=== PATIENT | male | born 1950 | race Caucasian/White ===

== ENCOUNTER 2017-10-24 12:02 | Emergency (ER) | payer MEDICARE ==
--- OUTSIDE RECORDS SUMMARY | 2017-10-24 13:10 | XMS REPORT ---
:1950 External Reference #:[id number] Author Organization [employer] Address [address] [address] Phone [phone] Care Team Providers Name Role Phone Layne Guadarrama MD Primary Care Physician Unavailable Payers Type Date Identification Numbers Payment Provider Subscriber Medicare Primary Policy Number: [id number] Medicare Colton Almazan [employer]co PayID: [id number] [address] [place] [address] [facility] Part B Policy Number: [id number] [facility] Colton Almazan Fco PayID: [id number] [address] [place] [address] Problems Date Description Provider Status Onset: 08/20/2012 Gout Brandin Boggs M.D. 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 Active & Unspec Onset: 02/04/2013 Blood chemistry abnormal Brandin Boggs M.D. Active Onset: 04/28/2013 Disorder of muscle Brandin Boggs M.D. Active Onset: 07/21/2013 Bursitis Brandin Boggs M.D. Active Onset: 11/10/2013 Spinal stenosis of lumbar region Brandin Boggs M.D. Active Onset: 04/27/2014 Idiopathic peripheral neuropathy Brandin Boggs M.D. Active Onset: 05/27/2014 Diabetic polyneuropathy Brandin Boggs M.D. Active Onset: 05/12/2017 Localized, primary osteoarthritis Hanna Wolfe M.D. 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 No Do you have problems with snoring, Day time fatigue? Uses Bi-PAP Allergies, Adverse Reactions, Alerts Date Description Reaction Status Severity Comments 03/05/2011 NKDA active Medications Medication Date Status Form Strength Qnty SIG Indications Ordering Provider Toprol XL 06/30 Active Tablets 25mg 90tab 1 by mouth I49.3 ER 24HR s every day Toma Gonzalez M.D. Bipap 06/22 Active Device use at at bedtime Vitamin B 100 06/20 Active Tablets 1 by mouth every day Toma Gonzalez M.D. Neurontin 05/27 Active Capsules 100mg 360ca 2 po hs prn ps pain, pt is Endo, taking M.D. daily Allopurinol 03/05 Active Tablets 300mg 30tab 1 po qd s Aaron Boggs Asa Active 325mg 30uni 1 po qd ts Pravastatin Sodium Active Tablets 40mg 30tab 1 tablet by / s mouth once daily at bedtime Losartan Potassium Active Tablets 100mg 1 by mouth every day Melatonin Active Capsules 3mg 1 tab by Unknown /0000 mouth every night at bedtime Hydrochlorothiazid Active Tablets 25mg 1 by mouth Unknown e every day Glucosamine Active Capsules 1500mg 1 by mouth Unknown Chondroitin 500 /0000 once a day Complex Vitamin B-12 Active Tablets 1000mcg 1 by mouth Unknown every day Metformin HCL ER Active Tablets 750mg 1 by mouth ER 24HR every day Vitamin D Active Chewtabs 2000Unit 2 by mouth Unknown every day Coenzyme Q-10 Active Capsules 100mg 1 by mouth Unknown every day Flector Active Patches 1.3% apply as needed for pain Xanax Active Tablets 1mg take 1/2-1 pills hs prn Ritalin Active 10 mg - 1 tab up to tid on empty stomach prn Viagra Active Tablets 100mg by mouth 0.5 or 1 tab up to every day as directed, no more than three days per week Diclofenac Sodium Active Tablets 75mg take 1 DR tablet twice a day with food as needed Amlodipine Active 5mg qd Unknown Coumadin 06/27 Hx Tablets 2mg 90tab take 1-3 s tabs by Aiden, - mouth at 5 M.D. 07/14 at night directed(pt has not started) Oxycodone-Acetamin 06/27 Hx Tablets 5-325mg 90tab 1-2 tabs by Hanna arenas s mouth every Aiden, - 4-6 hours M.D. 09/28 as needed for pain Stool Softener 06/27 Hx Capsules 100mg 90cap 1 by mouth s 2-3 times Aiden, - daily while M.D. 09/28 on narcotic /2017 pain medication Crestor 02/04 Hx Tablets 5mg 90tab 1 po qd s Ordering - Provider 07/21 Diclofenac Sodium 04/08 Hx Tablets 75mg 60tab 1 tab by Brandin COTTO /2011 s mouth twice Endo, - a day M.D. 05/11 Flector 09/03 Hx Patches 1.3% 60uni topical ts twice a day Endo, - M.D. 05/11 Pennsaid 07/02 Hx Solution 1.5% 150ml apply 40 bot drops to Endo, - painful M.D. 05/11 joints to qid Lidoderm 06/06 Hx Patches 5% 30uni one patch ts daily on Endo, - for 12 h M.D. 07/21 Diclofenac Sodium 03/05 Hx Tablets 75mg 90tab [address] cesar Boggs, - M.D. 09/03 Allopurinol 03/05 Hx Tablets 100mg 180ta Take one bs Tablets By Endo, - Mouth Every M.D. 06/29 Day addition to the 300 mg tab(Pt no longer taking) Viagra Hx Tablets 100mg 6tabs po 0.5 or 1 Unknown / tab 1h - before 05/11 Lisinopril Hx Tablets 40mg 30tab 1 po qd / s - 05/11 Neurontin Hx Capsules 100mg 360ca 3 qid ryan Boggs, - M.D. 05/27 Hydrochlorothiazid Hx Tablets 25mg 90tab 1 po qd Unknown e /0000 s - 04/28 Lipitor Hx Tablets 40mg 30tab 1 po qhs Unknown /0000 s - 08/20 Felodipine ER 00 Hx Tablets 5mg 90tab 1 po qd Unknown /0000 ER 24HR s - 06/10 Metformin HCL Hx Tablets 500mg 60tab 1 po qd Unknown /0000 s - 05/11 Vitamin B 00/00 Hx Unknown /0000 - 06/10 Hydrochlorothiazid 00 Hx Tablets 12.5mg 1 by mouth Unknown e / every day - 06/10 Vitamin D / Hx Capsules 4000mg Unknown /0000 - 06/10 Diclofenac Sodium Hx Solution 1.5% apply pea Unknown /0000 sized - amount to 07/14 area, 4 times a day as needed Fish Oil Hx Capsules 1000mg 1 by mouth Unknown /0000 every day - (pt no 06/29 taking) Felodipine ER 00/00 Hx Tablets 10mg 1 by mouth Unknown /0000 ER 24HR every day - 09/11 Glucophage 00/00 Hx Tablets 750mg 1 by mouth Unknown /0000 daily with - meal 06/18 Pennsaid 00 Hx Solution 2% apply 40 Unknown /0000 drops - daily to 06/18 low back prn pain Cialis Hx Tablets 10mg every day Unknown /0000 as needed - 06/29 Oxycodone-Acetamin Hx Tablets 2.5-325mg take 1 - 2 Unknown ophen /0000 tabs by - mouth every 09/28 4 - 6 hours /2017 Medications Administered in Office Medication Date Status Form Strength Qnty SIG Indications Ordering Provider Depomedrol Administered Injection Hanna 40MG 018 Aaron Wolfe Depomedrol Administered Injection Hanna 40MG 018 Aaron Wolfe Inj, Administered Injection Mejia Chua Regadenoson, 017 Aaron Gonzalez 0.1 MG Technetium TC Administered Injection Mejia Chua 99M 017 Aaron Gonzalez Tetrofosmin, Per Unit Dose Up To 40 Millicuries Celestone 3 mg Administered Injection Dorene and 3mg 013 Nicanor monk M.D. Depomedrol Administered Injection Hobler, 40MG 010 Jenae Basilio Vital Signs Date Vital Result Comment 10/17/2017 Height 73 inches 6'1" Weight 342.00 lb No shoes Heart Rate 74 /min BP Systolic Sitting 136 mmHg Lue lrg cuff BP Diastolic Sitting 66 mmHg Lue lrg cuff BP Systolic Standing 142 mmHg Lue lrg cuff BP Diastolic Standing 68 mmHg Lue lrg cuff Respiratory Rate 15 /min BMI (Body Mass Index) 45.1 kg/m2 Ejection Fraction 40-45% 06/25/2017-echo 09/29/2017 Height 73 inches 6'1" Weight 330.00 lb Heart Rate 46 /min BP Systolic Sitting 128 mmHg BP Diastolic Sitting 58 mmHg Respiratory Rate 14 /min O2 % BldC Oximetry 97 % BMI (Body Mass Index) 43.5 kg/m2 Neck Circumference in inches 19 09/12/2017 Height 73 inches 6'1" Weight 335.00 lb Heart Rate 60 /min BP Systolic 134 mmHg BP Diastolic 64 mmHg BMI (Body Mass Index) 44.2 kg/m2 07/15/2017 Height 71.25 inches 5'11.25" Weight 342.00 lb w/shoes Heart Rate 68 /min BP Systolic Sitting 112 mmHg LA lg cuff BP Diastolic Sitting 68 mmHg LA lg cuff BP Systolic Standing 116 mmHg LA lg cuff BP Diastolic Standing 70 mmHg LA lg cuff BMI (Body Mass Index) 47.4 kg/m2 Ejection Fraction 40-45% Echo 06/25/17 07/01/2017 Height 71.25 inches 5'11.25" Weight 343.00 lb w/ shoes Heart Rate 70 /min BP Systolic Sitting 138 mmHg lue large cuff BP Diastolic Sitting 58 mmHg lue large cuff Respiratory Rate 18 /min BMI (Body Mass Index) 47.5 kg/m2 Ejection Fraction 40-45% echo 06/25/17 06/30/2017 Height 71.25 inches 5'11.25" Weight 345.25 lb with shoes Heart Rate 64 /min BP Systolic Sitting 140 mmHg LA lrg cuff BP Diastolic Sitting 68 mmHg LA lrg cuff BMI (Body Mass Index) 47.8 kg/m2 Ejection Fraction 40%-45% echo 06/25/17 06/20/2017 Height 71.25 inches 5'11.25" Weight 339.00 lb no shoes Heart Rate 70 /min BP Systolic 130 mmHg Rue lrg cuff BP Diastolic 62 mmHg Rue lrg cuff BP Systolic Sitting 128 mmHg Lue lrg cuff BP Diastolic Sitting 60 mmHg Lue lrg cuff BP Systolic Standing 120 mmHg Lue lrg cuff BP Diastolic Standing 58 mmHg Lue lrg cuff Respiratory Rate 15 /min BMI (Body Mass Index) 46.9 kg/m2 Ejection Fraction 65% 04/22/2006-echo 06/18/2017 Height 73 inches 6'1" Weight 339.00 lb Heart Rate 52 /min BP Systolic 129 mmHg BP Diastolic 68 mmHg Body Temperature 96.7 F Pain Level 0 BMI (Body Mass Index) 44.7 kg/m2 05/12/2017 Height 73 inches 6'1" Weight 330.00 lb Heart Rate 63 /min BP Systolic 158 mmHg BP Diastolic 71 mmHg BMI (Body Mass Index) 43.5 kg/m2 05/27/2014 Height 73 inches 6'1" Weight 348.25 lb Heart Rate 66 /min BP Systolic Sitting 130 mmHg BP Diastolic Sitting 62 mmHg Pain Level 1 BMI (Body Mass Index) 45.9 kg/m2 04/27/2014 Height 73 inches 6'1" Weight 343.00 lb Heart Rate 64 /min irreg BP Systolic Sitting 132 mmHg BP Diastolic Sitting 60 mmHg Pain Level 3 BMI (Body Mass Index) 45.2 kg/m2 02/02/2014 Height 73 inches 6'1" Weight 347.00 lb Heart Rate 68 /min BP Systolic Sitting 134 mmHg BP Diastolic Sitting 54 mmHg Pain Level 0 BMI (Body Mass Index) 45.8 kg/m2 11/10/2013 Height 73 inches 6'1" Weight 345.00 lb Heart Rate 54 /min irregular BP Systolic Sitting 130 mmHg BP Diastolic Sitting 86 mmHg BMI (Body Mass Index) 45.5 kg/m2 07/21/2013 Height 73 inches 6'1" Weight 346.00 lb Heart Rate 68 /min BP Systolic Sitting 144 mmHg BP Diastolic Sitting 70 mmHg BMI (Body Mass Index) 45.6 kg/m2 04/28/2013 Height 73 inches 6'1" Weight 335.00 lb Heart Rate 68 /min skipped beat [id number] BP Systolic 128 mmHg BP Diastolic 78 mmHg BMI (Body Mass Index) 44.2 kg/m2 03/19/2013 Height 73 inches 6'1" Weight 335.00 lb Heart Rate 73 /min BP Systolic 121 mmHg BP Diastolic 61 mmHg BMI (Body Mass Index) 44.2 kg/m2 02/04/2013 Height 70 inches 5'10" Weight 337.00 lb Heart Rate 81 /min BP Systolic Sitting 140 mmHg BP Diastolic Sitting 68 mmHg BMI (Body Mass Index) 48.3 kg/m2 08/20/2012 Height 70 inches 5'10" Weight 340.00 lb Heart Rate 82 /min BP Systolic Sitting 128 mmHg BP Diastolic Sitting 68 mmHg BMI (Body Mass Index) 48.8 kg/m2 09/03/2011 Weight 345.00 lb Heart Rate 76 /min BP Systolic 134 mmHg BP Diastolic 64 mmHg 03/05/2011 Heart Rate 80 /min BP Systolic 130 mmHg BP Diastolic 72 mmHg Results Test Date Test Result H/L Range Note Basic Metabolic Panel 07/09/2017 Sodium 138 mmol/L 133-145 Potassium 3.9 mmol/L 3.5-5.0 Chloride 105 mmol/L 101-111 Co2 Carbon Dioxide 24 mmol/L 22-32 Anion Gap 9 mmol/L 2-11 Glucose 110 mg/dL High 70-100 Blood Urea Nitrogen 25 mg/dL High 6-24 Creatinine 1.29 mg/dL High 0.67-1.17 BUN/Creatinine Ratio 19.4 8-20 Calcium 9.1 mg/dL 8.6-10.3 Egfr Non- 55.2 >60 Egfr 71.0 >60 1 Pre Cath Panel 07/03/2017 Partial Thrombo Time PTT 31.8 seconds 26.0- 36.3 CBC Auto Diff 07/03/2017 White Blood Count 9.7 10^3/uL 3.5-10.8 Red Blood Count 4.61 10^6/uL 4.0-5.4 Hemoglobin 13.6 g/dL Low 14.0-18.0 Hematocrit 40 % Low 42-52 Mean Corpuscular Volume 87 fL 80-94 Mean Corpuscular Hemoglobin 30 pg 27-31 Mean Corpuscular HGB Conc 34 g/dL 31-36 Red Cell Distribution Width 16 % High 10.5-15 Platelet Count 170 10^3/uL 150-450 Mean Platelet Volume 8 um3 7.4-10.4 Abs Neutrophils 6.4 10^3/uL 1.5-7.7 Abs Lymphocytes 2.5 10^3/uL 1.0-4.8 Abs Monocytes 0.5 10^3/uL 0-0.8 Abs Eosinophils 0.2 10^3/uL 0-0.6 Abs Basophils 0.1 10^3/uL 0-0.2 Abs Nucleated RBC 0.01 10^3/uL Granulocyte % 66.3 % 38-83 Lymphocyte % 25.6 % 25-47 Monocyte % 5.6 % 1-9 Eosinophil % 1.9 % 0-6 Basophil % 0.6 % 0-2 Nucleated Red Blood Cells % 0.1 Inr/Protime 07/03/2017 Inr 0.97 0.89-1.11 Basic Metabolic Panel 07/03/2017 Sodium 139 mmol/L 133-145 Potassium 4.1 mmol/L 3.5-5.0 Chloride 104 mmol/L 101-111 Co2 Carbon Dioxide 26 mmol/L 22-32 Anion Gap 9 mmol/L 2-11 Glucose 101 mg/dL High 70-100 Blood Urea Nitrogen 24 mg/dL 6-24 Creatinine 1.07 mg/dL 0.67-1.17 BUN/Creatinine Ratio 22.4 High 8-20 Calcium 9.8 mg/dL 8.6-10.3 Egfr Non- 68.7 >60 Egfr 88.4 >60 2 Inr/Protime 06/18/2017 Inr 0.96 0.89-1.11 3 Laboratory test finding 06/18/2017 Partial Thrombo Time 32.3 seconds 26.0 -36.3 3, 4 PTT Type & Screen 06/18/2017 Patient Blood Type A Positive 3 Antibody Screen NEGATIVE 3 CBC No Diff 05/05/2014 White Blood Count 7.5 10^3/uL 4.8-10.8 5 Red Blood Count 4.52 10^6/uL 4.0-5.4 5 Hemoglobin 13.3 g/dL Low 14.0-18.0 5 Hematocrit 39 % Low 42-52 5 Mean Corpuscular Volume 87 fL 80-94 5 Mean Corpuscular Hemoglobin 29 pg 27-31 5 Mean Corpuscular HGB Conc 34 g/dL 31-36 5 Red Cell Distribution Width 15 % 10.5-15 5 Platelet Count 166 10^3/uL 150-450 5 Mean Platelet Volume 8 um3 7.4-10.4 5 Comp Metabolic Panel 05/05/2014 Sodium 140 mmol/L 133-145 5 Potassium 4.3 mmol/L 3.7-5.6 5 Chloride 109 mmol/L 101-111 5 Co2 Carbon Dioxide 23 mmol/L 22-32 5 Anion Gap 8 mmol/L 2-11 5 Glucose 113 mg/dL High 70-100 5 Blood Urea Nitrogen 20 mg/dL 6-24 5 Creatinine 0.99 mg/dL 0.67-1.17 5 BUN/Creatinine Ratio 20.2 High 8-20 5 Calcium 9.2 mg/dL 8.6-10.3 5 Total Protein 6.8 g/dL 6.4-8.9 5 Albumin 4.0 g/dL 3.2-5.2 5 Globulin 2.8 g/dL 2-4 5 Albumin/Globulin Ratio 1.4 1-3 5 Total Bilirubin 0.60 mg/dL 0.2-1.0 5 Alkaline Phosphatase 55 U/L 34-104 5 Alt 27 U/L 7-52 5 Ast 42 U/L High 13-39 5 Egfr Non- 75.9 >60 5 Egfr 97.6 >60 5, 6 Lipid Profile (Trig/Chol/HDL) 05/05/2014 Triglycerides 117 mg/dL 5, 7 Cholesterol 171 mg/dL 5, 8 HDL Cholesterol 38.5 mg/dL 5, 9 LDL Cholesterol 109 mg/dL 5, 10 Laboratory test finding 05/05/2014 Creatine Kinase 155 U/L 10-223 5, 11 Hemoglobin A1c 6.1 % High Less than 6.0 5, 12 Vitamin D, 25 Hydroxy 05/05/2014 25-Hydroxy Vitamin D2 <4.0 ng/mL 5 25-Hydroxy Vitamin D3 35 ng/mL 5 25-Hydroxy Vitamin D Total 35 ng/mL 5, 13 CBC Auto Diff 04/25/2014 White Blood Count 8.5 10^3/uL 4.8-10.8 Red Blood Count 4.60 10^6/uL 4.0-5.4 Hemoglobin 13.6 g/dL Low 14.0-18.0 Hematocrit 40 % Low 42-52 Mean Corpuscular Volume 87 fL 80-94 Mean Corpuscular Hemoglobin 30 pg 27-31 Mean Corpuscular HGB Conc 34 g/dL 31-36 Red Cell Distribution Width 15 % 10.5-15 Platelet Count 169 10^3/uL 150-450 Mean Platelet Volume 8 um3 7.4-10.4 Abs Neutrophils 5.8 10^3/uL 1.5-7.7 Abs Lymphocytes 2.1 10^3/uL 1.0-4.8 Abs Monocytes 0.4 10^3/uL 0-0.8 Abs Eosinophils 0.2 10^3/uL 0-0.6 Abs Basophils 0.1 10^3/uL 0-0.2 Abs Nucleated RBC 0.01 10^3/uL Granulocyte % 67.3 % 38-83 Lymphocyte % 25.0 % 25-47 Monocyte % 4.9 % 1-9 Eosinophil % 1.9 % 0-6 Basophil % 0.9 % 0-2 Nucleated Red Blood Cells % 0.1 Comp Metabolic Panel 04/25/2014 Sodium 136 mmol/L 133-145 Potassium 4.3 mmol/L 3.7-5.6 Chloride 105 mmol/L 101-111 Co2 Carbon Dioxide 24 mmol/L 22-32 Anion Gap 7 mmol/L 2-11 Glucose 124 mg/dL High 70-100 Blood Urea Nitrogen 19 mg/dL 6-24 Creatinine 1.04 mg/dL 0.67-1.17 BUN/Creatinine Ratio 18.3 8-20 Calcium 9.2 mg/dL 8.6-10.3 Total Protein 7.0 g/dL 6.4-8.9 Albumin 4.0 g/dL 3.2-5.2 Globulin 3.0 g/dL 2-4 Albumin/Globulin Ratio 1.3 1-3 Total Bilirubin 0.60 mg/dL 0.2-1.0 Alkaline Phosphatase 54 U/L 34-104 Alt 26 U/L 7-52 Ast 39 U/L 13-39 Egfr Non- 71.7 >60 Egfr 92.2 >60 14 Laboratory test finding 04/25/2014 C Reactive Protein 9.65 mg/L High < 5.00 15 Creatine Kinase 134 U/L 10-223 Erythrocyte Sed Rate 38 mm/Hr 0-40 Myositis AB Panel 04/25/2014 Mi-[address] Antibody Negative Negative [address]-12 Antibody Negative Negative Ej Antibody Negative Negative Oj Antibody Negative Negative Ku Antibody Weak Positive Negative SRP Antibody Negative Negative U2-nRNP Antibody Negative Negative 16 CBC Auto Diff 12/21/2013 White Blood Count 8.3 10^3/uL 4.8-10.8 Red Blood Count 4.46 10^6/uL 4.0-5.4 Hemoglobin 13.1 g/dL Low 14.0-18.0 Hematocrit 39 % Low 42-52 Mean Corpuscular Volume 86 fL 80-94 Mean Corpuscular Hemoglobin 29 pg 27-31 Mean Corpuscular HGB Conc 34 g/dL 31-36 Red Cell Distribution Width 16 % High 10.5-15 Platelet Count 152 10^3/uL 150-450 Mean Platelet Volume 9 um3 7.4-10.4 Abs Neutrophils 5.2 10^3/uL 1.5-7.7 Abs Lymphocytes 2.4 10^3/uL 1.0-4.8 Abs Monocytes 0.5 10^3/uL 0-0.8 Abs Eosinophils 0.2 10^3/uL 0-0.6 Abs Basophils 0 10^3/uL 0-0.2 Abs Nucleated RBC 0 10^3/uL Granulocyte % 62.5 % 38-83 Lymphocyte % 29.1 % 25-47 Monocyte % 5.9 % 1-9 Eosinophil % 2.1 % 0-6 Basophil % 0.4 % 0-2 Nucleated Red Blood Cells % 0 Laboratory test finding 12/21/2013 C Reactive Protein 10.54 mg/L High &lt ; 5.00 17 Erythrocyte Sed Rate 43 mm/Hr High 0-40 Uric Acid 5.5 mg/dL 4.4-7.6 Comp Metabolic Panel 12/21/2013 Sodium 138 mmol/L 133-145 Potassium 4.2 mmol/L 3.7-5.6 Chloride 107 mmol/L 101-111 Co2 Carbon Dioxide 25 mmol/L 22-32 Anion Gap 6 mmol/L 2-11 Glucose 103 mg/dL High 70-100 Blood Urea Nitrogen 23 mg/dL 6-24 Creatinine 1.09 mg/dL 0.67-1.17 BUN/Creatinine Ratio 21.1 High 8-20 Calcium 9.2 mg/dL 8.6-10.3 Total Protein 6.9 g/dL 6.4-8.9 Albumin 4.1 g/dL 3.2-5.2 Globulin 2.8 g/dL 2-4 Albumin/Globulin Ratio 1.5 1-3 Total Bilirubin 0.50 mg/dL 0.2-1.0 Alkaline Phosphatase 54 U/L 34-104 Alt 22 U/L 7-52 Ast 41 U/L High 13-39 Egfr Non- 67.9 >60 Egfr 87.3 >60 18 Lipid Profile (Trig/Chol/HDL) 12/21/2013 Triglycerides 147 mg/dL 19 Cholesterol 185 mg/dL 20 HDL Cholesterol 40.0 mg/dL 21 LDL Cholesterol 116 mg/dL 22 Laboratory test 12/21/2013 Creatine Kinase 233 U/L High 10-223 finding Laboratory test 12/21/2013 Hemoglobin A1c 5.8 % Less than 6.0 23 finding CBC Auto Diff 10/29/2013 White Blood Count 8.4 10^3/uL 4.8-10.8 Red Blood Count 4.57 10^6/uL 4.0-5.4 Hemoglobin 13.5 g/dL Low 14.0-18.0 Hematocrit 39 % Low 42-52 Mean Corpuscular Volume 85 fL 80-94 Mean Corpuscular Hemoglobin 30 pg 27-31 Mean Corpuscular HGB Conc 35 g/dL 31-36 Red Cell Distribution Width 15 % 10.5-15 Platelet Count 174 10^3/uL 150-450 Mean Platelet Volume 9 um3 7.4-10.4 Abs Neutrophils 5.1 10^3/uL 1.5-7.7 Abs Lymphocytes 2.5 10^3/uL 1.0-4.8 Abs Monocytes 0.4 10^3/uL 0-0.8 Abs Eosinophils 0.2 10^3/uL 0-0.6 Abs Basophils 0.1 10^3/uL 0-0.2 Abs Nucleated RBC 0.01 10^3/uL Granulocyte % 61.1 % 38-83 Lymphocyte % 30.2 % 25-47 Monocyte % 5.2 % 1-9 Eosinophil % 2.8 % 0-6 Basophil % 0.7 % 0-2 Nucleated Red Blood Cells % 0.1 Comp Metabolic Panel 10/29/2013 Sodium 139 mmol/L 133-145 Potassium 4.1 mmol/L 3.7-5.6 Chloride 106 mmol/L 101-111 Co2 Carbon Dioxide 25 mmol/L 22-32 Anion Gap 8 mmol/L 2-11 Glucose 103 mg/dL High 70-100 Blood Urea Nitrogen 19 mg/dL 6-24 Creatinine 1.05 mg/dL 0.67-1.17 BUN/Creatinine Ratio 18.1 8-20 Calcium 9.1 mg/dL 8.6-10.3 Total Protein 6.9 g/dL 6.4-8.9 Albumin 4.0 g/dL 3.2-5.2 Globulin 2.9 g/dL 2-4 Albumin/Globulin Ratio 1.4 1-3 Total Bilirubin 0.50 mg/dL 0.2-1.0 Alkaline Phosphatase 51 U/L 34-104 Alt 32 U/L 7-52 Ast 46 U/L High 13-39 Egfr Non- 70.9 >60 Egfr 91.2 >60 24 Laboratory test finding 10/29/2013 C Reactive Protein 5.56 mg/L 25 Erythrocyte Sed Rate 41 mm/Hr High 0-40 Laboratory test finding 10/29/2013 Uric Acid 5.2 mg/dL 4.4-7.6 Lipid Profile (Trig/Chol/HDL) 10/29/2013 Triglycerides 147 mg/dL 26 Cholesterol 188 mg/dL 27 HDL Cholesterol 40.2 mg/dL 28 LDL Cholesterol 118 mg/dL 29 Laboratory test finding 10/29/2013 Alt 32 U/L 7-52 Ast 45 U/L High 13-39 Creatine Kinase 114 U/L 10-223 Vitamin B12 417 pg/mL 180-914 30 Lipid Profile (Trig/Chol/HDL) 08/20/2013 Triglycerides 144 mg/dL 40-200 Cholesterol 213 mg/dL High Less than 200 HDL Cholesterol 44 mg/dL 40-60 31 Cholesterol/HDL Ratio 4.8 Average High 1-4.44 LDL Cholesterol 140.2 High Less Than 100 32 Laboratory test finding 08/20/2013 Alt 33 U/L 14-54 Ast 50 U/L High 12-42 Creatine Kinase 158 U/L 0-200 Vitamin B12 274 pg/mL 180-914 Laboratory test finding 06/22/2013 Creatine Kinase 164 U/L 0-200 Laboratory test finding 06/22/2013 C Reactive Protein 1.0 mg/dL High Less than 0.5 Uric Acid 5.4 mg/dL 2.6-7.2 Erythrocyte Sed Rate 56 mm/Hr High 0-20 CBC No Diff 06/22/2013 White Blood Count 8.1 10^3/uL 4.8-10.8 Red Blood Count 4.53 10^6/uL 4.0-5.4 Hemoglobin 13.0 g/dL Low 14.0-18.0 Hematocrit 40 % Low 42-52 Mean Corpuscular Volume 88 fL 80-94 Mean Corpuscular Hemoglobin 29 pg 27-31 Mean Corpuscular HGB Conc 32 g/dL 31-36 Red Cell Distribution Width 15 % 10.5-15 Platelet Count 177 10^3/uL 150-450 Mean Platelet Volume 8 um3 7.4-10.4 Comp Metabolic Panel 06/22/2013 Sodium 139 mmol/L 133-145 Potassium 4.3 mmol/L 3.5-5.0 Chloride 106 mmol/L 101-111 Co2 Carbon Dioxide 26.0 mmol/L 22-32 Anion Gap 7.0 mmol/L 2-11 Glucose 104 mg/dL High 70-100 Blood Urea Nitrogen 16 mg/dL 6-24 Creatinine 1.00 mg/dL 0.50-1.40 BUN/Creatinine Ratio 16.0 8-20 Calcium 9.3 mg/dL 8.1-9.9 Total Protein 6.6 g/dL 6.2-8.1 Albumin 3.9 g/dL 3.2-5.2 Globulin 2.7 g/dL 2-4 Albumin/Globulin Ratio 1.4 1-3 Total Bilirubin 0.8 mg/dL 0.4-1.5 Alkaline Phosphatase 56 U/L 30-110 Alt 32 U/L 14-54 Ast 48 U/L High 12-42 Egfr Non- 75.2 >60 Egfr 96.7 >60 33 Lipid Profile (Trig/Chol/HDL) 06/22/2013 Triglycerides 151 mg/dL 40-200 Cholesterol 252 mg/dL High Less than 200 HDL Cholesterol 42 mg/dL 40-60 34 Cholesterol/HDL Ratio 6.0 Average High 1-4.44 LDL Cholesterol 179.8 High Less Than 100 35 Laboratory test finding 06/22/2013 Hemoglobin A1c 6.1 % High Less than 6.0 36 Vitamin B12 322 pg/mL 180-914 Free T4 0.90 ng/mL 0.61-1.24 TSH (Thyroid Stimulating Horm) 1.04 miu/mL 0.34-5.60 Laboratory test finding 02/04/2013 PSA Diagnostic 2.65 ng/mL 0-4.0 37 Immunofixation (Electro) Serum 02/04/2013 Albumin (Pep) 3.43 g/dL 3.0- 4.35 Alpha 1 Globulins 0.21 g/dL 0.09-0.33 Alpha 2 Globulin 0.86 g/dL 0.59-1.18 Beta Globulin 0.83 g/dL 0.68-1.02 Gamma Globulin 1.37 g/dL 0.76-1.60 Albumin % (Pep) 51.2 % 46-63 Alpha 1 Globulins % 3.1 % 1.2-5.3 Alpha 2 Globulin % 12.8 % 9-17 Beta Globulin % 12.4 % 10-16 Gamma Globulin % 20.4 % 12-22 Albumin/Globulin Ratio 1.0 0.9-2.0 Total Protein (Pep) 6.7 g/dL 6.2-8.1 Spep Comments (SEE NOTE) 38 Serum Immunofixation (SEE NOTE) 39 Laboratory test finding 02/04/2013 Creatine Kinase 304 U/L High 0-200 Laboratory test finding 02/04/2013 Uric Acid 4.5 mg/dL 2.6-7.2 TSH (Thyroid Stimulating Horm) 0.93 miu/mL 0.34-5.60 Free T4 0.75 ng/mL 0.61-1.24 Comp Metabolic Panel 02/04/2013 Sodium 138 mmol/L 133-145 Potassium 4.2 mmol/L 3.5-5.0 Chloride 108 mmol/L 101-111 Co2 Carbon Dioxide 26.0 mmol/L 22-32 Anion Gap 4.0 mmol/L 2-11 Glucose 106 mg/dL High 70-100 Blood Urea Nitrogen 20 mg/dL 6-24 Creatinine 0.90 mg/dL 0.50-1.40 BUN/Creatinine Ratio 22.2 High 8-20 Calcium 9.4 mg/dL 8.1-9.9 Total Protein 6.4 g/dL 6.2-8.1 Albumin 3.7 g/dL 3.2-5.2 Globulin 2.7 g/dL 2-4 Albumin/Globulin Ratio 1.4 1-3 Total Bilirubin 0.6 mg/dL 0.4-1.5 Alkaline Phosphatase 58 U/L 30-110 Alt 38 U/L 14-54 Ast 56 U/L High 12-42 Egfr Non- 85.0 >60 Egfr 109.3 >60 40 Laboratory test finding 02/04/2013 Erythrocyte Sed Rate 42 mm/Hr High 0- 20 C Reactive Protein 0.7 mg/dL High Less than 0.5 CK Isoenzymes 02/04/2013 Creatine Kinase 329 U/L 52 - 336 CK Isoenzymes See Comment 41 Creatine Kinase mm 100% Creatine Kinase MB 0% Creatine Kinase BB 0% 42 Laboratory test finding 08/27/2012 Creatine Kinase 304 U/L High 0-200 43 Laboratory test finding 08/27/2012 C Reactive Protein 1.3 mg/dL High Less than 0.5 Uric Acid 4.7 mg/dL 2.6-7.2 Erythrocyte Sed Rate 57 mm/Hr High 0-20 Laboratory test finding 02/12/2010 Erythrocyte Sed Rate 62 MM/HR High 0- 20 Cyclic Citrullinated Pep Igg <15.6 U () 44 CBC With Electronic Diff 02/12/2010 White Blood Count 8.7 CUMM 4.8-10.8 Red Cell Count 4.24 CUMM Low 4.6-6.2 Hemoglobin 12.5 g/dL Low 14.0-18.0 Hematocrit 37 % Low 42-52 Mean Corpuscular Volume 87 um3 80-94 Mean Corpuscular Hemoglob 29 pg 27-31 Mean Corpuscular HGB Cone 34 g/dL 32-36 Redcell Distribution WDTH 15 % 10.5-15 Platelet Count 204 CUMM 150-450 Mean Platelet Volume 8.0 um3 7.4-10.4 Gran % 66.6 % 38-83 Lymph % 25.9 % 25-47 Mononuclear % 4.8 % 1-9 Eosinophil % 2.3 % 0-6 Basophil % 0.4 % 0-2 Abs Lymphs 2.2 1.0-4.8 Abs Mononuclear 0.4 0-0.8 Absolute Neutrophil Count 5.8 1.5-7.7 Abs Eosinophils 0.2 0-0.6 Abs Basophils 0 0-0.2 Laboratory test finding 02/12/2010 Rheumatoid Factor < 20.0 IU/mL Less Than 20 1 Because ethnic data is not always readily available, this report includes an eGFR for both -Americans and non- Americans. The National Kidney Disease Education Program (NKDEP) does not endorse the use of the MDRD equation for patients that are not between the ages of 18 and 70, are , have extremes of body size, muscle mass, or nutritional status, or are non- or non-. According to the National Kidney Foundation, irrespective of diagnosis, the stage of the disease is based on the level of kidney function: Stage Description GFR(mL/min/1.73 m(2)) 1 Kidney damage with normal or decreased GFR 90 2 Kidney damage with mild decrease in GFR 60-89 3 Moderate decrease in GFR 30-59 4 Severe decrease in GFR 15-29 5 Kidney failure <15 (or dialysis) 2 Because ethnic data is not always readily available, this report includes an eGFR for both -Americans and non- Americans. The National Kidney Disease Education Program (NKDEP) does not endorse the use of the MDRD equation for patients that are not between the ages of 18 and 70, are , have extremes of body size, muscle mass, or nutritional status, or are non- or non-. According to the National Kidney Foundation, irrespective of diagnosis, the stage of the disease is based on the level of kidney function: Stage Description GFR(mL/min/1.73 m(2)) 1 Kidney damage with normal or decreased GFR 90 2 Kidney damage with mild decrease in GFR 60-89 3 Moderate decrease in GFR 30-59 4 Severe decrease in GFR 15-29 5 Kidney failure <15 (or dialysis) 3 AA 07/01 4 AA 07/01 5 FASTING 6 Because ethnic data is not always readily available, this report includes an eGFR for both -Americans and non- Americans. The National Kidney Disease Education Program (NKDEP) does not endorse the use of the MDRD equation for patients that are not between the ages of 18 and 70, are , have extremes of body size, muscle mass, or nutritional status, or are non- or non-. According to the National Kidney Foundation, irrespective of diagnosis, the stage of the disease is based on the level of kidney function: Stage Description GFR(mL/min/1.73 m(2)) 1 Kidney damage with normal or decreased GFR 90 2 Kidney damage with mild decrease in GFR 60-89 3 Moderate decrease in GFR 30-59 4 Severe decrease in GFR 15-29 5 Kidney failure <15 (or dialysis) 7 Desirable <150 Borderline high 150-199 High 200-499 Very High >500 8 Desirable <200 Borderline high 200-239 High >239 9 Low <40 Desirable: 40-60 High: >60 10 Desirable <100 Near Optimal 100-129 Borderline high 130-159 High 160-189 Very High >189 11 FASTING 12 Therapeutic target for the treatment of diabetes Mellitus patients is <7% HBA1C, and in selective patients <6.0%.Please refer to [place] [employer] Diabetic care guidelines for further information. 13 -- REFERENCE VALUE -- 25-HYDROXY D TOTAL (D2+D3) Optimum levels in the healthy population are 20-50, patients with bone disease may benefit from higher levels within this range. Test Performed by: [facility] [address] [address] Brick Paver: Benny Dodge III, M.D. 14 Because ethnic data is not always readily available, this report includes an eGFR for both -Americans and non- Americans. The National Kidney Disease Education Program (NKDEP) does not endorse the use of the MDRD equation for patients that are not between the ages of 18 and 70, are , have extremes of body size, muscle mass, or nutritional status, or are non- or non-. According to the National Kidney Foundation, irrespective of diagnosis, the stage of the disease is based on the level of kidney function: Stage Description GFR(mL/min/1.73 m(2)) 1 Kidney damage with normal or decreased GFR 90 2 Kidney damage with mild decrease in GFR 60-89 3 Moderate decrease in GFR 30-59 4 Severe decrease in GFR 15-29 5 Kidney failure <15 (or dialysis) 15 Acute inflammation: >10.00 16 EIA Interpretation: Negative <20 Units Weak Positive 20-39 Units Moderate Positive 40-80 Units Strong Positive >80 Units The immunoprecipitation (IPP) tests were developed and their performance characteristics validated by [facility]. The FDA has determined that approval for these tests is not necessary. These are analyte specific reagent (ASR) tests. Test Performed by: [facility] [id number] [facility] [place] [address] 17 Acute inflammation: >10.00 18 Because ethnic data is not always readily available, this report includes an eGFR for both -Americans and non- Americans. The National Kidney Disease Education Program (NKDEP) does not endorse the use of the MDRD equation for patients that are not between the ages of 18 and 70, are , have extremes of body size, muscle mass, or nutritional status, or are non- or non-. According to the National Kidney Foundation, irrespective of diagnosis, the stage of the disease is based on the level of kidney function: Stage Description GFR(mL/min/1.73 m(2)) 1 Kidney damage with normal or decreased GFR 90 2 Kidney damage with mild decrease in GFR 60-89 3 Moderate decrease in GFR 30-59 4 Severe decrease in GFR 15-29 5 Kidney failure <15 (or dialysis) 19 Desirable <150 Borderline high 150-199 High 200-499 Very High >500 20 Desirable <200 Borderline high 200-239 High >239 21 Low <40 Desirable: 40-60 High: >60 22 Desirable <100 Near Optimal 100-129 Borderline high 130-159 High 160-189 Very High >189 23 Therapeutic target for the treatment of diabetes Mellitus patients is <7% HBA1C, and in selective patients <6.0%.Please refer to [place] [employer] Diabetic care guidelines for further information. 24 Because ethnic data is not always readily available, this report includes an eGFR for both -Americans and non- Americans. The National Kidney Disease Education Program (NKDEP) does not endorse the use of the MDRD equation for patients that are not between the ages of 18 and 70, are , have extremes of body size, muscle mass, or nutritional status, or are non- or non-. According to the National Kidney Foundation, irrespective of diagnosis, the stage of the disease is based on the level of kidney function: Stage Description GFR(mL/min/1.73 m(2)) 1 Kidney damage with normal or decreased GFR 90 2 Kidney damage with mild decrease in GFR 60-89 3 Moderate decrease in GFR 30-59 4 Severe decrease in GFR 15-29 5 Kidney failure <15 (or dialysis) 25 Low risk: <1.0 mg/L Average risk: 1.0-3.0 mg/L High risk: >3.0 mg/L Acute inflammation: >10.0 mg/L 26 Desirable <150 Borderline high 150-199 High 200-499 Very High >500 27 Desirable <200 Borderline high 200-239 High >239 28 Low <40 Desirable: 40-60 High: >60 29 Desirable <100 Near Optimal 100-129 Borderline high 130-159 High 160-189 Very High >189 30 Normal Range 180 to 914 Indeterminate Range 145 to 180 Deficient Range <145 31 HDL Interpretation: Undesirable: High Risk: Less than 40 mg/dL Desirable: Low Risk: Greater than 60 mg/dL 32 LDL Interpretation: Low Risk Optimal Level: LDL Less than 100 mg/dL Near or Above Optimal: LDL 100-129 mg/dL Borderline High Risk: LDL 130-159 mg/dL High Risk: LDL 160-189 mg/dL Very High Risk: LDL Greater than 189 mg/dL 33 Because ethnic data is not always readily available, this report includes an eGFR for both -Americans and non- Americans. The National Kidney Disease Education Program (NKDEP) does not endorse the use of the MDRD equation for patients that are not between the ages of 18 and 70, are , have extremes of body size, muscle mass, or nutritional status, or are non- or non-. According to the National Kidney Foundation, irrespective of diagnosis, the stage of the disease is based on the level of kidney function: Stage Description GFR(mL/min/1.73 m(2)) 1 Kidney damage with normal or decreased GFR 90 2 Kidney damage with mild decrease in GFR 60-89 3 Moderate decrease in GFR 30-59 4 Severe decrease in GFR 15-29 5 Kidney failure <15 (or dialysis) 34 HDL Interpretation: Undesirable: High Risk: Less than 40 mg/dL Desirable: Low Risk: Greater than 60 mg/dL 35 LDL Interpretation: Low Risk Optimal Level: LDL Less than 100 mg/dL Near or Above Optimal: LDL 100-129 mg/dL Borderline High Risk: LDL 130-159 mg/dL High Risk: LDL 160-189 mg/dL Very High Risk: LDL Greater than 189 mg/dL 36 Therapeutic target for the treatment of diabetes Mellitus patients is <7% HBA1C, and in selective patients <6.0%.Please refer to [place] [employer] Diabetic care guidelines for further information. 37 Serum levels of PSA measured using the [employer] DXI Hybritech immunoassay should not be interpreted as absolute evidence of the presence or absence of disease. The PSA value should be used in conjunction with other pertinent clinical diagnostic procedures. The values obtained with different assay methods or kits cannot be used interchangeably. 38 Normal serum electrophoretic pattern. 39 Normal serum immunofixation electrophoretic pattern. No monoclonal protein detected. 40 Because ethnic data is not always readily available, this report includes an eGFR for both -Americans and non- Americans. The National Kidney Disease Education Program (NKDEP) does not endorse the use of the MDRD equation for patients that are not between the ages of 18 and 70, are , have extremes of body size, muscle mass, or nutritional status, or are non- or non-. According to the National Kidney Foundation, irrespective of diagnosis, the stage of the disease is based on the level of kidney function: Stage Description GFR(mL/min/1.73 m(2)) 1 Kidney damage with normal or decreased GFR 90 2 Kidney damage with mild decrease in GFR 60-89 3 Moderate decrease in GFR 30-59 4 Severe decrease in GFR 15-29 5 Kidney failure <15 (or dialysis) 41 RESULT: If CK result is <100, isoenzyme will not be performed. Test Performed by: [place] [address] Brick Paver: Benny Dodge III, M.D. 42 Test Performed by: [place] [address] Brick Paver: Benny Dodge III, M.D. 43 @ Ordering doctor for CK edited from [id number] to [id number] @ by [email or web address] at 08/27/12 1705 @ Submitting doctor edited from [id number] to [id number] @ by [email or web address] at 08/27/12 1705 44 -- REFERENCE VALUE -- <20.0 (Negative) 20.0-39.9 (Weak Positive) 40.0-59.9 (Positive) >=60.0 (Strong Positive) Test Performed by: [facility] [address] [place] [address] Brick Paver: Benny Dodge III, M.D. Procedures Date CPT Code Description Status 10/17/2017 64339 EKG Tracing & Interpretation Completed 09/12/2017 63113 Inject/Drain Joint/Bursa Major Completed 07/07/2017 89440 Left Heart Cath. Incl S/I Coronaries, Angio S/I V Gram Completed If Done 06/27/2017 77235 Stress Test Completed 06/27/2017 34498 Myocardial Perfusion Imaging Tomographic (Spect) Completed Multiple Studies 06/25/2017 22885 ECHO Transthorasic Realtime 2D W Doppler & Color Completed Flow Hosp 06/23/2017 94406 Holter Monitor Review (24 hr)dr lay & dory Completed only 06/20/2017 56918 EKG Tracing & Interpretation Completed 06/20/2017 37217 ECG Monitor/Recording W/Visual Superimposition Scanning Completed 06/20/2017 00015 ECG Monitor/Recording W/Visual Superimposition Scanning Completed 04/01/2014 91642 Nerve Conduction 03-04 Studies Completed 04/01/2014 91474 Needle Electromyography Each Extremity W/Related Completed Paraspinal Areas 03/19/2013 68531 Inject Tendon Sheath Or Ligament Aponeurosis Eg Plantar Completed Fascia 03/02/201052402 Inject/Drain Joint/Bursa Major Completed 02/16/2010 76646 Rad Exam; Hip Unilat Completed 02/16/2010 75545 Rad Exam; Pelvis Completed 09/10/2007 78015 Endoscopy Wrist Surg W/Release Of Transverse Carpal Completed Ligament Encounters Type Date Location Provider CPT E/M Dx Office Visit 10/17[facility]2017 [facility] [address] I49.3 9:00a [facility] Aaron I42.9 Office Visit 09/29/2017 8:30a [facility] [address] G47.33 Services Of [facility] E66.09 Z68.41 Office Visit 07/15/2017 1:30p [facility] [address] [facility]3 [facility] 07/01/2017 2:30p [facility] [address] I49.3 [facility] I47.2 Office Visit 06/30/2017 1:30p [facility] EDDA Ritter 04592 I49.3 I10 I42.9 R94.31 Office Visit 06/20/2017 1:00p [facility] Of [facility] Mejia Gonzalez, 025[address] I10 M.DHali R94.31 I49.3 Z01.810 M17.0 Office Visit 05/12/2017 2:30p Orth[facility] Of Hanna Wolfe M.D. 06231 M25.562 C.M.A. M25.561 M25.462 M25.461 M17.0 Office Visit 05/27/2014 2:00p Rheumatology Services Brandin Boggs, 52332 724.02 Of [facility] Aaron 274.9 357.2 359.9 Office Visit 04/27/2014 10:20a Rheumatology Services Brandin Boggs, 76466 724.02 Of [facility] Aaron 274.9 359.9 356.8 Office Visit 02/02/2014 1:20p Rheumatology Services Brandin oBggs, 74136 724.02 Of [facility] Aaron 274.9 790.6 359.9 Office Visit 11/10/2013 10:40a Rheumatology Services Brandin Boggs, 48266 724.02 Of Social Work Coordinator M.D. 274.9 790.6 Office Visit 07/21/2013 10:20a Rheumatology Services Brandin Boggs M.D. 44398 721.3 Of Social Work Coordinator 274.9 359.9 795.79 727.3 Office Visit 04/28/2013 10:00a Rheumatology Services Brandin Boggs M.D. 17229 721.3 Of Social Work Coordinator 274.9 795.79 359.9 Office Visit 03/19/2013 8:15a Orthopedic Services Dorene 64264 727.03 Of Dean Waggoner M.D. Office Visit 02/04/2013 1:40p Rheumatology Brandin Boggs M.D. 78609 721.3 Services Of Social Work Coordinator 274.9 795.79 790.6 Office Visit 08/20/2012 8:20a Rheumatology Services Brandni Boggs M.D. 86079 274.9 Of [facility] 715.16 Office Visit 02/24/2012 8:20a Rheumatology Services Brandin Boggs M.D. 21247 274.9 Of [facility] 726.5 Office Visit 09/03/2011 8:20a Rheumatology Services Brandin Boggs 02968 715.16 Of [facility] M.DHali 721.3 274.9 Office Visit 07/02/2011 9:40a Neurosurgery Services Tyler Villasenor 53876 721.3 Of [facility] M.DHali 719.45 Office Visit 03/05/2011 11:00a Rheumatology Services Brandin Boggs M.D. 83751 721.3 Of [facility] 719.45 Office Visit 04/02/2010 9:45a Orthopedic Services Of Nikunj Proctor M.D. 26896 716.96 C.M.A. Office Visit 03/19/2010 3:45p [facility] Services Of Nikunj Proctor M.D. 31414 836.0 C.M.A. Office Visit 03/02/2010 3:30p Orthopedic Services Of Verito 15573 716.96 C.M.AJenae Shoemaker 726.5 721.3 Office Visit 02/16/2010 11:00a Orthopedic Services Praful Sellers, 48096 719.45 Of Neyda.Uri Emanuel 719.65 Office Visit 02/13/2010 3:00p [place] [address] 716.96 C.M.A. Office Visit 08/10/2007 4:00p Neurosurgery Services Of Tyler Villasenor, 70071 354.0 [facility] M.Toma Office Visit 07/13/2007 1:30p Neurosurgery Services Of Tyler Villasenor, 82274 354.0 [facility] M.DHali Plan of Care Future Appointment(s):12/03/2017 8:15 am - Mejia Gonzalez M.D. at [facility]11/20/2017 7:00 am - Ica Nuclear Schedule at [facility]11/18/2017 9:15 am - Nurse Visit IC at [facility]11/17/2017 9:00 am - Nurse Visit IC at [facility]10/17/2017 - Mejia Gonzalez M.D.I49.3 Ventricular premature [id number] Cardiomyopathy, unspecifiedNew Orders:EchocardiogramHolter MonitorFollow up:1 month
--- OUTSIDE RECORDS SUMMARY | 2017-10-24 13:11 | XMS REPORT ---
:1950 External Reference #:[id number] Author Organization [facility] Address [address] [address] Phone [phone] Care Team Providers Name Role Phone Layne Guadarrama MD Primary Care Physician Unavailable Payers Type Date Identification Numbers Payment Provider Subscriber Medicare Primary Policy Number: [id number] Medicare Colton Almazan Fco PayID: [id number] [address] [place] [address] [facility] Part B Policy Number: [id number] [facility] Colton Almazan Fco PayID: [id number] [address] [place] [address] Problems Date Description Provider Status Onset: 08/20/2012 [...] Date Description Comments Lives With Spouse 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 taking 50mg Bipap 06/22 Active Device use at at bedtime Vitamin B 100 06/20 Active Tablets 1 by mouth every day Toma Gonzalez M.D. Neurontin 05/27 Active Capsules 100mg 360ca 2 po hs prn ps pain, pt is Endo, taking M.D. daily Allopurinol 03/05 Active Tablets 300mg 30tab 1 po qd s Debbie BoggsDHali Asa Active 325mg 30uni 1 po qd ts Pravastatin Sodium Active Tablets 40mg 30tab 1 tablet by / s mouth once daily at bedtime Losartan Potassium Active Tablets 100mg 1 by mouth Unknown every day Melatonin Active Capsules 3mg 1 tab by Unknown /0000 mouth every night at bedtime Hydrochlorothiazid Active Tablets 25mg 1 by mouth Unknown e / every day Glucosamine Active Capsules 1500mg 1 [...] 75mg 60tab 1 tab by Brandin COTTO s mouth twice Endo, - a day M.D. 05/11 Flector 09/03 Hx Patches 1.3% 60uni topical Brandin ts twice a day Endo, - M.D. 05/11 Pennsaid 07/02 Hx Solution 1.5% 150ml apply 40 bot drops to Endo, - painful M.D. 05/11 joints up to qid Lidoderm 06/06 Hx Patches 5% [...] Unknown /0000 s - 08/20 Felodipine ER / Hx Tablets 5mg 90tab 1 po qd Unknown /0000 ER 24HR s - 06/10 Metformin HCL Hx Tablets 500mg 60tab 1 po qd Unknown /0000 s - 05/11 Vitamin B 00/00 Hx Unknown /0000 - 06/10 Hydrochlorothiazid 00 Hx Tablets 12.5mg 1 by mouth Unknown e / every day - 06/10 Vitamin D / Hx Capsules 4000mg Unknown /0000 - 06/10 Diclofenac Sodium 00 Hx Solution 1.5% apply pea /0000 sized - amount to 07/14 area, [...] M.D. Depomedrol Administered Injection Hobler, 40MG 010 Fabiola BasilioSHaliA.-O Vital Signs Date Vital Result Comment 09/29/2017 Height 73 inches 6'1" Weight 330.00 [...] lb Heart Rate 68 /min skipped beat [id number] BP Systolic 128 mmHg BP Diastolic 78 [...] Non- 55.2 >60 Egfr 71.0 >60 1 Basic Metabolic Panel 07/03/2017 Sodium 139 mmol/L 133-145 Potassium 4.1 mmol/L 3.5-5.0 Chloride 104 mmol/L 101-111 Co2 Carbon Dioxide 26 mmol/L 22-32 Anion Gap 9 mmol/L 2-11 Glucose 101 mg/dL High 70-100 Blood Urea Nitrogen 24 mg/dL 6-24 Creatinine 1.07 mg/dL 0.67-1.17 BUN/Creatinine Ratio 22.4 High 8-20 Calcium 9.8 mg/dL 8.6-10.3 Egfr Non- 68.7 >60 Egfr 88.4 >60 2 Pre Cath Panel 07/03/2017 Partial Thrombo Time [...] % 0.1 Inr/Protime 07/03/2017 Inr 0.97 0.89-1.11 Inr/Protime 06/18/2017 Inr 0.96 0.89-1.11 3 Laboratory [...] Non- 75.2 >60 Egfr 96.7 >60 33 Laboratory test finding 06/22/2013 Hemoglobin A1c 6.1 % High Less than 6.0 34 Vitamin B12 322 pg/mL 180-914 Free T4 0.90 ng/mL 0.61-1.24 TSH (Thyroid Stimulating Horm) 1.04 miu/mL 0.34-5.60 Lipid Profile (Trig/Chol/HDL) 06/22/2013 Triglycerides 151 mg/dL 40-200 Cholesterol 252 mg/dL High Less than 200 HDL Cholesterol 42 mg/dL 40-60 35 Cholesterol/HDL Ratio 6.0 Average High 1-4.44 LDL Cholesterol 179.8 High Less Than 100 36 Laboratory test finding 02/04/2013 Uric Acid 4.5 [...] Egfr Non- 85.0 >60 Egfr 109.3 >60 37 Laboratory test finding 02/04/2013 Erythrocyte Sed Rate 42 mm/Hr High 0- 20 C Reactive Protein 0.7 mg/dL High Less than 0.5 CK Isoenzymes 02/04/2013 Creatine Kinase 329 U/L 52 - 336 CK Isoenzymes See Comment 38 Creatine Kinase mm 100% Creatine Kinase MB 0% Creatine Kinase BB 0% 39 Laboratory test finding 02/04/2013 Creatine Kinase 304 U/L High 0-200 Immunofixation (Electro) Serum 02/04/2013 Albumin (Pep) 3.43 [...] 6.7 g/dL 6.2-8.1 Spep Comments (SEE NOTE) 40 Serum Immunofixation (SEE NOTE) 41 Laboratory test 02/04/2013 PSA Diagnostic 2.65 ng/mL 0-4.0 42 finding Laboratory test 08/27/2012 C Reactive Protein 1.3 mg/dL High Less than 0.5 finding Uric Acid 4.7 mg/dL 2.6-7.2 Erythrocyte Sed Rate 57 mm/Hr High 0-20 Laboratory test 08/27/2012 Creatine Kinase 304 U/L High 0-200 43 finding Laboratory test 02/12/2010 Rheumatoid Factor < 20.0 Less Than 20 finding IU/mL CBC With Electronic 02/12/2010 White Blood Count 8.7 CUMM 4.8-10.8 Diff Red Cell Count 4.24 CUMM Low 4.6-6.2 [...] Basophils 0 0-0.2 Laboratory test finding 02/12/2010 Erythrocyte Sed Rate 62 MM/HR High 0- 20 Cyclic Citrullinated Pep Igg <15.6 U () 44 1 Because ethnic data is not always [...] and in selective patients <6.0%.Please refer to [place] [employer] Diabetic care guidelines for further information. 13 -- REFERENCE VALUE -- 25-HYDROXY D TOTAL (D2+D3) Optimum levels in the healthy population are 20-50, patients with bone disease may benefit from higher levels within this range. Test Performed by: [place] [address] Assembly Machine Tender: Benny Dodge III, M.D. 14 Because ethnic [...] Test Performed by: [facility] [address] [facility] [place] [address] 17 Acute inflammation: >10.00 18 Because ethnic [...] and in selective patients <6.0%.Please refer to [place] [employer] Diabetic care guidelines for further [...] 5 Kidney failure <15 (or dialysis) 34 Therapeutic target for the treatment of diabetes Mellitus patients is <7% HBA1C, and in selective patients <6.0%.Please refer to [place] [employer] Diabetic care guidelines for further information. 35 HDL Interpretation: Undesirable: High Risk: Less than 40 mg/dL Desirable: Low Risk: Greater than 60 mg/dL 36 LDL Interpretation: Low Risk Optimal Level: LDL Less than 100 mg/dL Near or Above Optimal: LDL 100-129 mg/dL Borderline High Risk: LDL 130-159 mg/dL High Risk: LDL 160-189 mg/dL Very High Risk: LDL Greater than 189 mg/dL 37 Because ethnic data is not always readily [...] 15-29 5 Kidney failure <15 (or dialysis) 38 RESULT: If CK result is <100, isoenzyme will not be performed. Test Performed by: [place] [address] Assembly Machine Tender: Benny Dodge III, M.D. 39 Test Performed by: [place] [address] Assembly Machine Tender: Benny Dodge III, M.D. 40 Normal serum electrophoretic pattern. 41 Normal serum immunofixation electrophoretic pattern. No monoclonal protein detected. 42 Serum levels of PSA measured using the [employer] Talkito DXI Hybritech immunoassay should not be interpreted as absolute evidence of the presence or absence of disease. The PSA value should be used in conjunction with other pertinent clinical diagnostic procedures. The values obtained with different assay methods or kits cannot be used interchangeably. 43 @ Ordering doctor for CK edited from [id number] to [id number] @ by [id number] at 08/27/12 1705 @ Submitting doctor edited from [id number] to [id number] @ by [id number] at 08/27/12 1705 44 -- REFERENCE VALUE -- <20.0 (Negative) 20.0-39.9 (Weak Positive) 40.0-59.9 (Positive) >=60.0 (Strong Positive) Test Performed by: [facility] D[facility] of Lab Med and Pathology [address] [place], [place] [id number] Assembly Machine Tender: Benny Dodge III, M.D. Procedures Date CPT Code Description Status 09/12/201708432 Inject/Drain Joint/Bursa Major Completed 07/07/2017 54313 Left Heart Cath. Incl S/I Coronaries, Angio S/I V Gram Completed If Done 06/27/2017 14129 Stress Test Completed 06/27/2017 13338 Myocardial Perfusion Imaging Tomographic (Spect) Completed Multiple Studies 06/25/2017 34917 ECHO Transthorasic Realtime 2D W Doppler & Color Completed Flow Hosp 06/23/2017 36897 Holter Monitor Review (24 hr)dr lay & dory Completed only 06/20/2017 82912 ECG Monitor/Recording W/Visual Superimposition Scanning Completed 06/20/2017 80243 ECG Monitor/Recording W/Visual Superimposition Scanning Completed 06/20/2017 09686 EKG Tracing & Interpretation Completed 04/01/2014 24577 Nerve Conduction 03-04 Studies Completed 04/01/2014 82437 Needle Electromyography Each Extremity W/Related Completed Paraspinal Areas 03/19/2013 28998 Inject Tendon Sheath Or Ligament Aponeurosis Eg Plantar Completed Fascia 03/02/2010 35306 Inject/Drain Joint/Bursa Major Completed 02/16/2010 89197 Rad Exam; Hip Unilat Completed 02/16/2010 68623 Rad Exam; Pelvis Completed 09/10/2007 38342 Endoscopy Wrist Surg W/Release Of Transverse Carpal Completed Ligament Encounters Type Date Location Provider CPT E/M Dx Office Visit 09/29/2017 [place] [address] G47.33 8:30a Services [facility] E66.09 Office Visit 07/15/2017 1:30p [facility] Mejiakulwant Gonzalez, [address]19 I49.3 [facility] At [facility].D I42.9 I47.2 Office Visit 07/01/2017 2:30p [facility] Mejia Gonzalez, 10919 I49.3 [facility] At [facility].D I42.9 I47.2 Office Visit 06/30/2017 1:30p [facility] EDDA Ritter [address]344 I49.3 I10 I42.9 R94.31 Office Visit 06/20/2017 1:00p [facility] Mejiakulwant Gonzalez, 02908 I10 M.D R94.31 I49.3 Z01.810 M17.0 Office Visit 05/12/2017 2:30p [facility] Of Hanna Wolfe M.D. 73914 M25.562 Dean M25.561 M25.462 M25.461 M17.0 Office Visit 05/27/2014 2:00p Rheumatology Services Brandin Boggs, 69960 724.02 Of [facility] M.D. 274.9 357.2 359.9 Office Visit 04/27/2014 10:20a Rheumatology Services Brandin Boggs, 53133 724.02 Of [facility] M.D. 274.9 359.9 356.8 Office Visit 02/02/2014 1:20p Rheumatology Services Brandin Boggs, 33884 724.02 Of [facility] M.D. 274.9 790.6 359.9 Office Visit 11/10/2013 10:40a Rheumatology Services Brandin Boggs, 84818 724.02 Of [employer] M.D. 274.9 790.6 Office Visit 07/21/2013 10:20a Rheumatology Services Brandin Boggs M.D. 18028 721.3 Of [facility] 274.9 359.9 795.79 727.3 Office Visit 04/28/2013 10:00a Rheumatology Services Brandin Boggs M.D. 92794 721.3 Of [facility] 274.9 795.79 359.9 Office Visit 03/19/2013 8:15a Orthopedic Services Dorene 72323 727.03 Of Debbie SaundersD. Office Visit 02/04/2013 1:40p Rheumatology Brandin Boggs M.D. 85042 721.3 Services [facility] [employer] 274.9 795.79 790.6 Office Visit 08/20/2012 8:20a Rheumatology Services Brandin Boggs M.D. 85545 274.9 Of [employer] 715.16 Office Visit 02/24/2012 8:20a Rheumatology Services Brandin Boggs M.D. 27142 274.9 Of [employer] 726.5 Office Visit 09/03/2011 8:20a Rheumatology Services Brandin Boggs 83035 715.16 Of Zoey Walker 721.3 274.9 Office Visit 07/02/2011 9:40a Neurosurgery Services Tyler Villasenor 40390 721.3 Of Zoey Walker 719.45 Office Visit 03/05/2011 11:00a Rheumatology Services Brandin Boggs M.D. 24117 721.3 Of [employer] 719.45 Office Visit 04/02/2010 9:45a Orthopedic Services Of Nikunj Proctor M.D. 83735 716.96 C.M.A. Office Visit 03/19/2010 3:45p [facility] Of Nikunj Proctor M.D. 76951 836.0 C.M.A. Office Visit 03/02/2010 3:30p Orthopedic Services Of Verito 17923 716.96 C.MWhitney Calderon.S.A.-O 726.5 721.3 Office Visit 02/16/2010 11:00a Orthopedic Services Praful Sellers 09480 719.45 Of C.MArabella Olson.S.A.-O 719.65 Office Visit 02/13/2010 3:00p [place] [address] 716.96 C.M.A. Office Visit 08/10/2007 4:00p Neurosurgery Services Of Tyler Villasenor 03673 354.0 Zoey Walker Office Visit 07/13/2007 1:30p Neurosurgery Services Of Tyler Villasenor, 80340 354.0 Zoey Walker Plan of Care Future Appointment(s):10/17/2017 9:00 am - Mejia Gonzalez M.D. at [facility]09/29/2017 - Carole Akhtar MDG47.33 Obstructive sleep apnea ( adult) (pediatric)Follow up:1 yearE66.09 Other obesity due to excess calories
[2017-10-24 13:14] VITALS: BP 152/58
--- NOTE | 2017-10-24 13:23 | UC ---
Respiratory Complaint HPI - HPI Summary HPI Summary: Pt presents with productive cough for 1 week. He tells me that his cough started as dry, but soon became productive with yellow phlegm and small streaks of blood in his sputum intermittently. Denies fever, chills, sinus symptoms, sore throat, SOB, chest pain, abdominal pain, n/v/d/c. - History of Current Complaint Chief Complaint: UCRespiratory Stated Complaint: COUGH Time Seen by Provider: 10/24/17 13:22 Hx Obtained From: Patient Onset/Duration: Gradual Onset Severity Initially: Mild Severity Currently: Mild Pain Intensity: 2 Character: Cough: Productive - Allergies/Home Medications Allergies/Adverse Reactions: Allergies Allergy/AdvReac Type Severity Reaction Status Date / Time No Known Allergies Allergy Verified 10/24/17 13:09 Home Medications: Home Medications Aspirin TAB* [Aspirin 325 MG TAB*] 325 mg PO BEDTIME 10/24/17 [History Confirmed 10/24/17] Gabapentin CAP(*) [Neurontin 100 mg CAP(*)] 200 mg PO BEDTIME 10/24/17 [History Confirmed 10/24/17] Melatonin/Pyridoxine HCl (B6) [Melatonin 3 mg Tablet] 3 mg PO BEDTIME 10/24/17 [ History Confirmed 10/24/17] Tadalafil [Cialis] 1 tab PO DAILY 10/24/17 [History Confirmed 10/24/17] Vitamin B Complex TAB* [Complex B-100*] 1 tab PO BEDTIME 10/24/17 [History Confirmed 10/24/17] amLODIPine TAB* [Norvasc 5 mg TAB*] 5 mg PO DAILY 10/24/17 [History Confirmed ] PMH/Surg Hx/FS Hx/Imm Hx Endocrine History: Dyslipidemia Cardiovascular History: Hypertension Psychological History: Anxiety, Depression - Surgical History Surgical History: Yes Surgery Procedure, Year, and Place: kidney stones - lithotripsy. kidney stone procedure . ankle fracture repair. Cardiac ablasion 09/2017 - Family History Known Family History: Positive: Hypertension Negative: Cardiac Disease, Diabetes - Social History Occupation: Employed Full-time Lives: With Family Alcohol Use: Weekly Alcohol Amount: 4x's per week Substance Use Type: None Smoking Status (MU): Former Smoker Type: Cigarettes Length of Time of Smoking/Using Tobacco: 3 yrs When Did the Patient Quit Smoking/Using Tobacco: 1970 - Immunization History Most Recent Influenza Vaccination: utd Review of Systems Constitutional: Negative Skin: Negative Eyes: Negative ENT: Negative Respiratory: Cough Cardiovascular: Negative Gastrointestinal: Negative Musculoskeletal: Negative Neurological: Negative Psychological: Negative All Other Systems Reviewed And Are Negative: Yes Physical Exam Triage Information Reviewed: Yes Appearance: Well-Appearing, No Pain Distress, Obese Vital Signs: Initial Vital Signs Temp 98.4 F 10/24/17 13:05 Pulse 43 10/24/17 13:05 Resp 18 10/24/17 13:05 BP 152/58 10/24/17 13:05 Pulse Ox 99 10/24/17 13:05 Eyes: Positive: Conjunctiva Clear. Negative: Conjunctiva Inflamed, Discharge ENT: Positive: Hearing grossly normal, Pharynx normal, TMs normal, Uvula midline. Negative: Pharyngeal erythema, Nasal congestion, Nasal drainage, TM bulging, TM dull, TM red, Tonsillar swelling, Tonsillar exudate, Hoarse voice, Sinus tenderness Neck: Positive: Supple, Nontender, No Lymphadenopathy Respiratory: Positive: No respiratory distress, No accessory muscle use, Crackles - RUL, Wheezing - Moderate throughout Cardiovascular: Positive: RRR, No Murmur, Pulses Normal Neurological: Positive: Alert Psychological: Positive: Age Appropriate Behavior Skin: Negative: rashes UC Diagnostic Evaluation - Laboratory O2 Sat by Pulse Oximetry: 99 Re-Evaluation - Re-Evaluation First Eval Re-Evaluation Time: 14:17 Change: Improved Comment: Duoneb - pt reports significant improvement and less "congestion". Lungs sounds improved Respiratory Course/Dx - Course Course Of Treatment: CXR: IMPRESSION: No active cardiopulmonary disease is noted. Subjective improvement with duoneb. Lung sounds improved with only mild wheezing s/p duoneb. Given his co-morbidities will tx with antibiotic. - Differential Dx/Diagnosis Provider Diagnoses: Bronchitis Discharge - Discharge Plan Condition: Stable Disposition: HOME Prescriptions: Albuterol HFA INHALER* [Ventolin HFA Inhaler*] 1 - 2 puff INH Q6H PRN #1 mdi PRN Reason: Cough Azithromycin TAB* [Zithromax TAB (Z-RICHA) 250 mg #6 tabs] 2 tab PO .TODAY, THEN 1 DAILY #1 richa Patient Education Materials: Acute Bronchitis (ED) Referrals: Layne Guadarrama MD [Primary Care Provider] - Additional Instructions: If you develop a fever, shortness of breath, chest pain, new or worsening symptoms - please call your PCP or go to the ED. Your blood pressure was high at todays visit. Please see your primary provider within 4 weeks for recheck and re-evaluation.
[2017-10-24] MEDS ORDERED: Albuterol/Ipratropium NEB.SOL* Albuterol 2.5 MG/Ipratropium 0.5 MG 3 ML INH ONE (13:37)
--- NOTE | 2017-10-24 14:09 | RAD ---
Indication: Cough. 2 views of the chest demonstrate no mediastinal shift. Heart is mildly enlarged. Lung membreno demonstrate no pleural fluid, pneumonia or pneumothorax. IMPRESSION: No active cardiopulmonary disease is noted.
== END 2017-10-24 14:22 | disposition home or self-care (01) ==
LOC: UCEAST 12:02
DX: J40 Bronchitis, not specified as acute or chronic (principal); E78.5 Hyperlipidemia, unspecified; I10 Essential (primary) hypertension; F41.9 Anxiety disorder, unspecified; F32.9 Major depressive disorder, single episode, unspecified; Z87.891 Personal history of nicotine dependence
CPT/HCPCS: 71046; 99212; A9270-GY; G0463

== ENCOUNTER 2017-12-09 08:50 | Inpatient (IN) | payer MEDICARE ==
--- NOTE | 2017-11-26 16:07 | HP ---
HISTORY AND PHYSICAL: DATE OF ADMISSION/SURGERY: 12/09/17 SURGEON: Hanna Wolfe MD * (DICTATED BY EDDA TAFOYA) PROCEDURE: Right total knee arthroplasty. CHIEF COMPLAINT: Right knee pain. HISTORY OF PRESENT ILLNESS: Mr. Eagle is a 67-year-old gentleman who complains of right knee pain secondary to end-stage osteoarthritis. He has failed conservative management and elected to proceed with a right total knee arthroplasty, which is scheduled for 12/09/[address] Wolfe. PAST MEDICAL HISTORY: Hypertension, diabetes, obesity, high cholesterol, anxiety, childhood seizure disorder, sleep apnea, idiopathic VT/PVC. PAST SURGICAL HISTORY: Cardiac cath, radiofrequency ablation, lithotripsy, and left ankle surgery. CURRENT MEDICATIONS: 1. Toprol 25 mg daily. 2. Vitamin B. 3. Neurontin 100 mg 2 tabs daily as needed. 4. Allopurinol 300 mg daily. 5. Aspirin 325 daily. 6. Pravastatin sodium 40 mg q.h.s. 7. Losartan potassium 100 mg daily. 8. Melatonin 3 mg q.h.s. 9. Hydrochlorothiazide 25 mg daily. 10. Glucosamine/chondroitin. 11. Vitamin B12. 12. Metformin 750 mg twice a day. 13. Vitamin D. 14. CoQ10. 15. Flector patch. 16. Xanax. 17. Ritalin. 18. Viagra. 19. Diclofenac sodium 75 mg twice a day as needed. 20. Amlodipine 5 mg daily. ALLERGIES: None. FAMILY HISTORY: Diabetes, hypertension, cancer, and COPD. SOCIAL HISTORY: He is a 67-year-old gentleman, lives with his spouse. He does not smoke or use drugs. Uses occasional alcohol. REVIEW OF SYSTEMS: A complete 14-point review of systems was reviewed with the patient. Positive for childhood seizure disorder. His last seizure was when he was 8. He has diabetes and sleep apnea. He denies history of DVT, PE, hepatitis C, HIV, or anesthesia problems. PHYSICAL EXAMINATION GENERAL: He is well developed, well nourished, in no acute distress. VITAL SIGNS: He stands 6 feet 1 inch tall, weighs 335 pounds. His blood pressure is 142/70, his heart rate is 50. HEENT: Normocephalic, atraumatic. NECK: Supple. No palpable lymph nodes. PULMONARY: The lungs are clear to auscultation bilaterally. CARDIO: Regular rate and rhythm. Strong S1, S2. ABDOMEN: Soft, nontender, nondistended. NEUROLOGICAL: He is alert and oriented x3. Cranial nerves II through XII are intact. MUSCULOSKELETAL: Right lower extremity, the skin is intact. There are no open wounds or abrasions. There is a moderate joint effusion. He has some tenderness over the medial and lateral joint line, 10 to 120 degrees of flexion. There is a varus deformity of the knee. He has 2+ dorsalis pedis pulses, intact sensation, and his lower extremity muscle group strengths are intact at 5/5. ASSESSMENT AND PLAN: Mr. Eagle is a 67-year-old gentleman with end-stage osteoarthritis of his right knee. He has failed conservative management and elected to proceed with a right total knee arthroplasty, which is scheduled for 12/09/[address] Wolef discussed the risks and benefits of the surgery at today's visit and all of his questions were answered. He will follow up with Dr. Wolfe 2 weeks after the surgery. EDDA TAFOYA [id number]/[facility] #: [id number] JOSIE
[~2017-12-09 08:50] MED LIST: Buffered Lidocaine 0.9% SYRIN* 5 ML/SYR SYRINGE INTRADERM ONE; DiMENhydriNATE IV* 50 MG/ML VIAL IV PUSH PRN; Famotidine IV* 10 MG/ML 2 ML (20 mg) IV ONE; Gabapentin CAP(*) 300 MG PO ONE; Morphine INJ* 2 MG/ML 1 ML CARPUJECT IV PRN; Naloxone* 0.4 MG/ML 1 ML VIAL IV PRN; PROCHLORPERAZINE INJ 5 MG/ML 2 ML VIAL IV PRN; Scopolamine 1.5 mg* PATCH TRANSDERM PRN; fentaNYL* 50 MCG/ML 2 ML VIAL (100 MCG VIAL) IV PRN; oxyCODONE/Acetamin 5/325 MG* TAB PO PRN
[2017-12-09] MEDS ORDERED: Gabapentin CAP(*) 300 MG ONE (08:56)
[2017-12-09] MEDS ORDERED: Buffered Lidocaine 0.9% SYRIN* 5 ML/SYR SYRINGE ONE (08:56)
[2017-12-09] MEDS ORDERED: ceFAZolin 2 GM PREMIX (*) 2 GM/50 ML BAG IVPB ONE (08:56)
--- OUTSIDE RECORDS SUMMARY | 2017-12-09 08:58 | XMS REPORT ---
:1950 External Reference #:[id number] Author Organization [facility] Address [address] [address] Phone [phone] Care Team Providers Name Role Phone Layne Guadarrama MD Primary Care Physician Unavailable Payers Type Date Identification Numbers Payment Provider Subscriber Medicare Primary Policy Number: [id number] Medicare Colton Almazan Fco PayID: [id number] [address] [place] [address] [facility] Part [facility] Policy Number: [id number] [facility] Colton Almazan Fco PayID: [id number] [address] [place] [address] Problems Date Description Provider Status Onset: 08/20/2012 [...] Date Description Comments Lives 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 Cigarette Use Former Cigarette Smoker Smoked 1 [...] ER Active Tablets 750mg 1 by mouth Unknown Twice A Day /0000 ER 24HR bid Vitamin D Active Chewtabs 2000Unit 2 by mouth every day Coenzyme Q-10 Active Capsules 100mg 1 by mouth every day Flector Active Patches 1.3% apply [...] Unknown /0000 s - 08/20 Felodipine ER Hx Tablets 5mg 90tab 1 po qd [...] Basilio Vital Signs Date Vital Result Comment 12/03/2017 Height 73 inches 6'1" Weight 338.00 lb Heart Rate 62 /min BP Systolic Sitting 135 mmHg BP Diastolic Sitting 62 mmHg Respiratory Rate 17 /min BMI (Body Mass Index) 44.6 kg/m2 11/26/2017 Height 73 inches 6'1" Weight 335.00 lb Heart Rate 50 /min BP Systolic 142 mmHg BP Diastolic 70 mmHg Respiratory Rate 18 /min Body Temperature 96.7 F Pain Level 0 BMI (Body Mass Index) 44.2 kg/m2 11/12/2017 Height 73 inches 6'1" Weight 335.00 lb BP Systolic 124 mmHg BP Diastolic 69 mmHg Respiratory Rate 15 /min Pain Level 3 BMI (Body Mass Index) 44.2 kg/m2 10/17/2017 Height 73 inches 6'1" Weight 342.00 [...] lb Heart Rate 68 /min skipped beat [id number] BP Systolic 128 mmHg BP Diastolic 78 [...] Test Date Test Result H/L Range Note Inr/Protime 11/26/2017 Inr 1.01 0.77-1.02 Laboratory test finding 11/26/2017 Partial Thrombo 32.2 seconds 26.0- 36.3 Time PTT Type & Screen 11/26/2017 Patient Blood Type A Positive Antibody Screen NEGATIVE Basic Metabolic Panel 07/09/2017 Sodium 138 mmol/L [...] 02/04/2013 Creatine Kinase 304 U/L High 0-200 CK Isoenzymes 02/04/2013 Creatine Kinase 329 U/L 52 - 336 CK Isoenzymes See Comment 40 Creatine Kinase mm 100% Creatine Kinase MB 0% Creatine Kinase BB 0% 41 Laboratory test finding 02/04/2013 Erythrocyte Sed Rate 42 mm/Hr High 0- 20 C Reactive Protein 0.7 mg/dL High Less than 0.5 Comp Metabolic Panel 02/04/2013 Sodium 138 mmol/L [...] Egfr Non- 85.0 >60 Egfr 109.3 >60 42 Laboratory test finding 02/04/2013 Uric Acid 4.5 mg/dL 2.6-7.2 TSH (Thyroid Stimulating Horm) 0.93 miu/mL 0.34-5.60 Free T4 0.75 ng/mL 0.61-1.24 Laboratory test finding 08/27/2012 C Reactive Protein [...] and in selective patients <6.0%.Please refer to [place] [employer] Diabetic care guidelines for further information. 13 -- REFERENCE VALUE -- 25-HYDROXY D TOTAL (D2+D3) Optimum levels in the healthy population are 20-50, patients with bone disease may benefit from higher levels within this range. Test Performed by: [address] [address] Nuclear Weapons Mechanical Specialist: Benny Dodge III, M.D. 14 Because ethnic [...] specific reagent (ASR) tests. Test Performed by: [facility] [address] [place] [address] 17 Acute inflammation: >10.00 18 Because ethnic [...] and in selective patients <6.0%.Please refer to [place] [employer] Diabetic care guidelines for further [...] and in selective patients <6.0%.Please refer to [place] [employer] Diabetic care guidelines for further information. 37 Serum levels of PSA measured using the Eayun DXI Hybritech immunoassay should not be interpreted as absolute evidence of the presence or absence of disease. The PSA value should be used in conjunction with other pertinent clinical diagnostic procedures. The values obtained with different assay methods or kits cannot be used interchangeably. 38 Normal serum electrophoretic pattern. 39 Normal serum immunofixation electrophoretic pattern. No monoclonal protein detected. 40 RESULT: If CK result is <100, isoenzyme will not be performed. Test Performed by: [place] [address] Nuclear Weapons Mechanical Specialist: Benny Dodge III, M.D. 41 Test Performed by: [place] [address] Nuclear Weapons Mechanical Specialist: Benny Dodge III, M.D. 42 Because ethnic data is not always readily [...] 15-29 5 Kidney failure <15 (or dialysis) 43 @ Ordering doctor for CK edited from [id number] to [id number] @ by [id number] at 08/27/12 1705 @ Submitting doctor edited from [id number] to [id number] @ by [email or web address] at 08/27/12 1705 44 -- REFERENCE VALUE -- <20.0 (Negative) 20.0-39.9 (Weak Positive) 40.0-59.9 (Positive) >=60.0 (Strong Positive) Test Performed by: [facility] Dpt of Lab Med and Pathology [address] [place] [address] Nuclear Weapons Mechanical Specialist: Benny Dodge III, M.D. Procedures Date CPT Code Description Status 12/03/2017 04000 EKG Tracing & Interpretation Completed 11/20/2017 44088 ECHO Transthoracic, Real-Time 2D With Doppler And Color Completed Flow 11/20/2017 95695 ECHO Transthoracic, Real-Time 2D With Doppler And Color Completed Flow 11/20/2017 63144 Holter Monitor Review (24 hr)dr lay & dory Completed only 11/20/2017 42008 Holter Monitor Review (24 hr)dr lay & dory Completed only 11/17/2017 56525 ECG Monitor/Recording W/Visual Superimposition Scanning Completed 11/12/2017 09464 Inject/Drain Joint/Bursa Major Completed 10/17/2017 25841 EKG Tracing & Interpretation Completed 09/12/2017 51034 Inject/Drain Joint/Bursa Major Completed 07/07/2017 13156 Left Heart Cath. Incl S/I Coronaries, Angio S/I V Gram Completed If Done 06/27/2017 34982 Stress Test Completed 06/27/2017 52163 Myocardial Perfusion Imaging Tomographic (Spect) Completed Multiple Studies 06/25/2017 55689 ECHO Transthorasic Realtime 2D W Doppler & Color Completed Flow [facility] 06/23/2017 99653 Holter Monitor Review (24 hr)dr lay & dory Completed only 06/20/2017 93614 ECG Monitor/Recording W/Visual Superimposition Scanning Completed 06/20/2017 96218 ECG Monitor/Recording W/Visual Superimposition Scanning Completed 06/20/2017 62440 EKG Tracing & Interpretation Completed 04/01/2014 37953 Nerve Conduction 03-04 Studies Completed 04/01/2014 78334 Needle Electromyography Each Extremity W/Related Completed Paraspinal Areas 03/19/2013 60884 Inject Tendon Sheath Or Ligament Aponeurosis Eg Plantar Completed Fascia 03/02/2010 51565 Inject/Drain Joint/Bursa Major Completed 02/16/2010 93755 Rad Exam; Hip Unilat Completed 02/16/2010 24377 Rad Exam; Pelvis Completed 09/10/2007 44482 Endoscopy Wrist Surg W/Release Of Transverse Carpal Completed Ligament Encounters Type Date Location Provider CPT E/M Dx Office Visit 12/03/2017 [facility] Mejia Gonzalez, 18871 I42.9 8:15a Zoey Walker I49.3 Z01.810 Office Visit 10/17/2017 9:00a [facility] [place] Toma Gonzalez, [address] [facility] M.D. I42.9 Office Visit 09/29/2017 8:30a Pul[place] [address] [address] [facility] E66.09 Z68.41 Office Visit 07/15/2017 1:30p [facility] SriramHali Carlos, [address] [facility] At [facility].D I42.9 I47.2 Office Visit 07/01/2017 2:30p [facility] SriramHali Carlos, [address] [facility] I42.9 I47.2 Office Visit 06/30/2017 1:30p [facility] EDDA Ritter 35447 I49.3 I10 I42.9 R94.31 Office Visit 06/20/2017 1:00p [facility] Of [facility] Mejia SriramHali Gonzalez, 40458 I10 M.D. R94.31 I49.3 Z01.810 M17.0 Office Visit 05/12/2017 2:30p [facility] Of Hanna Wolfe M.D. 68451 M25.562 C.M.A. M25.561 M25.462 M25.461 M17.0 Office Visit 05/27/2014 2:00p Rheumatology Services Brandin Boggs, [address] [facility] M.D. 274.9 357.2 359.9 Office Visit 04/27/2014 10:20a Rhe[facility]ology Services Brandin Boggs, [address] [facility] M.D. 274.9 359.9 356.8 Office Visit 02/02/2014 1:20p Rhe[facility]ology Services Brandin Boggs [address] [facility] M.D. 274.9 790.6 359.9 Office Visit 11/10/2013 10:40a Rheumatology Services Brandin Boggs, [address] [facility] M.D. 274.9 790.6 Office Visit 07/21/2013 10:20a Rheumatology Services Brandin Boggs M.D. [address] [facility] 274.9 359.9 795.79 727.3 Office Visit 04/28/2013 10:00a Rheumatology Services Brandin Boggs M.D. [address] [facility] 274.9 795.79 359.9 Office Visit 03/19/2013 8:15a Orthopedic Services Dorene 72070 727.03 Of Dean Waggoner M.D. Office Visit 02/04/2013 1:40p Rheumatology Brandin Boggs M.D. 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 92269 274.9 Of [employer] 715.16 Office Visit 02/24/2012 8:20a Rheumatology Services Brandin Boggs M.D. [address] [facility] 726.5 Office Visit 09/03/2011 8:20a Rheumatology Services Brandin Boggs 65261 715.16 Of Zoey Walker 721.3 274.9 Office Visit 07/02/2011 9:40a Neurosurgery Services Tyler Villasenor 68436 721.3 Of Zoey Walker 719.45 Office Visit 03/05/2011 11:00a Rheumatology Services Brandin Boggs M.D. [address] [facility] 719.45 Office Visit 04/02/2010 9:45a [facility] Of Nikunj Proctor M.D. 53455 716.96 C.M.A. Office Visit 03/19/2010 3:45p [facility] Of Nikunj Proctor M.D. 98390 836.0 C.M.A. Office Visit 03/02/2010 3:30p [facility] Of [place] 54823 716.96 CFabiola FraserSMarenO 726.5 721.3 Office Visit 02/16/2010 11:00a Orthopedic Services Praful Sellers 99524 719.45 Of Dean HicksSHaliAHali-O 719.65 Office Visit 02/13/2010 3:00p [facility] [address] 716.96 C.M.A. Office Visit 08/10/2007 4:00p Neurosurgery Services Of Tyler Mojicaabhijeet, 98363 354.0 Zoey Walker Office Visit 07/13/2007 1:30p [facility]surgery Services Of Tyler SuárezHali Yuniorabhijeet, 65167 354.0 Zoey Walker Plan of Care Future Appointment(s):12/22/2017 1:15 pm - Hanna Wolfe M.D. at [facility] .M.A.12/09/2017 11:30 am - Kevin Burger PA-C at [facility] .[facility].A.12/09/2017 11:30 am - EDDA Garcia at [facility] C.M.A.12/09/2017 11:30 am - Hanna Wolfe M.D. at [facility] C.M.A.12/03/2017 - Mejia Gonzalez M.D.I42.9 Cardiomyopathy, drfjsdkxfjcX22.3 Ventricular premature hrncgqiyovdqvcP14.810 Encounter for preprocedural cardiovascular examinationNew Orders:EchocardiogramFollow up: April 2018
--- OUTSIDE RECORDS SUMMARY | 2017-12-09 08:59 | XMS REPORT ---
:1950 External Reference #:[id number] Author Organization [facility] Address [address] [address] Phone [phone] Care Team Providers Name Role Phone Layne Guadarrama MD Primary Care Physician Unavailable Payers Type Date Identification Numbers Payment Provider Subscriber Medicare Primary Policy Number: [id number] Medicare Colton Almazan Fco PayID: [id number] [address] [place] [address] [facility] Part B Policy Number: [id number] [facility] Colton Almazan Fco PayID: [id number] [address] [place] [address] Problems Date Description Provider Status Onset: 08/20/2012 [...] Date Description Comments 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 Cigarette Use Former Cigarette Smoker Smoked 1 [...] 1 by mouth Unknown Twice A Day / ER 24HR every day Vitamin D Active [...] Hx Tablets 5mg 90tab 1 po qd /2012 s Ordering - Provider 07/21 Diclofenac Sodium [...] Tablets 500mg 60tab 1 po qd Unknown / s - 05/11 Vitamin B 00/00 Hx Unknown /0000 - 06/10 Hydrochlorothiazid 00 Hx Tablets 12.5mg 1 by mouth Unknown e every day - 06/10 Vitamin D / Hx Capsules 4000mg Unknown /0000 - 06/10 Diclofenac Sodium Hx Solution 1.5% apply pea /0000 sized - amount to 07/14 area, 4 times a day as needed Fish Oil Hx Capsules 1000mg 1 by mouth Unknown /0000 every day - (pt no 06/29 taking) Felodipine ER 00/00 Hx Tablets 10mg 1 by mouth Unknown /0000 ER 24HR every day - 09/11 Glucophage /00 Hx Tablets 750mg 1 by mouth Unknown / daily with - meal 06/18 Pennsaid 00 [...] M.D. Depomedrol Administered Injection Hobler, 40MG 010 Reed Basilio-Brigida Vital Signs Date Vital Result Comment 11/26/2017 Height 73 inches 6'1" Weight 335.00 [...] lb Heart Rate 68 /min skipped beat [id number] BP Systolic 128 mmHg BP Diastolic 78 [...] 1.04 miu/mL 0.34-5.60 Laboratory test finding 02/04/2013 Uric Acid 4.5 [...] ng/mL 0-4.0 42 finding Laboratory test 08/27/2012 Creatine Kinase 304 U/L High 0-200 43 finding Laboratory test 08/27/2012 C Reactive Protein [...] and in selective patients <6.0%.Please refer to [place] [employer] Diabetic care guidelines for further information. 13 -- REFERENCE VALUE -- 25-HYDROXY D TOTAL (D2+D3) Optimum levels in the healthy population are 20-50, patients with bone disease may benefit from higher levels within this range. Test Performed by: [address] [place] [address] Compressed Yeast Supervisor: Benny Dodge III, M.D. 14 Because ethnic [...] Test Performed by: [facility] [address] [place] [address] 17 Acute inflammation: >10.00 18 Because ethnic [...] and in selective patients <6.0%.Please refer to [place] [employer] Diabetic care guidelines for further [...] and in selective patients <6.0%.Please refer to [place] [employer] Diabetic care guidelines for further information. 37 Because ethnic data is not always [...] will not be performed. Test Performed by: [place] [address] Compressed Yeast Supervisor: Benny Dodge III, M.D. 39 Test Performed by: [address] [address] Compressed Yeast Supervisor: Benny Dodge III, M.D. 40 Normal serum electrophoretic pattern. 41 Normal serum immunofixation electrophoretic pattern. No monoclonal protein detected. 42 Serum levels of PSA measured using the [employer] DXI Hybritech immunoassay should not be interpreted as absolute evidence of the presence or absence of disease. The PSA value should be used in conjunction with other pertinent clinical diagnostic procedures. The values obtained with different assay methods or kits cannot be used interchangeably. 43 @ Ordering doctor for CK edited from [id number] to [id number] @ by [id number] at 08/27/12 1705 @ Submitting doctor edited from [id number] to [id number] @ by [id number] at 08/27/12 1705 44 -- REFERENCE VALUE -- <20.0 (Negative) 20.0-39.9 (Weak Positive) 40.0-59.9 (Positive) >=60.0 (Strong Positive) Test Performed by: [facility] Dpt of Lab Med and Pathology [address] [place] [address] Compressed Yeast Supervisor: Benny Dodge III, M.D. Procedures Date CPT Code Description Status 11/20/2017 76818 ECHO Transthoracic, Real-Time 2D With Doppler And Color Completed Flow 11/20/2017 10981 ECHO Transthoracic, Real-Time 2D With Doppler And Color Completed Flow 11/20/2017 26563 Holter Monitor Review (24 hr)dr lay & dory Completed only 11/20/2017 36719 Holter Monitor Review (24 hr)dr lay & dory Completed only 11/17/2017 94046 ECG Monitor/Recording W/Visual Superimposition Scanning Completed 11/12/201709579 Inject/Drain Joint/Bursa Major Completed 10/17/2017 15029 EKG Tracing & Interpretation Completed 09/12/2017 00743 Inject/Drain Joint/Bursa Major Completed 07/07/2017 30601 Left Heart Cath. Incl S/I Coronaries, Angio S/I V Gram Completed If Done 06/27/2017 66045 Stress Test Completed 06/27/2017 61930 Myocardial Perfusion Imaging Tomographic (Spect) Completed Multiple Studies 06/25/2017 87012 ECHO Transthorasic Realtime 2D W Doppler & Color Completed [facility] 06/23/2017 34230 Holter Monitor Review (24 hr)dr lay & dory Completed only 06/20/2017 71076 ECG Monitor/Recording W/Visual Superimposition Scanning Completed 06/20/2017 03656 ECG Monitor/Recording W/Visual Superimposition Scanning Completed 06/20/2017 59081 EKG Tracing & Interpretation Completed 04/01/2014 29968 Nerve Conduction 03-04 Studies Completed 04/01/2014 52496 Needle Electromyography Each Extremity W/Related Completed Paraspinal Areas 03/19/2013 42379 Inject Tendon Sheath Or Ligament Aponeurosis Eg Plantar Completed Fascia 03/02/201077027 Inject/Drain Joint/Bursa Major Completed 02/16/2010 93685 Rad Exam; Hip Unilat Completed 02/16/2010 03655 Rad Exam; Pelvis Completed 09/10/2007 22955 Endoscopy Wrist Surg W/Release Of Transverse Carpal Completed Ligament Encounters Type Date Location Provider CPT E/M Dx Office Visit 10/17/2017 [facility] Gabino Gonzalez [address] I49.3 9:00a Zoey Walker I42.9 Office Visit 09/29/2017 8:30a Pul[place]ology [place] [address] G47.33 Services Of [facility] E66.09 Z68.41 Office Visit 07/15/2017 1:30p [facility] Gabino Gonzalez [address] I49.3 Zoey Padilla [facility] Aaron I42.9 I47.2 Office Visit 07/01/2017 2:30p [facility] Gabino Gonzalez [address] I49.3 Zoey At [facility] Aaron I42.9 I47.2 Office Visit 06/30/2017 1:30p [facility] EDDA Ritter [address]259 I49.3 I10 I42.9 R94.31 Office Visit 06/20/2017 1:00p [facility] Of [facility] Mejiagil Gonzalez, [address] I10 M.DHali R94.31 I49.3 Z01.810 M17.0 Office Visit 05/12/2017 2:30p [facility] Of Hanna Wolfe M.D. 66588 M25.562 Dean M25.561 M25.462 M25.461 M17.0 Office Visit 05/27/2014 2:00p Rheumatology Services Brandin Boggs 11808 724.02 Of Independent Beauty Consultant M.D. 274.9 357.2 359.9 Office Visit 04/27/2014 10:20a Rheumatology Services Brandin Boggs 58587 724.02 Of Independent Beauty Consultant M.D. 274.9 359.9 356.8 Office Visit 02/02/2014 1:20p Rheumatology Services Brandin Boggs 61374 724.02 Of Independent Beauty Consultant M.D. 274.9 790.6 359.9 Office Visit 11/10/2013 10:40a Rheumatology Services Brandin Boggs 22169 724.02 Of Independent Beauty Consultant M.D. 274.9 790.6 Office Visit 07/21/2013 10:20a Rheumatology Services Brandin Boggs M.D. 02669 721.3 Of Independent Beauty Consultant 274.9 359.9 795.79 727.3 Office Visit 04/28/2013 10:00a Rheumatology Services Brandin Boggs M.D. 37482 721.3 Of Independent Beauty Consultant 274.9 795.79 359.9 Office Visit 03/19/2013 8:15a Orthopedic Services Dorene 81977 727.03 Of Dean Waggoner M.D. Office Visit 02/04/2013 1:40p Rheumatology Brnadin Boggs M.D. 64714 721.3 Services Of Zoey 274.9 795.79 790.6 Office Visit 08/20/2012 8:20a Rheumatology Services Brandin Boggs M.D. 19851 274.9 Of [facility] 715.16 Office Visit 02/24/2012 8:20a Rheumatology Services Brandin Boggs M.D. 10990 274.9 Of Independent Beauty Consultant 726.5 Office Visit 09/03/2011 8:20a Rheumatology Services Brandin Boggs 52035 715.16 Of Zoey Walker 721.3 274.9 Office Visit 07/02/2011 9:40a Neurosurgery Services Tyler Villasenor 07248 721.3 Of Zoey Walker 719.45 Office Visit 03/05/2011 11:00a Rheumatology Services Brandin Boggs M.D. 39050 721.3 Of [employer] Beauty Consultant 719.45 Office Visit 04/02/2010 9:45a [facility] Of Nikunj Proctor M.D. 21305 716.96 C.M.A. Office Visit 03/19/2010 3:45p [facility] Of Nikunj Proctor M.D. 71298 836.0 C.M.A. Office Visit 03/02/2010 3:30p [facility] Of [place] 64822 716.96 C.M.Whitney Alas.S.A.-O 726.5 721.3 Office Visit 02/16/2010 11:00a Orthopedic Services Praful Sellers 55441 719.45 Of C.MHaliAHali R.S.A.-O 719.65 Office Visit 02/13/2010 3:00p [facility] [address] 716.96 C.M.A. Office Visit 08/10/2007 4:00p [facility]surgery Services Of Tyler Villasenor, 89809 354.0 Zoey M.Toma Office Visit 07/13/2007 1:30p [facility]surgery Services Of Tyler Villasenor, 56182 354.0 Zoey Walker Plan of Care Future Appointment(s):12/22/2017 1:15 pm - Hanna Wolfe M.D. at [facility] Of C.[facility].12/09/2017 11:30 am - Kevin Burger PA-C at [facility] C.[facility].12/09/2017 11:30 am - EDDA Garcia at [facility] C.[facility].A.12/09/2017 11:30 am - Hanna Wolfe M.D. at [facility] Of C.M.A.12/03/2017 8:15 am - Mejia Gonzalez M.D. at [facility]11/26/2017 - Hanna Wolfe M.D.M25.561 Pain in right kneeFollow up:Follow up: 2 weeks after vxybveoJ25.11 Unilateral primary osteoarthritis, right kneeM25.461 Effusion, right knee
--- OUTSIDE RECORDS SUMMARY | 2017-12-09 09:04 | XMS REPORT ---
:1950 External Reference #:[id number] Author Organization In[facility] Address [address] [address] Phone [phone] Care Team Providers Name Role Phone Layne Guadarrama MD Primary Care Physician Unavailable Payers Type Date Identification Numbers Payment Provider Subscriber Medicare Primary Policy Number: [id number] Medicare Colton Almazan Fco PayID: [id number] [address] [place] [address] [facility] Policy Number: [id number] [facility] Colton Almazan Fco PayID: [id number] [address] [place] [address] Problems Date Description Provider Status Onset: 08/20/2012 [...] Date Description Comments Lives With Spouse 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 13 -- REFERENCE VALUE -- 25-HYDROXY D TOTAL (D2+D3) Optimum levels in the healthy population are 20-50, patients with bone disease may benefit from higher levels within this range. Test Performed by: [facility] - [address] [address] Pulmonary Function Technician: Benny Dodge III, M.D. 14 Because ethnic [...] Test Performed by: [facility] [address] [place] [address] 17 Acute inflammation: >10.00 18 Because ethnic [...] and in selective patients <6.0%.Please refer to [place] [employer] Diabetic care guidelines for further [...] and in selective patients <6.0%.Please refer to [place] [employer] Diabetic care guidelines for further [...] will not be performed. Test Performed by: [address] [address] Pulmonary Function Technician: Benny Dodge III, M.D. 39 Test Performed by: [address] [address] Pulmonary Function Technician: Benny Dodge III, M.D. 40 Normal serum electrophoretic pattern. 41 Normal serum immunofixation electrophoretic pattern. No monoclonal protein detected. 42 Serum levels of PSA measured using the [employer] DXI Hybritech immunoassay should not be interpreted as absolute evidence of the presence or absence of disease. The PSA value should be used in conjunction with other pertinent clinical diagnostic procedures. The values obtained with different assay methods or kits cannot be used interchangeably. 43 @ Ordering doctor for CK edited from [id number] to [id number] @ by [id number] at 08/27/12 1705 @ Submitting doctor edited from [id number] to [id number] @ by [email or web address] at 08/27/12 1705 44 -- REFERENCE VALUE -- <20.0 (Negative) 20.0-39.9 (Weak Positive) 40.0-59.9 (Positive) >=60.0 (Strong Positive) Test Performed by: [facility] [address] [place] [address] Pulmonary Function Technician: Benny Dodge III, M.D. Procedures Date CPT Code Description Status 11/12/2017 02693 Inject/Drain Joint/Bursa Major Completed 10/17/2017 54185 EKG Tracing & Interpretation Completed 09/12/2017 67019 Inject/Drain Joint/Bursa Major Completed 07/07/2017 59697 Left Heart Cath. Incl S/I Coronaries, Angio S/I V Gram Completed If Done 06/27/2017 43155 Stress Test Completed 06/27/2017 82357 Myocardial Perfusion Imaging Tomographic (Spect) Completed Multiple Studies 06/25/2017 45329 ECHO Transthorasic Realtime 2D W Doppler & Color Completed Flow Hosp 06/23/2017 22754 Holter Monitor Review (24 hr)dr lay & dory Completed only 06/20/2017 19493 EKG Tracing & Interpretation Completed 06/20/2017 18411 ECG Monitor/Recording W/Visual Superimposition Scanning Completed 06/20/2017 74908 ECG Monitor/Recording W/Visual Superimposition Scanning Completed 04/01/2014 10994 Nerve Conduction 03-04 Studies Completed 04/01/2014 52667 Needle Electromyography Each Extremity W/Related Completed Paraspinal Areas 03/19/2013 19359 Inject Tendon Sheath Or Ligament Aponeurosis Eg Plantar Completed Fascia 03/02/2010 05074 Inject/Drain Joint/Bursa Major Completed 02/16/2010 77131 Rad Exam; Hip Unilat Completed 02/16/2010 77868 Rad Exam; Pelvis Completed 09/10/2007 23711 Endoscopy Wrist Surg W/Release Of Transverse Carpal Completed Ligament Encounters Type Date Location Provider CPT E/M Dx Office Visit 10/17/2017 [facility] Mejia Gonzalez [address] I49.3 9:00a [facility] Aaron I42.9 Office Visit 09/29/2017 8:30a [facility] [place] [address] G47.33 Services Of [facility] E66.09 Z68.41 Office Visit 07/15/2017 1:30p [facility] [address] [facility]3 [facility] Visit 07/01/2017 2:30p [facility] Mejia Gonzalez 27721 I49.3 [facility]47[facility]2 Office Visit 06/30/2017 1:30p [facility] EDDA Ritter 80931 I49.3 I10 I42.9 R94.31 Office Visit 06/20/2017 1:00p [facility] Mejia Gonzalez 48225 I10 M.DHali R94.31 I49.3 Z01.810 M17.0 Office Visit 05/12/2017 2:30p [facility] Of Hanna Wolfe M.D. 70687 M25.562 [facility] M25.561 M25.462 M25.461 M17.0 Office Visit 05/27/2014 2:00p Rheumatology Services Brandin Boggs, 94141 724.02 Of [facility] Aaron 274.9 357.2 359.9 Office Visit 04/27/2014 10:20a [facility]ology Services Brandin Boggs, 24616 724.02 Of Program Dir M.D. 274.9 359.9 356.8 Office Visit 02/02/2014 1:20p Rhe[facility]ology Services Brandin Boggs 76114 724.02 Of Program Dir M.D. 274.9 790.6 359.9 Office Visit 11/10/2013 10:40a Rheumatology Services Brandin Boggs 93266 724.02 Of Program Dir M.D. 274.9 790.6 Office Visit 07/21/2013 10:20a Rheumatology Services Brandin Boggs M.D. 73583 721.3 Of Program Dir 274.9 359.9 795.79 727.3 Office Visit 04/28/2013 10:00a Rheumatology Services Brandin Boggs M.D. 90264 721.3 Of Program Dir 274.9 795.79 359.9 Office Visit 03/19/2013 8:15a Orthopedic Services Dorene 08871 727.03 Of CHaliMArabella Waggoner M.D. Office Visit 02/04/2013 1:40p Rheumatology Brandin Boggs M.D. 70918 721.3 Services Of Program Dir 274.9 795.79 790.6 Office Visit 08/20/2012 8:20a Rheumatology Services Brandin Boggs M.D. 60694 274.9 Of Program Dir 715.16 Office Visit 02/24/2012 8:20a Rheumatology Services Brandin Boggs M.D. 63809 274.9 Of Program Dir 726.5 Office Visit 09/03/2011 8:20a Rheumatology Services Brandin Boggs 99846 715.16 Of Program Dir M.D. 721.3 274.9 Office Visit 07/02/2011 9:40a Neurosurgery Services Tyler Villasenor 78177 721.3 Of Program Dir M.D. 719.45 Office Visit 03/05/2011 11:00a Rheumatology Services Brnadin Boggs M.D. 73436 721.3 Of Program Dir 719.45 Office Visit 04/02/2010 9:45a Orthopedic Services Of Nikunj Proctor M.D. 86176 716.96 C.M.A. Office Visit 03/19/2010 3:45p [facility] Of Nikunj Proctor M.D. 68639 836.0 C.[facility]A. Office Visit 03/02/2010 3:30p Orthopedic Services Of Verito, 14507 716.96 Neyda.MReed Calderon-O 726.5 721.3 Office Visit 02/16/2010 11:00a Orthopedic Services Praful Sellers, 93017 719.45 Of Dean Mcbride-O 719.65 Office Visit 02/13/2010 3:00p [place] [address] 716.96 C.M.A. Office Visit 08/10/2007 4:00p Neurosurgery Services Of Tyler Villasenor, 40324 354.0 Program Dir M.Toma Office Visit 07/13/2007 1:30p Neurosurgery Services Of Tyler Villasenor, 83718 354.0 [facility] Aaron Plan of Care Future Appointment(s):12/24/2017 10:00 am - Hanna Wolfe M.D. at [facility]11/26/2017 11:30 am - Hanna Wolfe M.D. at [facility]12/09/2017 9:30 am - Hanna Wolfe M.D. at [facility]12/03/2017 8:15 am - Mejia Gonzalez M.D. at [facility]11/20/2017 7:00 am - Ica Nuclear Schedule at [facility]11/18/2017 9:15 am - Nurse Visit IC at [facility]11/17/2017 9:00 am - Nurse Visit IC at [facility]11/12/2017 - Hanna Wolfe M.D.M25.561 Pain in right kneeNew Xrays:Knee 3 Views BilateralFollow up:Follow up: 10-14 days before surgery for H&PM25.461 Effusion, right kneeM17.0 Bilateral primary osteoarthritis of knee
[2017-12-09] MEDS ORDERED: Famotidine TAB* 20 MG ONE (09:08)
[2017-12-09] MEDS ORDERED: fentaNYL* 50 MCG/ML 2 ML VIAL (100 MCG VIAL) ONE (09:10)
[2017-12-09] MEDS ORDERED: Midazolam* 1 MG/ML 10 ML VIAL (10 MG) ONE (09:10)
[2017-12-09] MEDS ORDERED: ceFAZolin 1 GM in Dextrose (*) 1 GM/50 ML BAG IVPB ONE (09:36)
[2017-12-09] MEDS ORDERED: Bupivacaine 0.5% SDV PF* 10-30ML VIAL ONE (09:54)
[2017-12-09] MEDS ORDERED: Bupivacaine 0.5%* 50 ML VIAL ONE (10:59)
[2017-12-09] MEDS ORDERED: Ondansetron INJ* 2 MG/ML VIAL IV PRN (11:51)
[2017-12-09] MEDS ORDERED: Magnesium Hydroxide LIQ* 30 ML UDC PO PRN (11:51)
[2017-12-09] MEDS ORDERED: Morphine INJ* 2 MG/ML 1 ML CARPUJECT IV PRN (11:51)
[2017-12-09] MEDS ORDERED: diPHENhydraMINE IV* 50 MG/ML 1 ml VIAL (BENADRYL) IV PRN (11:51)
[2017-12-09] MEDS ORDERED: Bisacodyl SUPP* 10 MG SUPP PR PRN (11:51)
[2017-12-09] MEDS ORDERED: oxyCODONE TAB* 5 MG TAB PO PRN (11:51)
[2017-12-09] MEDS ORDERED: Cyclobenzaprine TAB* 10 MG PO PRN (11:51)
[2017-12-09] MEDS ORDERED: Ondansetron TAB* 4 MG PO PRN (11:51)
[2017-12-09] MEDS ORDERED: Polyethylene Glycol 3350* 17 GM PACKET PO PRN (11:51)
[2017-12-09] MEDS ORDERED: Methylphenidate TAB* 10 MG PO PRN (11:58)
[2017-12-09] MEDS ORDERED: Phenylephrine INJ* 10 MG/ML 1 ML VIAL (10 MG) ONE (12:48)
[2017-12-09] MEDS ORDERED: Propofol* 500 MG/50 ML BTL ONE (12:48)
[2017-12-09] MEDS ORDERED: Lidocaine 2% PF * 5 ML VIAL ONE (12:48)
[2017-12-09] MEDS ORDERED: Ondansetron INJ* 2 MG/ML VIAL ONE (12:48)
[2017-12-09] MEDS ORDERED: Propofol* 10 MG/ML 20 ML BTL IV PUSH ONE (12:48)
[2017-12-09] MEDS ORDERED: Bupivacaine 0.25% SDV* 30 ML ONE (12:48)
[2017-12-09] MEDS ORDERED: Dextrose 50% Syringe 50 ML* 25 GM/50 ML SYRINGE IV PUSH PRN (14:11)
[2017-12-09] MEDS ORDERED: oxyCODONE/Acetamin 5/325 MG* TAB ONE (14:13)
--- NOTE | 2017-12-09 15:56 | RAD ---
HISTORY: Status post right knee arthroplasty COMPARISONS: November 12, 2017 VIEWS: 2, Frontal and lateral views of the right knee FINDINGS: BONE DENSITY: Normal. BONES: The patient is status post right knee arthroplasty. There is no hardware failure or osteolysis. JOINTS: The patient is status post right knee arthroplasty ALIGNMENT: There is no dislocation. SOFT TISSUES: There is post surgical change to the soft tissues OTHER FINDINGS: None. IMPRESSION: STATUS POST RIGHT KNEE ARTHROPLASTY
[2017-12-09] MEDS ORDERED: Warfarin TAB(*) 6 MG PO ONE (17:00)
[2017-12-09 17:11] LABS: Urine Appearance Cloudy; Urine Blood 3+ (Negative); Urine Color Yellow; Urine Ketones Negative (Negative); Urine Protein Negative (Negative); Urine Specific Gravity 1.017 (1.010-1.030); Urine Urobilinogen Negative (Negative)
[2017-12-09] MEDS: Insulin LISPRO* 1 UNITS UNIT SUBCUT SCH (17:15)
[2017-12-09] MEDS: Atorvastatin* 10 MG TAB PO SCH (17:16)
[2017-12-09] MEDS: oxyCODONE/Acetamin 5/325 MG* TAB PO PRN ×2 (17:21→21:34)
[2017-12-09] MEDS ORDERED: NON FORMULARY MED* (Losartan Potassium [Losartan Potassium] 100 MG) PO SCH (18:00)
[2017-12-09] MEDS: ceFAZolin 1 GM in Dextrose (*) 1 GM/50 ML BAG IVPB SCH (18:15)
[2017-12-09] MEDS ORDERED: Metformin ER (NF) 750 MG TAB.ER PO SCH (21:00)
[2017-12-09] MEDS: ALPRAZolam TAB* 0.25 MG PO PRN (21:35)
[2017-12-09] MEDS: Gabapentin CAP(*) 100 MG PO SCH (21:36)
[2017-12-09] MEDS: Magnesium Hydroxide LIQ* 30 ML UDC PO SCH (21:37)
[2017-12-09] MEDS: Docusate CAP* 100 MG PO SCH (21:38)
--- NOTE | 2017-12-09 21:42 | CONS ---
CC: Dr. Hanna Wolfe * CONSULTATION REPORT: DATE OF CONSULT: 12/09/17 REQUESTING PHYSICIAN: Dr. Hanna Wolfe. MY ATTENDING WHILE IN THE HOSPITAL: Dr. José Manuel Meneses. REASON FOR CONSULT: Comanagement of comorbid medical conditions. HISTORY OF PRESENT ILLNESS: Mr. Eagle is a 67-year-old male with a past medical history significant for idiopathic PVCs, heart failure with decreased ejection fraction, hypertension, diabetes mellitus type 2, sleep apnea, and end- stage osteoarthritis of the right knee, who presents after a failed conservative management for his right knee osteoarthritis, status post right hip total hip arthroplasty. The patient had no complications during the surgery and estimated blood loss was less than 100. The patient had a spinal anesthesia and a nerve block. The patient has no hypotension, chest pain, shortness of breath, dizziness or palpitations in the post-acute care unit. The patient had severe bronchitis one month ago, but has no other recent illness or sick contacts. The patient complains of headaches of 4/10 pain, which he has had for three days, reproducible with palpation over his right eye , responsive to Tylenol. The patient has no other symptoms. No fevers, chills , nausea or vomiting. The patient has no issues with urinary retention, incomplete emptying or hesitancy. Recently, the patient has an elevated PSA. The patient has had no cloudiness in his urine outpatient but has cloudiness in the urine in his Samson catheter at this time. The patient has hemoglobin A1c of 6.5 as of 11/18/17. The patient checks his blood sugars frequently and they have never been above 180. The patient is obese and weight is stable. The patient never had a CHF exacerbation. The patient has swelling in his legs , which is unstable for several years. The patient has no other complaints. PAST MEDICAL HISTORY: Hypertension, heart failure with reduced ejection fraction, type 2 diabetes mellitus, obesity, high cholesterol, anxiety. Sleep apnea, on BiPAP. Idiopathic PVCs up to 26,000 a day, status post ablation. Chronic normocytic anemia, stable. Kidney stones, erectile dysfunction, gout, elevated PSA without prostate enlargement. PAST SURGICAL HISTORY: Cardiac catheterization, radiofrequency ablation, lithotripsy, left ankle surgery, carpal tunnel release. MEDICATIONS: 1. Zyloprim 300 mg p.o. q.p.m. 2. Pravastatin 40 mg p.o. q.p.m. 3. Viagra 100 mg p.o. as needed. 4. Diclofenac 75 mg p.o. as needed. 5. Glucosamine chondroitin one tab p.o. q.p.m. 6. Xanax 0.5 mg p.o. at bedtime as needed. 7. Hydrochlorothiazide 25 mg p.o. q.a.m. 8. Co-Q10 of 100 mg p.o. q.p.m. 9. Losartan 100 mg p.o. q.p.m. 11. Vitamin B12 1000 mcg p.o. q.a.m. 12. Vitamin D 4000 units p.o. q.p.m. 13. Diclofenac one patch transdermal daily as needed. 14. Diclofenac patch one application topical as needed. 15. Metoprolol succinate 25 mg p.o. q.a.m. 16. Ritalin one tab p.o. t.i.d. as needed. 17. Amlodipine 5 mg p.o. q.a.m. 18. Cialis one tab p.o. daily as needed. 19. Aspirin 325 mg p.o. at bedtime. 20. Gabapentin 200 mg p.o. at bedtime. 21. Vitamin B one tab p.o. at bedtime. 22. Metformin 750 mg p.o. b.i.d. 23. Melatonin 3 mg p.o. at bedtime. 24. Tylenol Extra Strength 1000 mg p.o. b.i.d. ALLERGIES: None. FAMILY HISTORY: The patient has a family history for diabetes, hypertension, colon cancer, and COPD. SOCIAL HISTORY: The patient lives with his spouse, Rosaura Eagle, who is his surrogate decision maker. The patient has never smoked or used illicit drugs. The patient drinks alcohol rarely. 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 The patient has been exercising five times a week. REVIEW OF SYSTEMS: A 14-point review of systems was reviewed and is negative except as above. PHYSICAL EXAM: General: The patient is a 67-year-old male, who appears older than stated age and is sitting comfortably in the bed, in no acute distress. Vital Signs: At the time of evaluation, temperature 98.1, pulse rate 57, respiratory rate 16, oxygen saturation 99% on 3 L, blood pressure 123/66. HEENT : Head normocephalic, atraumatic. Sclerae anicteric. No conjunctival injection. Nasal mucosa moist. Oral mucosa moist. No pharyngeal erythema, discharge or exudate. There is tenderness to palpation over the right maxillary sinus. Neck: Supple, nontender, no lymphadenopathy. No carotid bruits auscultated. Cardiac: Regular rate and rhythm. No clicks, murmurs, gallops or rubs. Pulses 2+ in bilateral dorsalis pedis, posterior tibialis and radial areas. 1+ pitting edema in bilateral lower extremities and symmetric. No calf tenderness. Respiratory: Clear to auscultation bilaterally. No wheezes, rales or rhonchi. Good air exchange bilaterally. Abdomen: Soft, nontender, nondistended. Bowel sounds present and normoactive in all 4 quadrants. No hepatosplenomegaly. No abdominal bruits auscultated. Genitourinary: No suprapubic or CVA tenderness. The patient has a Samson catheter inserted, which is draining cloudy yellow urine. Skin: Clean, dry, and intact. No rash except for surgical incision on the right knee, covered by a bulky dressing. Neuro: Cranial nerves II through XII intact. No focal deficits. Reflexes are 1 + in bilateral biceps and Achilles areas. Alert and oriented x3. Psychiatric: Pleasant and cooperative. DIAGNOSTIC STUDIES/LAB DATA: From 11/18/17, white blood cell count 11.5, hemoglobin 13.6, platelet count 178. INR 1.01, PTT 32.2. Sodium 140, potassium 4.2, chloride 106, carbon dioxide 26, BUN 32, creatinine 1.04, glucose 114, hemoglobin A1c of 6.5, calcium 9.7, AST 45, ALT 38, and bilirubin 0.6. ASSESSMENT AND PLAN: Mr. Eagle is a 67-year-old man with past medical history significant for heart failure with preserved ejection fraction, idiopathic premature ventricular contractions, hypertension, diabetes, high cholesterol, who is status post right total knee arthroplasty and is recovering well. 1. Status post right total knee arthroplasty. The patient is recovering well. The patient has no pain due to his spinal nerve block. The patient is not hypotensive. We will follow hemoglobin and hematocrit as the patient has chronic normocytic anemia, bowel regimen, and pain control per primary team. 2. Hypertension. We will continue the patient's metoprolol for suppression of premature ventricular contractions and to avoid rebound hypertension as well as with a possible mortality benefit associated with continuing metoprolol postoperatively, we will hold losartan and hydrochlorothiazide and reinstitute as tolerated. Continue amlodipine and metoprolol with hold parameters. The patient is currently normotensive. 3. Premature ventricular contractions are probably causing heart failure with preserved ejection fraction. The patient does not appeared to be in recurrent exacerbation. The patient has frequent premature ventricular contractions on telemetry monitoring. This will be continued due to stress on the patient's heart possibly exacerbating premature ventricular contractions. The patient has previously had an ablation, which did not decrease the frequency of his premature ventricular contractions. The patient had a cardiac catheterization, which showed no significant coronary artery disease. 4. Obstructive sleep apnea. The patient will be continued on BiPAP while in the hospital. 5. Diabetes. The patient's metformin will be held due to borderline kidney function, anemia, and postoperative state. The patient will be transitioned to fingersticks a.c. and h.s. We will resume metformin at discharge. 6. High cholesterol. Continue pravastatin. 7. Seizure disorder. The patient has seizures since he was 9 but this was due to head trauma. We will avoid medications that lower the seizure threshold. 8. Neuropathy. Continue the patient's gabapentin. 9. Elevated PSA and possible benign prostatic hypertrophy. This could predispose patient to urinary tract infection, patient had a negative urinalysis and culture on 11/18/17. The patient has a cloudy urine. The patient has no other urinary symptoms. We will repeat his urinalysis at this time. 10. FEN. The patient will have fluids running at 125 mL an hour. At this time , patient will cut this off at 2 liters due to reduced ejection fraction. 11. Code status. The patient would like to be a full code. The patient's surrogate decision maker will be his , Rosaura Eagle. 12. DVT prophylaxis per primary team. Lovenox to warfarin. 13. Disposition: The patient will be admitted to inpatient, disposition per primary team. TIME SPENT: Approximately 60 minutes were spent on this consultation, 30 of which were spent [id number] with the patient obtaining history and physical and discussing treatment plan. Thank you very much for this consultation. EDDA MOYA [id number]/[facility] #: [id number] JOSIE
[2017-12-09] MEDS: CMCS Melatonin (NF) 3 MG TAB PO SCH (21:45)
[2017-12-09 23:23] LABS: EGFR Non-African American 62.4 (>60)
[2017-12-09] MEDS ORDERED: Magnesium Sulfate IV* 3 GM in NS 0.9% 100 ML* 100 ML IVPB ONE (23:47)
[2017-12-10] MEDS ORDERED: Magnesium Sulfate 2 GM IV IVPB ONE
[2017-12-10] MEDS ORDERED: Magnesium Sulfate 1 GM IV* 1 GM/100 ML BAG IV ONE (01:00)
[2017-12-10] MEDS: Acetaminophen TAB* 325 MG PO PRN ×2 (02:24→20:13)
[2017-12-10] MEDS: ceFAZolin 1 GM in Dextrose (*) 1 GM/50 ML BAG IVPB SCH ×2 (03:05→09:37)
--- NOTE | 2017-12-10 03:55 | OP ---
DATE OF OPERATION: 12/09/17 - ROOM #443 DATE OF : 46 SURGEON: Hanna Wolfe MD DIRECTOR OF ENTERPRISE ARCHITECTURE: EDDA Chin. Mr. Burger did help throughout the procedure with preparation of the leg, wound retraction, manipulation of the knee and wound closure. ANESTHESIOLOGIST: Dr. Hill. ANESTHESIA: Spinal. PRE-OP DIAGNOSIS: Severe end-stage degenerative osteoarthritis of the right knee joint. POST-OP DIAGNOSIS: Severe end-stage degenerative osteoarthritis of the right knee joint. OPERATIVE PROCEDURE: Right total knee arthroplasty. TOURNIQUET TIME: 52 minutes. COMPLICATIONS: None. SPECIMENS: Bone and cartilage from the right knee joint sent to Pathology. ESTIMATED BLOOD LOSS: 300 cc. HARDWARE USED: This is cemented [employer] total knee arthroplasty hardware. Two packages of Simplex bone cement were used. For the femur, a right size 7 Oxinium posterior stabilized Legion femoral component. For the tibia, a size 7 right tibial base plate Tiana II. For the insert, an 11-mm posterior stabilized articular insert, size 7/8. For the patella, 38 mm 3 peg all poly patella. BRIEF HISTORY/INDICATIONS: Mr. Eagle is a 67-year-old gentleman with years of increasingly severe right knee pain. Radiographs showed [id number] arthritis. He failed conservative treatment with anti-inflammatories, pain medications, intraarticular injections and physical therapy. Due to continued pain and decreased quality of life, he elected to undergo right total knee arthroplasty. Informed consent was obtained from the patient. He understood the risks of surgery included, but were not limited to bleeding infection, damage to nearby structures, continued pain, need for further surgery, intraoperative fracture, nerve palsy, hardware failure or loosening, knee stiffness, loss of motion, stroke, heart attack, blood clot and . He wished to proceed. INTRAOPERATIVE FINDINGS: Intraoperatively, the patient was noted to have severe end-stage arthritis with tricompartmental loss of cartilage. DESCRIPTION OF PROCEDURE: Mr. Eagle was identified in the preanesthesia unit. His right lower extremity was marked as the correct operative side. Informed consent was signed and placed in the chart. The patient was taken to the operating room and placed under spinal anesthesia without difficulty. A Samson catheter was placed. Tourniquet was placed on the right thigh. The right lower extremity was prepped and draped in the usual sterile fashion. Preop time -out was made to correctly identify the patient, side and site. Appropriate perioperative antibiotics were given within 1 hour of incision. Tourniquet was inflated and total tourniquet time for this procedure was 52 minutes. A midline incision was made with a 10 blade and carried down to the extensor mechanism. A new 10 blade was used to make a standard medial parapatellar arthrotomy. The patella was subluxed laterally. Electrocautery was used to subperiosteally elevate soft tissue off the superomedial tibia to the mid sagittal plane. Any osteophytes were carefully removed from the medial tibial plateau using a rongeur. The knee was flexed up. The anterior horn of the lateral meniscus and ACL were sharply released. A drill was used to enter the distal femur. Intramedullary distal femoral cutting guide was pinned down the distal femur. Oscillating saw was used to make the distal femoral cut. Next , the external rotation guide was pinned on the distal femur and the femur was sized to a size 7. Size 7 multi-cutting jig was pinned on the distal femur. Oscillating saw was used to make the appropriate 4 chamfer cuts. The PCL was completely released at this point. The tibia was subluxed anteriorly. Extramedullary tibial cutting guide was pinned on the proximal tibia. The oscillating saw was used to make proximal tibial cut perpendicular to the mechanical axis of the tibia. The bone was carefully removed. The knee was brought out into full extension. A spacer block had good fit with the knee in full extension. Medial and lateral ligaments were well balanced. Flexion and extension gaps were well balanced. The knee was flexed up. The lamina special forces warrant officer was placed both medially and laterally. Any remaining meniscus was removed using electrocautery. Curved osteotome was used to remove any posterior osteophytes. Tibial tray and drop rods were placed and once again confirmed the satisfactory tibial cut. A right size 7 femoral trial was impacted onto the distal femur and had good fit. The box for the posterior stabilized implant was prepared using a reamer and box cut osteotome. Size 7 tibial tray trial and an 11-mm insert trial was placed and the knee was taken through a range of motion. The knee had full extension to 130 degrees of flexion with satisfactory patellofemoral tracking. The patella was everted. 9 mm of patellar bone and cartilage were carefully removed using an oscillating saw. The patella was sized to a size 38. Three peg holes were drilled through the size 38 guide. A 38 trial patella was placed and the knee was taken through range of motion. There was satisfactory patellofemoral tracking. All trials were carefully removed. Tibia was subluxed anteriorly and sized to a size 7. Proximal tibia was prepared using a size 7 keel punch. All bony cut surfaces were carefully irrigated with sterile saline and dried. Final implants were cemented in to place starting with tibia followed by the femur and last the patella. An 11-mm insert trial was placed while the knee was brought out to full extension. The cement was allowed to fully cure. The tourniquet was turned down to 52 minutes. Electrocautery was used to obtain meticulous hemostasis. The knee was copiously irrigated with sterile saline. Once the cement had fully cured, the insert trial was removed. Any excess cement was removed from around the hardware and capsule. Final insert chosen was 11-mm posterior stabilized articular insert size 7/8. This was locked into position on the tibial tray. Stability of the insert was checked and rechecked and noted to be stable. Extensor mechanism was closed using interrupted #1 Vicryls over a medium Hemovac drain. The rest of the incision was closed in a layered fashion using 0 and 2-0 Vicryls. Skin was closed using running 3-0 nylon suture. Sterile Xeroform, 4x4s, and Webril were used to cover the incision. Pop wrap and cold pack were placed over this. The patient's anesthesia was reversed without difficulty. He was taken to the PACU in stable condition. Intended weightbearing will be weightbearing as tolerated. Intended DVT prophylaxis will be Coumadin with a Lovenox bridge. [id number]/[facility] #: [id number] JOSIE
[2017-12-10 06:52] LABS: ABS Basophils 0.1 10^3/ul (0-0.2); ABS Eosinophils 0.3 10^3/ul (0-0.6); ABS Lymphocytes 1.9 10^3/ul (1.0-4.8); ABS Monocytes 0.7 10^3/ul (0-0.8); ABS Neutrophils 8.5 10^3/ul (1.5-7.7); ABS Nucleated RBC 0 10^3/ul; Eosinophil % 2.7 % (0-6); Hematocrit 33 % (42-52); Mean Corpuscular HGB Conc 33 g/dl (31-36); Mean Corpuscular Hemoglobin 29 pg (27-31); Mean Corpuscular Volume 86 fL (80-94); Mean Platelet Volume 8.1 um3 (7.4-10.4); Nucleated Red Blood Cells % 0.1; Platelet Count 142 10^3/ul (150-450); Red Blood Count 3.83 10^6/ul (4.0-5.4); Red Cell Distribution Width 17 % (10.5-15); White Blood Count 11.4 10^3/ul (3.5-10.8)
[2017-12-10 06:55] LABS: INR 1.21 (0.77-1.02)
[2017-12-10 07:11] LABS: EGFR Non-African American 47.5 (>60)
[2017-12-10] MEDS: Insulin LISPRO* 1 UNITS UNIT SUBCUT SCH ×3 (08:41→17:34)
[2017-12-10] MEDS: Metoprolol Succinate XL TAB* 25 MG PO SCH (08:41)
[2017-12-10] MEDS: Magnesium Hydroxide LIQ* 30 ML UDC PO SCH ×2 (08:41→20:13)
[2017-12-10] MEDS: amLODIPine TAB* 5 MG PO SCH (08:42)
[2017-12-10] MEDS: Docusate CAP* 100 MG PO SCH ×2 (08:42→20:13)
[2017-12-10] MEDS ORDERED: Hydrochlorothiazide TAB* 25 MG PO SCH (09:00)
[2017-12-10] MEDS ORDERED: Metoprolol Succinate XL TAB* 25 MG PO SCH (09:00)
[2017-12-10] MEDS ORDERED: amLODIPine TAB* 5 MG PO SCH (09:00)
[2017-12-10] MEDS: oxyCODONE/Acetamin 5/325 MG* TAB PO PRN ×4 (09:43→23:48)
--- NOTE | 2017-12-10 10:46 | PN ---
Progress Note - Progress Note Date of Service: 12/10/17 SOAP: Subjective: []Patient is POD 1 s/p right total knee arthroplasty. Right knee pain is tolerable at rest but becomes quite severe with ambulation. Denies RLE numbness. He was transferred to [address] [place] [address] due to runs of PVCs. 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 Preop cardiac clearance was provided by Dr Gonzalez. Patient is not bothered by PVC's- he denies chest pain, shortness of breath, dizziness or nausea. Objective: [] Vital Signs Temp 100.7 F 12/10/17 07:33 Pulse 58 12/10/17 07:33 Resp 16 12/10/17 09:43 BP 123/42 12/10/17 07:33 Pulse Ox 95 12/10/17 08:00 Intake & Output 12/09/17 12/10/17 12/10/17 18:59 06:59 18:59 Intake Total 3100 1923 Output Total 950 800 Balance 2150 1123 Weight 341 lb 6.4 oz Intake: IV Fluids 2300 1155 LR 2300 1155 IVPB 148 LR 148 Oral 800 620 Output: Samson 950 800 Other: # Bowel Movements 0 # Voids 0 Laboratory Last Values WBC 11.4 10^3/ul (3.5-10.8) H 12/10/17 06:32 RBC 3.83 10^6/ul (4.0-5.4) L 12/10/17 06:32 Hgb 11.0 g/dl (14.0-18.0) L 12/10/17 06:32 Hct 33 % (42-52) L 12/10/17 06:32 MCV 86 fL (80-94) 12/10/17 06:32 MCH 29 pg (27-31) 12/10/17 06:32 MCHC 33 g/dl (31-36) 12/10/17 06:32 RDW 17 % (10.5-15) H 12/10/17 06:32 Plt Count 142 10^3/ul (150-450) L 12/10/17 06:32 MPV 8.1 um3 (7.4-10.4) 12/10/17 06:32 Neut % (Auto) 73.9 % (38-83) 12/10/17 06:32 Lymph % (Auto) 17.0 % (25-47) L 12/10/17 06:32 [place] % (Auto) 5.9 % (0-7) 12/10/17 06:32 Eos % (Auto) 2.7 % (0-6) 12/10/17 06:32 Baso % (Auto) 0.5 % (0-2) 12/10/17 06:32 Absolute Neuts (auto) 8.5 10^3/ul (1.5-7.7) H 12/10/17 06:32 Absolute Lymphs (auto) 1.9 10^3/ul (1.0-4.8) 12/10/17 06:32 Absolute Monos (auto) 0.7 10^3/ul (0-0.8) 12/10/17 06:32 Absolute Eos (auto) 0.3 10^3/ul (0-0.6) 12/10/17 06:32 Absolute Basos (auto) 0.1 10^3/ul (0-0.2) 12/10/17 06:32 Absolute Nucleated RBC 0 10^3/ul 12/10/17 06:32 Nucleated RBC % 0.1 12/10/17 06:32 INR (Anticoag Therapy) 1.21 (0.77-1.02) H 12/10/17 06:32 Sodium 137 mmol/L (139-145) L 12/10/17 06:32 Potassium 4.4 mmol/L (3.5-5.0) 12/10/17 06:32 Chloride 104 mmol/L (101-111) 12/10/17 06:32 Carbon Dioxide 27 mmol/L (22-32) 12/10/17 06:32 Anion Gap 6 mmol/L (2-11) 12/10/17 06:32 BUN 27 mg/dL (6-24) H 12/10/17 06:32 Creatinine 1.47 mg/dL (0.67-1.17) H 12/10/17 06:32 Est GFR ( Amer) 61.1 (>60) 12/10/17 06:32 Est GFR (Non-Af Amer) 47.5 (>60) 12/10/17 06:32 BUN/Creatinine Ratio 18.4 (8-20) 12/10/17 06:32 Glucose 125 mg/dL (70-100) H 12/10/17 06:32 POC Glucose (mg/dL) 142 mg/dL (70-100) H 12/10/17 07:52 Calcium 8.5 mg/dL (8.6-10.3) L 12/10/17 06:32 Magnesium 1.6 mg/dL (1.9-2.7) L 12/09/17 22:17 B-Natriuretic Peptide 418 pg/mL (-100) H 12/09/17 22:17 Urine Color Yellow 12/09/17 16:40 Urine Appearance Cloudy 12/09/17 16:40 Urine pH 5.0 (5-9) 12/09/17 16:40 Ur Specific [place] 1.017 (1.010-1.030) 12/09/17 16:40 Urine Protein Negative (Negative) 12/09/17 16:40 Urine Ketones Negative (Negative) 12/09/17 16:40 Urine Blood 3+ (Negative) A 12/09/17 16:40 Urine Nitrate Negative (Negative) 12/09/17 16:40 Urine Bilirubin Negative (Negative) 12/09/17 16:40 Urine Urobilinogen Negative (Negative) 12/09/17 16:40 Ur Leukocyte Esterase Negative (Negative) 12/09/17 16:40 Urine WBC (Auto) Absent (Absent) 12/09/17 16:40 Urine RBC (Auto) 3+(>10/hpf) (Absent) A 12/09/17 16:40 Urine Bacteria Absent (Absent) 12/09/17 16:40 Urine Glucose Negative (Negative) 12/09/17 16:40 General: Sitting comfortably in chair. Well appearing, NAD RLE: Knee dressing CDI with cryo unit in use. DF/PF intact. Thigh soft and nontender. Drain pulled this morning by Dr Wolfe without complication. BL LE: Calves supple and nontender without erythema, edema or palpable cords. Assessment: []POD 1 sp right total knee arthroplasty Plan: []WBAT PT/OT Lovenox, coumadin 4 mg Discussed with nursing to allow patient percocet 1-2 tabs every 4-6 hours PRN as he has only received one tab this morning. May also utilize cyclobenzaprine, oxycodone, morphine as ordered PRN with watch for sedation. To call if difficulty controlling pain. Ensure pain meds given before PT.
[2017-12-10] MEDS: Enoxaparin(*) 40 MG/0.4 ML SYR SUBCUT SCH (12:26)
[2017-12-10] MEDS ORDERED: Warfarin TAB(*) 4 MG PO ONE (17:00)
[2017-12-10] MEDS: Atorvastatin* 10 MG TAB PO SCH (17:34)
[2017-12-10] MEDS ORDERED: Losartan TAB* 25 MG PO SCH (19:49)
[2017-12-10] MEDS: CMCS Melatonin (NF) 3 MG TAB PO SCH (20:14)
[2017-12-10] MEDS: Gabapentin CAP(*) 100 MG PO SCH (20:28)
--- NOTE | 2017-12-10 21:43 | PN ---
Subjective Date of Service: 12/10/17 Interval History: Seen and examined this afternoon with his at the bedside. He complains of knee pain being poorly controlled, but otherwise feels well. No chest pain, palpitations, shortness of breath, lightheadedness. Objective Active Medications: Acetaminophen (Tylenol Tab*) 650 mg PO Q4H PRN PRN Reason: PAIN OR TEMPERATURE Last Admin: 12/10/17 20:13 Dose: 650 mg Alprazolam (Xanax Tab*) 0.5 mg PO BEDTIME PRN PRN Reason: SLEEP Last Admin: 12/09/17 21:35 Dose: 0.5 mg Amlodipine Besylate (Norvasc Tab*) 5 mg PO QAM COCO Last Admin: 12/10/17 08:42 Dose: 5 mg Atorvastatin Calcium (Lipitor*) 10 mg PO QPM COCO PRN Reason: Protocol Last Admin: 12/10/17 17:34 Dose: 10 mg Bisacodyl (Dulcolax Supp*) 10 mg OH DAILY PRN PRN Reason: constipation Cyclobenzaprine HCl (Flexeril Tab*) 10 mg PO TID PRN PRN Reason: SPASMS Dextrose (D50w Syringe 50 Ml*) 12.5 gm IV PUSH .FOR FS < 60 - SS PRN PRN Reason: FS < 60 Diphenhydramine HCl (Benadryl Iv*) 12.5 mg IV Q6H PRN PRN Reason: PRURITIS Docusate Sodium (Colace Cap*) 100 mg PO BID [facility] Last Admin: 12/10/17 20:13 Dose: 100 mg Enoxaparin Sodium (Lovenox(*)) 40 mg SUBCUT Q24H [facility] Last Admin: 12/10/17 12:26 Dose: 40 mg Gabapentin (Neurontin Cap(*)) 200 mg PO BEDTIME [facility] Last Admin: 12/10/17 20:28 Dose: 200 mg Lactated Ringer's (Lactated Ringers 1000 Ml Bag*) 1,000 mls @ 100 mls/hr IV PER RATE [facility] Last Admin: 12/10/17 15:24 Dose: 100 mls/hr Insulin Human Lispro (Humalog*) 0 units SUBCUT AC COCO PRN Reason: Protocol Last Admin: 12/10/17 17:34 Dose: 2 unit Lactulose (Lactulose*) 30 ml PO Q6H PRN PRN Reason: constipation Magnesium Hydroxide (Milk Of Magnesia Liq*) 30 ml PO BID [facility] Last Admin: 12/10/17 20:13 Dose: 30 ml Magnesium Hydroxide (Milk Of Magnesia Liq*) 30 ml PO Q6H PRN PRN Reason: constipation Melatonin (Melatonin (Nf)) 3 mg PO BEDTIME [facility] Last Admin: 12/10/17 20:14 Dose: 3 mg Methylphenidate HCl (Ritalin Tab*) 10 mg PO TID PRN PRN Reason: focus Metoprolol Succinate (Toprol Xl Tab*) 25 mg PO QAM [facility] Last Admin: 12/10/17 08:41 Dose: 25 mg Morphine Sulfate (Morphine Inj (Syringe)*) 2 mg IV Q2H PRN PRN Reason: PAIN Ondansetron HCl (Zofran Inj*) 4 mg IV Q6H PRN PRN Reason: nausea Ondansetron HCl (Zofran Tab*) 4 mg PO Q6H PRN PRN Reason: NAUSEA Oxycodone HCl (Roxycodone Tab*) 10 mg PO Q4H PRN PRN Reason: SEVERE PAIN Last Admin: 12/10/17 11:26 Dose: 10 mg Oxycodone/Acetaminophen (Percocet 5/325 Tab*) 2 tab PO Q4H PRN PRN Reason: PAIN Last Admin: 12/10/17 15:23 Dose: 2 tab Oxycodone/Acetaminophen (Percocet 5/325 Tab*) 1 tab PO Q4H PRN PRN Reason: PAIN Last Admin: 12/10/17 20:13 Dose: 1 tab Pharmacy Profile Note (Scopolamine Patch Remove*) 1 note PATCH OFF Q72H ONE Stop: 12/12/17 05:47 Polyethylene Glycol/Electrolytes (Miralax*) 17 gm PO DAILY PRN PRN Reason: Constipation Scopolamine (Transderm-Scop 1.5 Mg Patch*) 1 patch TRANSDERM Q72H PRN PRN Reason: Nausea/Vomiting Vital Signs - 8 hr 12/10/17 12/10/17 12/10/17 15:23 15:28 16:00 Temperature 97.9 F Pulse Rate 31 Respiratory 16 24 Rate Blood Pressure 148/34 (mmHg) O2 Sat by Pulse 91 91 Oximetry 12/10/17 12/10/17 12/10/17 17:38 19:31 20:13 Temperature 100.2 F Pulse Rate 59 Respiratory 16 16 18 Rate Blood Pressure 159/41 (mmHg) O2 Sat by Pulse 84 Oximetry 12/10/17 20:28 Temperature Pulse Rate Respiratory 17 Rate Blood Pressure (mmHg) O2 Sat by Pulse Oximetry Oxygen Devices in Use Now: None Appearance: alert, uncomfortable, no distress Eyes: No Scleral Icterus Ears/Nose/Mouth/Throat: NL Teeth, Lips, Gums Neck: NL Appearance and Movements; NL JVP Respiratory: Symmetrical Chest Expansion and Respiratory Effort Cardiovascular: - - irregular rhythm Abdominal: NL Sounds; No Tenderness; No Distention, No Hepatosplenomegaly Lymphatic: No Cervical Adenopathy Extremities: - - right knee in brace Skin: No Rash or Ulcers Neurological: Alert and Oriented x 3 Result Diagrams: 12/10/17 06:32 12/10/17 06:32 Assess/Plan/Problems-Billing Assessment: - Patient Problems (1) PVCs (premature ventricular contractions) Current Visit: Yes Status: Acute Code(s): I49.3 - VENTRICULAR PREMATURE DEPOLARIZATION SNOMED Code(s): 39818889 Comment: I have reviewed the notes from Dr. Gonzalez's office and pre-op evaluation and Holter monitor. Mr. Eagle was noted to have 16,000 PVCs in 14 hours on a recent monitor. His findings on telemetry seem to be consistent with this, though I cannot quantify them. He also had several short runs of NSVT, which were also reported on his holter monitor last month. His electrolytes are normal. He had an ablation at an outside hospital, but the focus of the pvcs was unable to be ablated. He has been continued on metoprolol. He is asymptomatic. (2) Diabetes mellitus Current Visit: Yes Status: Acute Code(s): E11.9 - TYPE 2 DIABETES MELLITUS WITHOUT COMPLICATIONS SNOMED Code(s): 52498758 Comment: continue metformin and insulin sliding scale his blood sugars are acceptable (3) HTN (hypertension) Current Visit: Yes Status: Acute Code(s): I10 - ESSENTIAL (PRIMARY) HYPERTENSION SNOMED Code(s): 02291778 Comment: holding losartan in setting of claudia; normotensive (4) CLAUDIA (acute kidney injury) Current Visit: Yes Status: Acute Code(s): N17.9 - ACUTE KIDNEY FAILURE, UNSPECIFIED SNOMED Code(s): 87886741 Comment: perioperatively concerning for ATN; will review anesthesia report for any periods of hypotension monitor urine output check fena
[2017-12-11 05:28] LABS: Hematocrit 31 % (42-52); Hemoglobin 10.3 g/dl (14.0-18.0); Mean Platelet Volume 8.3 um3 (7.4-10.4); Platelet Count 109 10^3/ul (150-450)
[2017-12-11 05:37] LABS: INR 1.33 (0.77-1.02)
[2017-12-11] MEDS: Insulin LISPRO* 1 UNITS UNIT SUBCUT SCH ×3 (07:51→18:02)
[2017-12-11 08:01] LABS: EGFR Non-African American 40.7 (>60)
[2017-12-11] MEDS: amLODIPine TAB* 5 MG PO SCH (08:13)
[2017-12-11] MEDS: oxyCODONE/Acetamin 5/325 MG* TAB PO PRN (08:13)
[2017-12-11] MEDS: Morphine TAB Extended Release (*) 30 MG TAB.ER PO SCH ×2 (08:15→20:44)
[2017-12-11] MEDS: Docusate CAP* 100 MG PO SCH ×2 (08:15→20:29)
[2017-12-11] MEDS: Metoprolol Succinate XL TAB* 25 MG PO SCH (08:15)
[2017-12-11] MEDS: Magnesium Hydroxide LIQ* 30 ML UDC PO SCH ×2 (09:59→22:03)
[2017-12-11] MEDS ORDERED: Magnesium Sulfate 2 GM IV* 2 GM/50 ML BAG IVPB ONE (11:50)
[2017-12-11] MEDS: NS 0.9% 1000 ML* 1,000 ML IV SCH ×2 (12:03→20:26)
[2017-12-11] MEDS: Enoxaparin(*) 40 MG/0.4 ML SYR SUBCUT SCH (12:15)
--- NOTE | 2017-12-11 12:47 | PN ---
Progress Note - Progress Note Date of Service: 12/11/17 SOAP: Subjective: []Patient seen at bedside. He is well appearing, NAD. States that he is in no pain when at rest, but knee pain is severe with movement which is preventing him from moving the knee. Physical therapy saw him this morning, had much difficulty transferring him to the chair. Physical therapy will see him again this afternoon. Denies chest pain, shortness of breath, dizziness, nausea, vomiting, right leg numbness. Objective: [] Vital Signs Temp 99.8 F 12/11/17 07:45 Pulse 56 12/11/17 07:45 Resp 14 12/11/17 10:01 BP 180/49 12/11/17 07:45 Pulse Ox 96 12/11/17 08:20 Intake & Output 12/10/17 12/11/17 12/11/17 18:59 06:59 18:59 Intake Total 1911 1837 544 Output Total 650 Balance 1911 1187 544 Intake: IV Fluids 861 1467 ABX - CEFAZOLIN 861 LR 1467 IVPB 60 544 ABX - CEFAZOLIN 60 LR 544 Oral 990 370 Output: Straight Cath 650 Laboratory Last Values WBC 11.4 10^3/ul (3.5-10.8) H 12/10/17 06:32 RBC 3.83 10^6/ul (4.0-5.4) L 12/10/17 06:32 Hgb 10.3 g/dl (14.0-18.0) L 12/11/17 05:07 Hct 31 % (42-52) L 12/11/17 05:07 MCV 86 fL (80-94) 12/10/17 06:32 MCH 29 pg (27-31) 12/10/17 06:32 MCHC 33 g/dl (31-36) 12/10/17 06:32 RDW 17 % (10.5-15) H 12/10/17 06:32 Plt Count 109 10^3/ul (150-450) L 12/11/17 05:07 MPV 8.3 um3 (7.4-10.4) 12/11/17 05:07 Neut % (Auto) 73.9 % (38-83) 12/10/17 06:32 Lymph % (Auto) 17.0 % (25-47) L 12/10/17 06:32 [place] % (Auto) 5.9 % (0-7) 12/10/17 06:32 Eos % (Auto) 2.7 % (0-6) 12/10/17 06:32 Baso % (Auto) 0.5 % (0-2) 12/10/17 06:32 Absolute Neuts (auto) 8.5 10^3/ul (1.5-7.7) H 12/10/17 06:32 Absolute Lymphs (auto) 1.9 10^3/ul (1.0-4.8) 12/10/17 06:32 Absolute Monos (auto) 0.7 10^3/ul (0-0.8) 12/10/17 06:32 Absolute Eos (auto) 0.3 10^3/ul (0-0.6) 12/10/17 06:32 Absolute Basos (auto) 0.1 10^3/ul (0-0.2) 12/10/17 06:32 Absolute Nucleated RBC 0 10^3/ul 12/10/17 06:32 Nucleated RBC % 0.1 12/10/17 06:32 INR (Anticoag Therapy) 1.33 (0.77-1.02) H 12/11/17 05:07 Sodium 135 mmol/L (139-145) L 12/11/17 05:07 Potassium 4.5 mmol/L (3.5-5.0) 12/11/17 05:07 Chloride 102 mmol/L (101-111) 12/11/17 05:07 Carbon Dioxide 27 mmol/L (22-32) 12/11/17 05:07 Anion Gap 6 mmol/L (2-11) 12/11/17 05:07 BUN 37 mg/dL (6-24) H 12/11/17 05:07 Creatinine 1.68 mg/dL (0.67-1.17) H 12/11/17 05:07 Est GFR ( Amer) 52.4 (>60) 12/11/17 05:07 Est GFR (Non-Af Amer) 40.7 (>60) 12/11/17 05:07 BUN/Creatinine Ratio 22.0 (8-20) H 12/11/17 05:07 Glucose 109 mg/dL (70-100) H 12/11/17 05:07 POC Glucose (mg/dL) 127 mg/dL (70-100) H 12/11/17 11:54 Calcium 8.1 mg/dL (8.6-10.3) L 12/11/17 05:07 Magnesium 2.4 mg/dL (1.9-2.7) 12/10/17 06:32 B-Natriuretic Peptide 418 pg/mL (-100) H 12/09/17 22:17 Urine Color Yellow 12/09/17 16:40 Urine Appearance Cloudy 12/09/17 16:40 Urine pH 5.0 (5-9) 12/09/17 16:40 Ur Specific [place] 1.017 (1.010-1.030) 12/09/17 16:40 Urine Protein Negative (Negative) 12/09/17 16:40 Urine Ketones Negative (Negative) 12/09/17 16:40 Urine Blood 3+ (Negative) A 12/09/17 16:40 Urine Nitrate Negative (Negative) 12/09/17 16:40 Urine Bilirubin Negative (Negative) 12/09/17 16:40 Urine Urobilinogen Negative (Negative) 12/09/17 16:40 Ur Leukocyte Esterase Negative (Negative) 12/09/17 16:40 Urine WBC (Auto) Absent (Absent) 12/09/17 16:40 Urine RBC (Auto) 3+(>10/hpf) (Absent) A 12/09/17 16:40 Urine Bacteria Absent (Absent) 12/09/17 16:40 Ur Random Creatinine 288.47 mg/dL 12/11/17 04:30 Ur Random Sodium 26 mmol/L 12/11/17 04:30 Urine Glucose Negative (Negative) 12/09/17 16:40 General: Sitting comfortably in chair. Well appearing, NAD RLE: Knee dressing changed. Incision CDI without surrounding erythema and without discharge. Cryo unit in use. DF/PF intact. Thigh soft and nontender. Capillary refill less than two seconds distally. Sensation intact distally. BL LE: Calves supple and nontender without erythema palpable cords. RLE 2+ pitting edema, LLE 1+ pitting edema. Assessment: []POD 2 s/p right total knee arthroplasty Plan: []WBAT PT/OT. Discussed importance of participating with PT with patient, discussed need to see BID with PT. Lovenox, coumadin 4 mg Morphine ER 30 mg BID added this morning by Dr Wolfe for improved pain control.
[2017-12-11] MEDS ORDERED: Warfarin TAB(*) 4 MG PO ONE (17:00)
--- NOTE | 2017-12-11 17:26 | RAD ---
Indication: Acute renal failure status post RIGHT knee replacement. Comparison: April 02, 2007 CT. Technique: Renal ultrasound. Report: Acoustic window limited due to body habitus and poor tolerance for positioning for ultrasound assessment of the kidneys. 13.1 x 6.2 x 5.4 cm RIGHT kidney demonstrates normal cortical echogenicity and absence of conspicuous stones, hydronephrosis, or focal lesions. 13.1 x 5.6 x 5.8 cm LEFT kidney with normal cortical echogenicity is remarkable for a 2.6 cm exophytic simple cyst at the upper pole and 4.3 cm maximum dimension simple cyst at the parapelvic region of the midpole. No conspicuous stones or hydronephrosis. IMPRESSION: 1. Negative for obstructive uropathy. 2. Normal bilateral renal cortical echogenicity.
--- NOTE | 2017-12-11 17:39 | PN ---
Subjective Date of Service: 12/11/17 Interval History: No overnight events, feels better today. He does not remember seeing me yesterday. His pain is controlled. Objective Active Medications: Acetaminophen (Tylenol Tab*) 650 mg PO Q4H PRN PRN Reason: PAIN OR TEMPERATURE Last Admin: 12/10/17 20:13 Dose: 650 mg Alprazolam (Xanax Tab*) 0.5 mg PO BEDTIME PRN PRN Reason: SLEEP Last Admin: 12/09/17 21:35 Dose: 0.5 mg Amlodipine Besylate (Norvasc Tab*) 5 mg PO QAM [facility] Last Admin: 12/11/17 08:13 Dose: 5 mg Atorvastatin Calcium (Lipitor*) 10 mg PO QPM [facility] PRN Reason: Protocol Last Admin: 12/10/17 17:34 Dose: 10 mg Bisacodyl (Dulcolax Supp*) 10 mg [place] DAILY PRN PRN Reason: constipation Cyclobenzaprine HCl (Flexeril Tab*) 10 mg PO TID PRN PRN Reason: SPASMS Dextrose (D50w Syringe 50 Ml*) 12.5 gm IV PUSH .FOR FS < 60 - SS PRN PRN Reason: FS < 60 Diphenhydramine HCl (Benadryl Iv*) 12.5 mg IV Q6H PRN PRN Reason: PRURITIS Docusate Sodium (Colace Cap*) 100 mg PO BID [facility] Last Admin: 12/11/17 08:15 Dose: 100 mg Enoxaparin Sodium (Lovenox(*)) 40 mg SUBCUT Q24H [facility] Last Admin: 12/11/17 12:15 Dose: 40 mg Gabapentin (Neurontin Cap(*)) 200 mg PO BEDTIME [facility] Last Admin: 12/10/17 20:28 Dose: 200 mg Lactated Ringer's (Lactated Ringers 1000 Ml Bag*) 1,000 mls @ 100 mls/hr IV PER RATE [facility] Last Admin: 12/11/17 02:19 Dose: 100 mls/hr Sodium Chloride (Ns 0.9% 1000 Ml*) 1,000 mls @ 150 mls/hr IV PER RATE [facility] Last Admin: 12/11/17 12:03 Dose: 150 mls/hr Insulin Human Lispro (Humalog*) 0 units SUBCUT AC [facility] PRN Reason: Protocol Last Admin: 12/11/17 11:58 Dose: Not Given Lactulose (Lactulose*) 30 ml PO Q6H PRN PRN Reason: constipation Magnesium Hydroxide (Milk Of Magnesia Liq*) 30 ml PO BID [facility] Last Admin: 12/11/17 09:59 Dose: 30 ml Magnesium Hydroxide (Milk Of Magnesia Liq*) 30 ml PO Q6H PRN PRN Reason: constipation Melatonin (Melatonin (Nf)) 3 mg PO BEDTIME [facility] Last Admin: 12/10/17 20:14 Dose: 3 mg Methylphenidate HCl (Ritalin Tab*) 10 mg PO TID PRN PRN Reason: focus Metoprolol Succinate (Toprol Xl Tab*) 25 mg PO QAM [facility] Last Admin: 12/11/17 08:15 Dose: 25 mg Morphine Sulfate (Morphine Inj (Syringe)*) 2 mg IV Q2H PRN PRN Reason: PAIN Morphine Sulfate (Ms Contin(*)) 30 mg PO Q12H [facility] Last Admin: 12/11/17 08:15 Dose: 30 mg Ondansetron HCl (Zofran Inj*) 4 mg IV Q6H PRN PRN Reason: nausea Ondansetron HCl (Zofran Tab*) 4 mg PO Q6H PRN PRN Reason: NAUSEA Oxycodone HCl (Roxycodone Tab*) 10 mg PO Q4H PRN PRN Reason: SEVERE PAIN Last Admin: 12/10/17 11:26 Dose: 10 mg Oxycodone/Acetaminophen (Percocet 5/325 Tab*) 2 tab PO Q4H PRN PRN Reason: PAIN Last Admin: 12/11/17 08:13 Dose: 2 tab Oxycodone/Acetaminophen (Percocet 5/325 Tab*) 1 tab PO Q4H PRN PRN Reason: PAIN Last Admin: 12/10/17 20:13 Dose: 1 tab Pharmacy Profile Note (Scopolamine Patch Remove*) 1 note PATCH OFF Q72H ONE Stop: 12/12/17 05:47 Pharmacy Profile Note (Coumadin Daily Reminder*) 1 note FOLLOW UP 1700 [facility] Polyethylene Glycol/Electrolytes (Miralax*) 17 gm PO DAILY PRN PRN Reason: Constipation Scopolamine (Transderm-Scop 1.5 Mg Patch*) 1 patch TRANSDERM Q72H PRN PRN Reason: Nausea/Vomiting Vital Signs - 8 hr 12/11/17 12/11/17 12/11/17 10:00 10:01 10:57 Temperature 98.2 F Pulse Rate 42 Respiratory 14 14 16 Rate Blood Pressure 117/55 (mmHg) O2 Sat by Pulse 97 Oximetry 12/11/17 13:51 Temperature 98.7 F Pulse Rate 44 Respiratory 16 Rate Blood Pressure 176/47 (mmHg) O2 Sat by Pulse 99 Oximetry Oxygen Devices in Use Now: Nasal Cannula Appearance: alert, sitting up in the chair, no distress Eyes: No Scleral Icterus Neck: NL Appearance and Movements; NL JVP Respiratory: Symmetrical Chest Expansion and Respiratory Effort, Clear to Auscultation Cardiovascular: NL Sounds; No Murmurs; No JVD, RRR Abdominal: NL Sounds; No Tenderness; No Distention Lymphatic: No Cervical Adenopathy Extremities: - - 2+ edema b/l Skin: No Rash or Ulcers Neurological: Alert and Oriented x 3 Result Diagrams: 12/11/17 05:07 12/11/17 05:07 Assess/Plan/Problems-Billing Assessment: - Patient Problems (1) CLAUDIA (acute kidney injury) Current Visit: Yes Status: Acute Code(s): N17.9 - ACUTE KIDNEY FAILURE, UNSPECIFIED SNOMED Code(s): 87008287 Comment: fena = 0.1% suggesting prerenal etiology increase IVF today renal ultrasound shows normal echogeneity and no hydronephrosis bladder scan today showed <250 cc (2) PVCs (premature ventricular contractions) Current Visit: Yes Status: Acute Code(s): I49.3 - VENTRICULAR PREMATURE DEPOLARIZATION SNOMED Code(s): 85922996 Comment: I have reviewed the notes from Dr. Gonzalez's office and pre-op evaluation and Holter monitor. Mr. Eagle was noted to have 16,000 PVCs in 14 hours on a recent monitor. His findings on telemetry seem to be consistent with this, though I cannot quantify them. He also had several short runs of NSVT, which were also reported on his holter monitor last month. His electrolytes are normal. He had an ablation at an outside hospital, but the focus of the pvcs was unable to be ablated. He has been continued on metoprolol. He is asymptomatic. I consulted with Dr. Roman today and appreciate his recommendations. (3) Diabetes mellitus Current Visit: Yes Status: Acute Code(s): E11.9 - TYPE 2 DIABETES MELLITUS WITHOUT COMPLICATIONS SNOMED Code(s): 77589800 Comment: continue metformin and insulin sliding scale his blood sugars are acceptable (4) HTN (hypertension) Current Visit: Yes Status: Acute Code(s): I10 - ESSENTIAL (PRIMARY) HYPERTENSION SNOMED Code(s): 65181615 Comment: holding losartan in setting of claudia
[2017-12-11] MEDS: Atorvastatin* 10 MG TAB PO SCH (18:16)
--- NOTE | 2017-12-11 18:43 | CONS ---
CC: Dr. Gonzalez; Dr. Shah; Dr. Layne Guadarrama; Hospitalist Service * CARDIOLOGY CONSULT: DATE OF CONSULT: 12/11/17. HISTORY OF PRESENT ILLNESS: I was asked by Dr. Moses from the hospitalist service to see this 67-year-old male patient who was hospitalized and underwent total right knee replacement on 12/09/17. I was asked to see him because of frequent PVCs by his conveyor monitor. In reviewing the cardiology notes, he followed up with Dr. Gonzalez, the patient does have known history of high burden PVCs. His 24-hour Holter monitoring in the past showed 26,000 PVCs. He was evaluated by Dr. Lira at the [facility] with unsuccessful ablation. One of the sites of the PVC was ablated, the other one was on the papillary muscle of the mitral valve and could not be ablated. He is on low dose beta-ramón treatment. I asked the patient specifically, he said higher dose on doubling the beta-ramón did not make him feel well, his heart rate was down in the 30s. He had a cardiac catheterization that showed mild nonobstructive disease. 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 His EF was 40% to 45% and speaking to the patient, he is asymptomatic. He does not feel them actually. He gives no symptoms of chest pain. No nausea, no vomiting, no hematochezia. He is in a lot of pain after his right knee replacement. He gives no palpitations, no syncope, no swelling in the lower extremities, no orthopnea, no PND is appreciated. His review of all other systems essentially is negative. PAST MEDICAL HISTORY: Includes history of high burden PVCs, mild coronary artery disease, cardiomyopathy probably related to his PVCs, EF 40% to 45%, systemic atrial hypertension, morbid obesity, osteoarthritis, hyperlipidemia on medical treatment, gout disease, seizure disorder, anemia, vitamin D deficiency , trivial aortic stenosis, diabetic retinopathy, neuropathy, spinal stenosis appreciated. PAST SURGICAL HISTORY: Includes ankle surgery, kidney stones, carpal tunnel release, wisdom teeth removal and ablation for his PVCs. His cardiac cath was in July 2017 showed moderate coronary artery disease to the proximal LAD calcified 35% to 40% obstruction. The radiofrequency ablation 09/25/17 at [facility] for idiopathic PVCs. MEDICATIONS: As an outpatient include: 1. Toprol-XL 25 mg daily. 2. BiPAP for sleep apnea. 3. Vitamin D 100 mg by mouth daily. 4. Neurontin 100 mg 2 p.r.n. for pain. 5. Allopurinol 300 mg daily. 6. Aspirin 325 mg daily. 7. Pravachol 40 mg once daily. 8. Losartan 100 mg daily. 9. Melatonin 3 mg at night. 10. Hydrochlorothiazide 25 mg daily. 11. Glucosamine daily. 12. Vitamin B12 100 mcg daily. 13. Metformin 750 mg twice a day. 14. Vitamin D 2000 units 2 by mouth every day. 15. Xanax 1 mg. 16. Amlodipine 5 mg daily. 17. CoQ10 100 mg daily. His medications as an inpatient are the same outpatient medications actually with the addition of the magnesium 2 mg was given IV today and also pain medication in the form of oxycodone, Percocet. ALLERGIES: No known drug allergies. FAMILY HISTORY: No family history of premature coronary artery disease. His echo, the last one was in 11/20/17, unable to evaluate the overall LV function but appears to be mildly reduced. EF 40% to 45%, frequent PVCs, moderate TR, moderate pulmonary hypertension. Ascending aorta 3.5 cm. SOCIAL HISTORY: No history of smoking. He drinks alcohol mildly. No history of illicit drug use. REVIEW OF SYSTEMS: Review of all other systems essentially is unremarkable. PHYSICAL EXAM: He is awake, alert, and oriented. He is not in acute distress. Vitals: Blood pressure is 130/80. He is in sinus rhythm with the frequent PVCs by his Holter. He is afebrile. Head Exam: Normocephalic, atraumatic head. Ear, Nose, and Throat: Essentially benign. Neck: Supple. JVP is not elevated. No carotid bruits. No masses in the neck is appreciated. Chest: Clear to auscultation. No rales, no wheeze. No added sounds appreciated. Heart: Normal S1, S2. No added sounds, no gallops, no rubs is appreciated. Abdomen: Obese, soft. Positive bowel sounds. Extremities: No edema, no cyanosis, no clubbing. Skin Exam: Normal. Psych: Normal affect and mood. [employer] : No focal deficits appreciated. LABORATORY DATA/DIAGNOSTIC STUDIES: Labs showed the following: White blood cell 11.4, hemoglobin 11, hematocrit 33, and platelets 142. Sodium 135, potassium 4.4, chloride 102, total CO2 27, BUN 37, and creatinine 1.68, and calcium 8.1. His EKG showed the patient to be in normal sinus rhythm that was done on , frequent bigeminal PVCs, borderline left axis. Borderline left atrial enlargement. Diffuse ST-T changes. IMPRESSION: The patient is a 63-year-old male patient with: 1. 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 2. Status post ablation to one site of the premature ventricular contractions radiofrequency. The other site was not amenable for ablation at the [facility]. 3. Cardiomyopathy, probably secondary to high burden premature ventricular contractions with the EF 40% to 45%. 4. Morbid obesity. 5. Sleep apnea, on BiPAP. 6. Systemic arterial hypertension. 7. Diabetes mellitus with neuropathy, nephropathy. 8. Chronic renal insufficiency. 9. Osteoarthritis. 10. Systemic arterial hypertension, on medical treatment. 11. Hyperlipidemia. 12. Abnormal EKG as described. PLAN: The patient is currently asymptomatic from his PVCs. He never had any significant symptoms. I believe the stress of his right knee replacement surgery and the pain he is in not helping and making his PVCs are more prominent in a frequency, although he does not feel them. I was hoping to increase his beta- ramón treatment, but in speaking to the patient further that was tried actually in the past and did not work for him for significant fatigability and his heart rate dropped in the lower 30s. At the present time, pain control medication is important. Hydration is important. Keeping potassium more than 4 is important. Adding magnesium which I discussed with Dr. Moses from the hospitalist service, hopefully can be helpful. I do not think any further intervention or cardiac testing or any other medications at the present time are needed. Continue observing him closely. I understand he has a near future followup at the [facility] and discussed further alternatives for his medical treatment. TIME SPENT: More than half of at least 60 to 65 plus minutes was [id number] in education and counseling mode, discussing this with the patient as well as Dr. Moses and making further recommendations accordingly. [id number]/[facility] #: [id number] [facility]
[2017-12-11] MEDS ORDERED: Senna TAB PO PRN (20:09)
[2017-12-11] MEDS: Gabapentin CAP(*) 100 MG PO SCH (20:28)
[2017-12-11] MEDS: CMCS Melatonin (NF) 3 MG TAB PO SCH (22:03)
[2017-12-12] MEDS: NS 0.9% 1000 ML* 1,000 ML IV SCH (03:34)
[2017-12-12] MEDS ORDERED: hydrALAZINE IV* 20 MG/ML VIAL IV PRN (04:17)
[2017-12-12] MEDS ORDERED: Scopolamine PATCH Remove* 1 NOTE MISC PATCH OFF ONE (05:46)
[2017-12-12] MEDS: HYDROmorphone INJ* 2 MG/ML CARPUJECT SYRINGE IV SLOW PU PRN ×2 (06:00→13:16)
[2017-12-12] MEDS: Acetaminophen TAB* 325 MG PO PRN ×2 (06:18→09:36)
[2017-12-12 06:51] LABS: Hematocrit 32 % (42-52); Hemoglobin 10.6 g/dl (14.0-18.0); Mean Platelet Volume 8.4 um3 (7.4-10.4); Platelet Count 118 10^3/ul (150-450)
[2017-12-12 06:58] LABS: INR 1.65 (0.77-1.02)
[2017-12-12 07:06] LABS: EGFR Non-African American 54.3 (>60)
[2017-12-12] MEDS: Insulin LISPRO* 1 UNITS UNIT SUBCUT SCH ×3 (08:19→17:42)
[2017-12-12] MEDS: Morphine TAB Extended Release (*) 30 MG TAB.ER PO SCH (08:19)
--- NOTE | 2017-12-12 08:23 | PN ---
Progress Note - Progress Note Date of Service: 12/12/17 SOAP: Subjective: 67 y/o male s/p R TKA POD #[address] Wolfe. VSS, afebrile overnight. Continued with intermittent tachy. Patient confused, discussing pain medication. no pain at rest, increased with movement. Objective: General- Well appearing, NAD, AO Sitting upright in chair, MSK- RLE- DF/PF = b/l, PT 2+, negative homans sign, siltlt, dressing changed, incision c/d/i, minimal erythema around incision, no drainage, moderate edema. Vital Signs Temp 100.2 F 12/12/17 04:11 Pulse 55 12/12/17 04:11 Resp 16 12/12/17 04:11 BP 198/47 12/12/17 04:11 Pulse Ox 90 12/12/17 04:11 Intake & Output 12/11/17 12/12/17 12/12/17 18:59 06:59 18:59 Intake Total 784 3116 Output Total 30 600 0 Balance 754 2516 0 Intake: IV Fluids 2481 NS (0.9%) 2481 IVPB 544 55 LR 544 NS (0.9%) 55 Oral 240 580 Output: Urine 30 600 0 Other: Date of Last Bowel 12/12/17 Movement # Bowel Movements 2 1 Estimated Stool Amount Medium Small # Voids 0 0 Assessment: Stable 67 y/o male s/p R TKA POD #[address] Wolfe Plan: - DVT prophylaxis- INR 1.65, lovenox, coumadin - Continue PT/ OT - POssible PMRU Friday - Follow up with Dr. Wolfe within 10-14 days post-op - H&H STable - post-op IV ABX - Completed - Pain control- patient confused about pain medications, reports pain only with activities. pain medication changed to dilaudid due to renal function - PVC's- appear stable, consult by cardiology--> long standing issue, continuing to monitor. - CLAUDIA- Improving. fluids held, continue to monitor. - MS- improving, however patient still confused. Acetaminophen (Tylenol Tab*) 650 mg PO Q4H PRN PRN Reason: PAIN OR TEMPERATURE Last Admin: 12/12/17 06:18 Dose: 650 mg Alprazolam (Xanax Tab*) 0.5 mg PO BEDTIME PRN PRN Reason: SLEEP Last Admin: 12/09/17 21:35 Dose: 0.5 mg Amlodipine Besylate (Norvasc Tab*) 5 mg PO QAM [facility] Last Admin: 12/11/17 08:13 Dose: 5 mg Atorvastatin Calcium (Lipitor*) 10 mg PO QPM [facility] PRN Reason: Protocol Last Admin: 12/11/17 18:16 Dose: 10 mg Bisacodyl (Dulcolax Supp*) 10 mg [place] DAILY PRN PRN Reason: constipation Cyclobenzaprine HCl (Flexeril Tab*) 10 mg PO TID PRN PRN Reason: SPASMS Dextrose (D50w Syringe 50 Ml*) 12.5 gm IV PUSH .FOR FS < 60 - SS PRN PRN Reason: FS < 60 Diphenhydramine HCl (Benadryl Iv*) 12.5 mg IV Q6H PRN PRN Reason: PRURITIS Docusate Sodium (Colace Cap*) 100 mg PO BID [facility] Last Admin: 12/11/17 20:29 Dose: 100 mg Enoxaparin Sodium (Lovenox(*)) 40 mg SUBCUT Q24H [facility] Last Admin: 12/11/17 12:15 Dose: 40 mg Gabapentin (Neurontin Cap(*)) 200 mg PO BEDTIME [facility] Last Admin: 12/11/17 20:28 Dose: 200 mg Hydralazine HCl (Apresoline Iv*) 10 mg IV Q4H PRN PRN Reason: Systolic >170 Last Admin: 12/12/17 04:40 Dose: 10 mg Hydromorphone HCl (Dilaudid Inj*) 0.5 mg IV SLOW PU Q2H PRN PRN Reason: PAIN Sodium Chloride (Ns 0.9% 1000 Ml*) 1,000 mls @ 150 mls/hr IV PER RATE [facility] Last Admin: 12/12/17 03:34 Dose: 150 mls/hr Insulin Human Lispro (Humalog*) 0 units SUBCUT AC [facility] PRN Reason: Protocol Last Admin: 12/12/17 08:19 Dose: Not Given Lactulose (Lactulose*) 30 ml PO Q6H PRN PRN Reason: constipation Magnesium Hydroxide (Milk Of Magnesia Liq*) 30 ml PO BID [facility] Last Admin: 12/11/17 22:03 Dose: 30 ml Magnesium Hydroxide (Milk Of Magnesia Liq*) 30 ml PO Q6H PRN PRN Reason: constipation Melatonin (Melatonin (Nf)) 3 mg PO BEDTIME [facility] Last Admin: 12/11/17 22:03 Dose: 3 mg Methylphenidate HCl (Ritalin Tab*) 10 mg PO TID PRN PRN Reason: focus Metoprolol Succinate (Toprol Xl Tab*) 25 mg PO QAM [facility] Last Admin: 12/11/17 08:15 Dose: 25 mg Ondansetron HCl (Zofran Inj*) 4 mg IV Q6H PRN PRN Reason: nausea Ondansetron HCl (Zofran Tab*) 4 mg PO Q6H PRN PRN Reason: NAUSEA Oxycodone HCl (Roxycodone Tab*) 10 mg PO Q4H PRN PRN Reason: SEVERE PAIN Last Admin: 12/10/17 11:26 Dose: 10 mg Oxycodone/Acetaminophen (Percocet 5/325 Tab*) 2 tab PO Q4H PRN PRN Reason: PAIN Last Admin: 12/11/17 08:13 Dose: 2 tab Oxycodone/Acetaminophen (Percocet 5/325 Tab*) 1 tab PO Q4H PRN PRN Reason: PAIN Last Admin: 12/10/17 20:13 Dose: 1 tab Pharmacy Profile Note (Coumadin Daily Reminder*) 1 note FOLLOW UP 1700 [facility] Last Admin: 12/11/17 18:16 Dose: 1 note Polyethylene Glycol/Electrolytes (Miralax*) 17 gm PO DAILY PRN PRN Reason: Constipation Last Admin: 12/11/17 20:28 Dose: 17 gm Scopolamine (Transderm-Scop 1.5 Mg Patch*) 1 patch TRANSDERM Q72H PRN PRN Reason: Nausea/Vomiting Senna (Senokot Tab*) 1 tab PO DAILY PRN PRN Reason: CONSTIPATION Last Admin: 12/11/17 22:06 Dose: 1 tab Warfarin Sodium (Coumadin Tab(*)) 4 mg PO ONCE@1700 ONE PRN Reason: Protocol Stop: 12/12/17 17:01
[2017-12-12] MEDS ORDERED: HYDROmorphone TAB* 2 MG PO PRN (08:26)
[2017-12-12] MEDS: Magnesium Hydroxide LIQ* 30 ML UDC PO SCH ×2 (09:31→21:40)
[2017-12-12] MEDS: Docusate CAP* 100 MG PO SCH ×2 (09:31→21:38)
[2017-12-12] MEDS: HYDROmorphone TAB* 2 MG PO PRN (09:34)
[2017-12-12] MEDS: Metoprolol Succinate XL TAB* 25 MG PO SCH (09:35)
[2017-12-12] MEDS: amLODIPine TAB* 5 MG PO SCH (09:35)
[2017-12-12] MEDS: Enoxaparin(*) 40 MG/0.4 ML SYR SUBCUT SCH (12:07)
--- NOTE | 2017-12-12 12:16 | RAD ---
HISTORY: Hypoxia COMPARISONS: October 24, 2017 VIEWS: 1: frontal portable view of the chest at 10:40 AM FINDINGS: LINES AND TUBES: None. CARDIOMEDIASTINAL SILHOUETTE: The cardiomediastinal silhouette is normal for portable technique. PLEURA: The costophrenic angles are sharp. No pleural abnormalities are noted. LUNG PARENCHYMA: The lung volumes are low. The lungs are clear accounting for the phase of respiration. ABDOMEN: The upper abdomen is clear. There is no subphrenic gas. BONES AND SOFT TISSUES: No bone or soft tissue abnormalities are noted. IMPRESSION: NO ACTIVE CARDIOPULMONARY DISEASE.
[2017-12-12] MEDS ORDERED: Warfarin TAB(*) 4 MG PO ONE (17:00)
[2017-12-12] MEDS: Atorvastatin* 10 MG TAB PO SCH (17:41)
[2017-12-12] MEDS ORDERED: NS 0.9% 500 ML* 500 ML IV ONE (17:50)
--- NOTE | 2017-12-12 17:58 | PN ---
Subjective Date of Service: 12/12/17 Interval History: Confused overnight. This morning he has no complaints. Says his pain is controlled with the po dilaudid. Worked with PT today and was able to stand by himself. Objective Active Medications: Acetaminophen (Tylenol Tab*) 650 mg PO Q4H PRN PRN Reason: PAIN OR TEMPERATURE Last Admin: 12/12/17 09:36 Dose: 650 mg Alprazolam (Xanax Tab*) 0.5 mg PO BEDTIME PRN PRN Reason: SLEEP Last Admin: 12/09/17 21:35 Dose: 0.5 mg Amlodipine Besylate (Norvasc Tab*) 5 mg PO QAM [facility] Last Admin: 12/12/17 09:35 Dose: 5 mg Atorvastatin Calcium (Lipitor*) 10 mg PO QPM [facility] PRN Reason: Protocol Last Admin: 12/12/17 17:41 Dose: 10 mg Bisacodyl (Dulcolax Supp*) 10 mg [place] DAILY PRN PRN Reason: constipation Cyclobenzaprine HCl (Flexeril Tab*) 10 mg PO TID PRN PRN Reason: SPASMS Dextrose (D50w Syringe 50 Ml*) 12.5 gm IV PUSH .FOR FS < 60 - SS PRN PRN Reason: FS < 60 Diphenhydramine HCl (Benadryl Iv*) 12.5 mg IV Q6H PRN PRN Reason: PRURITIS Docusate Sodium (Colace Cap*) 100 mg PO BID [facility] Last Admin: 12/12/17 09:31 Dose: Not Given Enoxaparin Sodium (Lovenox(*)) 40 mg SUBCUT Q24H [facility] Last Admin: 12/12/17 12:07 Dose: 40 mg Gabapentin (Neurontin Cap(*)) 200 mg PO BEDTIME [facility] Last Admin: 12/11/17 20:28 Dose: 200 mg Hydralazine HCl (Apresoline Iv*) 10 mg IV Q4H PRN PRN Reason: Systolic >170 Last Admin: 12/12/17 04:40 Dose: 10 mg Hydromorphone HCl (Dilaudid Inj*) 0.5 mg IV SLOW PU Q2H PRN PRN Reason: PAIN Last Admin: 12/12/17 13:16 Dose: 0.5 mg Hydromorphone HCl (Dilaudid Tab*) 4 mg PO Q6H PRN PRN Reason: PAIN - SEVERE Hydromorphone HCl (Dilaudid Tab*) 2 mg PO Q4H PRN PRN Reason: PAIN - MODERATE Last Admin: 12/12/17 09:34 Dose: 2 mg Sodium Chloride (Ns 0.9% 500 Ml*) 500 mls @ 0 mls/hr IV ONCE ONE PRN Reason: Wide Open Stop: 12/12/17 17:51 Sodium Chloride (Ns 0.9% 500 Ml*) 500 mls @ 125 mls/hr IV PER RATE [facility] Insulin Human Lispro (Humalog*) 0 units SUBCUT [facility] PRN Reason: Protocol Last Admin: 12/12/17 17:42 Dose: Not Given Lactulose (Lactulose*) 30 ml PO Q6H PRN PRN Reason: constipation Magnesium Hydroxide (Milk Of Magnesia Liq*) 30 ml PO BID [facility] Last Admin: 12/12/17 09:31 Dose: Not Given Magnesium Hydroxide (Milk Of Magnesia Liq*) 30 ml PO Q6H PRN PRN Reason: constipation Melatonin (Melatonin (Nf)) 3 mg PO BEDTIME [facility] Last Admin: 12/11/17 22:03 Dose: 3 mg Methylphenidate HCl (Ritalin Tab*) 10 mg PO TID PRN PRN Reason: focus Metoprolol Succinate (Toprol Xl Tab*) 25 mg PO QAM [facility] Last Admin: 12/12/17 09:35 Dose: 25 mg Ondansetron HCl (Zofran Inj*) 4 mg IV Q6H PRN PRN Reason: nausea Ondansetron HCl (Zofran Tab*) 4 mg PO Q6H PRN PRN Reason: NAUSEA Pharmacy Profile Note (Coumadin Daily Reminder*) 1 note FOLLOW UP 1700 [facility] Last Admin: 12/12/17 17:42 Dose: 1 note Polyethylene Glycol/Electrolytes (Miralax*) 17 gm PO DAILY PRN PRN Reason: Constipation Last Admin: 12/11/17 20:28 Dose: 17 gm Scopolamine (Transderm-Scop 1.5 Mg Patch*) 1 patch TRANSDERM Q72H PRN PRN Reason: Nausea/Vomiting Senna (Senokot Tab*) 1 tab PO DAILY PRN PRN Reason: CONSTIPATION Last Admin: 12/11/17 22:06 Dose: 1 tab Vital Signs - 8 hr 12/12/17 12/12/17 12/12/17 11:37 12:11 13:16 Temperature 98.8 F Pulse Rate 118 Respiratory 20 18 18 Rate Blood Pressure 125/42 (mmHg) O2 Sat by Pulse 97 Oximetry 12/12/17 12/12/17 12/12/17 14:24 15:34 15:53 Temperature 98.9 F Pulse Rate Respiratory 18 18 Rate Blood Pressure 151/42 (mmHg) O2 Sat by Pulse 98 98 Oximetry Oxygen Devices in Use Now: Nasal Cannula Appearance: alert, oriented with occasional forgetfulness, well appearing Eyes: No Scleral Icterus Ears/Nose/Mouth/Throat: NL Teeth, Lips, Gums Neck: NL Appearance and Movements; NL JVP Respiratory: Symmetrical Chest Expansion and Respiratory Effort, Clear to Auscultation Cardiovascular: NL Sounds; No Murmurs; No JVD, - - irregular rhythm Abdominal: NL Sounds; No Tenderness; No Distention Lymphatic: No Cervical Adenopathy Extremities: - - 2+ edema b/l, cryotherapy unit on r knee Skin: No Rash or Ulcers Neurological: Alert and Oriented x 3 Result Diagrams: 12/12/17 06:29 12/12/17 06:29 Assess/Plan/Problems-Billing Assessment: - Patient Problems (1) CLAUDIA (acute kidney injury) Current Visit: Yes Status: Acute Code(s): N17.9 - ACUTE KIDNEY FAILURE, UNSPECIFIED SNOMED Code(s): 56329202 Comment: improving today after IVF yesterday fena = 0.1% suggested prerenal etiology renal ultrasound shows normal echogeneity and no hydronephrosis continue to encourage po fluids and gentle IVF (2) Delirium Current Visit: Yes Status: Acute Code(s): R41.0 - DISORIENTATION, UNSPECIFIED SNOMED Code(s): 6385282 Comment: likely multifactorial postoperatively, and also related to morphine in setting of CLAUDIA I switched the morphine to dilaudid this morning, which has seemed ot help (3) PVCs (premature ventricular contractions) Current Visit: Yes Status: Acute Code(s): I49.3 - VENTRICULAR PREMATURE DEPOLARIZATION SNOMED Code(s): 31878123 Comment: heavy burden chronically; may be slightly exacebated by stress of surgery and post-op pain, no antiarrhythmics recommended by cardiology (4) Diabetes mellitus Current Visit: Yes Status: Acute Code(s): E11.9 - TYPE 2 DIABETES MELLITUS WITHOUT COMPLICATIONS SNOMED Code(s): 13808720 Comment: continue metformin and insulin sliding scale his blood sugars are acceptable (5) HTN (hypertension) Current Visit: Yes Status: Acute Code(s): I10 - ESSENTIAL (PRIMARY) HYPERTENSION SNOMED Code(s): 30868606 Comment: holding losartan in setting of claudia and bp is still on the low side, suggesting continued need for ivf repletion
[2017-12-12] MEDS ORDERED: NS 0.9% 500 ML* 500 ML IV SCH (18:00)
[2017-12-12] MEDS: CMCS Melatonin (NF) 3 MG TAB PO SCH (21:38)
[2017-12-12] MEDS: Gabapentin CAP(*) 100 MG PO SCH (21:38)
[2017-12-12] MEDS: ALPRAZolam TAB* 0.25 MG PO PRN (21:46)
[2017-12-13] MEDS ORDERED: LORazepam TAB(*) 0.5 MG PO ONE ×2 (02:17→18:23)
[2017-12-13 06:04] LABS: ABS Basophils 0 10^3/ul (0-0.2); ABS Eosinophils 0.3 10^3/ul (0-0.6); ABS Lymphocytes 1.2 10^3/ul (1.0-4.8); ABS Monocytes 0.6 10^3/ul (0-0.8); ABS Neutrophils 6.8 10^3/ul (1.5-7.7); ABS Nucleated RBC 0 10^3/ul; Eosinophil % 3.2 % (0-6); Hematocrit 29 % (42-52); Hemoglobin 9.9 g/dl (14.0-18.0); Lymphocyte % 12.9 % (25-47); Mean Corpuscular HGB Conc 34 g/dl (31-36); Mean Corpuscular Hemoglobin 29 pg (27-31); Mean Corpuscular Volume 86 fL (80-94); Mean Platelet Volume 8.2 um3 (7.4-10.4); Nucleated Red Blood Cells % 0; Platelet Count 122 10^3/ul (150-450); Red Blood Count 3.38 10^6/ul (4.0-5.4); Red Cell Distribution Width 17 % (10.5-15); White Blood Count 8.9 10^3/ul (3.5-10.8)
[2017-12-13 06:18] LABS: INR 2.4 (0.77-1.02)
[2017-12-13 06:34] LABS: EGFR Non-African American 71.6 (>60)
[2017-12-13] MEDS: Magnesium Hydroxide LIQ* 30 ML UDC PO SCH ×2 (07:21→20:05)
[2017-12-13] MEDS: Docusate CAP* 100 MG PO SCH ×2 (07:21→20:03)
[2017-12-13] MEDS: Insulin LISPRO* 1 UNITS UNIT SUBCUT SCH ×3 (07:55→17:16)
[2017-12-13] MEDS: amLODIPine TAB* 5 MG PO SCH (08:15)
[2017-12-13] MEDS: HYDROmorphone TAB* 4 MG PO PRN ×2 (08:15→15:00)
[2017-12-13] MEDS: Metoprolol Succinate XL TAB* 25 MG PO SCH (08:15)
--- NOTE | 2017-12-13 09:42 | PN ---
Progress Note - Progress Note Date of Service: 12/13/17 SOAP: Subjective: Pt. is alert, pain is moderate, better control today. Objective: RLE - inc c/d/i. distally nvi. Vital Signs: Temp Pulse Resp BP Pulse Ox 98.9 F 75 20 183/41 94 12/13/17 07:53 12/13/17 07:53 12/13/17 08:15 12/13/17 07:53 12/13/17 07:53 Laboratory Results - last 24 hr 12/12/17 12/12/17 12/12/17 12:09 16:51 21:56 WBC RBC Hgb Hct MCV MCH MCHC RDW Plt Count MPV Neut % (Auto) Lymph % (Auto) Smith % (Auto) Eos % (Auto) Baso % (Auto) Absolute Neuts (auto) Absolute Lymphs (auto) Absolute Monos (auto) Absolute Eos (auto) Absolute Basos (auto) Absolute Nucleated RBC Nucleated RBC % INR (Anticoag Therapy) Sodium Potassium Chloride Carbon Dioxide Anion Gap BUN Creatinine Est GFR ( Amer) Est GFR (Non-Af Amer) BUN/Creatinine Ratio Glucose POC Glucose (mg/dL) 139 H 133 H 131 H Calcium Phosphorus Magnesium 12/13/17 12/13/17 12/13/17 05:49 05:49 05:49 WBC 8.9 RBC 3.38 L Hgb 9.9 L Hct 29 L MCV 86 MCH 29 MCHC 34 RDW 17 H Plt Count 122 L MPV 8.2 Neut % (Auto) 76.3 Lymph % (Auto) 12.9 L Smith % (Auto) 7.2 H Eos % (Auto) 3.2 Baso % (Auto) 0.4 Absolute Neuts (auto) 6.8 Absolute Lymphs (auto) 1.2 Absolute Monos (auto) 0.6 Absolute Eos (auto) 0.3 Absolute Basos (auto) 0 Absolute Nucleated RBC 0 Nucleated RBC % 0 INR (Anticoag Therapy) 2.40 H Sodium 136 L Potassium 3.9 Chloride 104 Carbon Dioxide 23 Anion Gap 9 BUN 30 H Creatinine 1.03 Est GFR ( Amer) 92.1 Est GFR (Non-Af Amer) 71.6 BUN/Creatinine Ratio 29.1 H Glucose 114 H POC Glucose (mg/dL) Calcium 8.2 L Phosphorus 2.4 L Magnesium 2.3 12/13/17 07:40 WBC RBC Hgb Hct MCV MCH MCHC RDW Plt Count MPV Neut % (Auto) Lymph % (Auto) Smith % (Auto) Eos % (Auto) Baso % (Auto) Absolute Neuts (auto) Absolute Lymphs (auto) Absolute Monos (auto) Absolute Eos (auto) Absolute Basos (auto) Absolute Nucleated RBC Nucleated RBC % INR (Anticoag Therapy) Sodium Potassium Chloride Carbon Dioxide Anion Gap BUN Creatinine Est GFR ( Amer) Est GFR (Non-Af Amer) BUN/Creatinine Ratio Glucose POC Glucose (mg/dL) 123 H Calcium Phosphorus Magnesium Assessment: 67 yo M pod 4 s/p RTKA Plan: wbat rle pt/ot prn analgesia d/c lovenox, hold coumadin tonight anticipate PMRU tx tomorrow 12/14
[2017-12-13] MEDS: HYDROmorphone TAB* 2 MG PO PRN (11:12)
[2017-12-13] MEDS: Prochlorperazine TAB* 5 MG PO PRN (14:59)
--- NOTE | 2017-12-13 15:11 | PN ---
Subjective Date of Service: 12/13/17 Interval History: Feeling better today. Worked with PT, pain was controlled. Only complaint right now is hiccups Objective Active Medications: Acetaminophen (Tylenol Tab*) 650 mg PO Q4H PRN PRN Reason: PAIN OR TEMPERATURE Last Admin: 12/12/17 09:36 Dose: 650 mg Alprazolam (Xanax Tab*) 0.5 mg PO BEDTIME PRN PRN Reason: SLEEP Last Admin: 12/12/17 21:46 Dose: 0.5 mg Amlodipine Besylate (Norvasc Tab*) 5 mg PO QAM [facility] Last Admin: 12/13/17 08:15 Dose: 5 mg Atorvastatin Calcium (Lipitor*) 10 mg PO QPM [facility] PRN Reason: Protocol Last Admin: 12/12/17 17:41 Dose: 10 mg Bisacodyl (Dulcolax Supp*) 10 mg [place] DAILY PRN PRN Reason: constipation Cyclobenzaprine HCl (Flexeril Tab*) 10 mg PO TID PRN PRN Reason: SPASMS Dextrose (D50w Syringe 50 Ml*) 12.5 gm IV PUSH .FOR FS < 60 - SS PRN PRN Reason: FS < 60 Diphenhydramine HCl (Benadryl Iv*) 12.5 mg IV Q6H PRN PRN Reason: PRURITIS Docusate Sodium (Colace Cap*) 100 mg PO BID [facility] Last Admin: 12/13/17 07:21 Dose: Not Given Gabapentin (Neurontin Cap(*)) 200 mg PO BEDTIME [facility] Last Admin: 12/12/17 21:38 Dose: 200 mg Hydralazine HCl (Apresoline Iv*) 10 mg IV Q4H PRN PRN Reason: Systolic >170 Last Admin: 12/12/17 04:40 Dose: 10 mg Hydromorphone HCl (Dilaudid Inj*) 0.5 mg IV SLOW PU Q2H PRN PRN Reason: PAIN Last Admin: 12/12/17 13:16 Dose: 0.5 mg Hydromorphone HCl (Dilaudid Tab*) 4 mg PO Q6H PRN PRN Reason: PAIN - SEVERE Last Admin: 12/13/17 15:00 Dose: 4 mg Hydromorphone HCl (Dilaudid Tab*) 2 mg PO Q4H PRN PRN Reason: PAIN - MODERATE Last Admin: 12/13/17 11:12 Dose: 2 mg Insulin Human Lispro (Humalog*) 0 units SUBCUT [facility] PRN Reason: Protocol Last Admin: 12/13/17 12:41 Dose: 3 unit Lactulose (Lactulose*) 30 ml PO Q6H PRN PRN Reason: constipation Magnesium Hydroxide (Milk Of Magnesia Liq*) 30 ml PO BID [facility] Last Admin: 12/13/17 07:21 Dose: Not Given Magnesium Hydroxide (Milk Of Magnesia Liq*) 30 ml PO Q6H PRN PRN Reason: constipation Melatonin (Melatonin (Nf)) 3 mg PO BEDTIME [facility] Last Admin: 12/12/17 21:38 Dose: 3 mg Methylphenidate HCl (Ritalin Tab*) 10 mg PO TID PRN PRN Reason: focus Metoprolol Succinate (Toprol Xl Tab*) 25 mg PO QAM [facility] Last Admin: 12/13/17 08:15 Dose: 25 mg Ondansetron HCl (Zofran Inj*) 4 mg IV Q6H PRN PRN Reason: nausea Pharmacy Profile Note (Coumadin Daily Reminder*) 1 note FOLLOW UP 1700 [facility] Last Admin: 12/13/17 15:00 Dose: 1 note Polyethylene Glycol/Electrolytes (Miralax*) 17 gm PO DAILY PRN PRN Reason: Constipation Last Admin: 12/11/17 20:28 Dose: 17 gm Prochlorperazine (Compazine Tab*) 5 mg PO Q6H PRN PRN Reason: HICCUPS Last Admin: 12/13/17 14:59 Dose: 5 mg Scopolamine (Transderm-Scop 1.5 Mg Patch*) 1 patch TRANSDERM Q72H PRN PRN Reason: Nausea/Vomiting Senna (Senokot Tab*) 1 tab PO DAILY PRN PRN Reason: CONSTIPATION Last Admin: 12/11/17 22:06 Dose: 1 tab Vital Signs - 8 hr 12/13/17 12/13/17 12/13/17 07:40 07:53 08:15 Temperature 98.9 F Pulse Rate 75 Respiratory 17 20 20 Rate Blood Pressure 183/41 (mmHg) O2 Sat by Pulse 94 94 Oximetry 12/13/17 12/13/17 12/13/17 09:40 11:12 11:53 Temperature 99.3 F Pulse Rate 44 Respiratory 18 16 Rate Blood Pressure 148/39 151/59 (mmHg) O2 Sat by Pulse 93 Oximetry 12/13/17 12/13/17 13:46 15:00 Temperature Pulse Rate Respiratory 18 18 Rate Blood Pressure (mmHg) O2 Sat by Pulse Oximetry Oxygen Devices in Use Now: None Appearance: alert, obese, sitting up in chair Eyes: No Scleral Icterus Ears/Nose/Mouth/Throat: NL Teeth, Lips, Gums Neck: NL Appearance and Movements; NL JVP Respiratory: Symmetrical Chest Expansion and Respiratory Effort, Clear to Auscultation Cardiovascular: NL Sounds; No Murmurs; No JVD, RRR Abdominal: NL Sounds; No Tenderness; No Distention Lymphatic: No Cervical Adenopathy Extremities: - - 1+ LE edema b/l Skin: No Rash or Ulcers Neurological: Alert and Oriented x 3 Result Diagrams: 12/13/17 05:49 12/13/17 05:49 Assess/Plan/Problems-Billing Assessment: - Patient Problems (1) CLAUDIA (acute kidney injury) Current Visit: Yes Status: Acute Code(s): N17.9 - ACUTE KIDNEY FAILURE, UNSPECIFIED SNOMED Code(s): 20281132 Comment: resolved. was likely prerenal as evidenced by fena and improvement with ivf no more ivf needed (2) Delirium Current Visit: Yes Status: Acute Code(s): R41.0 - DISORIENTATION, UNSPECIFIED SNOMED Code(s): 5136690 Comment: improved after switching morphine to dilaudid (3) PVCs (premature ventricular contractions) Current Visit: Yes Status: Acute Code(s): I49.3 - VENTRICULAR PREMATURE DEPOLARIZATION SNOMED Code(s): 48116231 Comment: heavy burden chronically; may be slightly exacebated by stress of surgery and post-op pain, no antiarrhythmics recommended by cardiology dc tele today (4) Diabetes mellitus Current Visit: Yes Status: Acute Code(s): E11.9 - TYPE 2 DIABETES MELLITUS WITHOUT COMPLICATIONS SNOMED Code(s): 35934994 Comment: continue metformin and insulin sliding scale his blood sugars are acceptable (5) HTN (hypertension) Current Visit: Yes Status: Acute Code(s): I10 - ESSENTIAL (PRIMARY) HYPERTENSION SNOMED Code(s): 32721532 Comment: holding losartan in setting of claudia bp rising; can resume for tomorrow Status and Disposition: stable for PMRU tomorrow from a medical perspective
[2017-12-13] MEDS: Atorvastatin* 10 MG TAB PO SCH (17:36)
[2017-12-13] MEDS: Gabapentin CAP(*) 100 MG PO SCH (20:03)
[2017-12-13] MEDS: CMCS Melatonin (NF) 3 MG TAB PO SCH (20:03)
[2017-12-13] MEDS: ALPRAZolam TAB* 0.25 MG PO PRN (23:49)
[2017-12-14] MEDS: Prochlorperazine TAB* 5 MG PO PRN (03:04)
[2017-12-14 06:41] LABS: Hematocrit 28 % (42-52); Hemoglobin 9.2 g/dl (14.0-18.0); Mean Platelet Volume 8.2 um3 (7.4-10.4); Platelet Count 137 10^3/ul (150-450)
[2017-12-14 06:50] LABS: INR 2.54 (0.77-1.02)
[2017-12-14 07:57] VITALS: BP 153/46
[2017-12-14] MEDS: Insulin LISPRO* 1 UNITS UNIT SUBCUT SCH ×2 (08:14→12:08)
--- NOTE | 2017-12-14 08:15 | PN ---
Subjective Date of Service: 12/14/17 Interval History: No overnight events. Feels good today. Pain is controlled on dilaudid. No nausea, vomiting, constipation. No BM today, but had one yesterday. Worked with PT and felt good. Objective Active Medications: Acetaminophen (Tylenol Tab*) 650 mg PO Q4H PRN PRN Reason: PAIN OR TEMPERATURE Last Admin: 12/12/17 09:36 Dose: 650 mg Alprazolam (Xanax Tab*) 0.5 mg PO BEDTIME PRN PRN Reason: SLEEP Last Admin: 12/13/17 23:49 Dose: 0.5 mg Amlodipine Besylate (Norvasc Tab*) 5 mg PO QAM [facility] Last Admin: 12/13/17 08:15 Dose: 5 mg Atorvastatin Calcium (Lipitor*) 10 mg PO QPM [facility] PRN Reason: Protocol Last Admin: 12/13/17 17:36 Dose: 10 mg Bisacodyl (Dulcolax Supp*) 10 mg [place] DAILY PRN PRN Reason: constipation Cyclobenzaprine HCl (Flexeril Tab*) 10 mg PO TID PRN PRN Reason: SPASMS Dextrose (D50w Syringe 50 Ml*) 12.5 gm IV PUSH .FOR FS < 60 - SS PRN PRN Reason: FS < 60 Diphenhydramine HCl (Benadryl Iv*) 12.5 mg IV Q6H PRN PRN Reason: PRURITIS Docusate Sodium (Colace Cap*) 100 mg PO BID [facility] Last Admin: 12/13/17 20:03 Dose: Not Given Gabapentin (Neurontin Cap(*)) 200 mg PO BEDTIME [facility] Last Admin: 12/13/17 20:03 Dose: 200 mg Hydralazine HCl (Apresoline Iv*) 10 mg IV Q4H PRN PRN Reason: Systolic >170 Last Admin: 12/12/17 04:40 Dose: 10 mg Hydromorphone HCl (Dilaudid Inj*) 0.5 mg IV SLOW PU Q2H PRN PRN Reason: PAIN Last Admin: 12/12/17 13:16 Dose: 0.5 mg Hydromorphone HCl (Dilaudid Tab*) 4 mg PO Q6H PRN PRN Reason: PAIN - SEVERE Last Admin: 12/13/17 15:00 Dose: 4 mg Hydromorphone HCl (Dilaudid Tab*) 2 mg PO Q4H PRN PRN Reason: PAIN - MODERATE Last Admin: 12/13/17 11:12 Dose: 2 mg Insulin Human Lispro (Humalog*) 0 units SUBCUT [facility] PRN Reason: Protocol Last Admin: 12/13/17 17:16 Dose: Not Given Lactulose (Lactulose*) 30 ml PO Q6H PRN PRN Reason: constipation Losartan Potassium (Cozaar Tab*) 100 mg PO DAILY [facility] Magnesium Hydroxide (Milk Of Magnesia Liq*) 30 ml PO BID [facility] Last Admin: 12/13/17 20:05 Dose: Not Given Magnesium Hydroxide (Milk Of Magnesia Liq*) 30 ml PO Q6H PRN PRN Reason: constipation Melatonin (Melatonin (Nf)) 3 mg PO BEDTIME [facility] Last Admin: 12/13/17 20:03 Dose: 3 mg Methylphenidate HCl (Ritalin Tab*) 10 mg PO TID PRN PRN Reason: focus Metoprolol Succinate (Toprol Xl Tab*) 25 mg PO QAM [facility] Last Admin: 12/13/17 08:15 Dose: 25 mg Ondansetron HCl (Zofran Inj*) 4 mg IV Q6H PRN PRN Reason: nausea Pharmacy Profile Note (Coumadin Daily Reminder*) 1 note FOLLOW UP 1700 [facility] Last Admin: 12/13/17 15:00 Dose: 1 note Polyethylene Glycol/Electrolytes (Miralax*) 17 gm PO DAILY PRN PRN Reason: Constipation Last Admin: 12/11/17 20:28 Dose: 17 gm Prochlorperazine (Compazine Tab*) 5 mg PO Q6H PRN PRN Reason: HICCUPS Last Admin: 12/14/17 03:04 Dose: 5 mg Scopolamine (Transderm-Scop 1.5 Mg Patch*) 1 patch TRANSDERM Q72H PRN PRN Reason: Nausea/Vomiting Senna (Senokot Tab*) 1 tab PO DAILY PRN PRN Reason: CONSTIPATION Last Admin: 12/11/17 22:06 Dose: 1 tab Vital Signs - 8 hr 12/14/17 12/14/17 12/14/17 00:43 01:38 04:12 Temperature 98.4 F Pulse Rate Respiratory 17 20 Rate Blood Pressure (mmHg) O2 Sat by Pulse 93 97 Oximetry 12/14/17 12/14/17 12/14/17 04:34 07:43 07:48 Temperature 98.2 F Pulse Rate 70 Respiratory 20 Rate Blood Pressure 142/58 153/46 (mmHg) O2 Sat by Pulse 94 96 Oximetry Oxygen Devices in Use Now: None Appearance: alert, no distress, resting in bed Eyes: No Scleral Icterus Ears/Nose/Mouth/Throat: NL Teeth, Lips, Gums Neck: NL Appearance and Movements; NL JVP, - - no JVP Respiratory: Symmetrical Chest Expansion and Respiratory Effort, Clear to Auscultation Cardiovascular: - - irregular rhythm, no murmurs Abdominal: NL Sounds; No Tenderness; No Distention Lymphatic: No Cervical Adenopathy Extremities: - - 2+ edema LLE, 3+ RLE. R knee stapled, minimal surrounding erythema at incision, no drainage Neurological: Alert and Oriented x 3 Result Diagrams: 12/14/17 06:00 12/13/17 05:49 Assess/Plan/Problems-Billing Assessment: - Patient Problems (1) CLAUDIA (acute kidney injury) Current Visit: Yes Status: Acute Code(s): N17.9 - ACUTE KIDNEY FAILURE, UNSPECIFIED SNOMED Code(s): 20898937 Comment: resolved. was likely prerenal as evidenced by fena and improvement with ivf no more ivf needed (2) Delirium Current Visit: Yes Status: Acute Code(s): R41.0 - DISORIENTATION, UNSPECIFIED SNOMED Code(s): 4075475 Comment: improved after switching morphine to dilaudid I will defer further pain management at discharge to ortho (3) PVCs (premature ventricular contractions) Current Visit: Yes Status: Acute Code(s): I49.3 - VENTRICULAR PREMATURE DEPOLARIZATION SNOMED Code(s): 41873389 Comment: heavy burden chronically; may be slightly exacebated by stress of surgery and post-op pain, no antiarrhythmics recommended by cardiology continue metoprolol (4) Diabetes mellitus Current Visit: Yes Status: Acute Code(s): E11.9 - TYPE 2 DIABETES MELLITUS WITHOUT COMPLICATIONS SNOMED Code(s): 11938887 Comment: continue metformin and insulin sliding scale his blood sugars are acceptable at discharge, continue only metformin (5) HTN (hypertension) Current Visit: Yes Status: Acute Code(s): I10 - ESSENTIAL (PRIMARY) HYPERTENSION SNOMED Code(s): 11022693 Comment: continue losartan and amlodipine Status and Disposition: stable for discharge to [facility] today from a medical perspective.
[2017-12-14] MEDS ORDERED: Losartan TAB* 25 MG PO SCH (09:00)
[2017-12-14] MEDS: Metoprolol Succinate XL TAB* 25 MG PO SCH (09:32)
[2017-12-14] MEDS: Magnesium Hydroxide LIQ* 30 ML UDC PO SCH (09:32)
[2017-12-14] MEDS: HYDROmorphone TAB* 2 MG PO PRN (09:33)
[2017-12-14] MEDS: amLODIPine TAB* 5 MG PO SCH (09:33)
[2017-12-14] MEDS: Docusate CAP* 100 MG PO SCH (09:33)
--- NOTE | 2017-12-14 11:26 | PN ---
Progress Note - Progress Note Date of Service: 12/14/17 SOAP: Subjective: [Pt doing well. No apin at rest. Increase pain with movement. Denies CP, SOB , dizziness.] Objective: [A and O x 3, NAD. Seated in chair. Dressing slipping down patient's leg so was changed. Incision benign. Distal gross motor and NV function intact. Vital Signs: Temp Pulse Resp BP Pulse Ox 98.2 F 70 15 153/46 96 12/14/17 07:48 12/14/17 07:48 12/14/17 09:33 12/14/17 07:48 12/14/17 07:48 Laboratory Results - last 24 hr 12/13/17 12/13/17 12/14/17 11:40 17:01 06:00 Hgb 9.2 L Hct 28 L Plt Count 137 L MPV 8.2 INR (Anticoag Therapy) POC Glucose (mg/dL) 153 H 128 H 12/14/17 12/14/17 06:00 07:49 Hgb Hct Plt Count MPV INR (Anticoag Therapy) 2.54 H POC Glucose (mg/dL) 125 H ] Assessment: [s/p R TKA POD#5] Plan: [PT/OT Percocet for pain Coumadin - hold today - recheck INR tomorrow Colace for constipation May shower D/C to PMRU today F/U with Dr. Wolfe 2 weeks postop for suture removal ]
[2017-12-14] MEDS: HYDROmorphone TAB* 4 MG PO PRN (12:32)
--- NOTE | 2017-12-16 00:51 | DS ---
DISCHARGE SUMMARY: DATE OF ADMISSION: 12/09/17 DATE OF DISCHARGE: 12/14/17. PROVIDER: Hanna Wolfe MD.* (DICTATED BY EDDA ARTEAGA) ADMITTING PHYSICIAN: Dr. Wolfe. ADMITTING DIAGNOSES: 1. Right knee osteoarthritis. 2. Hypertension. 3. Diabetes. 4. Obesity. 5. High cholesterol. 6. Sleep apnea 7. Idiopathic ventricular tachycardia/premature ventricular contraction. 8. Chronic renal failure. DISCHARGE DIAGNOSES: 1. Status post right total knee arthroplasty. 2. Hypertension 3. Diabetes. 4. Obesity. 5. High cholesterol. 6. Sleep apnea 7. Idiopathic ventricular tachycardia/premature ventricular contractions. 8. Chronic renal failure. PROCEDURE: Right total knee arthroplasty. BRIEF HISTORY: Mr. Eagle is a 67-year-old male with severe degenerative osteoarthritis of his right knee. He failed conservative treatment measures and elected to undergo right total knee arthroplasty on 12/09/[address] Wolfe. HOSPITAL COURSE: Ms. Eagle was admitted to [facility] on 12/09/17. He underwent an uncomplicated right total knee arthroplasty. Postoperatively , he recovered initially on short stay surgical unit. His Samson was removed and he was able to urinate on his own. Overnight, he was transferred to telemetry because of an irregular heart rhythm. Also his BNP was elevated and creatinine was worsening. Medicine was following. Dr. Shah from Cardiology was consulted on postoperative day #2. The patient had a renal ultrasound on 12/11/17 which was negative and both his BNP and creatinine improved overtime. Dr. Shah felt that his PVCs were typical of his usual condition and recommended keeping his potassium above 4 and add magnesium if needed. Patient was also having severe pain with movement and ultimately was prescribed Dilaudid for pain management. The patient was able to advance to his diabetic diet without significant difficulty. His vital signs and labs remained stable and he eventually was able to bear weight as tolerated on the right lower extremity. He was able to ambulate with his rolling walker with contact guard assist of two people using a rolling walker. On postoperative day #3, his O2 sat dropped to 87% and blood pressure was elevated on that day at 198/47. Chest x-ray was negative. He was placed on oxygen temporarily but then was able to subsequently wean off. His DVT prophylaxis was bridged with Lovenox and Coumadin until he reached therapeutic INR range. By postop day #5, he was orthopedically and medically stable to be discharged to [facility]. PHYSICAL EXAMINATION: General: On examination, the patient is noted to be calm and cooperative in no acute distress. He is alert and oriented x3. Vital signs: Temperature 99.6 degrees Fahrenheit, respiratory rate 20, pulse rate 72, blood pressure 156/55. Examination of the right lower extremity demonstrates a dressing overlying the right knee which is clean, dry and intact. Calf is soft and compressible and nontender. Neurovascular function is intact. LABORATORY DATA: On day of discharge, hemoglobin 9.2, hematocrit 28, INR 2.54. Radiographs: Postoperative radiographs of the right knee demonstrate a right total knee arthroplasty with satisfactory prosthesis placement and no acute bony abnormalities. DISCHARGE MEDICATIONS: 1. Colace 100 mg b.i.d. 2. Coumadin dosage as directed. 3. Losartan 100 mg daily. 4. Lipitor 10 mg daily. 5. Pravastatin 40 mg daily. 6. Melatonin 3 mg daily. 7. Milk of magnesia as needed. 8. Neurontin mg daily. 9. Norvasc 5 mg daily. 10. Toprol XL 25 mg daily. 11. Compazine 5 mg q.4 to 6 hours p.r.n. hiccups. 12. Dilaudid 2 to 4 mg q.4 hours p.r.n. pain. 13. Dulcolax suppository 10 mg daily p.r.n. 14. MiraLax 17 g daily p.r.n. 15. Ritalin 10 mg t.i.d. p.r.n. lack of attention. 16. Senna two tablets daily p.r.n. constipation. 17. Tylenol 650 mg q.4 hours p.r.n. pain or fever. 18. Xanax 0.5 mg q.h.s. p.r.n. insomnia. 19. Metformin 700 mg daily. CONDITION ON DISCHARGE: Stable. DISCHARGE INSTRUCTIONS: Mr. Eagle is a 67-year-old male postoperative day #5, status post right total knee arthroplasty. He is orthopedically and medically stable to be discharged to [facility]. He has stable vital signs and labs. Coumadin will be held on Friday and dosage adjusted pending INR draw. He will remain weightbearing as tolerated on the right lower extremity and have physical therapy through [facility]. Dilaudid will be used for pain control, Colace for constipation and Coumadin for DVT prophylaxis. He will follow up with Dr. Wolfe in approximately two weeks postop for incision check and suture removal. He was warned to be observant for fever, chills, incision pain, redness or drainage, chest pain or shortness of breath. EDDA ARTEAGA [id number]/[facility] #: [id number] MTDD
== END 2017-12-14 13:13 | DRG 470 ==
LOC: AA 08:50 → SSU 16:12 → MEDTELE 12-10 02:14
PROVIDERS: ADMIT Orthopaedic Surgery Adult Reconstructive Orthopaedic Surgery; ATTEND Internal Medicine
PROC: 0SRC069 Replacement of Right Knee Joint with Oxidized Zirconium on Polyethylene Synthetic Substitute, Cemented, Open Approach (ICD-10-PCS; principal; 2017-12-09 11:00)
DX: M17.11 Unilateral primary osteoarthritis, right knee (principal); Z68.42 Body mass index [BMI] 45.0-49.9, adult; I47.2 Ventricular tachycardia; N17.9 Acute kidney failure, unspecified; I42.9 Cardiomyopathy, unspecified; I13.0 Hypertensive heart and chronic kidney disease with heart failure and stage 1 through stage 4 chronic kidney disease, or unspecified chronic kidney disease; I25.10 Atherosclerotic heart disease of native coronary artery without angina pectoris; I50.9 Heart failure, unspecified; E11.22 Type 2 diabetes mellitus with diabetic chronic kidney disease; N18.9 Chronic kidney disease, unspecified; E66.01 Morbid (severe) obesity due to excess calories; E78.00 Pure hypercholesterolemia, unspecified; G47.33 Obstructive sleep apnea (adult) (pediatric); I49.3 Ventricular premature depolarization; R41.0 Disorientation, unspecified; F41.9 Anxiety disorder, unspecified; M10.9 Gout, unspecified; E11.319 Type 2 diabetes mellitus with unspecified diabetic retinopathy without macular edema; E11.40 Type 2 diabetes mellitus with diabetic neuropathy, unspecified; M48.00 Spinal stenosis, site unspecified; N52.9 Male erectile dysfunction, unspecified; D64.9 Anemia, unspecified; M25.761 Osteophyte, right knee; Z79.84 Long term (current) use of oral hypoglycemic drugs; Z79.82 Long term (current) use of aspirin; Z79.899 Other long term (current) drug therapy; Z83.3 Family history of diabetes mellitus; Z82.49 Family history of ischemic heart disease and other diseases of the circulatory system; Z80.9 Family history of malignant neoplasm, unspecified; Z82.5 Family history of asthma and other chronic lower respiratory diseases
CPT/HCPCS: 36415; 71045; 76775; 80048; 80076; 81003; 81015; 82140; 82570; 83605; 83735; 83880; 84100; 84300; 85014; 85018; 85025; 85049; 85610; 93005; 94760; A9270-GY; C1776; G8978-GP-CK; G8978-GP-CL; G8978-GP-CM; G8979-GP-CI; G8987-GO-CK; G8988-GO-CI; G8989-GO-CI; J0360; J0690; J1170; J1650; J2250; J2405; J2704; J3010; J3475

== ENCOUNTER 2017-12-14 10:44 | Inpatient (IN) | payer MEDICARE ==
[2017-12-14] MEDS ORDERED: Acetaminophen TAB* 325 MG PO PRN (11:09)
[2017-12-14] MEDS ORDERED: Bisacodyl SUPP* 10 MG SUPP PR PRN (11:16)
[2017-12-14] MEDS ORDERED: Al Hydrox/Mg Hydrox/Simet LIQ* 30 ML UDC PO PRN (11:16)
[2017-12-14] MEDS ORDERED: Senna TAB PO PRN (11:16)
[2017-12-14] MEDS ORDERED: Prochlorperazine TAB* 5 MG PO PRN (11:28)
[2017-12-14] MEDS ORDERED: Polyethylene Glycol 3350* 17 GM PACKET PO PRN (11:30)
[2017-12-14] MEDS ORDERED: Methylphenidate TAB* 5 MG PO PRN (11:31)
--- NOTE | 2017-12-14 14:49 | HP ---
CC: Dr. Gonzalez; Dr. Wolfe; Dr. Guadarrama * REHABILITATION ADMISSION NOTE: DATE OF ADMISSION: 12/14/17 REASON FOR ADMISSION: Status post right total knee replacement, complicated by poorly controlled pain, acute on chronic renal failure and exacerbation of idiopathic ventricular tachycardia/premature ventricular contractions. CAR PINCHER: Dr. Gonzalez. ORTHOPEDIC SURGEON: Dr. Wolfe. PRIMARY CARE PROVIDER: Dr. Guadarrama. HISTORY OF PRESENT ILLNESS: This is a 67-year-old man who, on 12/09/17, was admitted for elective right total knee replacement secondary to osteoarthritis by Dr. Wolfe. Postoperatively, he was put on weightbearing as tolerated precautions to the right lower extremity and started on Lovenox with transitioning to Coumadin for DVT prophylaxis. Overnight, he was transferred to the telemetry because of irregular heart rhythm. It was noted he was having very frequent premature ventricular contractions. He has a history of this which was best controlled using Toprol 25 mg q. day and he did not tolerate higher doses in the past. His BNP was noted to be elevated at 418 and his creatinine was also worsening. Losartan, metformin, and hydrochlorothiazide were held. His creatinine on 12/11/17 got as high as 1.68. It was felt that this was a prerenal condition and he was given IV fluids with improvement of his creatinine. Dr. Shah consulted from Cardiology on 12/11/17 and felt that his PVCs were typical of his usual condition and recommended keeping his potassium above 4 and add a magnesium if needed. Because of acute on chronic renal failure, he had a renal ultrasound on 12/11/17, which was negative. He was having severe pain with any movement and was started on MS Contin 30 mg q.12 hours on 12/11/17. Unfortunately, this made him confused and constipated and that had to be discontinued. Ultimately, what has proven to be best tolerated by him is Dilaudid 2 to 4 mg q.4 hours p.r.n. and he has realized that his pain was worse initially when he started to move, but then better as he stands up and moves more. His INR is currently 2.54. Coumadin was held last night as it appeared it was on the rise. His hemoglobin and hematocrit have remained stable and today, hemoglobin is 9.2 and hematocrit 28. Prior to admission, he was independent with all mobility and ADLs and not using any assistive devices. With physical therapy yesterday, he required a minimum amount of assistance for transferring and ambulated with contact guard assist of 2 people, 4 feet using a rolling walker. He currently has a trapeze on the bed in the room. With occupational therapy, he has required maximal assistance x2 for toileting and a maximal assistance x2 for lower body dressing. Also, of note, when he was off his BiPAP, his oxygen saturation dropped to 87% on . His blood pressure was also elevated that day to 198/47. Chest x-ray was negative. He received 1 dose of IV hydralazine and was placed on oxygen temporarily, but has since weaned off. PAST MEDICAL HISTORY: 1. Osteoarthritis of the right knee, status post right total knee replacement. See history of present illness. 2. Hypertension. 3. Type 2 diabetes mellitus. 4. Obesity. 5. Hyperlipidemia. 6. Anxiety. 7. History of seizure disorder as a child. 8. Sleep apnea, using BiPAP at night. 9. Idiopathic ventricular tachycardia and premature ventricular contractions, status post unsuccessful ablation of focus 10. Status post cardiac catheterization showing moderate coronary artery disease. 11. Status post lithotripsy for nephrolithiasis. 12. History of left ankle surgery. 13. Status post carpal tunnel release. 14. History of congestive heart failure with ejection fraction 40% to 45%. 15. Chronic anemia. 16. Erectile dysfunction. 17. History of gout with hyperuricemia, normally on allopurinol. 18. Elevated PSA without diagnosis of benign prostatic hypertrophy. 19. Spinal stenosis. 20. Chronic renal insufficiency. MEDICATIONS: 1. Colace 100 mg b.i.d. 2. Coumadin to be restarted today 2 mg q.p.m. 3. Losartan 100 mg q. day. 4. Lipitor 10 mg q.p.m., which is a substitute for his home medication of Pravastatin 5. Pravastatin 40 mg q.p.m.(on hold with Liptor substituted) 6. Melatonin 3 mg q.h.s. 7. Milk of magnesia p.r.n. 8. Neurontin 200 mg q.h.s. 9. Norvasc 5 mg q.a.m. 10. Toprol-XL 25 mg q.a.m. 11. Compazine 5 mg q.6 hours p.r.n. hiccups which are new since the surgery. 12. Dilaudid 2 to 4 mg q.4 hours p.r.n. pain. 13. Dulcolax suppository 10 mg q. day. p.r.n. 14. MiraLAX 17 g p.o. q. day p.r.n. 15. Ritalin 10 mg p.o. t.i.d. p.r.n. lack of attention. 16. Senna 2 tablets q. day p.r.n. constipation. 17. Tylenol 650 mg q.4 hours p.r.n. pain or fever. 18. Xanax 0.5 mg q.h.s. p.r.n. insomnia. 19. Metformin 750 mg q.a.m. to restart tomorrow (normal home dose is 750 mg b.i.d.). ALLERGIES: No known drug allergies. FAMILY HISTORY: Significant for diabetes mellitus, hypertension, colon cancer, and COPD. SOCIAL HISTORY: He lives with his . His is the surrogate decision maker if he cannot make decisions for himself. Her name is Rosaura Eagle. He does not smoke. Occasionally, he drinks alcohol. 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 His home is 1 level. He tends to use the front entrance of his home, which has 1 step at a time between ramped landings for a total of 3 steps. There is no rail, but he only has to do one step at a time before he has a landing. REVIEW OF SYSTEMS: See history of present illness and past medical history. He has had hiccups since the surgery, which have been treated with Compazine. That medication helps temporarily. He also thinks his Xanax at bedtime helps some as well. He has been having bowel movements daily and voiding regularly. He is not eating quite as much as he used to at home. PHYSICAL EXAMINATION GENERAL: Well-developed, well-nourished, overweight. Mental status, anxious. Alert and appropriate. VITAL SIGNS: Temperature of 98.2, heart rate 70, respirations 20, oxygen saturation 96% on room air, blood pressure 153/46. HEENT: Normocephalic, atraumatic. Oropharynx is clear. Moist mucous membranes. LUNGS: Clear to auscultation bilaterally. HEART: Regular rate and rhythm. ABDOMEN: Active bowel sounds, soft, nontender, nondistended. EXTREMITIES: No clubbing or cyanosis. He has bilateral lower extremity edema. No clubbing or cyanosis. He has 2+ pedal pulses. MUSCULOSKELETAL: He has functional range of motion of all of his major joints. NEUROLOGIC: 5/5 bilateral upper and lower extremities with pain-limited testing of the right knee flexion/extension. Sensation is intact in all 4 extremities. SKIN: The visualized portion of the superior part of his incision with sutures is clean, dry, and intact. LABORATORY DATA: Today, INR 2.54. Fingersticks have ranged between 123 and 153 in the last 24 hours. Hemoglobin 9.2, hematocrit 28, platelets 137. IMPRESSION: A 67-year-old man status post right total knee replacement secondary to osteoarthritis with postoperative course complicated by poor pain control, acute on chronic renal failure, increased premature ventricular contractions, hypoxia, and delirium. He will be admitted to [facility], so he can return to living independently with his . PLAN: 1. Status post right total knee replacement. He will follow up with Dr. Wolfe. For now, she is doing dressing changes. Continue with weightbearing as tolerated to the right lower extremity. He will use the Cryo Cuff as needed when he is not in therapy. Continue with Dilaudid for pain control. 2. DVT prophylaxis. Coumadin will be restarted tonight at 2 mg q.p.m. INR every Friday, Friday, Friday. 3. History of acute on chronic renal failure. He is encouraged to drink oral fluids. His hydrochlorothiazide is still on hold. Follow up with labs. 4. History of idiopathic PVCs and ventricular tachycardia. Follow labs to make sure his potassium is in appropriate range. Continue with metoprolol. 5. Hypertension. Continue with Toprol, amlodipine, and losartan. Hydrochlorothiazide is still on hold. 6. Diabetes mellitus, type 2. Check fingersticks q.a.c. and q.h.s. without coverage and restart metformin 750 mg q. day starting tomorrow. His home dosing is 750 mg b.i.d. Once again, monitor his renal function. 7. Sleep apnea. Continue BiPAP at night. 8. Hiccups. Continue Compazine as needed. 9. Impaired mobility. He will be seen by Physical Therapy for bed mobility, transfer, gait, and stair training using a rolling walker. 10. Impaired self-care. He will be seen by Occupational Therapy for ADL and IADL training and equipment evaluation. 11. Advance directives. His , Rosaura Eagle, is the surrogate decision maker if he cannot make decisions for himself. He is a full code. 12. Estimated length of stay is 7 to 10 days. [id number]/[facility] #: [id number] [facility] CENTERSriram
[2017-12-14] MEDS: Atorvastatin* 10 MG TAB PO SCH (17:14)
[2017-12-14] MEDS: Warfarin TAB(*) 2 MG PO SCH (17:14)
[2017-12-14] MEDS: Docusate CAP* 100 MG PO SCH ×2 (19:34→21:33)
[2017-12-14] MEDS: ALPRAZolam TAB* 0.5 MG PO PRN (20:49)
[2017-12-14] MEDS: Melatonin (NF) 3 MG TAB PO SCH (20:49)
[2017-12-14] MEDS: Gabapentin CAP(*) 100 MG PO SCH (20:50)
[2017-12-15 06:33] LABS: Hematocrit 28 % (42-52); Hemoglobin 9.5 g/dl (14.0-18.0); Mean Corpuscular HGB Conc 34 g/dl (31-36); Mean Corpuscular Hemoglobin 29 pg (27-31); Mean Corpuscular Volume 86 fL (80-94); Mean Platelet Volume 8.1 um3 (7.4-10.4); Platelet Count 164 10^3/ul (150-450); Red Blood Count 3.27 10^6/ul (4.0-5.4); Red Cell Distribution Width 17 % (10.5-15); White Blood Count 7.4 10^3/ul (3.5-10.8)
[2017-12-15 06:38] LABS: ABS Basophils 0.1 10^3/ul (0-0.2); ABS Eosinophils 0.2 10^3/ul (0-0.6); ABS Lymphocytes 1.3 10^3/ul (1.0-4.8); ABS Monocytes 0.5 10^3/ul (0-0.8); ABS Neutrophils 5.4 10^3/ul (1.5-7.7); ABS Nucleated RBC 0 10^3/ul; Lymphocyte % 17.5 % (25-47); Nucleated Red Blood Cells % 0
[2017-12-15 06:42] LABS: INR 2.33 (0.77-1.02)
[2017-12-15 06:50] LABS: EGFR Non-African American 71.6 (>60)
[2017-12-15] MEDS: metFORMIN* 500 MG TAB PO SCH (08:24)
[2017-12-15] MEDS: amLODIPine TAB* 5 MG PO SCH (08:24)
[2017-12-15] MEDS: Losartan TAB* 25 MG PO SCH (08:25)
[2017-12-15] MEDS: Docusate CAP* 100 MG PO SCH ×2 (08:25→21:09)
[2017-12-15] MEDS: Metoprolol Succinate XL TAB* 25 MG PO SCH (08:25)
[2017-12-15] MEDS: HYDROmorphone TAB* 4 MG PO PRN ×2 (08:26→13:05)
--- NOTE | 2017-12-15 17:08 | PN ---
Progress Note Date of Service: 12/15/17 Note: MARYSE JAMES was visited. Therapy notes read and reviewed. He notes he had difficulty with figuring out how to urinate in the urinal. INR ok Current Medications: Active Medications Generic Name Dose Route Start Last Admin Trade Name Freq PRN Reason Stop Dose Admin Acetaminophen 650 mg 12/14/17 11:09 12/15/17 04:52 Tylenol Tab* PO 650 mg Q4H PRN Administration FEVER > 101 or mild pain Al Hydrox/Mg Hydrox/Simethicone 30 ml 12/14/17 11:16 Maalox Plus* PO Q6H PRN INDIGESTION Alprazolam 0.5 mg 12/14/17 11:31 12/14/17 20:49 Xanax Tab* PO 0.5 mg BEDTIME PRN Administration insomnia Amlodipine Besylate 5 mg 12/15/17 09:00 12/15/17 08:24 Norvasc Tab* PO 5 mg DAILY COCO Administration Atorvastatin Calcium 10 mg 12/14/17 17:00 12/14/17 17:14 Lipitor* PO 10 mg 1700 COCO Administration Bisacodyl 10 mg 12/14/17 11:16 Dulcolax Supp* UT DAILY PRN CONSTIPATION Docusate Sodium 100 mg 12/14/17 21:00 12/15/17 08:25 Colace Cap* PO 100 mg BID COCO Administration Gabapentin 200 mg 12/14/17 21:00 12/14/17 20:50 Neurontin Cap(*) PO 200 mg BEDTIME COCO Administration Hydromorphone HCl 2 mg 12/14/17 11:29 Dilaudid Tab* PO Q4H PRN PAIN Hydromorphone HCl 4 mg 12/14/17 11:29 12/15/17 13:05 Dilaudid Tab* PO 4 mg Q4H PRN Administration SEVERE PAIN Losartan Potassium 100 mg 12/15/17 09:00 12/15/17 08:25 Cozaar Tab* PO 100 mg DAILY COCO Administration Magnesium Hydroxide 30 ml 12/14/17 11:16 Milk Of Magnesia Liq* PO Q6H PRN CONSTIPATION Melatonin 3 mg 12/14/17 21:00 12/14/17 20:49 Melatonin (Nf) PO 3 mg BEDTIME COCO Administration Metformin HCl 750 mg 12/15/17 08:30 12/15/17 08:24 Glucophage* PO 750 mg DAILY WITH MEAL COCO Administration Methylphenidate HCl 10 mg 12/14/17 11:31 Ritalin Tab* PO TID PRN lack of attention Metoprolol Succinate 25 mg 12/15/17 09:00 12/15/17 08:25 Toprol Xl Tab* PO 25 mg DAILY COCO Administration Polyethylene Glycol/Electrolytes 17 gm 12/14/17 11:30 Miralax* PO DAILY PRN CONSTIPATION Prochlorperazine 5 mg 12/14/17 11:28 Compazine Tab* PO Q6H PRN HICCUPS Senna 2 tab 12/14/17 11:16 Senokot Tab* PO BEDTIME PRN CONSTIPATION Warfarin Sodium 2 mg 12/14/17 17:00 12/14/17 17:14 Coumadin Tab(*) PO 2 mg DAILY@1700 COCO Administration Protocol Vital Signs: Vital Signs Temp Pulse Resp BP Pulse Ox 99.1 F 61 18 142/36 93 12/15/17 16:02 12/15/17 16:02 12/15/17 16:02 12/15/17 16:02 12/15/17 16:02 Lab Results: Laboratory Results - last 24 hr 12/14/17 12/14/17 12/15/17 16:47 20:49 06:06 WBC 7.4 RBC 3.27 L Hgb 9.5 L Hct 28 L MCV 86 MCH 29 MCHC 34 RDW 17 H Plt Count 164 MPV 8.1 Neut % (Auto) 71.9 Lymph % (Auto) 17.5 L Glades % (Auto) 6.9 Eos % (Auto) 3.0 Baso % (Auto) 0.7 Absolute Neuts (auto) 5.4 Absolute Lymphs (auto) 1.3 Absolute Monos (auto) 0.5 Absolute Eos (auto) 0.2 Absolute Basos (auto) 0.1 Absolute Nucleated RBC 0 Nucleated RBC % 0 INR (Anticoag Therapy) Sodium Potassium Chloride Carbon Dioxide Anion Gap BUN Creatinine Est GFR ( Amer) Est GFR (Non-Af Amer) BUN/Creatinine Ratio Glucose POC Glucose (mg/dL) 162 H 112 H Calcium Total Bilirubin AST ALT Alkaline Phosphatase Total Protein Albumin Globulin Albumin/Globulin Ratio 12/15/17 12/15/17 12/15/17 06:06 06:06 08:03 WBC RBC Hgb Hct MCV MCH MCHC RDW Plt Count MPV Neut % (Auto) Lymph % (Auto) Glades % (Auto) Eos % (Auto) Baso % (Auto) Absolute Neuts (auto) Absolute Lymphs (auto) Absolute Monos (auto) Absolute Eos (auto) Absolute Basos (auto) Absolute Nucleated RBC Nucleated RBC % INR (Anticoag Therapy) 2.33 H Sodium 137 L Potassium 3.6 Chloride 105 Carbon Dioxide 22 Anion Gap 10 BUN 26 H Creatinine 1.03 Est GFR ( Amer) 92.1 Est GFR (Non-Af Amer) 71.6 BUN/Creatinine Ratio 25.2 H Glucose 118 H POC Glucose (mg/dL) 109 H Calcium 8.3 L Total Bilirubin 1.10 H AST 105 H ALT 73 H Alkaline Phosphatase 55 Total Protein 5.9 L Albumin 2.8 L Globulin 3.1 Albumin/Globulin Ratio 0.9 L 12/15/17 11:31 WBC RBC Hgb Hct MCV MCH MCHC RDW Plt Count MPV Neut % (Auto) Lymph % (Auto) Glades % (Auto) Eos % (Auto) Baso % (Auto) Absolute Neuts (auto) Absolute Lymphs (auto) Absolute Monos (auto) Absolute Eos (auto) Absolute Basos (auto) Absolute Nucleated RBC Nucleated RBC % INR (Anticoag Therapy) Sodium Potassium Chloride Carbon Dioxide Anion Gap BUN Creatinine Est GFR ( Amer) Est GFR (Non-Af Amer) BUN/Creatinine Ratio Glucose POC Glucose (mg/dL) 140 H Calcium Total Bilirubin AST ALT Alkaline Phosphatase Total Protein Albumin Globulin Albumin/Globulin Ratio Exam: LUNGS: Clear HEART: reg rhythm, occ extra beats ABDOMEN: Soft EXTREMITIES: 1 + edema Assessment/Plan: 1. Left TKA: PT/OT 2. Diabetes: Finger sticks AC and HS. SSI. Metformin 3. CKD: Monitor renal function 4. CHF: Losartan/Toprol 5. Hiccups: d/c compazine. Try Thorazine 6. HTN; May restart HCTZ 12/15/17 17:15
[2017-12-15] MEDS: Warfarin TAB(*) 2 MG PO SCH (17:16)
[2017-12-15] MEDS: Atorvastatin* 10 MG TAB PO SCH (17:16)
[2017-12-15] MEDS: HYDROmorphone TAB* 2 MG PO PRN ×2 (17:16→21:09)
[2017-12-15] MEDS: Gabapentin CAP(*) 100 MG PO SCH (21:09)
[2017-12-15] MEDS: Melatonin (NF) 3 MG TAB PO SCH (21:09)
[2017-12-15] MEDS: ALPRAZolam TAB* 0.5 MG PO PRN (23:54)
[2017-12-16] MEDS: HYDROmorphone TAB* 2 MG PO PRN ×4 (05:33→20:53)
[2017-12-16] MEDS: metFORMIN* 500 MG TAB PO SCH (08:23)
[2017-12-16] MEDS: amLODIPine TAB* 5 MG PO SCH (08:24)
[2017-12-16] MEDS: Metoprolol Succinate XL TAB* 25 MG PO SCH (08:25)
[2017-12-16] MEDS: Docusate CAP* 100 MG PO SCH ×2 (08:25→20:53)
[2017-12-16] MEDS: Losartan TAB* 25 MG PO SCH (08:25)
[2017-12-16] MEDS: Magnesium Hydroxide LIQ* 30 ML UDC PO PRN (11:13)
--- NOTE | 2017-12-16 12:39 | PMRUTEAM ---
PMRU: Team Meeting Current Status: Nursing: Current Status Skin Deviations [Right Knee] Incision Skin Deviation Description [ SHIRLENE and cryounit in place Right Knee] Physical Therapy: Current Status Bed Mobility Assistance Contact Guard Assist,Min Assist Transfer Moblility Assistance Supervision Transfer/Bed Mobility Rolling Walker Recommended Devices Transfer Mobility Comment Pt. is able to perform a SPT using a 2 w/w S x 1. Sit to stand improving. Ambulation Assistance Supervision Ambulation Assistive Devices Rolling Walker Number of Feet Patient 150' Ambulated Ambulation Comment Pt. presents an improved modified reciprocal type gait pattern. Stairs Assistance Supervision Stairs Recommended Devices Two Rails Number of Stairs 5 Occupational Therapy: Current Status Upper Body Dressing Supervision Lower Body Dressing Max Asst,2 Person Assist Bathing Mod Assist,2 Person Assist Toileting Mod Assist Toilet Transfer Min Assist,2 Person Assist Eating Independent Rec Therapy: Current Status Summary of Assessment and RT assessment complete and pt. is aware of Clinical Impression services. Pt. presented as dysphoric with a flat affect during conversation but expressed interest in activities. Provided pt. a list of activity options as he requested. Treatment Goals Pt. will engage in leisure activities while on the unit. Treatment Plan Provide RT services and encourage involvement. Social Work: Current Status Discharge Plan return home with home care svs and family support Potential for Family Training pt's is involved and supportive Anticipated Discharge Home Destination Discharge With VNS and family support Nutrition: Current Status Monitoring full nutrition assessment planned 12/18 per Nutrition protocol. Initial goals as outlined below. Goals: Physical Therapy: Initial Goals Bed Mobility Assistance Independent Transfer Mobility Assistance Independent Transfer/Bed Mobility Rolling Walker Recommended Devices Ambulation Independent Ambulation Recommended Devices Rolling Walker Ambulation Distance 150 Stairs Assistance Independent Number of Stairs 3 using 2 w/w. Home Exercise Program Independent Assistance Physical Therapy: Updated Goals Bed Mobility Assistance Independent Transfer Mobility Assistance Independent Transfer/Bed Mobility Rolling Walker Recommended Devices Ambulation Assistance Independent Ambulation Assistive Devices Rolling Walker Ambulation Distance (ft) 150' Stairs Assistance Independent Number of Stairs 3 using a 2 w/w. Occupational Therapy: Initial Goals Goals to be Completed in (Days 7-10 ) Upper Body Bathing Routine Independent Lower Body Bathing Routine Modified Independent with Upper Body Dressing Routine Independent Lower Body Dressing Routine Modified Independent with Toilet Hygeine and Clothing Modified Independent with Management Routine Toilet Transfer Routine Modified Independent with Step-In Shower Transfer Modified Independent with Routine Functional Transfers for ADL Modified Independent with Grooming Routine Independent Feeding Routine Independent Nutrition: Goals Intervention Goals 1. adequate po intake to support post-op healing and maintenance of lean body mass without add'l wt gain 2. maintain glycemic control within inpatient parameters; no s/sx hypo- or hyprglycemia 3. maintain bowel regularity w/o constipation or diarrhea Social Work: Goals Discharge Plan return home with home care svs and family support Potential for Family Training pt's is involved and supportive Anticipated Discharge Home Destination Discharge With VNS and family support Care Plan: Care Plan ADL's - Improve/Maintain Start: 12/15/17 15:54 Freq: DAILY@1200 Status: Active Target: Protocol: Activity Type Activity Date Activity User E-Sign Co-Sign Detail Recorded Client Recorded Date Recorded By Document 12/15/17 15:54 [id number] [email or web address] 12/15/17 15:55 [id number] 12/15/17 15:54 PMRU Outcome: ADL's/ADL Transfers Orders/Interventions Occupational Therapy Evaluation & Treatment Communication Tool in Patient Room Device Yes Address Deficits Secondary To: Right TKA Patient to receive OT 5x/wk for 60-120 Therex min/day Self Care Management Group Therapy UE/LE ADL's with Assist Yes: [facility] ADL Transfers with Assist Yes: [place] Toileting: Transfers,Clothing Management Yes: [place] ,Hygeine w/Assist Light Kitchen/Laundry w/Assist No Progression Toward Outcome/Goals Progressing Outcome/Goals Met Pt participated well in OT evaluation, assistance with transfers varies depending on surface during evaluation, increased difficulty with LE dressing and ADLs in standing. Pt will benefit from continued skilled OT intervention to maximize independence and safety. Cardiovascular- Improve/Maintain Start: 12/14/17 18:01 Freq: DAILY@1200 Status: Active Target: Protocol: Activity Type Activity Date Activity User E-Sign Co-Sign Detail Recorded Client Recorded Date Recorded By Document 12/16/17 00:31 [id number] [email or web address] 12/16/17 00:32 [id number] 12/16/17 00:31 PMRU Outcome: Cardiovascular Vital Signs q Shift for 48hrs Then BID Yes Daily Weight Ordered No Current Cardiovascular Outcome/Goal Maintain/ Achieve Baseline HR, BP , Perfusion Maintain/ Achieve Hemodynamic Stability Free of Abnormal Cardiac Symptoms Progression Toward Outcome/Goal Progressing Coping/Psych-Improve/Maintain Start: 12/14/17 18:01 Freq: DAILY@1200 Status: Active Target: Protocol: Activity Type Activity Date Activity User E-Sign Co-Sign Detail Recorded Client Recorded Date Recorded By Document 12/16/17 00:31 [id number] [email or web address] 12/16/17 00:32 [id number] 12/16/17 00:31 PMRU Outcome: Coping/Psychosocial Coping Outcome/Goals Verbalization of Acceptance of Rehab Admit Willingness to Participate in Treatment Plan and Basic Needs Utilization of Available Support Systems Psychosocial Outcome/Goals Maintain/ Improve Emotional Health Demonstrates Knowledge of Healthy Coping Mechanisms Available Cooperate/ Participate in Plan Progression Toward Outcome/Goals - Progressing Coping DVT Prophylaxis- Improve/Maintain Start: 12/14/17 18:01 Freq: DAILY@1200 Status: Active Target: Protocol: Activity Type Activity Date Activity User E-Sign Co-Sign Detail Recorded Client Recorded Date Recorded By Document 12/16/17 00:31 [id number] [email or web address] 12/16/17 00:32 [id number] 12/16/17 00:31 PMRU Outcome: DVT Prophylaxis Outcome/Goals Remains Free of DVT Progression Toward Outcome/Goals Progressing Discharge Planning - Improve/Maintain Start: 12/14/17 18:01 Freq: DAILY@1200 Status: Active Target: Protocol: Activity Type Activity Date Activity User E-Sign Co-Sign Detail Recorded Client Recorded Date Recorded By Document 12/14/17 22:30 [id number] [email or web address] 12/14/17 22:31 [id number] 12/14/17 22:30 PMRU Outcome: Discharge Planning Update Patient Family No Outcome/Goals Demonstrates Understanding of Discharge Plan Education-Improve/Maintain Start: 12/14/17 18:01 Freq: DAILY@1200 Status: Active Target: Protocol: Activity Type Activity Date Activity User E-Sign Co-Sign Detail Recorded Client Recorded Date Recorded By Document 12/16/17 00:31 [id number] [email or web address] 12/16/17 00:32 [id number] 12/16/17 00:31 PMRU Outcome: Education Outcome/Goals Encourage Questions Progression Toward Outcome/Goals Progressing Metabolic Status- Improve/Maintain Start: 12/14/17 18:01 Freq: DAILY@1200 Status: Active Target: Protocol: Activity Type Activity Date Activity User E-Sign Co-Sign Detail Recorded Client Recorded Date Recorded By Document 12/16/17 00:31 [id number] [email or web address] 12/16/17 00:32 [id number] 12/16/17 00:31 PMRU Outcome: Metabolic Status Have Fingersticks Been Ordered Yes Fingerstick Order Frequency AC & HS Outcome/Goals Maintain/ Improve Metabolic Status Demonstrate Knowledge of Prevention/ Treatment of Metabolic Imbalances Progression Toward Outcome/Goals Progressing Mobility- Improve/Maintain Start: 12/14/17 18:01 Freq: DAILY@1200 Status: Active Target: Protocol: Activity Type Activity Date Activity User E-Sign Co-Sign Detail Recorded Client Recorded Date Recorded By Document 12/16/17 12:12 [id number] [email or web address] 12/16/17 12:12 [id number] 12/16/17 12:12 PMRU Outcome: Mobility Progression Toward Outcome/Goals Progressing Pain/Comfort- Improve/Maintain Start: 12/14/17 18:01 Freq: DAILY@1200 Status: Active Target: Protocol: Activity Type Activity Date Activity User E-Sign Co-Sign Detail Recorded Client Recorded Date Recorded By Document 12/16/17 00:31 [id number] [email or web address] 12/16/17 00:32 [id number] 12/16/17 00:31 PMRU Outcome: Pain/Comfort Outcome/Goals Demonstrates Knowledge and Use of Available Comfort Measures Achieves Acceptable Comfort/Pain Level as Determined by Patient/Condit Maintain Comfort Level Allowing Patient to Fully Participate in Rehab Progression Toward Outcome/Goals Progressing Safety- Improve/Maintain Start: 12/14/17 18:01 Freq: DAILY@1200 Status: Active Target: Protocol: Activity Type Activity Date Activity User E-Sign Co-Sign Detail Recorded Client Recorded Date Recorded By Document 12/16/17 00:31 [id number] [email or web address] 12/16/17 00:32 [id number] 12/16/17 00:31 PMRU Outcome: Safety Outcome/Goals Remain Free of Injury or Harm Cooperates with Safety Measures for Least Restrictive Environment Prevent Falls/ Injury Progression Toward Outcome/Goals Progressing Outcome/Goals Met Comment PA in place Skin- Improve/Maintain Start: 12/14/17 18:01 Freq: DAILY@1200 Status: Active Target: Protocol: Activity Type Activity Date Activity User E-Sign Co-Sign Detail Recorded Client Recorded Date Recorded By Document 12/16/17 00:31 [id number] [email or web address] 12/16/17 00:32 [id number] 12/16/17 00:31 PMRU Outcome: Skin Skin Risk Level Medium Skin Orders Dressing Change Outcome/Goals Maintain/ Improve Skin Intergrity Surgical Incisions Healing Medicine Note: Length of Stay: 7 days Anticipated Discharge Destination: Home Tentative Discharge Date: 12/23/17 Discharged to: Home
[2017-12-16] MEDS: Atorvastatin* 10 MG TAB PO SCH (16:48)
[2017-12-16] MEDS: Warfarin TAB(*) 2 MG PO SCH (16:48)
[2017-12-16] MEDS: chlorproMAZINE TAB* 25 MG PO PRN (16:50)
--- NOTE | 2017-12-16 17:01 | PN ---
Progress Note Date of Service: 12/16/17 Note: MARYSE JAMES was visited. Therapy notes read and reviewed. He was discussed in interdisciplinary team rounds. He is making gains but doing better Current Medications: Active Medications Generic Name Dose Route Start Last Admin Trade Name Freq PRN Reason Stop Dose Admin Acetaminophen 650 mg 12/14/17 11:09 12/15/17 04:52 Tylenol Tab* PO 650 mg Q4H PRN Administration FEVER > 101 or mild pain Al Hydrox/Mg Hydrox/Simethicone 30 ml 12/14/17 11:16 Maalox Plus* PO Q6H PRN INDIGESTION Alprazolam 0.5 mg 12/14/17 11:31 12/15/17 23:54 Xanax Tab* PO 0.5 mg BEDTIME PRN Administration insomnia Amlodipine Besylate 5 mg 12/15/17 09:00 12/16/17 08:24 Norvasc Tab* PO 5 mg DAILY COCO Administration Atorvastatin Calcium 10 mg 12/14/17 17:00 12/16/17 16:48 Lipitor* PO 10 mg 1700 COCO Administration Bisacodyl 10 mg 12/14/17 11:16 Dulcolax Supp* [place] DAILY PRN CONSTIPATION Chlorpromazine HCl 25 mg 12/15/17 17:16 12/16/17 16:50 Thorazine Tab* PO 25 mg Q8H PRN Administration HICCUPS Docusate Sodium 100 mg 12/14/17 21:00 12/16/17 08:25 Colace Cap* PO 100 mg BID COCO Administration Gabapentin 200 mg 12/14/17 21:00 12/15/17 21:09 Neurontin Cap(*) PO 200 mg BEDTIME COCO Administration Hydromorphone HCl 2 mg 12/14/17 11:29 12/16/17 16:48 Dilaudid Tab* PO 2 mg Q4H PRN Administration PAIN Hydromorphone HCl 4 mg 12/14/17 11:29 12/15/17 13:05 Dilaudid Tab* PO 4 mg Q4H PRN Administration SEVERE PAIN Losartan Potassium 100 mg 12/15/17 09:00 12/16/17 08:25 Cozaar Tab* PO 100 mg DAILY COCO Administration Magnesium Hydroxide 30 ml 12/14/17 11:16 12/16/17 11:13 Milk Of Magnesia Liq* PO 30 ml Q6H PRN Administration CONSTIPATION Melatonin 3 mg 12/14/17 21:00 12/15/17 21:09 Melatonin (Nf) PO 3 mg BEDTIME COCO Administration Metformin HCl 750 mg 12/15/17 08:30 12/16/17 08:23 Glucophage* PO 750 mg DAILY WITH MEAL COCO Administration Methylphenidate HCl 10 mg 12/14/17 11:31 Ritalin Tab* PO TID PRN lack of attention Metoprolol Succinate 25 mg 12/15/17 09:00 12/16/17 08:25 Toprol Xl Tab* PO 25 mg DAILY COCO Administration Polyethylene Glycol/Electrolytes 17 gm 12/14/17 11:30 Miralax* PO DAILY PRN CONSTIPATION Senna 2 tab 12/14/17 11:16 Senokot Tab* PO BEDTIME PRN CONSTIPATION Warfarin Sodium 2 mg 12/14/17 17:00 12/16/17 16:48 Coumadin Tab(*) PO 2 mg DAILY@1700 COCO Administration Protocol Vital Signs: Vital Signs Temp Pulse Resp BP Pulse Ox 98.1 F 50 16 153/45 96 12/16/17 15:37 12/16/17 15:37 12/16/17 16:50 12/16/17 15:37 12/16/17 15:37 Lab Results: Laboratory Results - last 24 hr 12/15/17 12/15/17 17:04 21:01 POC Glucose (mg/dL) 122 H 150 H Exam: LUNGS: Clear HEART: reg rhythm, occ extra beats ABDOMEN: Soft EXTREMITIES: 1 + edema. Right knee wound looks clean Assessment/Plan: 1. Right TKA: PT/OT 2. Diabetes: Finger sticks AC and HS. Metformin 3. CKD: Monitor renal function 4. CHF: Losartan/Toprol 5. Hiccups: d/c compazine. Try Thorazine 6. HTN; May restart HCTZ 7. DVT prophylaxis: Coumadin 8. Analgesia: Dilaudid 12/16/17 17:02 12/16/17 17:02
[2017-12-16] MEDS: Melatonin (NF) 3 MG TAB PO SCH (20:53)
[2017-12-16] MEDS: Gabapentin CAP(*) 100 MG PO SCH (20:54)
[2017-12-17] MEDS: HYDROmorphone TAB* 2 MG PO PRN ×2 (01:52→12:39)
[2017-12-17] MEDS: ALPRAZolam TAB* 0.5 MG PO PRN (01:52)
[2017-12-17] MEDS: chlorproMAZINE TAB* 25 MG PO PRN (01:53)
[2017-12-17 06:13] LABS: INR 2.26 (0.77-1.02)
[2017-12-17] MEDS: metFORMIN* 500 MG TAB PO SCH (08:39)
[2017-12-17] MEDS: Docusate CAP* 100 MG PO SCH ×2 (08:40→21:08)
[2017-12-17] MEDS: amLODIPine TAB* 5 MG PO SCH (08:40)
[2017-12-17] MEDS: Metoprolol Succinate XL TAB* 25 MG PO SCH (08:42)
[2017-12-17] MEDS: Losartan TAB* 25 MG PO SCH (08:42)
[2017-12-17] MEDS: HYDROmorphone TAB* 4 MG PO PRN (08:42)
[2017-12-17] MEDS ORDERED: Hydrochlorothiazide TAB* 25 MG PO ONE (10:38)
[2017-12-17] MEDS: Warfarin TAB(*) 2 MG PO SCH (16:12)
[2017-12-17] MEDS: Atorvastatin* 10 MG TAB PO SCH (16:12)
[2017-12-17] MEDS: Magnesium Hydroxide LIQ* 30 ML UDC PO PRN (16:13)
[2017-12-17] MEDS ORDERED: HYDROcodone/ACETAMIN 5-325 MG* 1 TAB PO PRN (20:37)
[2017-12-17] MEDS: Gabapentin CAP(*) 100 MG PO SCH (21:08)
--- NOTE | 2017-12-17 21:11 | PN ---
Progress Note Date of Service: 12/17/17 Note: MARYSE JAMES was visited. Therapy notes read and reviewed. He had difficulties with falling asleep after taking his pain pills. This is probably a combination of the pain medicines and the Thorazine. He has swelling in his right leg and we have re-started his HCTZ. Current Medications: Active Medications Generic Name Dose Route Start Last Admin Trade Name Freq PRN Reason Stop Dose Admin Acetaminophen 650 mg 12/14/17 11:09 12/15/17 04:52 Tylenol Tab* PO 650 mg Q4H PRN Administration FEVER > 101 or mild pain Hydrocodone Bitart/Acetaminophen 2 tab 12/17/17 20:38 [place] 5-325 Tab* PO Q4H PRN PAIN - SEVERE Hydrocodone Bitart/Acetaminophen 1 tab 12/17/17 20:39 [place] 5-325 Tab* PO Q4H PRN PAIN - MODERATE TO SEVERE Al Hydrox/Mg Hydrox/Simethicone 30 ml 12/14/17 11:16 Maalox Plus* PO Q6H PRN INDIGESTION Alprazolam 0.5 mg 12/14/17 11:31 12/17/17 01:52 Xanax Tab* PO 0.5 mg BEDTIME PRN Administration insomnia Amlodipine Besylate 5 mg 12/15/17 09:00 12/17/17 08:40 Norvasc Tab* PO 5 mg DAILY COCO Administration Atorvastatin Calcium 10 mg 12/14/17 17:00 12/17/17 16:12 Lipitor* PO 10 mg 1700 COCO Administration Bisacodyl 10 mg 12/14/17 11:16 Dulcolax Supp* [place] DAILY PRN CONSTIPATION Chlorpromazine HCl 25 mg 12/15/17 17:16 12/17/17 01:53 Thorazine Tab* PO 25 mg Q8H PRN Administration HICCUPS Docusate Sodium 100 mg 12/14/17 21:00 12/17/17 21:08 Colace Cap* PO 100 mg BID COCO Administration Gabapentin 200 mg 12/14/17 21:00 12/17/17 21:08 Neurontin Cap(*) PO 200 mg BEDTIME COCO Administration Hydrochlorothiazide 25 mg 12/18/17 09:00 Hydrodiuril Tab* PO DAILY COCO Losartan Potassium 100 mg 12/15/17 09:00 12/17/17 08:42 Cozaar Tab* PO 100 mg DAILY COCO Administration Magnesium Hydroxide 30 ml 12/14/17 11:16 12/17/17 16:13 Milk Of Magnesia Liq* PO 30 ml Q6H PRN Administration CONSTIPATION Melatonin 3 mg 12/14/17 21:00 12/16/17 20:53 Melatonin (Nf) PO 3 mg BEDTIME COCO Administration Metformin HCl 750 mg 12/15/17 08:30 12/17/17 08:39 Glucophage* PO 750 mg DAILY WITH MEAL COCO Administration Methylphenidate HCl 10 mg 12/14/17 11:31 Ritalin Tab* PO TID PRN lack of attention Metoprolol Succinate 25 mg 12/15/17 09:00 12/17/17 08:42 Toprol Xl Tab* PO 25 mg DAILY COCO Administration Polyethylene Glycol/Electrolytes 17 gm 12/14/17 11:30 Miralax* PO DAILY PRN CONSTIPATION Senna 2 tab 12/14/17 11:16 Senokot Tab* PO BEDTIME PRN CONSTIPATION Warfarin Sodium 2 mg 12/14/17 17:00 12/17/17 16:12 Coumadin Tab(*) PO 2 mg DAILY@1700 COCO Administration Protocol Vital Signs: Vital Signs Temp Pulse Resp BP Pulse Ox 99.0 F 75 18 150/52 97 12/17/17 15:41 12/17/17 15:41 12/17/17 21:08 12/17/17 15:41 12/17/17 17:30 Lab Results: Laboratory Results - last 24 hr 12/16/17 12/16/17 12/16/17 08:05 11:47 21:07 INR (Anticoag Therapy) POC Glucose (mg/dL) 125 H 137 H 118 H 12/17/17 12/17/17 12/17/17 05:46 07:50 11:56 INR (Anticoag Therapy) 2.26 H POC Glucose (mg/dL) 124 H 135 H 12/17/17 12/17/17 16:29 20:29 INR (Anticoag Therapy) POC Glucose (mg/dL) 121 H 127 H Exam: LUNGS: Clear HEART: reg rhythm, occ extra beats ABDOMEN: Soft EXTREMITIES: 1 + edema. Right knee wound looks clean Assessment/Plan: 1. Right TKA: PT/OT 2. Diabetes: Finger sticks AC and HS. Metformin 3. CKD: Monitor renal function 4. CHF: Losartan/Toprol 5. Hiccups: Thorazine pretty successful. Hopefully will not need again. 6. HTN: restarted HCTZ 7. DVT prophylaxis: Coumadin 8. Analgesia: D/C Dilaudid. Will try [place] and see if he is more alert 12/17/17 21:14
[2017-12-17] MEDS: HYDROcodone/ACETAMIN 5-325 MG* 1 TAB PO PRN (21:28)
[2017-12-17] MEDS: Melatonin (NF) 3 MG TAB PO SCH (21:39)
[2017-12-18] MEDS: Metoprolol Succinate XL TAB* 25 MG PO SCH (08:03)
[2017-12-18] MEDS: Losartan TAB* 25 MG PO SCH (08:03)
[2017-12-18] MEDS: metFORMIN* 500 MG TAB PO SCH (08:04)
[2017-12-18] MEDS: Docusate CAP* 100 MG PO SCH ×2 (08:06→20:29)
[2017-12-18] MEDS: amLODIPine TAB* 5 MG PO SCH (08:06)
[2017-12-18] MEDS: Hydrochlorothiazide TAB* 25 MG PO SCH (08:11)
[2017-12-18] MEDS: HYDROcodone/ACETAMIN 5-325 MG* 1 TAB PO PRN ×4 (08:11→20:28)
[2017-12-18] MEDS: Warfarin TAB(*) 2 MG PO SCH (16:34)
[2017-12-18] MEDS: Atorvastatin* 10 MG TAB PO SCH (16:34)
[2017-12-18] MEDS: Gabapentin CAP(*) 100 MG PO SCH (20:29)
[2017-12-18] MEDS: Melatonin (NF) 3 MG TAB PO SCH (20:30)
--- NOTE | 2017-12-18 21:09 | PN ---
Progress Note Date of Service: 12/18/17 Note: MARYSE JAMES was visited. Therapy notes read and reviewed. He is much more awake today and his pain is controlled on [place]. Blood sugars have been okay, will lower FS to BID Current Medications: Active Medications Generic Name Dose Route Start Last Admin Trade Name Freq PRN Reason Stop Dose Admin Acetaminophen 650 mg 12/14/17 11:09 12/15/17 04:52 Tylenol Tab* PO 650 mg Q4H PRN Administration FEVER > 101 or mild pain Hydrocodone Bitart/Acetaminophen 2 tab 12/17/17 20:38 12/18/17 20:28 [place] 5-325 Tab* PO 2 tab Q4H PRN Administration PAIN - SEVERE Hydrocodone Bitart/Acetaminophen 1 tab 12/17/17 20:39 12/18/17 16:33 [place] 5-325 Tab* PO 1 tab Q4H PRN Administration PAIN - MODERATE TO SEVERE Al Hydrox/Mg Hydrox/Simethicone 30 ml 12/14/17 11:16 Maalox Plus* PO Q6H PRN INDIGESTION Alprazolam 0.5 mg 12/14/17 11:31 12/17/17 01:52 Xanax Tab* PO 0.5 mg BEDTIME PRN Administration insomnia Amlodipine Besylate 5 mg 12/15/17 09:00 12/18/17 08:06 Norvasc Tab* PO 5 mg DAILY COCO Administration Atorvastatin Calcium 10 mg 12/14/17 17:00 12/18/17 16:34 Lipitor* PO 10 mg 1700 COCO Administration Bisacodyl 10 mg 12/14/17 11:16 Dulcolax Supp* [place] DAILY PRN CONSTIPATION Chlorpromazine HCl 25 mg 12/15/17 17:16 12/17/17 01:53 Thorazine Tab* PO 25 mg Q8H PRN Administration HICCUPS Docusate Sodium 100 mg 12/14/17 21:00 12/18/17 20:29 Colace Cap* PO 100 mg BID COCO Administration Gabapentin 200 mg 12/14/17 21:00 12/18/17 20:29 Neurontin Cap(*) PO 200 mg BEDTIME COCO Administration Hydrochlorothiazide 25 mg 12/18/17 09:00 12/18/17 08:11 Hydrodiuril Tab* PO 25 mg DAILY COCO Administration Losartan Potassium 100 mg 12/15/17 09:00 12/18/17 08:03 Cozaar Tab* PO 100 mg DAILY COCO Administration Magnesium Hydroxide 30 ml 12/14/17 11:16 12/17/17 16:13 Milk Of [place] Liq* PO 30 ml Q6H PRN Administration CONSTIPATION Melatonin 3 mg 12/14/17 21:00 12/18/17 20:30 Melatonin (Nf) PO Not Given BEDTIME COCO Metformin HCl 750 mg 12/15/17 08:30 12/18/17 08:04 Glucophage* PO 750 mg DAILY WITH MEAL COCO Administration Methylphenidate HCl 10 mg 12/14/17 11:31 Ritalin Tab* PO TID PRN lack of attention Metoprolol Succinate 25 mg 12/15/17 09:00 12/18/17 08:03 Toprol Xl Tab* PO 25 mg DAILY COCO Administration Polyethylene Glycol/Electrolytes 17 gm 12/14/17 11:30 Miralax* PO DAILY PRN CONSTIPATION Senna 2 tab 12/14/17 11:16 Senokot Tab* PO BEDTIME PRN CONSTIPATION Warfarin Sodium 2 mg 12/14/17 17:00 12/18/17 16:34 Coumadin Tab(*) PO 2 mg DAILY@1700 COCO Administration Protocol Vital Signs: Vital Signs Temp Pulse Resp BP Pulse Ox 98.4 F 55 18 137/38 97 12/18/17 16:13 12/18/17 16:13 12/18/17 20:29 12/18/17 16:13 12/18/17 16:13 Lab Results: Laboratory Results - last 24 hr 12/18/17 12/18/17 12/18/17 08:03 11:46 16:37 POC Glucose (mg/dL) 131 H 124 H 137 H Exam: LUNGS: Clear HEART: reg rhythm, occ extra beats ABDOMEN: Soft EXTREMITIES: 1 + edema. Right knee wound looks clean Assessment/Plan: 1. Right TKA: PT/OT 2. Diabetes: Finger sticks AC @ 0730, 1630. Metformin 3. CKD: Monitor renal function 4. CHF: Losartan/Toprol 5. Hiccups: Thorazine pretty successful. Hopefully will not need again. 6. HTN: restarted HCTZ 7. DVT prophylaxis: Coumadin 8. Analgesia: [place] 12/18/17 21:09
[2017-12-18] MEDS: ALPRAZolam TAB* 0.5 MG PO PRN (22:13)
[2017-12-19 06:37] LABS: INR 1.92 (0.77-1.02)
[2017-12-19] MEDS: HYDROcodone/ACETAMIN 5-325 MG* 1 TAB PO PRN ×2 (08:03→12:57)
[2017-12-19] MEDS: Losartan TAB* 25 MG PO SCH (08:05)
[2017-12-19] MEDS: Hydrochlorothiazide TAB* 25 MG PO SCH (08:05)
[2017-12-19] MEDS: Metoprolol Succinate XL TAB* 25 MG PO SCH (08:05)
[2017-12-19] MEDS: metFORMIN* 500 MG TAB PO SCH ×2 (08:05→17:02)
[2017-12-19] MEDS: amLODIPine TAB* 5 MG PO SCH (08:06)
[2017-12-19] MEDS: Docusate CAP* 100 MG PO SCH ×2 (08:06→20:32)
--- NOTE | 2017-12-19 11:17 | PN ---
Progress Note Date of Service: 12/19/17 Note: MARYSE JAMES was visited. Nursing and therapy notes read and reviewed. No chest pain, shortness of breath or abdominal pain. [place] seems to be well- tolerated and treating his pain. Hiccups have not returned. He still is having trouble wiping after BM and wonders if he could do it without commode over toilet. Current Medications: Active Medications Generic Name Dose Route Start Last Admin Trade Name Freq PRN Reason Stop Dose Admin Acetaminophen 650 mg 12/14/17 11:09 12/15/17 04:52 Tylenol Tab* PO 650 mg Q4H PRN Administration FEVER > 101 or mild pain Hydrocodone Bitart/Acetaminophen 2 tab 12/17/17 20:38 12/19/17 08:03 [place] 5-325 Tab* PO 2 tab Q4H PRN Administration PAIN - SEVERE Hydrocodone Bitart/Acetaminophen 1 tab 12/17/17 20:39 12/18/17 16:33 [place] 5-325 Tab* PO 1 tab Q4H PRN Administration PAIN - MODERATE TO SEVERE Al Hydrox/Mg Hydrox/Simethicone 30 ml 12/14/17 11:16 Maalox Plus* PO Q6H PRN INDIGESTION Alprazolam 0.5 mg 12/14/17 11:31 12/18/17 22:13 Xanax Tab* PO 0.5 mg BEDTIME PRN Administration insomnia Amlodipine Besylate 5 mg 12/15/17 09:00 12/19/17 08:06 Norvasc Tab* PO 5 mg DAILY COCO Administration Atorvastatin Calcium 10 mg 12/14/17 17:00 12/18/17 16:34 Lipitor* PO 10 mg 1700 COCO Administration Bisacodyl 10 mg 12/14/17 11:16 Dulcolax Supp* [place] DAILY PRN CONSTIPATION Chlorpromazine HCl 25 mg 12/15/17 17:16 12/17/17 01:53 Thorazine Tab* PO 25 mg Q8H PRN Administration HICCUPS Docusate Sodium 100 mg 12/14/17 21:00 12/19/17 08:06 Colace Cap* PO 100 mg BID COCO Administration Gabapentin 200 mg 12/14/17 21:00 12/18/17 20:29 Neurontin Cap(*) PO 200 mg BEDTIME COCO Administration Hydrochlorothiazide 25 mg 12/18/17 09:00 12/19/17 08:05 Hydrodiuril Tab* PO 25 mg DAILY COCO Administration Losartan Potassium 100 mg 12/15/17 09:00 12/19/17 08:05 Cozaar Tab* PO 100 mg DAILY COCO Administration Magnesium Hydroxide 30 ml 12/14/17 11:16 12/17/17 16:13 Milk Of Magnesia Liq* PO 30 ml Q6H PRN Administration CONSTIPATION Melatonin 3 mg 12/14/17 21:00 12/18/17 20:30 Melatonin (Nf) PO Not Given BEDTIME COCO Metformin HCl 750 mg 12/15/17 08:30 12/19/17 08:05 Glucophage* PO 750 mg DAILY WITH MEAL COCO Administration Methylphenidate HCl 10 mg 12/14/17 11:31 Ritalin Tab* PO TID PRN lack of attention Metoprolol Succinate 25 mg 12/15/17 09:00 12/19/17 08:05 Toprol Xl Tab* PO 25 mg DAILY COCO Administration Polyethylene Glycol/Electrolytes 17 gm 12/14/17 11:30 Miralax* PO DAILY PRN CONSTIPATION Senna 2 tab 12/14/17 11:16 Senokot Tab* PO BEDTIME PRN CONSTIPATION Warfarin Sodium 2 mg 12/14/17 17:00 12/18/17 16:34 Coumadin Tab(*) PO 2 mg DAILY@1700 COCO Administration Protocol Vital Signs: Vital Signs Temp Pulse Resp BP Pulse Ox 98.1 F 54 16 130/60 98 12/19/17 06:25 12/19/17 06:25 12/19/17 08:03 12/19/17 06:25 12/19/17 06:25 Lab Results: Laboratory Results - last 24 hr 12/18/17 12/18/17 12/18/17 08:03 11:46 16:37 INR (Anticoag Therapy) POC Glucose (mg/dL) 131 H 124 H 137 H 12/19/17 06:04 INR (Anticoag Therapy) 1.92 H POC Glucose (mg/dL) Exam: GEN: no acute distress. alert and appropriate. LUNGS: Clear to auscultation bilaterally HEART: regular rate and rhythm with occasional extra beats ABDOMEN: + bowel sounds, soft, non-tender, non-distended EXTREMITIES: 1 + bilateral LE edema. Intact sensation and motor in bLE Assessment/Plan: 67yo man s/p right TKR complicated by acute on chronic renal failure, exacerbation of idiopathic VT/PVCs, and pain 1. Right TKA: PT/OT. [place]. f/u with Dr. Wolfe 12/24 2. Diabetes: Finger sticks AC @ 0730, 1630. Metformin now only Qday. Recheck renal function and if stable restart metformin bid, his home dose. 3. CKD: Monitor renal function 4. CHF: Losartan/Toprol 5. Hiccups: resolved with thorazine 6. HTN and edema: restarted HCTZ. check renal function. 7. DVT prophylaxis: Coumadin. Increase to 3mg tonight. INR Friday. 8. Analgesia: [place] 9. Advanced directives: full code. is surrogate decision maker if needed. 10. Estimated LOS: expect d/c on 12/2312/19/17 11:18
[2017-12-19 14:21] LABS: ABS Basophils 0.1 10^3/ul (0-0.2); ABS Eosinophils 0.2 10^3/ul (0-0.6); ABS Lymphocytes 1.7 10^3/ul (1.0-4.8); ABS Monocytes 0.6 10^3/ul (0-0.8); ABS Neutrophils 7.7 10^3/ul (1.5-7.7); ABS Nucleated RBC 0 10^3/ul; Eosinophil % 1.6 % (0-6); Hematocrit 31 % (42-52); Hemoglobin 10.4 g/dl (14.0-18.0); Lymphocyte % 16.2 % (25-47); Mean Corpuscular HGB Conc 33 g/dl (31-36); Mean Corpuscular Hemoglobin 28 pg (27-31); Mean Corpuscular Volume 85 fL (80-94); Mean Platelet Volume 7.3 um3 (7.4-10.4); Nucleated Red Blood Cells % 0.1; Platelet Count 361 10^3/ul (150-450); Red Blood Count 3.64 10^6/ul (4.0-5.4); Red Cell Distribution Width 17 % (10.5-15); White Blood Count 10.3 10^3/ul (3.5-10.8)
[2017-12-19 14:41] LABS: EGFR Non-African American 74.1 (>60)
[2017-12-19] MEDS: Magnesium Hydroxide LIQ* 30 ML UDC PO PRN (16:45)
[2017-12-19] MEDS: Warfarin TAB(*) 3 MG PO SCH (17:02)
[2017-12-19] MEDS: Atorvastatin* 10 MG TAB PO SCH (17:03)
[2017-12-19] MEDS: Gabapentin CAP(*) 100 MG PO SCH (20:32)
[2017-12-19] MEDS: Melatonin (NF) 3 MG TAB PO SCH (20:36)
[2017-12-19] MEDS: ALPRAZolam TAB* 0.5 MG PO PRN (21:29)
[2017-12-20] MEDS: Docusate CAP* 100 MG PO SCH ×2 (07:47→21:04)
[2017-12-20] MEDS: Metoprolol Succinate XL TAB* 25 MG PO SCH (07:47)
[2017-12-20] MEDS: amLODIPine TAB* 5 MG PO SCH (07:47)
[2017-12-20] MEDS: Hydrochlorothiazide TAB* 25 MG PO SCH (07:47)
[2017-12-20] MEDS: Losartan TAB* 25 MG PO SCH (07:47)
[2017-12-20] MEDS: metFORMIN* 500 MG TAB PO SCH ×2 (07:48→16:49)
[2017-12-20] MEDS: HYDROcodone/ACETAMIN 5-325 MG* 1 TAB PO PRN ×3 (07:49→21:03)
[2017-12-20] MEDS ORDERED: Furosemide TAB* 20 MG ONE (09:49)
[2017-12-20] MEDS: Furosemide TAB* 20 MG PO SCH (10:11)
--- NOTE | 2017-12-20 10:34 | PN ---
Progress Note Date of Service: 12/20/17 Note: MARYSE JAMES was visited. Nursing and therapy notes read and reviewed. He is up to urinate multiple times in the middle of the night. Having large voids. No chest pain, shortness of breath or abdominal pain. He needs a podiatry appt changed that is prior to d/c on friday or friday. Has a small skin tear under right abdominal fold. Current Medications: Active Medications Generic Name Dose Route Start Last Admin Trade Name Freq PRN Reason Stop Dose Admin Acetaminophen 650 mg 12/14/17 11:09 12/15/17 04:52 Tylenol Tab* PO 650 mg Q4H PRN Administration FEVER > 101 or mild pain Hydrocodone Bitart/Acetaminophen 2 tab 12/17/17 20:38 12/19/17 08:03 [place] 5-325 Tab* PO 2 tab Q4H PRN Administration PAIN - SEVERE Hydrocodone Bitart/Acetaminophen 1 tab 12/17/17 20:39 12/20/17 07:49 [place] 5-325 Tab* PO 1 tab Q4H PRN Administration PAIN - MODERATE TO SEVERE Al Hydrox/Mg Hydrox/Simethicone 30 ml 12/14/17 11:16 Maalox Plus* PO Q6H PRN INDIGESTION Alprazolam 0.5 mg 12/14/17 11:31 12/19/17 21:29 Xanax Tab* PO 0.5 mg BEDTIME PRN Administration insomnia Amlodipine Besylate 5 mg 12/15/17 09:00 12/20/17 07:47 Norvasc Tab* PO 5 mg DAILY [facility] Administration Atorvastatin Calcium 10 mg 12/14/17 17:00 12/19/17 17:03 Lipitor* PO 10 mg 1700 [facility] Administration Bisacodyl 10 mg 12/14/17 11:16 Dulcolax Supp* [place] DAILY PRN CONSTIPATION Chlorpromazine HCl 25 mg 12/15/17 17:16 12/17/17 01:53 Thorazine Tab* PO 25 mg Q8H PRN Administration HICCUPS Docusate Sodium 100 mg 12/14/17 21:00 12/20/17 07:47 Colace Cap* PO 100 mg BID C[facility]O Administration Furosemide 20 mg 12/20/17 10:00 12/20/17 10:11 Lasix Tab* PO 12/21/17 23:59 Not Given DAILY COCO Gabapentin 200 mg 12/14/17 21:00 12/19/17 20:32 Neurontin Cap(*) PO 200 mg BEDTIME COCO Administration Hydrochlorothiazide 25 mg 12/18/17 09:00 12/20/17 07:47 Hydrodiuril Tab* PO 25 mg DAILY [facility] Administration Losartan Potassium 100 mg 12/15/17 09:00 12/20/17 07:47 Cozaar Tab* PO 100 mg DAILY [facility] Administration Magnesium Hydroxide 30 ml 12/14/17 11:16 12/19/17 16:45 Milk Of Magnesia Liq* PO 30 ml Q6H PRN Administration CONSTIPATION Melatonin 3 mg 12/14/17 21:00 12/19/17 20:36 Melatonin (Nf) PO Not Given BEDTIME COCO Metformin HCl 750 mg 12/19/17 17:00 12/20/17 07:48 Glucophage* PO 750 mg BID@0800,1700 [facility] Administration Methylphenidate HCl 10 mg 12/14/17 11:31 Ritalin Tab* PO TID PRN lack of attention Metoprolol Succinate 25 mg 12/15/17 09:00 12/20/17 07:47 Toprol Xl Tab* PO 25 mg DAILY [facility] Administration Polyethylene Glycol/Electrolytes 17 gm 12/14/17 11:30 12/20/17 07:54 Miralax* PO 17 gm DAILY PRN Administration CONSTIPATION Senna 2 tab 12/14/17 11:16 Senokot Tab* PO BEDTIME PRN CONSTIPATION Warfarin Sodium 3 mg 12/19/17 17:00 12/19/17 17:02 Coumadin Tab(*) PO 3 mg DAILY@1700 [facility] Administration Protocol Vital Signs: Vital Signs Temp Pulse Resp BP Pulse Ox 99.2 F 45 16 155/44 96 12/20/17 05:41 12/20/17 05:41 12/20/17 09:49 12/20/17 05:41 12/20/17 05:41 I manually checked pulse - 80 Lab Results: Laboratory Results - last 24 hr 12/19/17 12/19/17 12/19/17 08:10 14:12 14:12 WBC 10.3 RBC 3.64 L Hgb 10.4 L Hct 31 L MCV 85 MCH 28 MCHC 33 RDW 17 H Plt Count 361 MPV 7.3 L Neut % (Auto) 75.0 Lymph % (Auto) 16.2 L [place] % (Auto) 6.2 Eos % (Auto) 1.6 Baso % (Auto) 1.0 Absolute Neuts (auto) 7.7 Absolute Lymphs (auto) 1.7 Absolute Monos (auto) 0.6 Absolute Eos (auto) 0.2 Absolute Basos (auto) 0.1 Absolute Nucleated RBC 0 Nucleated RBC % 0.1 Sodium 134 L Potassium 4.4 Chloride 100 L Carbon Dioxide 25 Anion Gap 9 BUN 22 Creatinine 1.00 Est GFR ( Amer) 95.3 Est GFR (Non-Af Amer) 74.1 BUN/Creatinine Ratio 22.0 H Glucose 122 H POC Glucose (mg/dL) 133 H Calcium 9.2 Total Bilirubin 0.80 AST 63 H ALT 59 H Alkaline Phosphatase 82 Total Protein 6.8 Albumin 3.3 Globulin 3.5 Albumin/Globulin Ratio 0.9 L 12/19/17 17:02 WBC RBC Hgb Hct MCV MCH MCHC RDW Plt Count MPV Neut % (Auto) Lymph % (Auto) [place] % (Auto) Eos % (Auto) Baso % (Auto) Absolute Neuts (auto) Absolute Lymphs (auto) Absolute Monos (auto) Absolute Eos (auto) Absolute Basos (auto) Absolute Nucleated RBC Nucleated RBC % Sodium Potassium Chloride Carbon Dioxide Anion Gap BUN Creatinine Est GFR ( Amer) Est GFR (Non-Af Amer) BUN/Creatinine Ratio Glucose POC Glucose (mg/dL) 150 H Calcium Total Bilirubin AST ALT Alkaline Phosphatase Total Protein Albumin Globulin Albumin/Globulin Ratio Exam: GEN: no acute distress. alert and appropriate. LUNGS: Clear to auscultation bilaterally HEART: regular rate and rhythm with occasional extra beats ABDOMEN: + bowel sounds, soft, non-tender, non-distended EXTREMITIES: bilateral LE edema R>L. Intact sensation and motor in bLE SKIN: Right abdominal fold with very slight linear skin tear about 1cm length. Right knee sutures c/d/i. No drainage. Assessment/Plan: 67yo man s/p right TKR complicated by acute on chronic renal failure, exacerbation of idiopathic VT/PVCs, and pain 1. Right TKA: PT/OT. [place]. f/u with Dr. Wolfe 12/24 2. Diabetes: Finger sticks AC @ 0730, 1630. Metformin at home dose 750mg bid. I left a note for SW to assist with changing his podiatry appt until after his discharge for routine toenail/foot care. 3. CKD: Monitor renal function 4. CHF: Losartan/Toprol 5. Hiccups: resolved with thorazine 6. HTN and edema: HCTZ and will give a dose of Lasix 20mg today and tomorrow. I d/w patient he is mobilizing fluids at night when supine and he could do more during the day if he laid with his legs elevated above his heart. He will do that also. 7. DVT prophylaxis: Coumadin. Increased to 3mg 12/19. INR Friday. 8. Analgesia: [place] 9. Skin tear: skin prep to abdominal fold area bid 10. Advanced directives: full code. is surrogate decision maker if needed. 11. Estimated LOS: expect d/c on 12/2312/20/17 10:31
[2017-12-20] MEDS: Atorvastatin* 10 MG TAB PO SCH (16:50)
[2017-12-20] MEDS: Warfarin TAB(*) 3 MG PO SCH (16:50)
[2017-12-20] MEDS: Melatonin (NF) 3 MG TAB PO SCH (21:03)
[2017-12-20] MEDS: Gabapentin CAP(*) 100 MG PO SCH (21:03)
[2017-12-21] MEDS: ALPRAZolam TAB* 0.5 MG PO PRN (00:48)
[2017-12-21 05:52] LABS: INR 1.73 (0.77-1.02)
[2017-12-21] MEDS: Furosemide TAB* 20 MG PO SCH (07:52)
[2017-12-21] MEDS: Losartan TAB* 25 MG PO SCH (07:52)
[2017-12-21] MEDS: Docusate CAP* 100 MG PO SCH ×2 (07:52→21:03)
[2017-12-21] MEDS: Hydrochlorothiazide TAB* 25 MG PO SCH (07:53)
[2017-12-21] MEDS: amLODIPine TAB* 5 MG PO SCH (07:53)
[2017-12-21] MEDS: Metoprolol Succinate XL TAB* 25 MG PO SCH (07:53)
[2017-12-21] MEDS: metFORMIN* 500 MG TAB PO SCH ×2 (07:53→17:17)
--- NOTE | 2017-12-21 09:34 | PN ---
Progress Note Date of Service: 12/21/17 Note: MARYSE JAMES was visited. Nursing notes read and reviewed. He was only up twice to urinate last night. He diuresed more during the day after receiving lasix. No new concerns. No chest pain, shortness of breath or abdominal pain. Current Medications: Active Medications Generic Name Dose Route Start Last Admin Trade Name Freq PRN Reason Stop Dose Admin Acetaminophen 650 mg 12/14/17 11:09 12/15/17 04:52 Tylenol Tab* PO 650 mg Q4H PRN Administration FEVER > 101 or mild pain Hydrocodone Bitart/Acetaminophen 2 tab 12/17/17 20:38 12/19/17 08:03 [place] 5-325 Tab* PO 2 tab Q4H PRN Administration PAIN - SEVERE Hydrocodone Bitart/Acetaminophen 1 tab 12/17/17 20:39 12/20/17 21:03 [place] 5-325 Tab* PO 1 tab Q4H PRN Administration PAIN - MODERATE TO SEVERE Al Hydrox/Mg Hydrox/Simethicone 30 ml 12/14/17 11:16 Maalox Plus* PO Q6H PRN INDIGESTION Alprazolam 0.5 mg 12/14/17 11:31 12/21/17 00:48 Xanax Tab* PO 0.5 mg BEDTIME PRN Administration insomnia Amlodipine Besylate 5 mg 12/15/17 09:00 12/21/17 07:53 Norvasc Tab* PO 5 mg DAILY COCO Administration Atorvastatin Calcium 10 mg 12/14/17 17:00 12/20/17 16:50 Lipitor* PO 10 mg 1700 [facility]O Administration Bisacodyl 10 mg 12/14/17 11:16 Dulcolax Supp* [place] DAILY PRN CONSTIPATION Chlorpromazine HCl 25 mg 12/15/17 17:16 12/17/17 01:53 Thorazine Tab* PO 25 mg Q8H PRN Administration HICCUPS Docusate Sodium 100 mg 12/14/17 21:00 12/21/17 07:52 Colace Cap* PO 100 mg BID COCO Administration Furosemide 20 mg 12/20/17 10:00 12/21/17 07:52 Lasix Tab* PO 12/21/17 23:59 20 mg DAILY COCO Administration Gabapentin 200 mg 12/14/17 21:00 12/20/17 21:03 Neurontin Cap(*) PO 200 mg BEDTIME COCO Administration Hydrochlorothiazide 25 mg 12/18/17 09:00 12/21/17 07:53 Hydrodiuril Tab* PO 25 mg DAILY COCO Administration Losartan Potassium 100 mg 12/15/17 09:00 12/21/17 07:52 Cozaar Tab* PO 100 mg DAILY COCO Administration Magnesium Hydroxide 30 ml 12/14/17 11:16 12/19/17 16:45 Milk Of Magnesia Liq* PO 30 ml Q6H PRN Administration CONSTIPATION Melatonin 3 mg 12/14/17 21:00 12/20/17 21:03 Melatonin (Nf) PO 3 mg BEDTIME COCO Administration Metformin HCl 750 mg 12/19/17 17:00 12/21/17 07:53 Glucophage* PO 750 mg BID@0800,1700 [facility] Administration Methylphenidate HCl 10 mg 12/14/17 11:31 Ritalin Tab* PO TID PRN lack of attention Metoprolol Succinate 25 mg 12/15/17 09:00 12/21/17 07:53 Toprol Xl Tab* PO 25 mg DAILY COCO Administration Polyethylene Glycol/Electrolytes 17 gm 12/14/17 11:30 12/20/17 07:54 Miralax* PO 17 gm DAILY PRN Administration CONSTIPATION Senna 2 tab 12/14/17 11:16 Senokot Tab* PO BEDTIME PRN CONSTIPATION Warfarin Sodium 5 mg 12/21/17 17:00 Coumadin Tab(*) PO DAILY@1700 [facility] Protocol Vital Signs: Vital Signs Temp Pulse Resp BP Pulse Ox 98.5 F 63 18 148/52 98 12/21/17 05:56 12/21/17 05:56 12/21/17 05:56 12/21/17 05:56 12/21/17 05:56 Lab Results: Laboratory Results - last 24 hr 12/20/17 12/20/17 12/21/17 07:47 16:50 05:25 INR (Anticoag Therapy) 1.73 H POC Glucose (mg/dL) 129 H 142 H 12/21/17 07:52 INR (Anticoag Therapy) POC Glucose (mg/dL) 131 H Exam: GEN: no acute distress. alert and appropriate. LUNGS: Clear to auscultation bilaterally HEART: regular rate and rhythm with occasional extra beats ABDOMEN: + bowel sounds, soft, non-tender, non-distended EXTREMITIES: bilateral LE edema R>L which has decreased. Intact sensation and motor in bLE SKIN: Right knee sutures c/d/i. No drainage. Assessment/Plan: 67yo man s/p right TKR complicated by acute on chronic renal failure, exacerbation of idiopathic VT/PVCs, and pain 1. Right TKA: PT/OT. [place]. f/u with Dr. Wolfe 12/24 2. Diabetes: Finger sticks AC @ 0730, 5200. Metformin at home dose 750mg bid. I left a note for SW to assist with changing his podiatry appt until after his discharge for routine toenail/foot care. 3. CKD: Monitor renal function 4. CHF: Losartan/Toprol 5. Hiccups: resolved with thorazine 6. HTN and edema: HCTZ. Got lasix yesterday and this morning and will be d/c'd. 7. DVT prophylaxis: Coumadin. Increased to 5mg 12/21. INR tomorrow. 8. Analgesia: [place] 9. Skin tear: skin prep to abdominal fold area bid 10. Advanced directives: full code. is surrogate decision maker if needed. 11. Estimated LOS: expect d/c on 12/2312/21/17 09:33
[2017-12-21] MEDS: HYDROcodone/ACETAMIN 5-325 MG* 1 TAB PO PRN (10:25)
[2017-12-21] MEDS ORDERED: Warfarin TAB(*) 3 MG PO SCH (17:00)
[2017-12-21] MEDS: Atorvastatin* 10 MG TAB PO SCH (17:16)
[2017-12-21] MEDS: Warfarin TAB(*) 5 MG PO SCH (17:20)
[2017-12-21] MEDS: Gabapentin CAP(*) 100 MG PO SCH (21:04)
[2017-12-21] MEDS: Melatonin (NF) 3 MG TAB PO SCH (21:04)
[2017-12-22] MEDS: ALPRAZolam TAB* 0.5 MG PO PRN (00:20)
[2017-12-22 06:54] LABS: ABS Basophils 0.1 10^3/ul (0-0.2); ABS Eosinophils 0.1 10^3/ul (0-0.6); ABS Lymphocytes 2.6 10^3/ul (1.0-4.8); ABS Monocytes 0.6 10^3/ul (0-0.8); ABS Neutrophils 7.5 10^3/ul (1.5-7.7); ABS Nucleated RBC 0 10^3/ul; Eosinophil % 0.9 % (0-6); Hematocrit 31 % (42-52); Hemoglobin 10.4 g/dl (14.0-18.0); Mean Corpuscular HGB Conc 33 g/dl (31-36); Mean Corpuscular Hemoglobin 28 pg (27-31); Mean Corpuscular Volume 84 fL (80-94); Nucleated Red Blood Cells % 0; Platelet Count 401 10^3/ul (150-450); Red Blood Count 3.72 10^6/ul (4.0-5.4); Red Cell Distribution Width 17 % (10.5-15); White Blood Count 10.8 10^3/ul (3.5-10.8)
[2017-12-22 07:01] LABS: EGFR Non-African American 74.1 (>60)
[2017-12-22 07:02] LABS: INR 1.92 (0.77-1.02)
[2017-12-22] MEDS: metFORMIN* 500 MG TAB PO SCH ×2 (07:53→17:12)
[2017-12-22] MEDS: Losartan TAB* 25 MG PO SCH (07:54)
[2017-12-22] MEDS: Docusate CAP* 100 MG PO SCH ×2 (07:55→20:16)
[2017-12-22] MEDS: Hydrochlorothiazide TAB* 25 MG PO SCH (07:55)
[2017-12-22] MEDS: amLODIPine TAB* 5 MG PO SCH (07:55)
[2017-12-22] MEDS: Metoprolol Succinate XL TAB* 25 MG PO SCH (07:56)
[2017-12-22] MEDS: HYDROcodone/ACETAMIN 5-325 MG* 1 TAB PO PRN ×2 (07:59→12:36)
[2017-12-22] MEDS ORDERED: traMADol TAB* 50 MG PO PRN (15:47)
--- NOTE | 2017-12-22 16:15 | PN ---
Progress Note Date of Service: 12/22/17 Note: MARYSE JAMES was visited. Therapy notes read and reviewed. For discharge tomorrow. He feels good and is much more alert. No more hiccups. Knee wound healing well. He would like the stitches out before he goes home. Current Medications: Active Medications Generic Name Dose Route Start Last Admin Trade Name Freq PRN Reason Stop Dose Admin Acetaminophen 650 mg 12/14/17 11:09 12/15/17 04:52 Tylenol Tab* PO 650 mg Q4H PRN Administration FEVER > 101 or mild pain Hydrocodone Bitart/Acetaminophen 2 tab 12/17/17 20:38 12/22/17 07:59 [place] 5-325 Tab* PO 2 tab Q4H PRN Administration PAIN - SEVERE Hydrocodone Bitart/Acetaminophen 1 tab 12/17/17 20:39 12/22/17 12:36 [place] 5-325 Tab* PO 1 tab Q4H PRN Administration PAIN - MODERATE TO SEVERE Al Hydrox/Mg Hydrox/Simethicone 30 ml 12/14/17 11:16 Maalox Plus* PO Q6H PRN INDIGESTION Alprazolam 0.5 mg 12/14/17 11:31 12/22/17 00:20 Xanax Tab* PO 0.5 mg BEDTIME PRN Administration insomnia Amlodipine Besylate 5 mg 12/15/17 09:00 12/22/17 07:55 Norvasc Tab* PO 5 mg DAILY COCO Administration Atorvastatin Calcium 10 mg 12/14/17 17:00 12/21/17 17:16 Lipitor* PO 10 mg 1700 [facility] Administration Bisacodyl 10 mg 12/14/17 11:16 Dulcolax Supp* [place] DAILY PRN CONSTIPATION Docusate Sodium 100 mg 12/14/17 21:00 12/22/17 07:55 Colace Cap* PO 100 mg BID COCO Administration Gabapentin 200 mg 12/14/17 21:00 12/21/17 21:04 Neurontin Cap(*) PO 200 mg BEDTIME COCO Administration Hydrochlorothiazide 25 mg 12/18/17 09:00 12/22/17 07:55 Hydrodiuril Tab* PO 25 mg DAILY COCO Administration Losartan Potassium 100 mg 12/15/17 09:00 12/22/17 07:54 Cozaar Tab* PO 100 mg DAILY COCO Administration Magnesium Hydroxide 30 ml 12/14/17 11:16 12/19/17 16:45 Milk Of Magnesia Liq* PO 30 ml Q6H PRN Administration CONSTIPATION Melatonin 3 mg 12/14/17 21:00 12/21/17 21:04 Melatonin (Nf) PO 3 mg BEDTIME COCO Administration Metformin HCl 750 mg 12/19/17 17:00 12/22/17 07:53 Glucophage* PO 750 mg BID@0800,1700 [facility] Administration Methylphenidate HCl 10 mg 12/14/17 11:31 Ritalin Tab* PO TID PRN lack of attention Metoprolol Succinate 25 mg 12/15/17 09:00 12/22/17 07:56 Toprol Xl Tab* PO 25 mg DAILY COCO Administration Polyethylene Glycol/Electrolytes 17 gm 12/14/17 11:30 12/20/17 07:54 Miralax* PO 17 gm DAILY PRN Administration CONSTIPATION Senna 2 tab 12/14/17 11:16 Senokot Tab* PO BEDTIME PRN CONSTIPATION Tramadol HCl 50 mg 12/22/17 15:47 Ultram* PO Q6H PRN PAIN - MODERATE Warfarin Sodium 5 mg 12/21/17 17:00 12/21/17 17:20 Coumadin Tab(*) PO Not Given DAILY@1700 [facility] Protocol Vital Signs: Vital Signs Temp Pulse Resp BP Pulse Ox 98.1 F 63 16 156/47 98 12/22/17 06:34 12/22/17 06:34 12/22/17 14:12 12/22/17 06:34 12/22/17 06:34 Lab Results: Laboratory Results - last 24 hr 12/21/17 12/22/17 12/22/17 16:41 06:21 06:21 WBC 10.8 RBC 3.72 L Hgb 10.4 L Hct 31 L MCV 84 MCH 28 MCHC 33 RDW 17 H Plt Count 401 MPV 7.0 L Neut % (Auto) 69.1 Lymph % (Auto) 24.0 L [place] % (Auto) 5.5 Eos % (Auto) 0.9 Baso % (Auto) 0.5 Absolute Neuts (auto) 7.5 Absolute Lymphs (auto) 2.6 Absolute Monos (auto) 0.6 Absolute Eos (auto) 0.1 Absolute Basos (auto) 0.1 Absolute Nucleated RBC 0 Nucleated RBC % 0 INR (Anticoag Therapy) 1.92 H Sodium Potassium Chloride Carbon Dioxide Anion Gap BUN Creatinine Est GFR ( Amer) Est GFR (Non-Af Amer) BUN/Creatinine Ratio Glucose POC Glucose (mg/dL) 144 H Calcium Total Bilirubin AST ALT Alkaline Phosphatase Total Protein Albumin Globulin Albumin/Globulin Ratio 12/22/17 12/22/17 06:21 07:51 WBC RBC Hgb Hct MCV MCH MCHC RDW Plt Count MPV Neut % (Auto) Lymph % (Auto) [place] % (Auto) Eos % (Auto) Baso % (Auto) Absolute Neuts (auto) Absolute Lymphs (auto) Absolute Monos (auto) Absolute Eos (auto) Absolute Basos (auto) Absolute Nucleated RBC Nucleated RBC % INR (Anticoag Therapy) Sodium 137 L Potassium 4.1 Chloride 100 L Carbon Dioxide 29 Anion Gap 8 BUN 20 Creatinine 1.00 Est GFR ( Amer) 95.3 Est GFR (Non-Af Amer) 74.1 BUN/Creatinine Ratio 20.0 Glucose 118 H POC Glucose (mg/dL) 134 H Calcium 9.4 Total Bilirubin 0.70 AST 62 H ALT 58 H Alkaline Phosphatase 84 Total Protein 6.9 Albumin 3.3 Globulin 3.6 Albumin/Globulin Ratio 0.9 L Exam: LUNGS: Clear HEART: reg rhythm, occ extra beats ABDOMEN: Soft EXTREMITIES: 1 + edema. Right knee wound looks clean Assessment/Plan: 1. Right TKA: PT/OT. [place]. Will see if we can take out stitches prior to f/u with Dr. Wolfe 12/24 2. Diabetes: Finger sticks AC @ 0730, 1630. Metformin 750mg bid. 3. CKD: Monitor renal function 4. CHF: Losartan/Toprol 5. Hiccups: resolved with thorazine 6. HTN and edema: HCTZ. 7. DVT prophylaxis: Coumadin. Increased to 5mg 12/21. INR tomorrow. 8. Analgesia: [place] 9. Skin tear: skin prep to abdominal fold area bid 10. Advanced directives: full code. is surrogate decision maker if needed. 12/22/17 16:15
[2017-12-22] MEDS: Atorvastatin* 10 MG TAB PO SCH (17:12)
[2017-12-22] MEDS: Warfarin TAB(*) 5 MG PO SCH (17:12)
[2017-12-22] MEDS: Gabapentin CAP(*) 100 MG PO SCH (20:16)
[2017-12-22] MEDS: Melatonin (NF) 3 MG TAB PO SCH (20:17)
[2017-12-23 06:24] VITALS: BP 160/58
[2017-12-23 06:44] LABS: INR 2.63 (0.77-1.02)
[2017-12-23] MEDS: metFORMIN* 500 MG TAB PO SCH (07:52)
[2017-12-23] MEDS: Losartan TAB* 25 MG PO SCH (07:52)
[2017-12-23] MEDS: amLODIPine TAB* 5 MG PO SCH (07:53)
[2017-12-23] MEDS: Docusate CAP* 100 MG PO SCH (07:54)
[2017-12-23] MEDS: Hydrochlorothiazide TAB* 25 MG PO SCH (07:54)
[2017-12-23] MEDS: Metoprolol Succinate XL TAB* 25 MG PO SCH (07:54)
[2017-12-23] MEDS: HYDROcodone/ACETAMIN 5-325 MG* 1 TAB PO PRN (11:53)
--- NOTE | 2017-12-25 02:00 | DS ---
CC: Dr. Layne Guadarrama* DISCHARGE SUMMARY: DATE OF ADMISSION: 12/14/17 DATE OF DISCHARGE: 12/23/17 DISCHARGE DIAGNOSES: 1. Right total knee replacement. 2. Hiccups. 3. Hypertension. 4. Frequent premature ventricular contractions. 5. Diabetes mellitus. 6. Sleep apnea. 7. Chronic kidney disease. HISTORY OF ILLNESS AND HOSPITAL COURSE: For complete history of the events leading up to his rehab state, please see the history and physical dictated by Dr. Anuradha Aparicio on December 14, 2017. While on the rehab unit, the patient continued to have hiccups. His Compazine was discontinued and he was started on Thorazine. His hiccups ultimately resolved with Thorazine treatment. The patient was on Dilaudid for pain relief when first coming to the rehab unit. The combination of Dilaudid and Thorazine made him quite sleepy. His Thorazine and Dilaudid were discontinued and he was placed on [place] for pain. His wound healed well. His stitches were able to be removed prior to discharge. The knee itself looked clean. His hydrochlorothiazide was restarted and he was given Lasix to help with diuresis to help with the swelling in his both ankles. The patient otherwise was medically stable. He was seen by physical therapy and occupational therapy and made good gains with both disciplines. With physical therapy at the time of admission, the patient required max assist to transfer. He can ambulate 40 feet with contact guard. With occupational therapy at the time of admission, the patient required max assist for lower body dressing, mod assist for upper body dressing, max assist for toileting, min assist for toilet transfer. By the time of discharge, he was independent in toilet transfers, independent in toileting, independent in transfers, independent ambulating 150 feet. He was able to go up and down of flight of 12 steps independently. As far as dressing, he was independent with dressing. He did require supervision for tub transfers. The patient was discharged to home on December 23, 2017. DISCHARGE DIET: Consistent carbohydrate. DISCHARGE MEDICATION: 1. Xanax 0.5 mg at bedtime as needed. 2. Norvasc 5 mg daily. 3. Gabapentin 200 mg at bedtime. 4. Hydrochlorothiazide 25 mg every day. 5. [place] 5/325, 1 to 2 tablets every 4 hours as needed. 6. Cozaar 100 mg orally daily. 7. Metformin 750 mg orally twice a day. 8. Ritalin 10 mg orally 3 times a day as needed. 9. Toprol-XL 25 mg daily. 10. Tramadol 50 mg every 6 hours as needed. 11. Coumadin 4 mg daily or as directed. 12. Pravastatin 40 mg every evening. 13. Vitamin B12 tablets 1000 mcg daily. SERVICES AFTER DISCHARGE: Through the visiting nurse services of [place], he will have home nursing and home physical therapy. Follow up with Dr. Hanna Wolfe and with Dr. Layne Guadarrama. [id number]/CPS #: [id number] [facility] [facility]
== END 2017-12-23 12:30 | disposition home health service (06) | DRG 560 ==
LOC: PMRU 13:31
PROVIDERS: ADMIT Physical Medicine & Rehabilitation; ATTEND Physical Medicine & Rehabilitation
PROC: F07Z5ZZ Bed Mobility Treatment (ICD-10-PCS; principal; 2017-12-14)
PROC: F07Z9ZZ Gait Training/Functional Ambulation Treatment (ICD-10-PCS; 2017-12-14)
PROC: F07Z8ZZ Transfer Training Treatment (ICD-10-PCS; 2017-12-14)
PROC: F08Z0ZZ Bathing/Showering Techniques Treatment (ICD-10-PCS; 2017-12-14)
PROC: F08Z1ZZ Dressing Techniques Treatment (ICD-10-PCS; 2017-12-14)
PROC: F08Z3ZZ Feeding/Eating Treatment (ICD-10-PCS; 2017-12-14)
DX: Z47.1 Aftercare following joint replacement surgery (principal); Z68.41 Body mass index [BMI] 40.0-44.9, adult; I47.2 Ventricular tachycardia; I13.0 Hypertensive heart and chronic kidney disease with heart failure and stage 1 through stage 4 chronic kidney disease, or unspecified chronic kidney disease; Z96.651 Presence of right artificial knee joint; R06.6 Hiccough; I49.3 Ventricular premature depolarization; G47.30 Sleep apnea, unspecified; E11.22 Type 2 diabetes mellitus with diabetic chronic kidney disease; N18.9 Chronic kidney disease, unspecified; E66.9 Obesity, unspecified; E78.5 Hyperlipidemia, unspecified; F41.9 Anxiety disorder, unspecified; I25.10 Atherosclerotic heart disease of native coronary artery without angina pectoris; I50.9 Heart failure, unspecified; D53.9 Nutritional anemia, unspecified; M48.00 Spinal stenosis, site unspecified; M10.9 Gout, unspecified; S31.119A Laceration without foreign body of abdominal wall, unspecified quadrant without penetration into peritoneal cavity, initial encounter; Y92.230 Patient room in hospital as the place of occurrence of the external cause; N52.9 Male erectile dysfunction, unspecified; Z79.01 Long term (current) use of anticoagulants; Z79.84 Long term (current) use of oral hypoglycemic drugs; Z79.1 Long term (current) use of non-steroidal anti-inflammatories (NSAID); Z79.899 Other long term (current) drug therapy; Z83.3 Family history of diabetes mellitus; Z82.49 Family history of ischemic heart disease and other diseases of the circulatory system; Z82.5 Family history of asthma and other chronic lower respiratory diseases; Z80.0 Family history of malignant neoplasm of digestive organs
CPT/HCPCS: 36415; 80053; 85025; 85610; A9270-GY

== ENCOUNTER 2018-09-17 09:10 | Inpatient (IN) | payer MEDICARE ==
[~2018-09-17 09:10] MED LIST changes: -Buffered Lidocaine 0.9% SYRIN* 5 ML/SYR SYRINGE INTRADERM ONE; +Buffered Lidocaine 1% SYRIN* 1 ML/SYRINGE INTRADERM ONE; -DiMENhydriNATE IV* 50 MG/ML VIAL IV PUSH PRN; -Famotidine IV* 10 MG/ML 2 ML (20 mg) IV ONE; -Gabapentin CAP(*) 300 MG PO ONE; +Lactated Ringers 1000 ML Bag* 1,000 ML IV SCH; -Morphine INJ* 2 MG/ML 1 ML CARPUJECT IV PRN; -Naloxone* 0.4 MG/ML 1 ML VIAL IV PRN; -PROCHLORPERAZINE INJ 5 MG/ML 2 ML VIAL IV PRN; -Scopolamine 1.5 mg* PATCH TRANSDERM PRN; -fentaNYL* 50 MCG/ML 2 ML VIAL (100 MCG VIAL) IV PRN; -oxyCODONE/Acetamin 5/325 MG* TAB PO PRN
--- OUTSIDE RECORDS SUMMARY | 2018-09-17 09:16 | XMS REPORT | Continuity of Care Document ---
:1950 External Reference #:[id number] Author Name IvetteomarFrancesca Care Team Providers Name Role Phone Layne Guadarrama MD Primary Care Physician Unavailable Payers Type Date Identification Numbers Payment Provider Subscriber Policy Number: [id number] Medicare [employer] PayID: [id number] [address] [place] [address] Policy Number: [id number] [facility] [employer] PayID: [id number] [address] [place] [address] Advance Directives Description No Information Available Problems Date Description Provider Status Onset: 08/20/2012 Gout Brandin Boggs M.D. Active Onset: 08/20/2012 Localized, primary osteoarthritis Brandin Boggs M.D. 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 Active Nonspecified Other & Unspecified Onset: 02/04/2013 Blood chemistry abnormal Brandin Boggs M.D. Active Onset: 04/28/2013 Disorder of muscle Brandin Boggs M.D. Active Onset: 07/21/2013 Bursitis Brandin Boggs M.D. Active Onset: 11/10/2013 Spinal stenosis of lumbar region Brandin Boggs M.D. Active Onset: 04/27/2014 Idiopathic peripheral neuropathy Brandin Boggs M.D. Active Onset: 05/27/2014 Diabetic polyneuropathy Brandin Boggs M.D. Active Onset: 05/12/2017 Localized, primary osteoarthritis Hanna Wolfe M.D. 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 Tobacco Use Start: Unknown End: Former Cigarette Smoker Smoked 1 PPD for Unknown years Smoking Status Reviewed: 09/10/18 Former Cigarette Smoker Smoked 1 PPD for years ETOH Use Drinks 4 Alcoholic Beverages Per Week Tobacco Use Start: Unknown End: Patient is a former Unknown smoker Recreational Drug Use Denies Drug Use Exercise Type/Frequency Exercises regularly Allergies, Adverse Reactions, Alerts Description No Known Drug Allergies Medications Medication Date Status Form Strength Qnty SIG Indications Ordering Provider Diclofenac Sodium 06/16 Active Tablets 75mg 60tab one tab M75.02 DR guerrero twice a day Aiden with shira Walker as needed Toprol XL 06/30 Active Tablets 25mg 90tab 1 by mouth I49.3 Mejia ER 24HR s every day Toma Gonzalez M.D. Bipap 06/22 Active Device use at at bedtime Allopurinol 03/05 Active Tablets 300mg 30tab 1 po qd cesar Boggs M.D. Pravastatin Sodium Active Tablets 40mg 30tab 1 tablet by Unknown / s mouth once daily at bedtime Losartan Potassium Active Tablets 100mg 1 by mouth Unknown / every day Hydrochlorothiazid Active Tablets 25mg 1 by mouth Unknown e / every day Vitamin B-12 Active Tablets 1000mcg 1 by mouth Unknown / every day Metformin HCL ER Active Tablets 750mg 2 by mouth Unknown Twice A Day /0000 ER 24HR bid Vitamin D Active Chewtabs 2000Unit 2 by mouth Unknown /0000 every day Coenzyme Q-10 Active Capsules 100mg 1 by mouth Unknown / every day Flector Active Patches 1.3% apply as needed for pain Xanax Active Tablets 1mg take 1/2-1 pills hs prn Ritalin Active 10 mg - 1 tab up to tid on empty stomach prn Viagra Active Tablets 100mg by mouth 0.5 or 1 tab up to every day as directed, no more than three days per week Amlodipine Active 5mg qd Unknown Aspir-81 Active Tablets 81mg 1 by mouth Unknown every day Neurontin Active Capsules 100mg 4 caps by mouth every night at bedtime Simethicone Active Capsules 125mg 4times a day as needed Cialis Active Tablets 20mg 1 as needed Diclofenac Sodium 06/09 Hx Tablets 50mg 60tab [address] tablet by M75.02 DR guerrero mouth twice F - daily (bid) Lilia 06/16 as needed for pain Prednisone 05/12 Hx Tablets 20mg 10tab 2 by mouth R43.2 Deandre s for 4 days D. - then 1 by Maritza 05/31 mouth for 2 M.D. days Omeprazole 05/12 Hx Capsules 40mg 14cap [address] mouth [address] DR guerrero every day D. - Maritza, 05/29 M.D. Valium 03/26 Hx Tablets 5mg 2tabs take 1 -2 M25.512 tabs by F - mouth as Lilia 05/12 needed for anxiety and restlessnes s prior to mri scan Cefepime HCL 03/16 Hx Solution 2gm 2 grams Rec every 12 D. - hours x 42 Maritza, 04/26 days M.D. Coumadin 12/04 Hx Tablets 2mg 90tab take 1-3 Hanna s tabs by Aiden, - mouth at 5 M.D. 01/20 at night directed. Do not take before surgery. Colace 12/04 Hx Capsules 100mg 90cap 1 tab by Hanna s mouth 2-3 Aiden, - times a day M.D. 01/20 as needed Percocet 12/04 Hx Tablets 5-325mg 90tab 1-2 by s mouth every Aiden, - 4-6 hours M.D. 01/20 as needed pain Coumadin 06/27 Hx Tablets 2mg 90tab take 1-3 Hanna s tabs by Aiden, - mouth at 5 M.D. 07/14 at night directed(pt has not started) Oxycodone-Acetamin 06/27 Hx Tablets 5-325mg 90tab 1-2 tabs by Hanna s mouth every Aiden, - 4-6 hours M.D. 09/28 as needed for pain Stool Softener 06/27 Hx Capsules 100mg 90cap 1 by mouth Hanna s 2-3 times Aiden, - daily while M.D. 09/28 on narcotic /2017 pain medication Vitamin B 100 06/20 Hx Tablets 1 by mouth Mejia every day Toma Gonzalez, - M.D. 03/11 Neurontin 05/27 Hx Capsules 100mg 360ca ps Endo, - M.D. 05/11 Crestor 02/04 Hx Tablets 5mg 90tab 1 po qd s Ordering - Provider 07/21 Diclofenac Sodium 04/08 Hx Tablets 75mg 60tab 1 tab by Brandin COTTO DR guerrero mouth twice Endo, - a day M.D. [...] 300 mg tab(Pt no longer taking) Viagra 00/ Hx Tablets 100mg 6tabs po 0.5 or 1 Unknown /0000 tab 1h - before 05/11 Lisinopril / Hx Tablets 40mg 30tab 1 po qd Unknown /0000 s - 05/11 Neurontin Hx Capsules 100mg 360ca 3 qid Brandin /0000 ps Endo, - M.D. 05/27 Hydrochlorothiazid 00/00 Hx Tablets 25mg 90tab 1 po qd Unknown e /0000 s - 04/28 Lipitor / Hx Tablets 40mg 30tab 1 po qhs Unknown /0000 s - 08/20 Felodipine ER 00/00 Hx Tablets 5mg 90tab 1 po qd Unknown /0000 ER 24HR s - 06/10 Metformin HCL / Hx Tablets 500mg 60tab 1 po qd Unknown /0000 s - 05/11 Vitamin B 00/00 Hx Unknown /0000 - 06/10 Hydrochlorothiazid 00/00 Hx Tablets 12.5mg 1 by mouth Unknown e /0000 every day - 06/10 Melatonin 00 Hx Capsules 3mg 1 tab by Unknown /0000 mouth every - night at 03/11 bed Vitamin D 00/00 Hx Capsules 4000mg Unknown /0000 - 06/10 Diclofenac Sodium 0000 Hx Solution 1.5% apply pea Unknown /0000 sized - amount to 07/14 area, 4 times a day as needed Glucosamine 00/00 Hx Capsules 1500mg 1 by mouth Unknown Chondroitin 500 /0000 once a day Complex - 03/11 Fish Oil 00/00 Hx Capsules 1000mg 1 by mouth Unknown /0000 every day - (pt no 06/29 taking) Felodipine ER 00/00 Hx Tablets 10mg 1 by mouth Unknown /0000 ER 24HR every day - 09/11 Glucophage 00/00 Hx Tablets 750mg 1 by mouth Unknown /0000 daily with - meal 06/18 Pennsaid 0000 Hx Solution 2% apply 40 Unknown /0000 drops - daily to 06/18 prn pain Cialis 00/00 Hx Tablets 10mg every day Unknown /0000 as needed - 06/29 Diclofenac Sodium 00/00 Hx Tablets 75mg take 1 Unknown /0000 DR tablet - twice a day 04/01 with food as needed Oxycodone-Acetamin Hx Tablets 2.5-325mg take 1 - 2 Unknown ophen /0000 tabs by - mouth every 09/28 4 - 6 hours Levofloxacin Hx Tablets 750mg Take One Unknown /0000 Tablet By - Mouth Daily 03/16 For 10 Days Medications Administered in Office Medication Date Status Form Strength Qnty SIG Indications Ordering Provider Depomedrol Administered Injection Kevin 40MG 018 JENS Burger Depomedrol Administered Injection Hanna 40MG 018 Aaron [...] Administered Injection Hobler, 40MG 010 Jenae Basilio Immunizations Description No Information Available Vital Signs Date Vital Result Comment 09/10/2018 10:05am Height 73 inches 6'1" Weight 326.38 lb Heart Rate 64 /min BP Systolic Sitting 150 mmHg Lue large cuff BP Diastolic Sitting 52 mmHg Lue large cuff Respiratory Rate 16 /min O2 % BldC Oximetry 96 % On Ra BMI (Body Mass Index) 43.1 kg/m2 09/09/2018 9:10am Height 73 inches 6'1" Weight 329.00 lb BP Systolic Sitting 148 mmHg BP Diastolic Sitting 68 mmHg Pain Level 6 BMI (Body Mass Index) 43.4 kg/m2 09/02/2018 8:05am Height 73 inches 6'1" Weight 326.00 lb with shos]es Heart Rate 50 /min irreg BP Systolic Sitting 122 mmHg Lue lg cuff BP Diastolic Sitting 50 mmHg Lue lg cuff BP Systolic Standing 122 mmHg Lue lg cuff BP Diastolic Standing 48 mmHg Lue lg cuff Respiratory Rate 16 /min BMI (Body Mass Index) 43.0 kg/m2 Ejection Fraction 40-45% date 02/09/18 ECHO 08/18/2018 8:57am Height 73 inches 6'1" Weight 319.00 lb per pt Heart Rate 58 /min BP Systolic Sitting 138 mmHg BP Diastolic Sitting 58 mmHg Respiratory Rate 14 /min Body Temperature 98.1 F BMI (Body Mass Index) 42.1 kg/m2 07/15/2018 10:08am Height 73 inches 6'1" Weight 318.00 lb BP Systolic Sitting 144 mmHg BP Diastolic Sitting 60 mmHg Pain Level 5 BMI (Body Mass Index) 42.0 kg/m2 06/29/2018 9:09am Height 73 inches 6'1" Heart Rate 56 /min BP Systolic 138 mmHg BP Diastolic 70 mmHg Body Temperature 97.0 F Pain Level 4 06/09/2018 11:14am Height 73 inches 6'1" Weight 318.00 lb Heart Rate 72 /min BP Systolic 140 mmHg BP Diastolic 72 mmHg Respiratory Rate 14 /min Pain Level 1 BMI (Body Mass Index) 42.0 kg/m2 06/01/2018 9:04am Height 73 inches 6'1" Weight 325.50 lb Heart Rate 44 /min BP Systolic Sitting 130 mmHg large adult cuff left arm BP Diastolic Sitting 58 mmHg large adult cuff left arm Respiratory Rate 20 /min BMI (Body Mass Index) 42.9 kg/m2 05/12/2018 11:28am Height 73 inches 6'1" Weight 322.25 lb Heart Rate 72 /min BP Systolic Sitting 110 mmHg BP Diastolic Sitting 58 mmHg Respiratory Rate 14 /min Body Temperature 98.0 F BMI (Body Mass Index) 42.5 kg/m2 04/23/2018 2:30pm Height 73 inches 6'1" Weight 319.12 lb Heart Rate 56 /min BP Systolic Sitting 138 mmHg BP Diastolic Sitting 80 mmHg Respiratory Rate 14 /min Body Temperature 96.9 F BMI (Body Mass Index) 42.1 kg/m2 04/13/2018 3:57pm Height 73 inches 6'1" Weight 320.00 lb Heart Rate 74 /min Respiratory Rate 15 /min Pain Level 4 BMI (Body Mass Index) 42.2 kg/m2 04/03/2018 10:30am Height 73 inches 6'1" Weight 320.00 lb Heart Rate 56 /min BP Systolic Sitting 142 mmHg Lue large cuff BP Diastolic Sitting 62 mmHg Lue large cuff BP Systolic Standing 140 mmHg Lue BP Diastolic Standing 60 mmHg Lue Respiratory Rate 18 /min BMI (Body Mass Index) 42.2 kg/m2 Ejection Fraction 40-45% 02/09/18 04/02/2018 3:16pm Height 73 inches 6'1" Weight 321.50 lb Heart Rate 58 /min BP Systolic Sitting 128 mmHg BP Diastolic Sitting 60 mmHg Respiratory Rate 16 /min Body Temperature 97.8 F BMI (Body Mass Index) 42.4 kg/m2 04/02/2018 10:49am Height 73 inches 6'1" Weight 312.00 lb Heart Rate 96 /min Respiratory Rate 16 /min Body Temperature 98.1 F Pain Level 4 BMI (Body Mass Index) 41.2 kg/m2 03/26/2018 11:40am Height 73 inches 6'1" Weight 312.00 lb Heart Rate 78 /min BP Systolic 126 mmHg BP Diastolic 66 mmHg Respiratory Rate 14 /min Pain Level 0 BMI (Body Mass Index) 41.2 kg/m2 03/18/2018 11:36am Height 73 inches 6'1" Weight 326.12 lb Heart Rate 70 /min BP Systolic Sitting 148 mmHg BP Diastolic Sitting 80 mmHg Respiratory Rate 14 /min Body Temperature 98.0 F BMI (Body Mass Index) 43.0 kg/m2 03/12/2018 2:44pm Height 73 inches 6'1" Weight 324.50 lb Heart Rate 44 /min BP Systolic Sitting 148 mmHg BP Diastolic Sitting 56 mmHg Respiratory Rate 14 /min Body Temperature 98.6 F BMI (Body Mass Index) 42.8 kg/m2 03/11/2018 11:31am Height 73 inches 6'1" Weight 320.00 lb Heart Rate 71 /min Respiratory Rate 18 /min Pain Level 4 BMI (Body Mass Index) 42.2 kg/m2 01/21/2018 11:15am Height 73 inches 6'1" Weight 314.00 lb BP Systolic 146 mmHg BP Diastolic 64 mmHg Body Temperature 98.1 F BMI (Body Mass Index) 41.4 kg/m2 01/07/2018 2:32pm Height 73 inches 6'1" Weight 310.00 lb Respiratory Rate 16 /min Body Temperature 97.1 F BMI (Body Mass Index) 40.9 kg/m2 12/24/2017 11:50am Height 73 inches 6'1" Weight 323.00 lb Heart Rate 73 /min BP Systolic 137 mmHg BP Diastolic 61 mmHg Body Temperature 97.4 F BMI (Body Mass Index) 42.6 kg/m2 12/03/2017 8:06am Height 73 inches 6'1" Weight 338.00 lb Heart Rate 62 /min BP Systolic Sitting 135 mmHg BP Diastolic Sitting 62 mmHg Respiratory Rate 17 /min BMI (Body Mass Index) 44.6 kg/m2 11/26/2017 11:39am Height 73 inches 6'1" Weight 335.00 lb Heart Rate 50 /min BP Systolic 142 mmHg BP Diastolic 70 mmHg Respiratory Rate 18 /min Body Temperature 96.7 F Pain Level 0 BMI (Body Mass Index) 44.2 kg/m2 11/12/2017 9:15am Height 73 inches 6'1" Weight 335.00 lb BP Systolic 124 mmHg BP Diastolic 69 mmHg Respiratory Rate 15 /min Pain Level 3 BMI (Body Mass Index) 44.2 kg/m2 10/17/2017 8:47am Height 73 inches 6'1" Weight 342.00 lb No shoes Heart Rate 74 /min BP Systolic Sitting 136 mmHg Lue lrg cuff BP Diastolic Sitting 66 mmHg Lue lrg cuff BP Systolic Standing 142 mmHg Lue lrg cuff BP Diastolic Standing 68 mmHg Lue lrg cuff Respiratory Rate 15 /min BMI (Body Mass Index) 45.1 kg/m2 Ejection Fraction 40-45% 06/25/2017-echo 09/29/2017 8:15am Height 73 inches 6'1" Weight 330.00 lb Heart Rate 46 /min BP Systolic Sitting 128 mmHg BP Diastolic Sitting 58 mmHg Respiratory Rate 14 /min O2 % BldC Oximetry 97 % BMI (Body Mass Index) 43.5 kg/m2 Neck Circumference in inches 19 09/12/2017 8:17am Height 73 inches 6'1" Weight 335.00 lb Heart Rate 60 /min BP Systolic 134 mmHg BP Diastolic 64 mmHg BMI (Body Mass Index) 44.2 kg/m2 07/15/2017 1:31pm Height 71.25 inches 5'11.25" Weight 342.00 lb w/shoes Heart Rate 68 /min BP Systolic Sitting 112 mmHg LA lg cuff BP Diastolic Sitting 68 mmHg LA lg cuff BP Systolic Standing 116 mmHg LA lg cuff BP Diastolic Standing 70 mmHg LA lg cuff BMI (Body Mass Index) 47.4 kg/m2 Ejection Fraction 40-45% Echo 06/25/17 07/01/2017 2:24pm Height 71.25 inches 5'11.25" Weight 343.00 lb w/ shoes Heart Rate 70 /min BP Systolic Sitting 138 mmHg lue large cuff BP Diastolic Sitting 58 mmHg lue large cuff Respiratory Rate 18 /min BMI (Body Mass Index) 47.5 kg/m2 Ejection Fraction 40-45% echo 06/25/17 06/30/2017 1:19pm Height 71.25 inches 5'11.25" Weight 345.25 lb with shoes Heart Rate 64 /min BP Systolic Sitting 140 mmHg LA lrg cuff BP Diastolic Sitting 68 mmHg LA lrg cuff BMI (Body Mass Index) 47.8 kg/m2 Ejection Fraction 40%-45% echo 06/25/17 06/20/2017 12:38pm Height 71.25 inches 5'11.25" Weight 339.00 lb [...] 46.9 kg/m2 Ejection Fraction 65% 04/22/2006-echo 06/18/2017 8:40am Height 73 inches 6'1" Weight 339.00 lb Heart Rate 52 /min BP Systolic 129 mmHg BP Diastolic 68 mmHg Body Temperature 96.7 F Pain Level 0 BMI (Body Mass Index) 44.7 kg/m2 05/12/2017 2:27pm Height 73 inches 6'1" Weight 330.00 lb Heart Rate 63 /min BP Systolic 158 mmHg BP Diastolic 71 mmHg BMI (Body Mass Index) 43.5 kg/m2 05/27/2014 2:13pm Height 73 inches 6'1" Weight 348.25 lb Heart Rate 66 /min BP Systolic Sitting 130 mmHg BP Diastolic Sitting 62 mmHg Pain Level 1 BMI (Body Mass Index) 45.9 kg/m2 04/27/2014 10:37am Height 73 inches 6'1" Weight 343.00 lb Heart Rate 64 /min irreg BP Systolic Sitting 132 mmHg BP Diastolic Sitting 60 mmHg Pain Level 3 BMI (Body Mass Index) 45.2 kg/m2 02/02/2014 1:25pm Height 73 inches 6'1" Weight 347.00 lb Heart Rate 68 /min BP Systolic Sitting 134 mmHg BP Diastolic Sitting 54 mmHg Pain Level 0 BMI (Body Mass Index) 45.8 kg/m2 11/10/2013 10:56am Height 73 inches 6'1" Weight 345.00 lb Heart Rate 54 /min irregular BP Systolic Sitting 130 mmHg BP Diastolic Sitting 86 mmHg BMI (Body Mass Index) 45.5 kg/m2 07/21/2013 10:16am Height 73 inches 6'1" Weight 346.00 lb Heart Rate 68 /min BP Systolic Sitting 144 mmHg BP Diastolic Sitting 70 mmHg BMI (Body Mass Index) 45.6 kg/m2 04/28/2013 10:05am Height 73 inches 6'1" Weight 335.00 lb Heart Rate 68 /min skipped beat [id number] BP Systolic 128 mmHg BP Diastolic 78 mmHg BMI (Body Mass Index) 44.2 kg/m2 03/19/2013 8:17am Height 73 inches 6'1" Weight 335.00 lb Heart Rate 73 /min BP Systolic 121 mmHg BP Diastolic 61 mmHg BMI (Body Mass Index) 44.2 kg/m2 02/04/2013 1:48pm Height 70 inches 5'10" Weight 337.00 lb Heart Rate 81 /min BP Systolic Sitting 140 mmHg BP Diastolic Sitting 68 mmHg BMI (Body Mass Index) 48.3 kg/m2 08/20/2012 8:30am Height 70 inches 5'10" Weight 340.00 lb Heart Rate 82 /min BP Systolic Sitting 128 mmHg BP Diastolic Sitting 68 mmHg BMI (Body Mass Index) 48.8 kg/m2 09/03/2011 8:26am Weight 345.00 lb Heart Rate 76 /min BP Systolic 134 mmHg BP Diastolic 64 mmHg 03/05/2011 11:18am Heart Rate 80 /min BP Systolic 130 mmHg BP Diastolic 72 mmHg Results Test Date Facility Test Result H/L Range Note Urinalysis Profile 09/10/2018 [facility] Urine Color Yellow [address] [place] [address] [phone] Urine Appearance Cloudy Urine Specific [place] 1.018 N 1.010-1.030 Urine pH 5.0 N 5-9 Urine Urobilinogen Negative Negative Urine Ketones Negative Negative Urine Protein Negative Negative Urine Leukocytes Negative Negative Urine Blood Negative Negative Urine Nitrite Negative Negative Urine Bilirubin Negative Negative Urine Glucose Negative Negative Laboratory test 05/19/2018 [facility] C Reactive 9.29 mg/L High <8.[address] [place] [address] [phone] CBC Auto Diff 05/19/2018 [facility] White Blood 8.8 N 3.5- 10.[address] Count 10^3/[place] [address] [phone] Red Blood Count 4.29 10^6/uL N 4.00-5.40 Hemoglobin 12.2 g/dL Low 14.0-18.0 Hematocrit 36 % Low 42-52 Mean Corpuscular Volume 85 fL N 80-94 Mean Corpuscular Hemoglobin 28 pg N 27-31 Mean Corpuscular HGB Conc 34 g/dL N 31-36 Red Cell Distribution Width 17 % High 10.5-15 Platelet Count 162 10^3/uL N 150-450 Mean Platelet Volume 8.6 um3 N 7.4-10.4 Abs Neutrophils 6.0 10^3/uL N 1.5-7.7 Abs Lymphocytes 1.9 10^3/uL N 1.0-4.8 Abs Monocytes 0.5 10^3/uL N 0-0.8 Abs Eosinophils 0.2 10^3/uL N 0-0.6 Abs Basophils 0.1 10^3/uL N 0-0.2 Abs Nucleated RBC 0 10^3/uL Granulocyte % 68.3 % N 38-83 Lymphocyte % 22.1 % Low 25-47 Monocyte % 6.0 % N 0-7 Eosinophil % 2.8 % N 0-6 Basophil % 0.8 % N 0-2 Nucleated Red Blood Cells % 0 Comp Metabolic Panel 05/19/2018 [facility] Sodium 139 mmol/L N 135-[address] [place] [address] [phone] Potassium 4.0 mmol/L N 3.5-5.0 Chloride 105 mmol/L N 101-111 Co2 Carbon Dioxide 25 mmol/L N 22-32 Anion Gap 9 mmol/L N 2-11 Glucose 106 mg/dL High 70-100 Blood Urea Nitrogen 23 mg/dL N 6-24 Creatinine 1.04 mg/dL N 0.67-1.17 BUN/Creatinine Ratio 22.1 High 8-20 Calcium 9.2 mg/dL N 8.6-10.3 Total Protein 6.5 g/dL N 6.4-8.9 Albumin 3.9 g/dL N 3.2-5.2 Globulin 2.6 g/dL N 2-4 Albumin/Globulin Ratio 1.5 N 1-3 Total Bilirubin 0.70 mg/dL N 0.2-1.0 Alkaline Phosphatase 70 U/L N 34-104 Alt 15 U/L N 7-52 Ast 29 U/L N 13-39 Egfr Non- 70.8 >60 Egfr 85.7 >60 1 Lipid Profile 05/19/2018 [facility] Triglycerides 122 mg/dL 2 (Trig/Chol/HDL) [address] [place] [address] [phone] Cholesterol 157 mg/dL 3 HDL Cholesterol 36.4 mg/dL 4 LDL Cholesterol 96 mg/dL 5 Laboratory test 05/19/2018 [facility] Vitamin B12 499 pg/mL N 180-914 6 finding [address] [place] [address] [phone] Hemoglobin A1c (Glyco HGB) 5.8 % High 4.0-5.6 7 Vitamin D, 1,25 Dihydroxy 43 pg/mL 18-64 8 CBC Auto Diff 04/22/2018 [facility] White Blood 6.4 10^3/uL N 3.5-10.[address] [place] [address] [phone] Red Blood Count 4.29 10^6/uL N 4.00-5.40 Hemoglobin 12.2 g/dL Low 14.0-18.0 Hematocrit 36 % Low 42-52 Mean Corpuscular Volume 83 fL N 80-94 Mean Corpuscular Hemoglobin 29 pg N 27-31 Mean Corpuscular HGB Conc 34 g/dL N 31-36 Red Cell Distribution Width 16 % High 10.5-15 Platelet Count 141 10^3/uL Low 150-450 Mean Platelet Volume 7.9 um3 N 7.4-10.4 Abs Neutrophils 3.9 10^3/uL N 1.5-7.7 Abs Lymphocytes 1.5 10^3/uL N 1.0-4.8 Abs Monocytes 0.4 10^3/uL N 0-0.8 Abs Eosinophils 0.5 10^3/uL N 0-0.6 Abs Basophils 0.1 10^3/uL N 0-0.2 Abs Nucleated RBC 0 10^3/uL Granulocyte % 62.1 % N 38-83 Lymphocyte % 23.5 % Low 25-47 Monocyte % 6.2 % N 0-7 Eosinophil % 7.2 % High 0-6 Basophil % 1.0 % N 0-2 Nucleated Red Blood Cells % 0.1 Comp Metabolic Panel 04/22/2018 [facility] Sodium 138 mmol/L N 135-[address] [place] [address] [phone] Potassium 3.6 mmol/L N 3.5-5.0 Chloride 105 mmol/L N 101-111 Co2 Carbon Dioxide 27 mmol/L N 22-32 Anion Gap 6 mmol/L N 2-11 Glucose 150 mg/dL High 70-100 Blood Urea Nitrogen 30 mg/dL High 6-24 Creatinine 1.04 mg/dL N 0.67-1.17 BUN/Creatinine Ratio 28.8 High 8-20 Calcium 9.5 mg/dL N 8.6-10.3 Total Protein 6.7 g/dL N 6.4-8.9 Albumin 3.7 g/dL N 3.2-5.2 Globulin 3.0 g/dL N 2-4 Albumin/Globulin Ratio 1.2 N 1-3 Total Bilirubin 0.60 mg/dL N 0.2-1.0 Alkaline Phosphatase 75 U/L N 34-104 Alt 28 U/L N 7-52 Ast 41 U/L High 13-39 Egfr Non- 70.8 >60 Egfr 85.7 >60 9 Laboratory test 04/22/2018 [facility] C Reactive 7.18 mg/L N < 8.[address] [place] [address] [phone] CBC Auto Diff 04/15/2018 [facility] White Blood 7.1 N 3.5- 10.[address] Count 10^3/[place] [address] [phone] Red Blood Count 4.37 10^6/uL N 4.00-5.40 Hemoglobin 12.1 g/dL Low 14.0-18.0 Hematocrit 36 % Low 42-52 Mean Corpuscular Volume 83 fL N 80-94 Mean Corpuscular Hemoglobin 28 pg N 27-31 Mean Corpuscular HGB Conc 33 g/dL N 31-36 Red Cell Distribution Width 16 % High 10.5-15 Platelet Count 148 10^3/uL Low 150-450 Mean Platelet Volume 7.1 um3 Low 7.4-10.4 Abs Neutrophils 4.4 10^3/uL N 1.5-7.7 Abs Lymphocytes 1.4 10^3/uL N 1.0-4.8 Abs Monocytes 0.6 10^3/uL N 0-0.8 Abs Eosinophils 0.6 10^3/uL N 0-0.6 Abs Basophils 0.1 10^3/uL N 0-0.2 Abs Nucleated RBC 0 10^3/uL Granulocyte % 61.9 % N 38-83 Lymphocyte % 20.0 % Low 25-47 Monocyte % 8.7 % High 0-7 Eosinophil % 8.1 % High 0-6 Basophil % 1.3 % N 0-2 Nucleated Red Blood Cells % 0 Comp Metabolic Panel 04/15/2018 [facility] Sodium 141 mmol/L N 135-[address] [place] [address] [phone] Potassium 4.0 mmol/L N 3.5-5.0 Chloride 108 mmol/L N 101-111 Co2 Carbon Dioxide 27 mmol/L N 22-32 Anion Gap 6 mmol/L N 2-11 Glucose 113 mg/dL High 70-100 Blood Urea Nitrogen 24 mg/dL N 6-24 Creatinine 0.99 mg/dL N 0.67-1.17 BUN/Creatinine Ratio 24.2 High 8-20 Calcium 9.5 mg/dL N 8.6-10.3 Total Protein 7.0 g/dL N 6.4-8.9 Albumin 3.8 g/dL N 3.2-5.2 Globulin 3.2 g/dL N 2-4 Albumin/Globulin Ratio 1.2 N 1-3 Total Bilirubin 0.60 mg/dL N 0.2-1.0 Alkaline Phosphatase 73 U/L N 34-104 Alt 19 U/L N 7-52 Ast 33 U/L N 13-39 Egfr Non- 75.0 >60 Egfr 90.7 >60 10 Laboratory test 04/15/2018 [facility] C Reactive 11.01 mg/L High <8.[address] [place] [address] [phone] CBC Auto Diff 04/08/2018 [facility] White Blood 6.9 N 3.5- 10.[address] Count 10^3/[place] [address] [phone] Red Blood Count 4.24 10^6/uL N 4.00-5.40 Hemoglobin 11.8 g/dL Low 14.0-18.0 Hematocrit 36 % Low 42-52 Mean Corpuscular Volume 84 fL N 80-94 Mean Corpuscular Hemoglobin 28 pg N 27-31 Mean Corpuscular HGB Conc 33 g/dL N 31-36 Red Cell Distribution Width 17 % High 10.5-15 Platelet Count 145 10^3/uL Low 150-450 Mean Platelet Volume 7.5 um3 N 7.4-10.4 Abs Neutrophils 4.5 10^3/uL N 1.5-7.7 Abs Lymphocytes 1.3 10^3/uL N 1.0-4.8 Abs Monocytes 0.6 10^3/uL N 0-0.8 Abs Eosinophils 0.5 10^3/uL N 0-0.6 Abs Basophils 0.1 10^3/uL N 0-0.2 Abs Nucleated RBC 0 10^3/uL Granulocyte % 64.3 % N 38-83 Lymphocyte % 19.3 % Low 25-47 Monocyte % 8.4 % High 0-7 Eosinophil % 6.8 % High 0-6 Basophil % 1.2 % N 0-2 Nucleated Red Blood Cells % 0.1 Comp Metabolic Panel 04/08/2018 [facility] Sodium 142 mmol/L N 135-[address] [place] [address] [phone] Potassium 3.8 mmol/L N 3.5-5.0 Chloride 108 mmol/L N 101-111 Co2 Carbon Dioxide 28 mmol/L N 22-32 Anion Gap 6 mmol/L N 2-11 Glucose 124 mg/dL High 70-100 Blood Urea Nitrogen 27 mg/dL High 6-24 Creatinine 0.97 mg/dL N 0.67-1.17 BUN/Creatinine Ratio 27.8 High 8-20 Calcium 9.7 mg/dL N 8.6-10.3 Total Protein 7.0 g/dL N 6.4-8.9 Albumin 3.7 g/dL N 3.2-5.2 Globulin 3.3 g/dL N 2-4 Albumin/Globulin Ratio 1.1 N 1-3 Total Bilirubin 0.50 mg/dL N 0.2-1.0 Alkaline Phosphatase 65 U/L N 34-104 Alt 18 U/L N 7-52 Ast 29 U/L N 13-39 Egfr Non- 76.7 >60 Egfr 92.9 >60 11 Laboratory test 04/08/2018 [facility] C Reactive 7.79 mg/L N < 8.[address] [place] [address] [phone] CBC Auto Diff 04/01/2018 [facility] White Blood 6.8 N 3.5- 10.[address] Count 10^3/[place] [address] [phone] Red Blood Count 4.34 10^6/uL N 4.00-5.40 Hemoglobin 12.0 g/dL Low 14.0-18.0 Hematocrit 37 % Low 42-52 Mean Corpuscular Volume 84 fL N 80-94 Mean Corpuscular Hemoglobin 28 pg N 27-31 Mean Corpuscular HGB Conc 33 g/dL N 31-36 Red Cell Distribution Width 17 % High 10.5-15 Platelet Count 146 10^3/uL Low 150-450 Mean Platelet Volume 7.8 um3 N 7.4-10.4 Abs Neutrophils 4.2 10^3/uL N 1.5-7.7 Abs Lymphocytes 1.6 10^3/uL N 1.0-4.8 Abs Monocytes 0.5 10^3/uL N 0-0.8 Abs Eosinophils 0.5 10^3/uL N 0-0.6 Abs Basophils 0.1 10^3/uL N 0-0.2 Abs Nucleated RBC 0 10^3/uL Granulocyte % 61.8 % N 38-83 Lymphocyte % 23.1 % Low 25-47 Monocyte % 7.3 % High 0-7 Eosinophil % 7.0 % High 0-6 Basophil % 0.8 % N 0-2 Nucleated Red Blood Cells % 0.1 Comp Metabolic Panel 04/01/2018 [facility] Sodium 138 mmol/L N 135-[address] [place] [address] [phone] Potassium 4.0 mmol/L N 3.5-5.0 Chloride 103 mmol/L N 101-111 Co2 Carbon Dioxide 29 mmol/L N 22-32 Anion Gap 6 mmol/L N 2-11 Glucose 113 mg/dL High 70-100 Blood Urea Nitrogen 20 mg/dL N 6-24 Creatinine 0.88 mg/dL N 0.67-1.17 BUN/Creatinine Ratio 22.7 High 8-20 Calcium 9.3 mg/dL N 8.6-10.3 Total Protein 7.1 g/dL N 6.4-8.9 Albumin 3.8 g/dL N 3.2-5.2 Globulin 3.3 g/dL N 2-4 Albumin/Globulin Ratio 1.2 N 1-3 Total Bilirubin 0.50 mg/dL N 0.2-1.0 Alkaline Phosphatase 70 U/L N 34-104 Alt 22 U/L N 7-52 Ast 34 U/L N 13-39 Egfr Non- 85.9 >60 Egfr 103.9 >60 12 Laboratory test 04/01/2018 [facility] C Reactive 7.06 mg/L N < 8.[address] [place] [address] [phone] CBC Auto Diff 03/25/2018 [facility] White Blood 7.3 N 3.5- 10.[address] Count 10^3/[place] [address] [phone] Red Blood Count 4.30 10^6/uL N 4.00-5.40 Hemoglobin 12.0 g/dL Low 14.0-18.0 Hematocrit 36 % Low 42-52 Mean Corpuscular Volume 84 fL N 80-94 Mean Corpuscular Hemoglobin 28 pg N 27-31 Mean Corpuscular HGB Conc 33 g/dL N 31-36 Red Cell Distribution Width 18 % High 10.5-15 Platelet Count 159 10^3/uL N 150-450 Mean Platelet Volume 7.7 um3 N 7.4-10.4 Abs Neutrophils 4.7 10^3/uL N 1.5-7.7 Abs Lymphocytes 1.6 10^3/uL N 1.0-4.8 Abs Monocytes 0.5 10^3/uL N 0-0.8 Abs Eosinophils 0.4 10^3/uL N 0-0.6 Abs Basophils 0.1 10^3/uL N 0-0.2 Abs Nucleated RBC 0 10^3/uL Granulocyte % 64.9 % N 38-83 Lymphocyte % 22.3 % Low 25-47 Monocyte % 6.3 % N 0-7 Eosinophil % 5.5 % N 0-6 Basophil % 1.0 % N 0-2 Nucleated Red Blood Cells % 0.1 Comp Metabolic Panel 03/25/2018 [facility] Sodium 137 mmol/L N 135-145 [address] [place] [address] [phone] Potassium 3.7 mmol/L N 3.5-5.0 Chloride 101 mmol/L N 101-111 Co2 Carbon Dioxide 28 mmol/L N 22-32 Anion Gap 8 mmol/L N 2-11 Glucose 107 mg/dL High 70-100 Blood Urea Nitrogen 19 mg/dL N 6-24 Creatinine 0.94 mg/dL N 0.67-1.17 BUN/Creatinine Ratio 20.2 High 8-20 Calcium 9.6 mg/dL N 8.6-10.3 Total Protein 7.3 g/dL N 6.4-8.9 Albumin 3.8 g/dL N 3.2-5.2 Globulin 3.5 g/dL N 2-4 Albumin/Globulin Ratio 1.1 N 1-3 Total Bilirubin 0.70 mg/dL N 0.2-1.0 Alkaline Phosphatase 72 U/L N 34-104 Alt 18 U/L N 7-52 Ast 34 U/L N 13-39 Egfr Non- 79.6 >60 Egfr 96.3 >60 13 Laboratory test 03/25/2018 [facility] C Reactive 10.02 mg/L High <8.[address] [place] [address] [phone] Comp Metabolic 03/18/2018 [facility] Sodium 138 mmol/L N 135- [address] [place] [address] [phone] Potassium 3.5 mmol/L N 3.5-5.0 Chloride 103 mmol/L N 101-111 Co2 Carbon Dioxide 29 mmol/L N 22-32 Anion Gap 6 mmol/L N 2-11 Glucose 139 mg/dL High 70-100 Blood Urea Nitrogen 20 mg/dL N 6-24 Creatinine 0.98 mg/dL N 0.67-1.17 BUN/Creatinine Ratio 20.4 High 8-20 Calcium 9.1 mg/dL N 8.6-10.3 Total Protein 7.0 g/dL N 6.4-8.9 Albumin 3.4 g/dL N 3.2-5.2 Globulin 3.6 g/dL N 2-4 Albumin/Globulin Ratio 0.9 Low 1-3 Total Bilirubin 0.50 mg/dL N 0.2-1.0 Alkaline Phosphatase 73 U/L N 34-104 Alt 12 U/L N 7-52 Ast 26 U/L N 13-39 Egfr Non- 75.8 >60 Egfr 91.8 >60 14 Laboratory test 03/18/2018 [facility] C Reactive 11.88 mg/L High <8.[address] [place] [address] [phone] CBC Auto Diff 03/18/2018 [facility] White Blood 7.3 N 3.5- 10.[address] Count 10^3/[place] [address] [phone] Red Blood Count 4.21 10^6/uL N 4.00-5.40 Hemoglobin 11.8 g/dL Low 14.0-18.0 Hematocrit 36 % Low 42-52 Mean Corpuscular Volume 84 fL N 80-94 Mean Corpuscular Hemoglobin 28 pg N 27-31 Mean Corpuscular HGB Conc 33 g/dL N 31-36 Red Cell Distribution Width 17 % High 10.5-15 Platelet Count 156 10^3/uL N 150-450 Mean Platelet Volume 7.6 um3 N 7.4-10.4 Abs Neutrophils 4.7 10^3/uL N 1.5-7.7 Abs Lymphocytes 1.7 10^3/uL N 1.0-4.8 Abs Monocytes 0.4 10^3/uL N 0-0.8 Abs Eosinophils 0.5 10^3/uL N 0-0.6 Abs Basophils 0.1 10^3/uL N 0-0.2 Abs Nucleated RBC 0 10^3/uL Granulocyte % 64.5 % N 38-83 Lymphocyte % 22.9 % Low 25-47 Monocyte % 5.2 % N 0-7 Eosinophil % 6.5 % High 0-6 Basophil % 0.9 % N 0-2 Nucleated Red Blood Cells % 0.1 Inr/Protime 11/26/2017 [facility] Inr 1.01 N 0.77-1.[address] [place] [address] [phone] Laboratory test 11/26/2017 [facility] Partial 32.2 seconds N 26.0-36.[address] [place] [address] PTT [phone] Type & Screen 11/26/2017 [facility] Patient A Positive [address] [place] [address] [phone] Antibody Screen NEGATIVE Basic Metabolic Panel 07/09/2017 [facility] Sodium 138 mmol/L N 133-[address] [place] [address] [phone] Potassium 3.9 mmol/L N 3.5-5.0 Chloride 105 mmol/L N 101-111 Co2 Carbon Dioxide 24 mmol/L N 22-32 Anion Gap 9 mmol/L N 2-11 Glucose 110 mg/dL High 70-100 Blood Urea Nitrogen 25 mg/dL High 6-24 Creatinine 1.29 mg/dL High 0.67-1.17 BUN/Creatinine Ratio 19.4 N 8-20 Calcium 9.1 mg/dL N 8.6-10.3 Egfr Non- 55.2 N >60 Egfr 71.0 N >60 15 Pre Cath 07/03/2017 [facility] Partial 31.8 seconds N 26.0- 36.[address] [place] [place] [address] PTT [phone] CBC Auto 07/03/2017 [facility] White Blood 9.7 10^3/uL N 3.5- 10.[address] [place] [address] [phone] Red Blood Count 4.61 10^6/uL N 4.0-5.4 Hemoglobin 13.6 g/dL Low 14.0-18.0 Hematocrit 40 % Low 42-52 Mean Corpuscular Volume 87 fL N 80-94 Mean Corpuscular Hemoglobin 30 pg N 27-31 Mean Corpuscular HGB Conc 34 g/dL N 31-36 Red Cell Distribution Width 16 % High 10.5-15 Platelet Count 170 10^3/uL N 150-450 Mean Platelet Volume 8 um3 N 7.4-10.4 Abs Neutrophils 6.4 10^3/uL N 1.5-7.7 Abs Lymphocytes 2.5 10^3/uL N 1.0-4.8 Abs Monocytes 0.5 10^3/uL N 0-0.8 Abs Eosinophils 0.2 10^3/uL N 0-0.6 Abs Basophils 0.1 10^3/uL N 0-0.2 Abs Nucleated RBC 0.01 10^3/uL N Granulocyte % 66.3 % N 38-83 Lymphocyte % 25.6 % N 25-47 Monocyte % 5.6 % N 1-9 Eosinophil % 1.9 % N 0-6 Basophil % 0.6 % N 0-2 Nucleated Red Blood Cells % 0.1 N Inr/Protime 07/03/2017 [facility] Inr 0.97 N 0.89-1.[address] [place] [address] [phone] Basic Metabolic 07/03/2017 [facility] Sodium 139 mmol/L N 133- [address] [place] [address] [phone] Potassium 4.1 mmol/L N 3.5-5.0 Chloride 104 mmol/L N 101-111 Co2 Carbon Dioxide 26 mmol/L N 22-32 Anion Gap 9 mmol/L N 2-11 Glucose 101 mg/dL High 70-100 Blood Urea Nitrogen 24 mg/dL N 6-24 Creatinine 1.07 mg/dL N 0.67-1.17 BUN/Creatinine Ratio 22.4 High 8-20 Calcium 9.8 mg/dL N 8.6-10.3 Egfr Non- 68.7 N >60 Egfr 88.4 N >60 16 Inr/Protime 06/18/2017 [facility] Inr 0.96 N 0.89-1.[address] [place] [address] [phone] Laboratory test 06/18/2017 [facility] Partial 32.3 seconds N 26.0-36.3 [address] [place] [place] [address] PTT [phone] Type & Screen 06/18/2017 [facility] Patient A Positive [address] [place] [address] [phone] Antibody Screen NEGATIVE N Vitamin D, 25 05/05/2014 [facility] 25-Hydroxy Vitamin <4.0 ng/ mL N [address] D2 [place] [address] [phone] 25-Hydroxy Vitamin D3 35 ng/mL N 25-Hydroxy Vitamin D Total 35 ng/mL N 20 Laboratory test 05/05/2014 [facility] Creatine Kinase 155 U/L N 10-223 [address] [place] [address] [phone] Hemoglobin A1c 6.1 % High Less than 6.0 22 Lipid Profile 05/05/2014 [facility] Triglycerides 117 mg/dL N 23 (Trig/Chol/HDL) [address] [place] [address] [phone] Cholesterol 171 mg/dL N 24 HDL Cholesterol 38.5 mg/dL N 25 LDL Cholesterol 109 mg/dL N 26 Comp Metabolic Panel 05/05/2014 [facility] Sodium 140 mmol/L N 133-[address] [place] [address] [phone] Potassium 4.3 mmol/L N 3.7-5.6 Chloride 109 mmol/L N 101-111 Co2 Carbon Dioxide 23 mmol/L N 22-32 Anion Gap 8 mmol/L N 2-11 Glucose 113 mg/dL High 70-100 Blood Urea Nitrogen 20 mg/dL N 6-24 Creatinine 0.99 mg/dL N 0.67-1.17 BUN/Creatinine Ratio 20.2 High 8-20 Calcium 9.2 mg/dL N 8.6-10.3 Total Protein 6.8 g/dL N 6.4-8.9 Albumin 4.0 g/dL N 3.2-5.2 Globulin 2.8 g/dL N 2-4 Albumin/Globulin Ratio 1.4 N 1-3 Total Bilirubin 0.60 mg/dL N 0.2-1.0 Alkaline Phosphatase 55 U/L N 34-104 Alt 27 U/L N 7-52 Ast 42 U/L High 13-39 Egfr Non- 75.9 N >60 Egfr 97.6 N >60 27 CBC No Diff 05/05/2014 [facility] White Blood 7.5 10^3/uL N 4.8-10.[address] [place] [address] [phone] Red Blood Count 4.52 10^6/uL N 4.0-5.4 Hemoglobin 13.3 g/dL Low 14.0-18.0 Hematocrit 39 % Low 42-52 Mean Corpuscular Volume 87 fL N 80-94 Mean Corpuscular Hemoglobin 29 pg N 27-31 Mean Corpuscular HGB Conc 34 g/dL N 31-36 Red Cell Distribution Width 15 % N 10.5-15 Platelet Count 166 10^3/uL N 150-450 Mean Platelet Volume 8 um3 N 7.4-10.4 Myositis AB Panel 04/25/2014 Mi-2 Antibody Negative N Negative PL-7 Antibody Negative N Negative PL-12 Antibody Negative N Negative Ej Antibody Negative N Negative Oj Antibody Negative N Negative Ku Antibody Weak Positive N Negative SRP Antibody Negative N Negative U2-nRNP Antibody Negative N Negative 28 Laboratory test finding 04/25/2014 C Reactive Protein 9.65 mg/L High < 5.00 29 Creatine Kinase 134 U/L N 10-223 Erythrocyte Sed Rate 38 mm/Hr N 0-40 Comp Metabolic Panel 04/25/2014 Sodium 136 mmol/L N 133-145 Potassium 4.3 mmol/L N 3.7-5.6 Chloride 105 mmol/L N 101-111 Co2 Carbon Dioxide 24 mmol/L N 22-32 Anion Gap 7 mmol/L N 2-11 Glucose 124 mg/dL High 70-100 Blood Urea Nitrogen 19 mg/dL N 6-24 Creatinine 1.04 mg/dL N 0.67-1.17 BUN/Creatinine Ratio 18.3 N 8-20 Calcium 9.2 mg/dL N 8.6-10.3 Total Protein 7.0 g/dL N 6.4-8.9 Albumin 4.0 g/dL N 3.2-5.2 Globulin 3.0 g/dL N 2-4 Albumin/Globulin Ratio 1.3 N 1-3 Total Bilirubin 0.60 mg/dL N 0.2-1.0 Alkaline Phosphatase 54 U/L N 34-104 Alt 26 U/L N 7-52 Ast 39 U/L N 13-39 Egfr Non- 71.7 N >60 Egfr 92.2 N >60 30 CBC Auto Diff 04/25/2014 White Blood Count 8.5 10^3/uL N 4.8-10.8 Red Blood Count 4.60 10^6/uL N 4.0-5.4 Hemoglobin 13.6 g/dL Low 14.0-18.0 Hematocrit 40 % Low 42-52 Mean Corpuscular Volume 87 fL N 80-94 Mean Corpuscular Hemoglobin 30 pg N 27-31 Mean Corpuscular HGB Conc 34 g/dL N 31-36 Red Cell Distribution Width 15 % N 10.5-15 Platelet Count 169 10^3/uL N 150-450 Mean Platelet Volume 8 um3 N 7.4-10.4 Abs Neutrophils 5.8 10^3/uL N 1.5-7.7 Abs Lymphocytes 2.1 10^3/uL N 1.0-4.8 Abs Monocytes 0.4 10^3/uL N 0-0.8 Abs Eosinophils 0.2 10^3/uL N 0-0.6 Abs Basophils 0.1 10^3/uL N 0-0.2 Abs Nucleated RBC 0.01 10^3/uL N Granulocyte % 67.3 % N 38-83 Lymphocyte % 25.0 % N 25-47 Monocyte % 4.9 % N 1-9 Eosinophil % 1.9 % N 0-6 Basophil % 0.9 % N 0-2 Nucleated Red Blood Cells % 0.1 N CBC Auto Diff 12/21/2013 White Blood Count 8.3 10^3/uL N 4.8-10.8 Red Blood Count 4.46 10^6/uL N 4.0-5.4 Hemoglobin 13.1 g/dL Low 14.0-18.0 Hematocrit 39 % Low 42-52 Mean Corpuscular Volume 86 fL N 80-94 Mean Corpuscular Hemoglobin 29 pg N 27-31 Mean Corpuscular HGB Conc 34 g/dL N 31-36 Red Cell Distribution Width 16 % High 10.5-15 Platelet Count 152 10^3/uL N 150-450 Mean Platelet Volume 9 um3 N 7.4-10.4 Abs Neutrophils 5.2 10^3/uL N 1.5-7.7 Abs Lymphocytes 2.4 10^3/uL N 1.0-4.8 Abs Monocytes 0.5 10^3/uL N 0-0.8 Abs Eosinophils 0.2 10^3/uL N 0-0.6 Abs Basophils 0 10^3/uL N 0-0.2 Abs Nucleated RBC 0 10^3/uL N Granulocyte % 62.5 % N 38-83 Lymphocyte % 29.1 % N 25-47 Monocyte % 5.9 % N 1-9 Eosinophil % 2.1 % N 0-6 Basophil % 0.4 % N 0-2 Nucleated Red Blood Cells % 0 N Laboratory test finding 12/21/2013 C Reactive Protein 10.54 mg/L High < 5.00 31 Erythrocyte Sed Rate 43 mm/Hr High 0-40 Uric Acid 5.5 mg/dL N 4.4-7.6 Comp Metabolic Panel 12/21/2013 Sodium 138 mmol/L N 133-145 Potassium 4.2 mmol/L N 3.7-5.6 Chloride 107 mmol/L N 101-111 Co2 Carbon Dioxide 25 mmol/L N 22-32 Anion Gap 6 mmol/L N 2-11 Glucose 103 mg/dL High 70-100 Blood Urea Nitrogen 23 mg/dL N 6-24 Creatinine 1.09 mg/dL N 0.67-1.17 BUN/Creatinine Ratio 21.1 High 8-20 Calcium 9.2 mg/dL N 8.6-10.3 Total Protein 6.9 g/dL N 6.4-8.9 Albumin 4.1 g/dL N 3.2-5.2 Globulin 2.8 g/dL N 2-4 Albumin/Globulin Ratio 1.5 N 1-3 Total Bilirubin 0.50 mg/dL N 0.2-1.0 Alkaline Phosphatase 54 U/L N 34-104 Alt 22 U/L N 7-52 Ast 41 U/L High 13-39 Egfr Non- 67.9 N >60 Egfr 87.3 N >60 32 Lipid Profile (Trig/Chol/HDL) 12/21/2013 Triglycerides 147 mg/dL N 33 Cholesterol 185 mg/dL N 34 HDL Cholesterol 40.0 mg/dL N 35 LDL Cholesterol 116 mg/dL N 36 Laboratory test 12/21/2013 Creatine Kinase 233 U/L High 10-223 finding Laboratory test 12/21/2013 [facility] Hemoglobin A1c 5.8 % N Less than [address] [place] [address] [phone] CBC Auto Diff 10/29/2013 White Blood 8.4 4.8-10.8 Count 10^3/uL Red Blood Count 4.57 10^6/uL 4.0-5.4 Hemoglobin [...] Egfr Non- 70.9 >60 Egfr 91.2 >60 38 Laboratory test finding 10/29/2013 C Reactive Protein 5.56 mg/L 39 Erythrocyte Sed Rate 41 mm/Hr High 0-40 Laboratory test finding 10/29/2013 [facility] Alt 32 U/L 7- [address] [place] [address] [phone] Ast 45 U/L High 13-39 Creatine Kinase 114 U/L 10-223 Vitamin B12 417 pg/mL 180-914 40 Lipid Profile 10/29/2013 [facility] Triglycerides 147 mg/dL 41 (Trig/Chol/HDL) [address] [place] [address] [phone] Cholesterol 188 mg/dL 42 HDL Cholesterol 40.2 mg/dL 43 LDL Cholesterol 118 mg/dL 44 Laboratory test 10/29/2013 Uric Acid 5.2 mg/dL 4.4-7.6 finding Lipid Profile 08/20/2013 [facility] Triglycerides 144 mg/dL 40-200 (Trig/Chol/HDL) [address] [place] [address] [phone] Cholesterol 213 mg/dL High Less than 200 HDL Cholesterol 44 mg/dL 40-60 45 Cholesterol/HDL Ratio 4.8 Average High 1-4.44 LDL Cholesterol 140.2 High Less Than 100 46 Laboratory test finding 08/20/2013 [facility] Alt 33 U/L 14- [address] [place] [address] [phone] Ast 50 U/L High 12-42 Creatine Kinase 158 U/L 0-200 Vitamin B12 274 pg/mL 180-914 Laboratory test 06/22/2013 [facility] Creatine 164 U/L 0-[address] [place] [address] [phone] Laboratory test 06/22/2013 [facility] C Reactive 1.0 High Less than finding [address] [facility] Protein mg/dL 0.5 [place] [address] [phone] Uric Acid 5.4 mg/dL 2.6-7.2 Erythrocyte Sed Rate 56 mm/Hr High 0-20 CBC No Diff 06/22/2013 [facility] White Blood 8.1 10^3/uL 4.8 -10.[address] [place] [address] [phone] Red Blood Count 4.53 10^6/uL 4.0-5.4 Hemoglobin 13.0 g/dL Low 14.0-18.0 Hematocrit 40 % Low 42-52 Mean Corpuscular Volume 88 fL 80-94 Mean Corpuscular Hemoglobin 29 pg 27-31 Mean Corpuscular HGB Conc 32 g/dL 31-36 Red Cell Distribution Width 15 % 10.5-15 Platelet Count 177 10^3/uL 150-450 Mean Platelet Volume 8 um3 7.4-10.4 Comp Metabolic Panel 06/22/2013 [facility] Sodium 139 mmol/L 133-[address] [place] [address] [phone] Potassium 4.3 mmol/L 3.5-5.0 Chloride 106 mmol/L [...] Egfr Non- 75.2 >60 Egfr 96.7 >60 47 Lipid Profile 06/22/2013 [facility] Triglycerides 151 mg/dL 40-200 (Trig/Chol/HDL) [address] [place] [address] [phone] Cholesterol 252 mg/dL High Less than 200 HDL Cholesterol 42 mg/dL 40-60 48 Cholesterol/HDL Ratio 6.0 Average High 1-4.44 LDL Cholesterol 179.8 High Less Than 100 49 Laboratory test 06/22/2013 [facility] Hemoglobin A1c 6.1 % High Less than [address] [place] [address] [phone] Vitamin B12 322 pg/mL 180-914 Free T4 0.90 ng/mL 0.61-1.24 TSH (Thyroid Stimulating Horm) 1.04 miu/mL 0.34-5.60 Laboratory test 02/04/2013 [facility] PSA Diagnostic 2.65 0- 4.0 [address] ng/[place] [address] [phone] Immunofixation 02/04/2013 [facility] Albumin (Pep) 3.43 g/dL 3.0-4.35 (Electro) Serum [address] [place] [address] [phone] Alpha 1 Globulins 0.21 g/dL 0.09-0.33 Alpha [...] 6.7 g/dL 6.2-8.1 Spep Comments (SEE NOTE) 52 Serum Immunofixation (SEE NOTE) 53 Laboratory test 02/04/2013 [facility] Creatine 304 U/L High 0- [address] [place] [address] [phone] CK Isoenzymes 02/04/2013 [facility] Creatine 329 U/L 52 - [address] [place] [address] [phone] CK Isoenzymes See Comment 54 Creatine Kinase mm 100% Creatine Kinase MB 0% Creatine Kinase BB 0% 55 Laboratory test 02/04/2013 [facility] Erythrocyte Sed 42 mm/Hr High 0-[address] [place] [address] [phone] C Reactive Protein 0.7 mg/dL High Less than 0.5 Comp Metabolic Panel 02/04/2013 [facility] Sodium 138 mmol/L 133-[address] [place] [address] [phone] Potassium 4.2 mmol/L 3.5-5.0 Chloride 108 mmol/L [...] Egfr Non- 85.0 >60 Egfr 109.3 >60 56 Laboratory test 02/04/2013 [facility] Uric Acid 4.5 mg/dL 2.6 -7.[address] [place] [address] [phone] TSH (Thyroid Stimulating Horm) 0.93 miu/mL 0.34-5.60 Free T4 0.75 ng/mL 0.61-1.24 Laboratory test 08/27/2012 [facility] C Reactive 1.3 mg/dL High Less than finding [address] Protein 0.5 [place] [address] [phone] Uric Acid 4.7 mg/dL 2.6-7.2 Erythrocyte Sed Rate 57 mm/Hr High 0-20 Laboratory test 08/27/2012 [facility] Creatine Kinase 304 U/L High 0-200 [address] [place] [address] [phone] Laboratory test 02/12/2010 [facility] Rheumatoid < 20.0 Less Than finding [address] Factor IU/mL 20 [place] [address] [phone] CBC With 02/12/2010 [facility] White Blood 8.7 CUMM 4.8-10.8 Electronic Diff [address] [place] [address] [phone] Red Cell Count 4.24 CUMM Low 4.6-6.2 [...] 0-0.6 Abs Basophils 0 0-0.2 Laboratory test 02/12/2010 [facility] Erythrocyte Sed 62 MM/HR High 0-[address] [place] [address] [phone] Cyclic Citrullinated Pep Igg <15.6 U () 58 1 Because ethnic data is not always [...] 5 Kidney failure <15 (or dialysis) 2 Desirable: <150 Borderline High: 150-199 High: 200-499 Very High: >500 3 Desirable: <200 Borderline High: 200-239 High: >239 4 Low: <40 Desirable: 40-60 High: >60 5 Desirable: <100 Near Optimal: 100-129 Borderline High: 130-159 High: 160-189 Very High: >189 6 Normal Range 180 to 914 Indeterminate Range 145 to 180 Deficient Range <145 7 Therapeutic target for the treatment of diabetes mellitus patients is <7% HBA1C, and in selective patients <6.0%. Please refer to [employer] diabetic care guidelines for further information. 8 ADDITIONAL INFORMATION This test was developed and its performance characteristics determined by [facility] in a manner consistent with CLIA requirements. This test has not been cleared or approved by the U.S. Food and Drug Administration. Test Performed by: [facility] [address] [place] [address] 9 Because ethnic data is not always readily [...] 15-29 5 Kidney failure <15 (or dialysis) 10 Because ethnic data is not always readily [...] 15-29 5 Kidney failure <15 (or dialysis) 11 Because ethnic data is not always readily [...] 15-29 5 Kidney failure <15 (or dialysis) 12 Because ethnic data is not always readily [...] 15-29 5 Kidney failure <15 (or dialysis) 13 Because ethnic data is not always readily [...] 15-29 5 Kidney failure <15 (or dialysis) 14 Because ethnic data is not always [...] 5 Kidney failure <15 (or dialysis) 15 Because ethnic data is not always readily [...] 15-29 5 Kidney failure <15 (or dialysis) 16 Because ethnic data is not always readily [...] 15-29 5 Kidney failure <15 (or dialysis) 17 AA 07/01 18 AA 07/01 19 FASTING 20 -- REFERENCE VALUE -- 25-HYDROXY D TOTAL (D2+D3) Optimum levels in the healthy population are 20-50, patients with bone disease may benefit from higher levels within this range. Test Performed by: [place] [address] Manager Lpn: Benny Dodge III, M.D. 21 FASTING 22 Therapeutic target for the treatment of diabetes Mellitus patients is <7% HBA1C, and in selective patients <6.0%.Please refer to [employer] Diabetic care guidelines for further information. 23 Desirable <150 Borderline high 150-199 High 200-499 Very High >500 24 Desirable <200 Borderline high 200-239 High >239 25 Low <40 Desirable: 40-60 High: >60 26 Desirable <100 Near Optimal 100-129 Borderline high 130-159 High 160-189 Very High >189 27 Because ethnic data is not always readily [...] 15-29 5 Kidney failure <15 (or dialysis) 28 EIA Interpretation: Negative <20 Units Weak Positive 20-39 Units Moderate Positive 40-80 Units Strong Positive >80 Units The immunoprecipitation (IPP) tests were developed and their performance characteristics validated by RD. The FDA has determined that approval for these tests is not necessary. These are analyte specific reagent (ASR) tests. Test Performed by: [facility] [address] [place] [address] 29 Acute inflammation: >10.00 30 Because ethnic data is not always readily [...] 15-29 5 Kidney failure <15 (or dialysis) 31 Acute inflammation: >10.00 32 Because ethnic data is not always readily [...] 15-29 5 Kidney failure <15 (or dialysis) 33 Desirable <150 Borderline high 150-199 High 200-499 Very High >500 34 Desirable <200 Borderline high 200-239 High >239 35 Low <40 Desirable: 40-60 High: >60 36 Desirable <100 Near Optimal 100-129 Borderline high 130-159 High 160-189 Very High >189 37 Therapeutic target for the treatment of diabetes Mellitus patients is <7% HBA1C, and in selective patients <6.0%.Please refer to [place] [employer] Diabetic care guidelines for further information. 38 Because ethnic data is not always readily [...] 15-29 5 Kidney failure <15 (or dialysis) 39 Low risk: <1.0 mg/L Average risk: 1.0-3.0 mg/L High risk: >3.0 mg/L Acute inflammation: >10.0 mg/L 40 Normal Range 180 to 914 Indeterminate Range 145 to 180 Deficient Range <145 41 Desirable <150 Borderline high 150-199 High 200-499 Very High >500 42 Desirable <200 Borderline high 200-239 High >239 43 Low <40 Desirable: 40-60 High: >60 44 Desirable <100 Near Optimal 100-129 Borderline high 130-159 High 160-189 Very High >189 45 HDL Interpretation: Undesirable: High Risk: Less than 40 mg/dL Desirable: Low Risk: Greater than 60 mg/dL 46 LDL Interpretation: Low Risk Optimal Level: LDL Less than 100 mg/dL Near or Above Optimal: LDL 100-129 mg/dL Borderline High Risk: LDL 130-159 mg/dL High Risk: LDL 160-189 mg/dL Very High Risk: LDL Greater than 189 mg/dL 47 Because ethnic data is not always readily [...] 15-29 5 Kidney failure <15 (or dialysis) 48 HDL Interpretation: Undesirable: High Risk: Less than 40 mg/dL Desirable: Low Risk: Greater than 60 mg/dL 49 LDL Interpretation: Low Risk Optimal Level: LDL Less than 100 mg/dL Near or Above Optimal: LDL 100-129 mg/dL Borderline High Risk: LDL 130-159 mg/dL High Risk: LDL 160-189 mg/dL Very High Risk: LDL Greater than 189 mg/dL 50 Therapeutic target for the treatment of diabetes Mellitus patients is <7% HBA1C, and in selective patients <6.0%.Please refer to [place] [employer] Diabetic care guidelines for further information. 51 Serum levels of PSA measured using the [employer] DXI Hybritech immunoassay should not be interpreted as absolute evidence of the presence or absence of disease. The PSA value should be used in conjunction with other pertinent clinical diagnostic procedures. The values obtained with different assay methods or kits cannot be used interchangeably. 52 Normal serum electrophoretic pattern. 53 Normal serum immunofixation electrophoretic pattern. No monoclonal protein detected. 54 RESULT: If CK result is <100, isoenzyme will not be performed. Test Performed by: [place] [address] Manager Lpn: Benny Dodge III, M.D. 55 Test Performed by: [place] [address] Manager Lpn: Benny Dodge III, M.D. 56 Because ethnic data is not always readily [...] 15-29 5 Kidney failure <15 (or dialysis) 57 @ Ordering doctor for CK edited from [id number] to [id number] @ by [id number] at 08/27/12 1705 @ Submitting doctor edited from [id number] to [id number] @ by [email or web address] at 08/27/12 1705 58 -- REFERENCE VALUE -- <20.0 (Negative) 20.0-39.9 (Weak Positive) 40.0-59.9 (Positive) >=60.0 (Strong Positive) Test Performed by: [facility] [address] [place], [place] [id number] Manager Lpn: Benny Dodge III, M.D. Procedures Date Code Description Status 09/02/2018 52072 EKG Tracing & Interpretation Completed 02/09/2018 60596 ECHO Transthorasic Realtime 2D W Doppler & Color Flow Hosp Completed 01/07/2018 55208 Inject/Drain Joint/Bursa Major W/O US Completed 12/10/2017 32627 EKG, Interpretation Only Completed 12/09/2017 81211 TKR Total Knee Replacement Completed 12/09/2017 75895 TKR Total Knee Replacement Completed 12/03/2017 02802 EKG Tracing & Interpretation Completed 11/20/2017 72007 ECHO Transthoracic, Real-Time 2D With Doppler And Color Completed Flow 11/20/2017 39260 ECHO Transthoracic, Real-Time 2D With Doppler And Color Completed Flow 11/20/2017 69810 Holter Monitor Review (24 hr)dr review & interp only Completed 11/20/2017 85113 Holter Monitor Review (24 hr)dr review & interp only Completed 11/17/2017 41779 ECG Monitor/Recording W/Visual Superimposition Scanning Completed 11/12/2017 04889 Inject/Drain Joint/Bursa Major W/O US Completed 10/17/2017 02066 EKG Tracing & Interpretation Completed 09/12/2017 70629 Inject/Drain Joint/Bursa Major W/O US Completed 07/07/2017 01085 Left Heart Cath. Incl S/I Coronaries, Angio S/I V Gram If Completed Done 06/27/2017 47982 Stress Test Completed 06/27/2017 92322 Myocardial Perfusion Imaging Tomographic (Spect) Multiple Completed Studies 06/25/2017 26747 ECHO Transthorasic Realtime 2D W Doppler & Color Flow Hosp Completed 06/23/2017 41788 Holter Monitor Review (24 hr) review & interp only Completed 06/20/2017 56361 ECG Monitor/Recording W/Visual Superimposition Scanning Completed 06/20/2017 74393 ECG Monitor/Recording W/Visual Superimposition Scanning Completed 06/20/2017 83440 EKG Tracing & Interpretation Completed 04/01/2014 98935 Nerve Conduction 03-04 Studies Completed 04/01/2014 30145 Needle Electromyography Each Extremity W/Related Completed Paraspinal Areas 03/19/2013 44612 Inject Tendon Sheath Or Ligament Aponeurosis Eg Plantar Completed Fascia 03/02/2010 35689 Inject/Drain Joint/Bursa Major W/O US Completed 02/16/2010 85928 Rad Exam; Hip Unilat Completed 02/16/2010 39843 Rad Exam; Pelvis Completed 09/10/2007 77314 Endoscopy Wrist Surg W/Release Of Transverse Carpal Completed Ligament Encounters Type Date Location Provider Dx Diagnosis Office Visit 09/02/2018 [facility] Mejia Chua I49.3 Ventricular premature 8:15a Of Zoey Gonzalez M.D. 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, lumbar region with neurogenic claudication Office Visit 08/18/2018 [facility] Deandre Chua Z01.818 Encounter for 8:50a For Edilia Salas M.D. other Diseases preprocedural examination E11.40 Type 2 diabetes mellitus with diabetic neuropathy, unsp Z86.19 Personal history of other infectious and parasitic diseases Office Visit 07/15/2018 Neurosurgery Vassilios M48.062 Spinal stenosis, 10:00a Services Of Zoey Judd MD lumbar region with neurogenic claudication Office Visit 06/29/2018 Orthopedic Hanna Wolfe, M25.552 Pain in left hip 8:45a Services Of Aaron PonceMHaliAHali M16.12 Unilateral primary osteoarthritis, left hip M48.062 Spinal stenosis, lumbar region with neurogenic claudication M54.5 Low back pain Office Visit 06/09/2018 Orthopedic Thien Figueroa M75.02 Adhesive 11:15a Services Of Dean Rodrigues MD capsulitis of left shoulder Office Visit 06/01/2018 Neurosurgery [facility] M47.896 Other 9:00a Services Of Zoey Judd MD spondylosis, lumbar region M48.062 Spinal stenosis, lumbar region with neurogenic claudication Office Visit 05/12/2018 11:30a [facility] Deandre Chua L97.519 Non- prs Infectious Aaron Salas chronic ulcer Diseases oth prt right foot w unsp severity R43.2 [facility] Office Visit 04/23/2018 [facility] Deandre Chua M86.171 Other acute 2:20p For Infectious Aaron Salas osteomyelitis, Diseases right ankle and foot Z79.2 nursing home (current) use of antibiotics E11.69 Type 2 diabetes mellitus with other specified complication Office Visit 04/22/2018 9:00a [facility] [place] Deshawn Nichols L97.519 Non-prs AT [facility] MD Katharina chronic ulcer oth prt right foot w unsp severity Office Visit 04/13/2018 3:30p Orthopedic Hanna Wolfe M25.552 Pain in left Services Of Aaron PonceMArabella M16.12 Unilateral primary osteoarthritis, left hip Z47.1 Aftercare following joint replacement surgery Z96.651 Presence of right artificial knee joint Office Visit 04/08/2018 Wound Care Deshawn Nichols M86.171 Other acute 9:30a Letitia Posadas MD osteomyelitis, right [facility] ankle and foot L97.519 Non-prs chronic ulcer oth prt right foot w unsp severity Office Visit 04/03/2018 Kesha Chua I42.9 Cardiomyopathy, 10:30a Cardiology Of Aaron Gonzalez unspecified [employer] I49.3 Ventricular premature depolarization Office Visit 04/02/2018 10:00a Orthopedic Thien Figueroa M75.02 Adhesive Services Of MD Lilia capsulitis of C.M.A. left shoulder Office Visit 04/02/2018 3:00p [facility] Deandre Chua M86.171 Other acute Infectious Aaron Salas osteomyelitis, Diseases right ankle and foot Z79.2 nursing home (current) use of antibiotics E11.69 Type 2 diabetes mellitus with other specified complication L97.519 Non-prs chronic ulcer oth prt right foot w unsp severity Office Visit 03/26/2018 11:15a Orthopedic Thien Figueroa M25.512 Pain in left Services Of MD Lilia shoulder C.M.A. M25.612 Stiffness of left shoulder, not elsewhere classified Office Visit 03/18/2018 [facility] Deandre Chua M86.171 Other acute 11:30a For Infectious Aaron Salas osteomyelitis, Diseases right ankle and foot E11.69 Type 2 diabetes mellitus with other specified complication Z79.2 nursing home (current) use of antibiotics Office Visit 03/12/2018 [facility] Deandre hCua M86.171 Other acute 2:40p For Infectious Debbie SalasD. osteomyelitis, Diseases right ankle and foot E11.69 Type 2 diabetes mellitus with other specified complication Office Visit 03/11/2018 11:15a Orthopedic Hanna Wolfe, Z47.1 Aftercare Services Of Aaron following joint C.M.A. replacement surgery Z96.651 Presence of right artificial knee joint M25.561 Pain in right knee E66.01 Morbid (severe) obesity due to excess calories Z68.41 Body mass index (BMI) 40.0-44.9, adult Office Visit 01/07/2018 Orthopedic Thien Figueroa M75.52 Bursitis of left 2:00p Services Of RosarioM.Nemesio Rodrigues MD shoulder Office Visit 12/13/2017 [facility] I49.3 Ventricular 11:17a Assoc,pc Aurelia, DO premature Hospitalists depolarization E11.9 Type 2 diabetes mellitus without complications G47.33 Obstructive sleep apnea (adult) (pediatric) Z96.651 Presence of right artificial knee joint Office Visit 12/12/2017 [facility] I49.3 Ventricular 11:16a Assoc,hafsa Moses, DO premature Hospitalists depolarization E11.9 Type 2 diabetes mellitus without complications G47.33 Obstructive sleep apnea (adult) (pediatric) Z96.651 Presence of right artificial knee joint Office Visit 12/11/2017 [place] Ana Nichols I49.3 Ventricular 11:57a Cardiology Aaron Shah premature depolarization R94.31 Abnormal electrocardiogram [ECG] [EKG] I42.9 Cardiomyopathy, unspecified I10 Essential (primary) hypertension Office Visit 12/11/2017 [facility] Yolanda I49.3 Ventricular 11:15a Asshafsa quiñonez, DO premature Hospitalists depolarization E11.9 Type 2 diabetes mellitus without complications G47.33 Obstructive sleep apnea (adult) (pediatric) Z96.651 Presence of right artificial knee joint Office Visit 12/10/2017 [facility] I49.3 Ventricular 11:14a Asshafsa quiñonez, DO premature Hospitalists depolarization E11.9 Type 2 diabetes mellitus without complications G47.33 Obstructive sleep apnea (adult) (pediatric) Z96.651 Presence of right artificial knee joint Office Visit 12/09/2017 [facility] [place] I49.3 Ventricular 11:13a Assoc,EDDA Stephens premature Hospitalists depolarization E11.9 Type 2 diabetes mellitus without complications G47.33 Obstructive sleep apnea (adult) (pediatric) Z96.651 Presence of right artificial knee joint Office Visit 12/03/2017 Kesha Chua I42.9 Cardiomyopathy, 8:15a Cardiology Jamee Gonzalez M.D. unspecified [employer] I49.3 Ventricular premature depolarization Z01.810 Encounter for preprocedural cardiovascular examination I51.9 Heart disease, unspecified M17.11 Unilateral primary osteoarthritis, right knee Office Visit 10/17/2017 9:00a Kesha Chua I49.3 Ventricular Cardiology Of Aaron Gonzalez premature [employer] depolarization I42.9 Cardiomyopathy, unspecified Office Visit 09/29/2017 8:30a Pulmonology And Carole G47.33 Obstructive sleep Sleep Services Of MD Giovana apnea (adult) [employer] (pediatric) E66.09 Other obesity due to excess calories Z68.41 Body mass index (BMI) 40.0-44.9, adult Office Visit 07/15/2017 1:30p Kesha Chua I49.3 Ventricular Cardiology Of Aaron Gonzalez premature [employer] AT [facility] depolarization I42.9 Cardiomyopathy, unspecified I47.2 Ventricular tachycardia Office Visit 07/01/2017 2:30p Kesha Chua I49.3 Ventricular Cardiology Of Aaron Gonzalez premature [employer] AT [facility] depolarization I42.9 Cardiomyopathy, unspecified I47.2 Ventricular tachycardia Office Visit 06/30/2017 1:30p [facility] Makenzie Francois I49.3 Ventricular PA premature depolarization I10 Essential (primary) hypertension I42.9 Cardiomyopathy, unspecified R94.31 Abnormal electrocardiogram [ECG] [EKG] Office Visit 06/20/2017 1:00p [facility] Mejia Chua I10 Essential (primary) Of Zoey Gonzalez M.D. hypertension R94.31 Abnormal electrocardiogram [ECG] [EKG] I49.3 Ventricular premature depolarization Z01.810 Encounter for preprocedural cardiovascular examination M17.0 Bilateral primary osteoarthritis of knee Office Visit 05/12/2017 2:30p Orthopedic Services Hanna Aiden, M25.562 Pain in left Of C.M.A. M.D. knee M25.561 Pain in right knee M25.462 Effusion, left knee M25.461 Effusion, right knee M17.0 Bilateral primary osteoarthritis of knee Office Visit 05/27/2014 Rheumatology Brandin Boggs, 724.02 Spinal Stenosis , 2:00p Services Of Zoey M.D. Lumbar Region, W/O Neurogenic Claudication 274.9 Gout Unspec 357.2 Polyneuropathy In Diabetes 359.9 Myopathy Unspec Office Visit 04/27/2014 Rheumatology Brandin Boggs, 724.02 Spinal Stenosis , 10:20a Services Of Zoey M.DHali Lumbar Region, W/O Neurogenic Claudication 274.9 Gout Unspec 359.9 Myopathy Unspec 356.8 Neuropathy Other Spec Idiopathic Peripheral Office Visit 02/02/2014 Rheumatology Brandin Boggs, 724.02 Spinal Stenosis , 1:20p Services Of Zoey MHaliDHali Lumbar Region, W/O Neurogenic Claudication 274.9 Gout Unspec 790.6 Abnormal Blood Chemistry Other 359.9 Myopathy Unspec Office Visit 11/10/2013 Rheumatology Brandin Boggs, 724.02 Spinal Stenosis , 10:40a Services Of Zoey Walker Lumbar Region, W/O Neurogenic Claudication 274.9 Gout Unspec 790.6 Abnormal Blood Chemistry Other Office Visit 07/21/2013 10:20a Rheumatology Brandin Boggs, 721.3 Spondylosis Services Of Zoey Neff.Toma Lumbar W/O Myelopathy 274.9 Gout Unspec 359.9 Myopathy Unspec 795.79 Immunological Findings Nonspec Other & Unspec 727.3 Bursitis Other Office Visit 04/28/2013 10:00a Rheumatology Brandin Boggs, 721.3 Spondylosis Services Of Route [employer]man M.Toma Lumbar W/O Myelopathy 274.9 Gout Unspec 795.79 Immunological Findings Nonspec Other & Unspec 359.9 Myopathy Unspec Office Visit 03/19/2013 Orthopedic Dorene 727.03 Trigger Finger 8:15a Services Of Aaron Waggoner C.M.AHali Office Visit 02/04/2013 Rheumatology Brandin Boggs, 721.3 Spondylosis 1:40p Services Of Zoey Walker Lumbar W/O Myelopathy 274.9 Gout Unspec 795.79 Immunological Findings Nonspec Other & Unspec 790.6 Abnormal Blood Chemistry Other Office Visit 08/20/2012 8:20a Rheumatology Brandin Boggs, 274.9 Gout Unspec Services Of Zoey Walker 715.16 Osteoarthrosis Localized Prim Lower Leg Office Visit 02/24/2012 8:20a Rheumatology Brandin Boggs, 274.9 Gout Unspec Services Of Zoey Walker 726.5 Enthesopathy Of Hip Region Office Visit 09/03/2011 Rheumatology Brandin 715.16 Osteoarthrosis 8:20a Services Of Zoey Boggs M.D. 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 Lumbar W/O Myelopathy 719.45 Pain Joint Pelvic Region & Thigh Office Visit 03/05/2011 11:00a Rheumatology Brandin Boggs 721.3 Spondylosis Services Of Zoey Walker Lumbar W/O Myelopathy 719.45 Pain Joint Pelvic Region & Thigh Office Visit 04/02/2010 9:45a Orthopedic Nikunj Proctor, 716.96 Arthropathy Unspec Services Of M.DHali Lower Leg C.M.A. Office Visit 03/19/2010 3:45p Orthopedic Nikunj Proctor, 836.0 Dislocation Knee Services Of Aaron Tear Of Medial C.M.A. Cartilage Or Meniscus Curren Office Visit 03/02/2010 3:30p Orthopedic Verito, 716.96 Arthropathy Unspec Services Of Pra[place] Lower Leg C.M.A. R.S.A.-O 726.5 Enthesopathy Of Hip Region 721.3 Spondylosis Lumbar W/O Myelopathy Office Visit 02/16/2010 11:00a Orthopedic Verito, 719.45 Pain Joint Services Of [facility] Pelvic C.M.A. R.S.A.-O Region & Thigh 719.65 Joint Symptoms Other Pelvic & Thigh Office Visit 02/13/2010 3:00p Orthopedic Services Manuela Wright, 716.96 Arthropathy Of C.M.A. PA Unspec Lower Leg Office Visit 08/10/2007 4:00p Neurosurgery Tyler Sosa 354.0 Carpal Tunnel Services Of [facility] [place] Syndrome Aishwarya.DHali Office Visit 07/13/2007 1:30p Neurosurgery Tyler Sosa 354.0 Carpal Tunnel Services [facility] [place], Syndrome M.DHali Plan of Treatment Future Appointment(s):09/17/2018 10:30 am - Concepcion Gresham PA-C at [facility]09/17/2018 10:30 am - Salvador Judd MD at [facility]09/09/2018 - Salvador Judd, MDM48.062 Spinal stenosis, lumbar region with neurogenic claudicationNew Xrays:Spine Entire Ap/Lat, Ordered : 09/09/18Follow up:RV one week, one month, three months postop
--- OUTSIDE RECORDS SUMMARY | 2018-09-17 09:17 | XMS REPORT | Continuity of Care Document ---
:1950 External Reference #:[id number] Author Name Ivon Walker Care Team Providers Name Role Phone Layne Guadarrama MD Primary Care Physician Unavailable Payers Type Date Identification Numbers Payment Provider Subscriber Policy Number: [id number] Medicare [employer] [employer] PayID: [id number] [address] [place] [address] Policy Number: [id number] [facility] [employer] [employer] PayID: [id number] [address] [place] [address] Advance Directives Description No Information Available Problems Date Description Provider Status Onset: 08/20/2012 Gout Brandin Boggs M.D. 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 Active Other & Unspecified Onset: 02/04/2013 Blood chemistry [...] Unknown Marital Status Lives With Spouse Occupation [employer] Tobacco Use Start: Unknown End: Former Cigarette Smoker Smoked 1 PPD for Unknown years Smoking Status Reviewed: 09/02/18 Former Cigarette Smoker Smoked 1 PPD for [...] Active Tablets 100mg 1 by mouth Unknown /0000 every day Hydrochlorothiazid Active Tablets 25mg 1 by mouth Unknown e /0000 every day Vitamin B-12 Active Tablets 1000mcg 1 by mouth Unknown /0000 every day Metformin HCL ER Active Tablets 750mg 1 by mouth Unknown Twice A Day /0000 ER 24HR bid Vitamin D Active Chewtabs 2000Unit 2 by mouth Unknown /0000 every day Coenzyme Q-10 Active Capsules 100mg 1 by mouth Unknown /0000 every day Flector Active Patches 1.3% apply as Unknown /0000 needed for pain Xanax Active Tablets 1mg take 1/2-1 Unknown /0000 pills hs prn Ritalin Active 10 mg - 1 Unknown /0000 tab up to tid on empty stomach prn Viagra Active Tablets 100mg by mouth 0.5 or 1 tab up to every day as directed, no more than three days per week Amlodipine Active 5mg qd Unknown Aspir-81 Active Tablets 81mg [address] every day Neurontin Active Capsules 100mg 4 caps by Unknown mouth every night at bedtime Simethicone Active Capsules 125mg 4times a day as needed Diclofenac Sodium 06/09 Hx Tablets 50mg 60tab 1 tablet by M75.02 DR guerrero mouth twice F - daily (bid) Lilia 06/16 as needed for pain Prednisone 05/12 Hx Tablets 20mg 10tab 2 by mouth R43.2 s for 4 days D. - then 1 by Maritza, 05/31 mouth for 2 M.D. days Omeprazole [...] Hx Capsules 100mg 90cap 1 tab by s mouth 2-3 Aiden, - times a [...] - daily while M.D. 09/28 on narcotic pain medication Vitamin B 100 06/20 Hx Tablets 1 by mouth Mejia every day Toma Gonzalez, - M.D. 03/11 Neurontin 05/27 Hx Capsules 100mg 360ca ps Flakita, - M.D. 05/11 Crestor 02/04 Hx Tablets [...] Endo, - Mouth Every M.D. 06/29 Day in addition to the 300 mg tab(Pt no longer taking) Viagra 00 Hx Tablets 100mg 6tabs po 0.5 or 1 Unknown /0000 tab 1h - before 05/11 Lisinopril Hx Tablets 40mg 30tab 1 po qd Unknown /0000 s - 05/11 Neurontin Hx Capsules 100mg 360ca 3 qid Brandin /0000 ryan Boggs - Aaron 05/27 Hydrochlorothiazid 00/ Hx Tablets 25mg 90tab 1 po qd Unknown e /0000 s - 04/28 Lipitor / Hx Tablets 40mg 30tab 1 po qhs Unknown /0000 s - 08/20 Felodipine ER 00/ Hx Tablets 5mg 90tab 1 po qd Unknown /0000 ER 24HR s - 06/10 Metformin HCL Hx Tablets 500mg 60tab 1 po qd Unknown /0000 s - 05/11 Vitamin B / Hx Unknown /0000 - 06/10 Hydrochlorothiazid Hx Tablets 12.5mg 1 by mouth Unknown e /0000 every day - 06/10 Melatonin Hx Capsules 3mg 1 tab by Unknown /0000 mouth every - night at 03/11 bedtime /2017 Vitamin D 00/ Hx Capsules 4000mg Unknown /0000 - 06/10 Diclofenac Sodium Hx Solution 1.5% apply pea Unknown /0000 sized - amount to 07/14 area, 4 times a day as needed Glucosamine 0000 Hx Capsules 1500mg 1 by mouth Unknown Chondroitin 500 /0000 once a day Complex - 03/11 Fish Oil Hx Capsules 1000mg 1 by mouth Unknown /0000 every day - (pt no 06/29 taking) Felodipine ER 00 Hx Tablets 10mg 1 by mouth Unknown /0000 ER 24HR every day - 09/11 Glucophage Hx Tablets 750mg 1 by mouth Unknown /0000 daily with - meal 06/18 Pennsaid Hx Solution 2% apply 40 Unknown /0000 drops - daily to 06/18 low prn pain Cialis 0000 Hx Tablets 10mg every day Unknown /0000 as needed - 06/29 Diclofenac Sodium 0000 Hx Tablets 75mg take 1 Unknown /0000 DR tablet - twice a day 04/01 with food /2017 as needed Oxycodone-Acetamin Hx Tablets 2.5-325mg take 1 - 2 Unknown ophen /0000 tabs by - mouth every 09/28 4 - 6 hours /2017 Levofloxacin 0000 Hx Tablets 750mg Take One Unknown /0000 [...] Available Vital Signs Date Vital Result Comment 09/09/2018 9:10am Height 73 inches 6'1" Weight [...] lb Heart Rate 68 /min skipped beat [id number] BP Systolic 128 mmHg BP Diastolic 78 [...] Date Facility Test Result H/L Range Note Laboratory test 05/19/2018 [facility] C Reactive 9.29 mg/L High <8.[address] [place] [address] [phone] CBC Auto Diff 05/19/2018 [facility] White Blood 8.8 10^3/uL N 3.5-10.[address] [place] [address] [phone] Red Blood Count 4.29 10^6/uL N 4.00-5.40 [...] Cells % 0 Comp Metabolic Panel 05/19/2018 [facility] Sodium 139 mmol/L N 135-145 [address] [place] [address] [phone] Potassium 4.0 mmol/L N 3.5-5.0 Chloride 105 [...] Egfr 85.7 >60 1 Lipid Profile 05/19/2018 [facility] Triglycerides 122 mg/dL 2 (Trig/Chol/HDL) [address] [place] [address] [phone] Cholesterol 157 mg/dL 3 HDL Cholesterol 36.4 mg/dL 4 LDL Cholesterol 96 mg/dL 5 Laboratory test 05/19/2018 [facility] Vitamin B12 499 pg/mL N 180-914 6 finding [address] [facility] [address] [phone] Hemoglobin A1c (Glyco HGB) 5.8 % High 4.0-5.6 7 Vitamin D, 1,25 Dihydroxy 43 pg/mL 18-64 8 CBC Auto Diff 04/22/2018 [facility] White Blood 6.4 10^3/uL N 3.5-10.[address] [place] [address] [phone] Red Blood Count 4.29 10^6/uL N 4.00-5.40 [...] Cells % 0.1 Comp Metabolic Panel 04/22/2018 [facility] Sodium 138 mmol/L N 135-[address] [place] [address] [phone] Potassium 3.6 mmol/L N 3.5-5.0 Chloride 105 [...] Egfr 85.7 >60 9 Laboratory test 04/22/2018 [facility] C Reactive 7.18 mg/L N < 8.[address] [place] [address] [phone] CBC Auto Diff 04/15/2018 [facility] White Blood 7.1 N 3.5- 10.[address] Count 10^3/[place] [address] [phone] Red Blood Count 4.37 10^6/uL N 4.00-5.40 [...] Cells % 0 Comp Metabolic Panel 04/15/2018 [facility] Sodium 141 mmol/L N 135-[address] [place] [address] [phone] Potassium 4.0 mmol/L N 3.5-5.0 Chloride 108 [...] Egfr 90.7 >60 10 Laboratory test 04/15/2018 [facility] C Reactive 11.01 mg/L High <8.[address] [place] [address] [phone] CBC Auto Diff 04/08/2018 [facility] White Blood 6.9 N 3.5- 10.[address] Count 10^3/[place] [address] [phone] Red Blood Count 4.24 10^6/uL N 4.00-5.40 [...] Cells % 0.1 Comp Metabolic Panel 04/08/2018 [facility] Sodium 142 mmol/L N 135-[address] [place] [address] [phone] Potassium 3.8 mmol/L N 3.5-5.0 Chloride 108 [...] Egfr 92.9 >60 11 Laboratory test 04/08/2018 [facility] C Reactive 7.79 mg/L N < 8.[address] [place] [address] [phone] CBC Auto Diff 04/01/2018 [facility] White Blood 6.8 N 3.5- 10.[address] Count 10^3/[place] [address] [phone] Red Blood Count 4.34 10^6/uL N 4.00-5.40 [...] Cells % 0.1 Comp Metabolic Panel 04/01/2018 [facility] Sodium 138 mmol/L N 135-145 [address] [place] [address] [phone] Potassium 4.0 mmol/L N 3.5-5.0 Chloride 103 [...] Egfr 103.9 >60 12 Laboratory test 04/01/2018 [facility] C Reactive 7.06 mg/L N < 8.[address] [place] [address] [phone] Laboratory test 03/25/2018 [facility] C Reactive 10.02 High < 8.[address] Protein mg/[place] [address] [phone] Comp Metabolic 03/25/2018 [facility] Sodium 137 N 135-[address] mmol/[place] [address] [phone] Potassium 3.7 mmol/L N 3.5-5.0 Chloride 101 [...] Non- 79.6 >60 Egfr 96.3 >60 13 CBC Auto Diff 03/25/2018 [facility] White Blood 7.3 10^3/uL N 3.5-10.[address] [place] [address] [phone] Red Blood Count 4.30 10^6/uL N 4.00-5.40 [...] 0-2 Nucleated Red Blood Cells % 0.1 Laboratory test 03/18/2018 [facility] C Reactive 11.88 mg/L High <8.[address] [place] [address] [phone] CBC Auto Diff 03/18/2018 [facility] White Blood 7.3 N 3.5- 10.[address] Count 10^3/[place] [address] [phone] Red Blood Count 4.21 10^6/uL N 4.00-5.40 [...] Blood Cells % 0.1 Comp Metabolic Panel 03/18/2018 [facility] Sodium 138 mmol/L N 135-[address] [place] [address] [phone] Potassium 3.5 mmol/L N 3.5-5.0 Chloride 103 [...] Non- 75.8 >60 Egfr 91.8 >60 14 Inr/Protime 11/26/2017 [facility] Inr 1.01 N 0.77-1.[address] [place] [address] [phone] Laboratory test 11/26/2017 [facility] Partial 32.2 seconds N 26.0-36.[address] [place] [address] PTT [phone] Type & Screen 11/26/2017 [facility] Patient [place] [address] [phone] Antibody Screen NEGATIVE Basic Metabolic Panel 07/09/2017 [facility] Sodium 138 mmol/L N 133-[address] [place] [address] [phone] Potassium 3.9 mmol/L N 3.5-5.0 Chloride 105 mmol/L N 101-111 Co2 Carbon Dioxide 24 mmol/L N 22-32 Anion Gap 9 mmol/L N 2-11 Glucose 110 mg/dL High 70-100 Blood Urea Nitrogen 25 mg/dL High 6-24 Creatinine 1.29 mg/dL High 0.67-1.17 BUN/Creatinine Ratio 19.4 N 8-20 Calcium 9.1 mg/dL N 8.6-10.3 Egfr Non- 55.2 N >60 Egfr 71.0 N >60 15 Pre Cath 07/03/2017 [facility] Partial 31.8 seconds N 26.0- 36.[address] [place] [address] PTT [phone] CBC Auto 07/03/2017 [facility] White Blood 9.7 10^3/uL N 3.5- 10.[address] [place] [address] [phone] Red Blood Count 4.61 10^6/uL N 4.0-5.4 [...] Blood Cells % 0.1 N Inr/Protime 07/03/2017 [facility] Inr 0.97 N 0.89-1.[address] [place] [address] [phone] Basic Metabolic 07/03/2017 [facility] Sodium 139 mmol/L N 133- 145 Panel [address] [place] [address] [phone] Potassium 4.1 mmol/L N 3.5-5.0 Chloride 104 mmol/L N 101-111 Co2 Carbon Dioxide 26 mmol/L N 22-32 Anion Gap 9 mmol/L N 2-11 Glucose 101 mg/dL High 70-100 Blood Urea Nitrogen 24 mg/dL N 6-24 Creatinine 1.07 mg/dL N 0.67-1.17 BUN/Creatinine Ratio 22.4 High 8-20 Calcium 9.8 mg/dL N 8.6-10.3 Egfr Non- 68.7 N >60 Egfr 88.4 N >60 16 Inr/Protime 06/18/2017 [facility] Inr 0.96 N 0.89-1.11 [address] [place] [address] [phone] Laboratory test 06/18/2017 [facility] Partial 32.3 seconds N 26.0-36.[address] [place] [address] [place] [address] PTT [phone] Type & Screen 06/18/2017 [facility] Patient A Positive N [address] [place] [address] [place] [address] [phone] Antibody Screen NEGATIVE N Vitamin D, 25 05/05/2014 [facility] 25-Hydroxy Vitamin <4.0 ng/ mL N 19 Hydroxy [facility] D[address] [place] [address] [phone] 25-Hydroxy Vitamin D3 35 ng/mL N 25-Hydroxy Vitamin D Total 35 ng/mL N 20 Laboratory test 05/05/2014 [facility] Creatine Kinase 155 U/L N 10-223 [address] [place] [address] [phone] Hemoglobin A1c 6.1 % High Less than 6.0 22 Lipid Profile 05/05/2014 [facility] Triglycerides 117 mg/dL N 23 (Trig/Chol/HDL) [address] [place] [address] [phone] Cholesterol 171 mg/dL N 24 HDL Cholesterol 38.5 mg/dL N 25 LDL Cholesterol 109 mg/dL N 26 Comp Metabolic Panel 05/05/2014 [facility] Sodium 140 mmol/L N 133-[address] [place] [address] [phone] Potassium 4.3 mmol/L N 3.7-5.6 Chloride 109 [...] N >60 27 CBC No Diff 05/05/2014 [facility] White Blood 7.5 10^3/uL N 4.8-10.[address] [place] [address] [phone] Red Blood Count 4.52 10^6/uL N 4.0-5.4 Hemoglobin 13.3 g/dL Low 14.0-18.0 Hematocrit 39 % Low 42-52 Mean Corpuscular Volume 87 fL N 80-94 Mean Corpuscular Hemoglobin 29 pg N 27-31 Mean Corpuscular HGB Conc 34 g/dL N 31-36 Red Cell Distribution Width 15 % N 10.5-15 Platelet Count 166 10^3/uL N 150-450 Mean Platelet Volume 8 um3 N 7.4-10.4 CBC Auto Diff 04/25/2014 White Blood Count [...] Nucleated Red Blood Cells % 0.1 N Comp Metabolic Panel 04/25/2014 Sodium 136 mmol/L [...] 71.7 N >60 Egfr 92.2 N >60 28 Laboratory test finding 04/25/2014 C Reactive Protein 9.65 mg/L High < 5.00 29 Creatine Kinase 134 U/L N 10-223 Erythrocyte Sed Rate 38 mm/Hr N 0-40 Myositis AB Panel 04/25/2014 Mi-2 Antibody Negative N Negative PL-7 Antibody Negative N Negative PL-12 Antibody Negative N Negative Ej Antibody Negative N Negative Oj Antibody Negative N Negative Ku Antibody Weak Positive N Negative SRP Antibody Negative N Negative U2-nRNP Antibody Negative N Negative 30 CBC Auto Diff 12/21/2013 White Blood Count [...] U/L High 10-223 finding Laboratory test 12/21/2013 [facility] Hemoglobin A1c 5.8 % N Less than [address] [place] [address] [phone] CBC Auto Diff 10/29/2013 White Blood 8.4 [...] 0-2 Nucleated Red Blood Cells % 0.1 Laboratory test finding 10/29/2013 [facility] Alt 32 U/L 7- [address] [place], [place] [phone] Ast 45 U/L High 13-39 Creatine Kinase 114 U/L 10-223 Vitamin B12 417 pg/mL 180-914 38 Lipid Profile 10/29/2013 [facility] Triglycerides 147 mg/dL 39 (Trig/Chol/HDL) [address] [place] [address] [phone] Cholesterol 188 mg/dL 40 HDL Cholesterol 40.2 mg/dL 41 LDL Cholesterol 118 mg/dL 42 Laboratory test finding 10/29/2013 Uric Acid 5.2 mg/dL 4.4-7.6 Laboratory test finding 10/29/2013 C Reactive Protein 5.56 mg/L 43 Erythrocyte Sed Rate 41 mm/Hr High 0-40 Comp Metabolic Panel 10/29/2013 Sodium 139 mmol/L [...] Egfr Non- 70.9 >60 Egfr 91.2 >60 44 Lipid Profile 08/20/2013 [facility] Triglycerides 144 mg/dL 40-200 (Trig/Chol/HDL) [address] [place], [place] [address] [phone] Cholesterol 213 mg/dL High Less than 200 HDL Cholesterol 44 mg/dL 40-60 45 Cholesterol/HDL Ratio 4.8 Average High 1-4.44 LDL Cholesterol 140.2 High Less Than 100 46 Laboratory test finding 08/20/2013 [facility] Alt 33 U/L 14- [address] [place] [address] [phone] Ast 50 U/L High 12-42 Creatine Kinase 158 U/L 0-200 Vitamin B12 274 pg/mL 180-919 Comp Metabolic Panel 06/22/2013 [facility] Sodium 139 mmol/L 133-[address] [place] [address] [phone] Potassium 4.3 mmol/L 3.5-5.0 Chloride 106 mmol/L [...] Egfr 96.7 >60 47 Lipid Profile 06/22/2013 [facility] Triglycerides 151 mg/dL 40-200 (Trig/Chol/HDL) [address] [place] [address] [phone] Cholesterol 252 mg/dL High Less than 200 HDL Cholesterol 42 mg/dL 40-60 48 Cholesterol/HDL Ratio 6.0 Average High 1-4.44 LDL Cholesterol 179.8 High Less Than 100 49 Laboratory test 06/22/2013 [facility] Hemoglobin A1c 6.1 % High Less than [address] 6[address] [place] [address] [phone] Vitamin B12 322 pg/mL 180-914 Free T4 0.90 ng/mL 0.61-1.24 TSH (Thyroid Stimulating Horm) 1.04 miu/mL 0.34-5.60 CBC No Diff 06/22/2013 [facility] White Blood 8.1 10^3/uL 4.8 -10.[address] [place] [address] [phone] Red Blood Count 4.53 10^6/uL 4.0-5.4 Hemoglobin 13.0 g/dL Low 14.0-18.0 Hematocrit 40 % Low 42-52 Mean Corpuscular Volume 88 fL 80-94 Mean Corpuscular Hemoglobin 29 pg 27-31 Mean Corpuscular HGB Conc 32 g/dL 31-36 Red Cell Distribution Width 15 % 10.5-15 Platelet Count 177 10^3/uL 150-450 Mean Platelet Volume 8 um3 7.4-10.4 Laboratory test 06/22/2013 [facility] C Reactive 1.0 mg/dL High Less than finding [address] Protein 0.5 [place] [address] [phone] Uric Acid 5.4 mg/dL 2.6-7.2 Erythrocyte Sed Rate 56 mm/Hr High 0-20 Laboratory test 06/22/2013 [facility] Creatine Kinase 164 U/L 0-[address] [place] [address] [phone] Laboratory test 02/04/2013 [facility] PSA Diagnostic 2.65 0- 4.0 [address] ng/[place] [address] [phone] Immunofixation 02/04/2013 [facility] Albumin (Pep) 3.43 3.0- 4.35 (Electro) Serum [address] g/[place] [address] [phone] Alpha 1 Globulins 0.21 g/dL 0.09-0.33 Alpha [...] Immunofixation (SEE NOTE) 53 Laboratory test 02/04/2013 [facility] Creatine 304 U/L High 0- [address] [place] [address] [phone] CK Isoenzymes 02/04/2013 [facility] Creatine 329 U/L 52 - [address] [place] [address] [phone] CK Isoenzymes See Comment 54 Creatine Kinase mm 100% Creatine Kinase MB 0% Creatine Kinase BB 0% 55 Laboratory test 02/04/2013 [facility] Erythrocyte Sed 42 mm/Hr High 0-[address] [place] [address] [phone] C Reactive Protein 0.7 mg/dL High Less than 0.5 Comp Metabolic Panel 02/04/2013 [facility] Sodium 138 mmol/L 133-[address] [place] [address] [phone] Potassium 4.2 mmol/L 3.5-5.0 Chloride 108 mmol/L [...] Egfr 109.3 >60 56 Laboratory test 02/04/2013 [facility] Uric Acid 4.5 mg/dL 2.6 -7.[address] [place] [address] [phone] TSH (Thyroid Stimulating Horm) 0.93 miu/mL 0.34-5.60 Free T4 0.75 ng/mL 0.61-1.24 Laboratory test 08/27/2012 [facility] C Reactive 1.3 mg/dL High Less than finding [address] Protein 0.5 [place] [address] [phone] Uric Acid 4.7 mg/dL 2.6-7.2 Erythrocyte Sed Rate 57 mm/Hr High 0-20 Laboratory test 08/27/2012 [facility] Creatine Kinase 304 U/L High 0-200 [address] [place] [address] [phone] Laboratory test 02/12/2010 [facility] Erythrocyte Sed 62 MM/HR High 0-[address] [place] [address] [phone] Cyclic Citrullinated Pep Igg <15.6 U () 58 CBC With 02/12/2010 [facility] White Blood 8.7 CUMM 4.8-10.8 Electronic Diff [address] [place] [address] [phone] Red Cell Count 4.24 CUMM Low 4.6-6.2 [...] Abs Basophils 0 0-0.2 Laboratory test 02/12/2010 [facility] Rheumatoid < 20.0 Less Than finding [address] Factor IU/mL 20 [place] [address] [phone] 1 Because ethnic data is not always [...] in selective patients <6.0%. Please refer to [place] diabetic care guidelines for further information. 8 ADDITIONAL INFORMATION This test was developed and its performance characteristics determined by [facility] in a manner consistent with CLIA requirements. This test has not been cleared or approved by the U.S. Food and Drug Administration. Test Performed by: [facility] [address] [place] [address] 9 Because ethnic data is not always [...] levels within this range. Test Performed by: [address] [address] [address] Vehicle Operator: Benny Dodge III, M.D. 21 FASTING 22 Therapeutic target for the treatment of diabetes Mellitus patients is <7% HBA1C, and in selective patients <6.0%.Please refer to [place] [employer] Diabetic care guidelines for further [...] 5 Kidney failure <15 (or dialysis) 28 Because ethnic data is not always readily [...] 15-29 5 Kidney failure <15 (or dialysis) 29 Acute inflammation: >10.00 30 EIA Interpretation: Negative <20 Units Weak Positive 20-39 Units Moderate Positive 40-80 Units Strong Positive >80 Units The immunoprecipitation (IPP) tests were developed and their performance characteristics validated by [facility]. The FDA has determined that approval for these tests is not necessary. These are analyte specific reagent (ASR) tests. Test Performed by: [facility] [address] [facility] [place] [address] 31 Acute inflammation: >10.00 32 Because ethnic [...] and in selective patients <6.0%.Please refer to [place] [employer] Diabetic care guidelines for further information. 38 Normal Range 180 to 914 Indeterminate Range 145 to 180 Deficient Range <145 39 Desirable <150 Borderline high 150-199 High 200-499 Very High >500 40 Desirable <200 Borderline high 200-239 High >239 41 Low <40 Desirable: 40-60 High: >60 42 Desirable <100 Near Optimal 100-129 Borderline high 130-159 High 160-189 Very High >189 43 Low risk: <1.0 mg/L Average risk: 1.0-3.0 mg/L High risk: >3.0 mg/L Acute inflammation: >10.0 mg/L 44 Because ethnic data is not always readily [...] 15-29 5 Kidney failure <15 (or dialysis) 45 HDL Interpretation: Undesirable: High Risk: Less [...] and in selective patients <6.0%.Please refer to [place] Diabetic care guidelines for further [...] will not be performed. Test Performed by: [place] [address] [address] Vehicle Operator: Benny Dodge III, M.D. 55 Test Performed by: [place] [address] [address] Vehicle Operator: Benny Dodge III, M.D. 56 Because ethnic [...] @ Ordering doctor for CK edited from [id number] to [id number] @ by [id number] at 08/27/12 1705 @ Submitting doctor edited from [id number] to [id number] @ by [id number] at 08/27/12 1705 58 -- REFERENCE VALUE -- <20.0 (Negative) 20.0-39.9 (Weak Positive) 40.0-59.9 (Positive) >=60.0 (Strong Positive) Test Performed by: [facility] D[facility] of Lab Med and Pathology [address] [place] [address] [address] Vehicle Operator: Benny Dodge III, M.D. Procedures Date Code Description Status 09/02/2018 24906 EKG Tracing & Interpretation Completed 02/09/2018 25016 ECHO Transthorasic Realtime 2D W Doppler & Color Flow Hosp Completed 01/07/2018 92240 Inject/Drain Joint/Bursa Major W/O US Completed 12/10/2017 58815 EKG, Interpretation Only Completed 12/09/2017 42986 TKR Total Knee Replacement Completed 12/09/2017 49972 TKR Total Knee Replacement Completed 12/03/2017 61157 EKG Tracing & Interpretation Completed 11/20/2017 19908 ECHO Transthoracic, Real-Time 2D With Doppler And Color Completed Flow 11/20/2017 61911 ECHO Transthoracic, Real-Time 2D With Doppler And Color Completed Flow 11/20/2017 19212 Holter Monitor Review (24 hr)dr review & interp only Completed 11/20/2017 69208 Holter Monitor Review (24 hr) review & interp only Completed 11/17/2017 81879 ECG Monitor/Recording W/Visual Superimposition Scanning Completed 11/12/2017 32309 Inject/Drain Joint/Bursa Major W/O US Completed 10/17/2017 07000 EKG Tracing & Interpretation Completed 09/12/2017 87924 Inject/Drain Joint/Bursa Major W/O US Completed 07/07/2017 88376 Left Heart Cath. Incl S/I Coronaries, Angio S/I V Gram If Completed Done 06/27/2017 83453 Stress Test Completed 06/27/2017 58816 Myocardial Perfusion Imaging Tomographic (Spect) Multiple Completed Studies 06/25/2017 89440 ECHO Transthorasic Realtime 2D W Doppler & Color Flow Hosp Completed 06/23/2017 60812 Holter Monitor Review (24 hr) review & interp only Completed 06/20/2017 28766 ECG Monitor/Recording W/Visual Superimposition Scanning Completed 06/20/2017 49033 ECG Monitor/Recording W/Visual Superimposition Scanning Completed 06/20/2017 24728 EKG Tracing & Interpretation Completed 04/01/2014 67566 Nerve Conduction 03-04 Studies Completed 04/01/2014 28910 Needle Electromyography Each Extremity W/Related Completed Paraspinal Areas 03/19/2013 15949 Inject Tendon Sheath Or Ligament Aponeurosis Eg Plantar Completed Fascia 03/02/2010 03617 Inject/Drain Joint/Bursa Major W/O US Completed 02/16/2010 82880 Rad Exam; Hip Unilat Completed 02/16/2010 46994 Rad Exam; Pelvis Completed 09/10/2007 84010 Endoscopy Wrist Surg W/Release Of Transverse Carpal Completed Ligament Encounters Type Date Location Provider Dx Diagnosis Office Visit 09/02/2018 [facility] Mejia Chua I49.3 Ventricular premature 8:15a Of Zoey Gonzalez M.D. 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, lumbar region with neurogenic claudication Office Visit 08/18/2018 [facility] Deandre Chua Z01.818 Encounter for 8:50a For Infectious Aaron Salas other Diseases preprocedural examination E11.40 Type 2 diabetes mellitus with diabetic neuropathy, unsp Z86.19 Personal history of other infectious and parasitic diseases Office Visit 07/15/2018 Neurosurgery Vassilios M48.062 Spinal stenosis, 10:00a Services Of Zoey Judd MD lumbar region with neurogenic claudication Office Visit 06/29/2018 Orthopedic Hanna Wolfe, M25.552 Pain in left hip 8:45a Services Of Aaron Moran M16.12 Unilateral primary osteoarthritis, left hip M48.062 [...] with neurogenic claudication Office Visit 05/12/2018 11:30a [facility] Wil Chua L97.519 Non- prs Infectious Aaron Salas chronic ulcer Diseases oth prt right foot w unsp severity R43.2 [facility] Office Visit 04/23/2018 [facility] Deandre Chua M86.171 Other acute 2:20p For Infectious Aaron Salas osteomyelitis, Diseases right ankle and foot 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 E11.69 Type 2 diabetes mellitus with other specified complication Office Visit 04/22/2018 9:00a [facility] Deshawn Nichols L97.519 [place] [facility] [place] Katharina chronic ulcer oth prt right foot w unsp severity Office Visit 04/13/2018 3:30p Orthopedic Hanna Wolfe M25.552 Pain in left Services Of Aaron hip C.M.AHali M16.12 Unilateral primary osteoarthritis, left hip Z47.1 Aftercare following joint replacement surgery Z96.651 Presence of right artificial knee joint Office Visit 04/08/2018 [facility] Deshawn Nichols M86.171 Other acute 9:30a [facility] MD Katharina osteomyelitis, right [facility] ankle and foot L97.519 Non-prs chronic ulcer oth prt right foot w unsp severity Office Visit 04/03/2018 Kesha Chua I42.9 Cardiomyopathy, 10:30a Cardiology Of Aaron Gonzalez unspecified Product Safety Administrator I49.3 Ventricular premature depolarization Office Visit 04/02/2018 10:00a Orthopedic Thien Figueroa M75.02 Adhesive Services Of MD Lilia capsulitis of C.M.A. 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 M25.612 Stiffness of left shoulder, not elsewhere classified Office Visit 03/18/2018 [facility] Deandre Chua M86.171 Other acute 11:30a For Infectious Aaron Salas osteomyelitis, Diseases right ankle and foot E11.69 Type 2 diabetes mellitus with other specified complication Z79.2 long-term (current) use of antibiotics Office Visit 03/12/2018 [facility] Deandre BhatiaHali M86.171 Other acute 2:40p For Infectious Aaron Salas osteomyelitis, Diseases right ankle and foot E11.69 Type 2 diabetes mellitus with other specified complication Office Visit 03/11/2018 11:15a Orthopedic Hanna Wolfe Z47.1 Aftercare Services Of Aaron following joint C.M.A. replacement surgery Z96.651 Presence of right artificial knee joint M25.561 Pain in right knee E66.01 Morbid (severe) obesity due to excess calories Z68.41 Body mass index (BMI) 40.0-44.9, adult Office Visit 01/07/2018 Orthopedic Thien Figueroa M75.52 Bursitis of left 2:00p Services Of Dean Rodrigues MD shoulder Office Visit 12/13/2017 [facility] I49.3 Ventricular 11:17a Assochafsa, DO premature Hospitalists depolarization E11.9 Type 2 diabetes mellitus without complications G47.33 Obstructive sleep apnea (adult) (pediatric) Z96.651 Presence of right artificial knee joint Office Visit 12/12/2017 [facility] I49.3 Ventricular 11:16a Asshafsa quiñonez, DO premature Hospitalists depolarization E11.9 Type 2 diabetes mellitus without complications G47.33 Obstructive sleep apnea (adult) (pediatric) Z96.651 Presence of right artificial knee joint Office Visit 12/11/2017 [place] Ana Nichols I49.3 Ventricular 11:57a Cardiology Aaron Shah premature depolarization R94.31 Abnormal electrocardiogram [ECG] [EKG] I42.9 Cardiomyopathy, unspecified I10 Essential (primary) hypertension Office Visit 12/11/2017 [facility] I49.3 Ventricular 11:15a Assochafsa, DO premature Hospitalists depolarization E11.9 Type 2 diabetes mellitus without complications G47.33 Obstructive sleep apnea (adult) (pediatric) Z96.651 Presence of right artificial knee joint Office Visit 12/10/2017 [facility] I49.3 Ventricular 11:14a Assoc,pc DO Aurelia premature Hospitalists depolarization E11.9 Type 2 diabetes mellitus without complications G47.33 Obstructive sleep apnea (adult) (pediatric) Z96.651 Presence of right artificial knee joint Office Visit 12/09/2017 [facility] I49.3 Ventricular 11:13a Assoc,pc EDDA Lizarraga premature Hospitalists depolarization E11.9 Type 2 diabetes mellitus without complications G47.33 Obstructive sleep apnea (adult) (pediatric) Z96.651 Presence of right artificial knee joint Office Visit 12/03/2017 Kesha Chua I42.9 Cardiomyopathy, 8:15a Cardiology Of Aaron Gonzalez unspecified Product Safety Administrator I49.3 Ventricular premature depolarization Z01.810 Encounter for preprocedural cardiovascular examination I51.9 Heart disease, unspecified M17.11 Unilateral primary osteoarthritis, right knee Office Visit 10/17/2017 9:00a Kesha Chua I49.3 Ventricular Cardiology Of Aaron Gonzalez premature Product Safety Administrator depolarization I42.9 Cardiomyopathy, unspecified Office Visit 09/29/2017 8:30a Pulmonology And Carole G47.33 Obstructive sleep Sleep Services Of MD Giovana apnea (adult) Product Safety Administrator (pediatric) E66.09 Other obesity due to excess calories Z68.41 Body mass index (BMI) 40.0-44.9, adult Office Visit 07/15/2017 1:30p Kesha Chua I49.3 Ventricular Cardiology Of Aaron Gonzalez premature Product Safety Administrator [place] [facility] [place] depolarization I42.9 Cardiomyopathy, unspecified I47.2 Ventricular tachycardia Office Visit 07/01/2017 2:30p Kesha Chua I49.3 Ventricular Cardiology Of Aaron Gonzalez premature Product Safety Administrator [place] [facility] [place] depolarization I42.9 Cardiomyopathy, unspecified I47.2 Ventricular tachycardia Office Visit 06/30/2017 1:30p [facility] Makenzie Francois I49.3 Ventricular PA premature depolarization I10 Essential (primary) hypertension I42.9 Cardiomyopathy, unspecified R94.31 Abnormal electrocardiogram [ECG] [EKG] Office Visit 06/20/2017 1:00p [facility] Tressa Chua I10 Essential (primary) Of Zoey Gonzalez M.D. hypertension R94.31 Abnormal electrocardiogram [ECG] [EKG] I49.3 Ventricular premature depolarization Z01.810 Encounter for preprocedural cardiovascular examination M17.0 Bilateral primary osteoarthritis of knee Office Visit 05/12/2017 2:30p Orthopedic Services Hanna Zapatake, M25.562 Pain in left Of C.M.A. M.D. knee M25.561 Pain in right knee M25.462 Effusion, left knee M25.461 Effusion, right knee M17.0 Bilateral primary osteoarthritis of knee Office Visit 05/27/2014 Rheumatology Brandin Boggs, 724.02 Spinal Stenosis , 2:00p Services Of [facility] M.D. 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 Lumbar Region, W/O Neurogenic Claudication 274.9 Gout Unspec 790.6 Abnormal Blood Chemistry Other 359.9 Myopathy Unspec Office Visit 11/10/2013 Rheumatology Brandin Boggs, 724.02 Spinal Stenosis , 10:40a Services Of [facility] M.D. Lumbar Region, W/O Neurogenic Claudication 274.9 Gout Unspec 790.6 Abnormal Blood Chemistry Other Office Visit 07/21/2013 10:20a Rheumatology Brandin Boggs, 721.3 Spondylosis Services Of Product Safety Administrator M.D. Lumbar W/O Myelopathy 274.9 Gout Unspec 359.9 Myopathy Unspec 795.79 Immunological Findings Nonspec Other & Unspec 727.3 Bursitis Other Office Visit 04/28/2013 10:00a Rheumatology Brandin Boggs, 721.3 Spondylosis Services Of [facility] M.D. Lumbar W/O Myelopathy 274.9 Gout Unspec 795.79 Immunological Findings Nonspec Other & Unspec 359.9 Myopathy Unspec Office Visit 03/19/2013 Orthopedic Dorene 727.03 Trigger Finger 8:15a Services Of Aaron Waggoner Acquired C.M.A. Office Visit 02/04/2013 Rheumatology Brandin Boggs, 721.3 Spondylosis 1:40p Services Of Product Safety Administrator M.D. Lumbar W/O Myelopathy 274.9 Gout Unspec 795.79 Immunological Findings Nonspec Other & Unspec 790.6 Abnormal Blood Chemistry Other Office Visit 08/20/2012 8:20a Rheumatology Brandin Boggs, 274.9 Gout Unspec Services Of Zoey Neff.SriramHali 715.16 Osteoarthrosis Localized Prim Lower Leg Office Visit 02/24/2012 8:20a Rheumatology Brandin Boggs, 274.9 Gout Unspec Services Of Zoey NeffLudiwn 726.5 Enthesopathy Of Hip Region Office Visit 09/03/2011 Rheumatology Brandin 715.16 Osteoarthrosis 8:20a Services Of Zoey Aaron Boggs Localized Prim Lower Leg 721.3 Spondylosis Lumbar W/O Myelopathy 274.9 Gout Unspec Office Visit 07/02/2011 9:40a Neurosurgery Tyler Sosa 721.3 Spondylosis Services Of Zoey Aaron Villasenor Lumbar W/O Myelopathy 719.45 Pain Joint Pelvic Region & Thigh Office Visit 03/05/2011 11:00a Rheumatology Brandin Boggs 721.3 Spondylosis Services Of Zoey Neff.DHali Lumbar W/O Myelopathy 719.45 Pain Joint Pelvic Region & Thigh Office Visit 04/02/2010 9:45a Orthopedic Nikunj Proctor 716.96 Arthropathy Unspec Services Of M.D. Lower Leg C.M.A. Office Visit 03/19/2010 3:45p Orthopedic Nikunj Proctor, 836.0 Dislocation Knee Services Of M.D. Tear Of Medial C.M.A. Cartilage Or Meniscus Curren Office Visit 03/02/2010 3:30p Orthopedic Verito 716.96 Arthropathy Unspec Services Of [facility] Lower Leg C.M.A. 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 R.S.A.-O Region & Thigh 719.65 Joint Symptoms Other Pelvic & Thigh Office Visit 02/13/2010 3:00p Orthopedic Services Manuela Wright, 716.96 Arthropathy Of C.M.A. PA Unspec Lower Leg Office Visit 08/10/2007 4:00p Neurosurgery Tyler Sosa 354.0 Carpal Tunnel Services Of [facility] Cindi Villasenor M.D. Office Visit 07/13/2007 1:30p Neurosurgery Tlyer Sosa 354.0 Carpal Tunnel Services Of [facility] Cindi Villasenor M.D. Plan of Treatment Future Appointment(s):09/10/2018 8:00 am - Mejia Gonzalez M.D. at [facility]09/17/2018 10:30 am - Concepcion Gresham PA-C at [facility]surgery [facility]09/17/2018 10:30 am - Salvador Judd MD at [facility]surgery [facility]09/09/2018 - Salvador Judd, MDM48.062 Spinal stenosis, lumbar region with neurogenic claudicationNew Xrays:Spine Entire Ap/Lat, Ordered: Follow up:RV one week, one month, three months postop
--- OUTSIDE RECORDS SUMMARY | 2018-09-17 09:19 | XMS REPORT | Continuity of Care Document ---
:1950 External Reference #:[id number] Author Name Clare Osei Care Team Providers Name Role Phone Layne Guadarrama MD Primary Care Physician Unavailable Payers Type Date Identification Numbers Payment Provider Subscriber Policy Number: [id number] Medicare [employer] PayID: [id number] [address] [place] [address] Policy Number: [id number] [facility] [employer] PayID: [id number] [address] [place] [address] Advance Directives Description No Information Available Problems Date Description Provider Status Onset: 08/20/2012 Gout Brandin Boggs M.D. 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 Onset: 02/04/2013 Immunological Findings [...] Unknown Marital Status Lives With Spouse Occupation [employer] Work[employer] Tobacco Use Start: Unknown End: Former Cigarette [...] prn Viagra Active Tablets 100mg by mouth Unknown 0.5 or 1 tab up to every day as directed, no more than three days per week Amlodipine Active 5mg qd Unknown Aspir-81 Active Tablets 81mg [address] every day Neurontin Active Capsules 100mg 4 caps by Unknown mouth every night at bedtime Diclofenac Sodium 06/09 Hx Tablets 50mg 60tab 1 tablet by M75.02 DR guerrero mouth twice F - daily (bid) Lilia, 06/16 as needed for pain Prednisone 05/12 [...] M25.512 tabs by F - mouth as Lilia, 05/12 needed for anxiety and restlessnes s prior to mri scan Cefepime HCL 03/16 Hx Solution 2gm 2 grams Rec every 12 D. - hours x 42 Maritza, 04/26 days M.D. Coumadin 12/04 Hx Tablets 2mg 90tab take 1-3 s tabs by Aiden, - mouth at 5 M.D. 01/20 at night as directed. Do not take before surgery. Colace [...] Tablets 1 by mouth Mejia every day DHali Gonzalez, - M.D. 03/11 Neurontin 05/27 Hx [...] Tablets 40mg 30tab 1 po qd Unknown s - 05/11 Neurontin Hx Capsules 100mg 360ca 3 qid Brandin /0000 ps Endo, - M.D. 05/27 Hydrochlorothiazid /00 Hx Tablets 25mg 90tab 1 po qd Unknown e /0000 s - 04/28 Lipitor 00/ Hx Tablets 40mg 30tab 1 po qhs [...] mouth every - night at 03/11 bedtime Vitamin D 00/00 Hx Capsules 4000mg Unknown [...] - (pt no 06/29 taking) Felodipine ER 0000 Hx Tablets 10mg 1 by mouth Unknown /0000 ER 24HR every day - 09/11 Glucophage / Hx Tablets 750mg 1 by mouth Unknown /0000 daily with - meal 06/18 Pennsaid Hx Solution 2% apply 40 Unknown /0000 drops - daily to 06/18 low back prn pain Cialis 0000 Hx Tablets 10mg every day Unknown /0000 as needed - 06/29 Diclofenac Sodium 0000 Hx Tablets 75mg take 1 Unknown /0000 DR tablet - twice a day 04/01 with food /2017 as needed Oxycodone-Acetamin 00 Hx Tablets 2.5-325mg take 1 - 2 Unknown ophen /0000 tabs by - mouth every 09/28 4 - 6 Levofloxacin 00 Hx Tablets 750mg Take One Unknown /0000 [...] Available Vital Signs Date Vital Result Comment 09/02/2018 8:05am Height 73 inches 6'1" Weight [...] lb Heart Rate 68 /min skipped beat [id number] BP Systolic 128 mmHg BP Diastolic 78 [...] Result H/L Range Note Laboratory test 05/19/2018 [facility] C Reactive 9.29 mg/L High <8.[address] [place] [address] [phone] CBC Auto Diff 05/19/2018 [facility] White Blood 8.8 10^3/uL N 3.5-10.[address] [place] [address] [phone] Red Blood Count 4.29 10^6/uL N 4.00-5.40 [...] Cells % 0 Comp Metabolic Panel 05/19/2018 [facility] Sodium 139 mmol/L N 135-145 [address] [place] [address] [phone] Potassium 4.0 mmol/L N 3.5-5.0 Chloride 105 [...] Egfr 85.7 >60 1 Lipid Profile 05/19/2018 [facility] Triglycerides 122 mg/dL 2 (Trig/Chol/HDL) [address] [place] [address] [phone] Cholesterol 157 mg/dL 3 HDL Cholesterol 36.4 mg/dL 4 LDL Cholesterol 96 mg/dL 5 Laboratory test 05/19/2018 [facility] Vitamin B12 499 pg/mL N 180-914 6 finding [address] [place] [address] [phone] Hemoglobin A1c (Glyco HGB) 5.8 % High 4.0-5.6 7 Vitamin D, 1,25 Dihydroxy 43 pg/mL 18-64 8 CBC Auto Diff 04/22/2018 [facility] White Blood 6.4 10^3/uL N 3.5-10.[address] [place] [address] [phone] Red Blood Count 4.29 10^6/uL N 4.00-5.40 [...] Cells % 0.1 Comp Metabolic Panel 04/22/2018 [facility] Sodium 138 mmol/L N 135-[address] [place] [address] [phone] Potassium 3.6 mmol/L N 3.5-5.0 Chloride 105 [...] Egfr 85.7 >60 9 Laboratory test 04/22/2018 [facility] C Reactive 7.18 mg/L N < 8.[address] [place] [address] [phone] CBC Auto Diff 04/15/2018 [facility] White Blood 7.1 N 3.5- 10.[address] Count 10^3/[place] [address] [phone] Red Blood Count 4.37 10^6/uL N 4.00-5.40 [...] Cells % 0 Comp Metabolic Panel 04/15/2018 [facility] Sodium 141 mmol/L N 135-[address] [place] [address] [phone] Potassium 4.0 mmol/L N 3.5-5.0 Chloride 108 [...] Egfr 90.7 >60 10 Laboratory test 04/15/2018 [facility] C Reactive 11.01 mg/L High <8.[address] [place] [address] [phone] CBC Auto Diff 04/08/2018 [facility] White Blood 6.9 N 3.5- 10.[address] Count 10^3/[place] [address] [phone] Red Blood Count 4.24 10^6/uL N 4.00-5.40 [...] Cells % 0.1 Comp Metabolic Panel 04/08/2018 [facility] Sodium 142 mmol/L N 135-[address] [place] [address] [phone] Potassium 3.8 mmol/L N 3.5-5.0 Chloride 108 [...] Egfr 92.9 >60 11 Laboratory test 04/08/2018 [facility] C Reactive 7.79 mg/L N < 8.[address] [place] [address] [phone] CBC Auto Diff 04/01/2018 [facility] White Blood 6.8 N 3.5- 10.[address] Count 10^3/[place] [address] [phone] Red Blood Count 4.34 10^6/uL N 4.00-5.40 [...] Cells % 0.1 Comp Metabolic Panel 04/01/2018 [facility] Sodium 138 mmol/L N 135-[address] [place] [address] [phone] Potassium 4.0 mmol/L N 3.5-5.0 Chloride 103 [...] Egfr 103.9 >60 12 Laboratory test 04/01/2018 [facility] C Reactive 7.06 mg/L N < 8.[address] [place] [address] [phone] CBC Auto Diff 03/25/2018 [facility] White Blood 7.3 N 3.5- 10.[address] Count 10^3/[place] [address] [phone] Red Blood Count 4.30 10^6/uL N 4.00-5.40 [...] Cells % 0.1 Comp Metabolic Panel 03/25/2018 [facility] Sodium 137 mmol/L N 135-[address] [place] [address] [phone] Potassium 3.7 mmol/L N 3.5-5.0 Chloride 101 [...] Egfr 96.3 >60 13 Laboratory test 03/25/2018 [facility] C Reactive 10.02 mg/L High <8.[address] [place] [address] [phone] Comp Metabolic 03/18/2018 [facility] Sodium 138 mmol/L N 135- [address] [place] [address] [phone] Potassium 3.5 mmol/L N 3.5-5.0 Chloride 103 [...] Non- 75.8 >60 Egfr 91.8 >60 14 CBC Auto Diff 03/18/2018 [facility] White Blood 7.3 10^3/uL N 3.5-10.[address] [place] [address] [phone] Red Blood Count 4.21 10^6/uL N 4.00-5.40 [...] Blood Cells % 0.1 Laboratory test 03/18/2018 [facility] C Reactive 11.88 mg/L High <8.[address] [place] [address] [phone] Inr/Protime 11/26/2017 [facility] Inr 1.01 N 0.77-1.[address] [place] [address] [phone] Type & Screen 11/26/2017 [facility] Patient [place] [address] [phone] Antibody Screen NEGATIVE Laboratory test 11/26/2017 [facility] Partial 32.2 seconds N 26.0-36.3 [address] [facility] [place] [address] PTT [phone] Basic Metabolic 07/09/2017 [facility] Sodium 138 mmol/L N 133- [address] [place] [address] [phone] Potassium 3.9 mmol/L N 3.5-5.0 Chloride 105 mmol/L N 101-111 Co2 Carbon Dioxide 24 mmol/L N 22-32 Anion Gap 9 mmol/L N 2-11 Glucose 110 mg/dL High 70-100 Blood Urea Nitrogen 25 mg/dL High 6-24 Creatinine 1.29 mg/dL High 0.67-1.17 BUN/Creatinine Ratio 19.4 N 8-20 Calcium 9.1 mg/dL N 8.6-10.3 Egfr Non- 55.2 N >60 Egfr 71.0 N >60 15 Pre Cath 07/03/2017 [facility] Partial 31.8 seconds N 26.0- 36.[address] [place] [address] PTT [phone] CBC Auto 07/03/2017 [facility] White Blood 9.7 10^3/uL N 3.5- 10.[address] [place] [address] [phone] Red Blood Count 4.61 10^6/uL N 4.0-5.4 [...] Blood Cells % 0.1 N Inr/Protime 07/03/2017 [facility] Inr 0.97 N 0.89-1.[address] [place] [address] [phone] Basic Metabolic 07/03/2017 [facility] Sodium 139 mmol/L N 133- [address] [place] [address] [phone] Potassium 4.1 mmol/L N 3.5-5.0 Chloride 104 mmol/L N 101-111 Co2 Carbon Dioxide 26 mmol/L N 22-32 Anion Gap 9 mmol/L N 2-11 Glucose 101 mg/dL High 70-100 Blood Urea Nitrogen 24 mg/dL N 6-24 Creatinine 1.07 mg/dL N 0.67-1.17 BUN/Creatinine Ratio 22.4 High 8-20 Calcium 9.8 mg/dL N 8.6-10.3 Egfr Non- 68.7 N >60 Egfr 88.4 N >60 16 Inr/Protime 06/18/2017 [facility] Inr 0.96 N 0.89-1.[address] [place] [address] [phone] Laboratory test 06/18/2017 [facility] Partial 32.3 seconds N 26.0-36.[address] [place] [address] PTT [phone] Type & Screen 06/18/2017 [facility] Patient A Positive [address] [place] [address] [phone] Antibody Screen NEGATIVE N CBC No Diff 05/05/2014 [facility] White Blood 7.5 10^3/uL N 4.8-10.[address] [place] [address] [phone] Red Blood Count 4.52 10^6/uL N 4.0-5.4 Hemoglobin 13.3 g/dL Low 14.0-18.0 Hematocrit 39 % Low 42-52 Mean Corpuscular Volume 87 fL N 80-94 Mean Corpuscular Hemoglobin 29 pg N 27-31 Mean Corpuscular HGB Conc 34 g/dL N 31-36 Red Cell Distribution Width 15 % N 10.5-15 Platelet Count 166 10^3/uL N 150-450 Mean Platelet Volume 8 um3 N 7.4-10.4 Comp Metabolic Panel 05/05/2014 [facility] Sodium 140 mmol/L N 133-[address] [place] [address] [phone] Potassium 4.3 mmol/L N 3.7-5.6 Chloride 109 [...] 75.9 N >60 Egfr 97.6 N >60 20 Lipid Profile 05/05/2014 [facility] Triglycerides 117 mg/dL N 21 (Trig/Chol/HDL) [address] [place] [address] [phone] Cholesterol 171 mg/dL N 22 HDL Cholesterol 38.5 mg/dL N 23 LDL Cholesterol 109 mg/dL N 24 Laboratory test 05/05/2014 [facility] Creatine Kinase 155 U/L N 10-223 [address] [place] [address] [phone] Hemoglobin A1c 6.1 % High Less than 6.0 26 Vitamin D, 25 05/05/2014 [facility] 25-Hydroxy Vitamin <4.0 ng/ mL N Hydroxy [address] [address] [phone] 25-Hydroxy Vitamin D3 35 ng/mL N 25-Hydroxy Vitamin D Total 35 ng/mL N 27 CBC Auto Diff 04/25/2014 White Blood Count [...] Negative U2-nRNP Antibody Negative N Negative 30 Laboratory test 12/21/2013 [facility] Hemoglobin A1c 5.8 % N Less [address] than 6.0 [place] [address] [phone] Laboratory test 12/21/2013 Creatine Kinase 233 U/L High 10-223 finding Lipid Profile 12/21/2013 Triglycerides 147 N 32 (Trig/Chol/HDL) mg/dL Cholesterol 185 mg/dL N 33 HDL Cholesterol 40.0 mg/dL N 34 LDL Cholesterol 116 mg/dL N 35 Comp Metabolic Panel 12/21/2013 Sodium 138 mmol/L [...] 67.9 N >60 Egfr 87.3 N >60 36 Laboratory test finding 12/21/2013 C Reactive Protein 10.54 mg/L High < 5.00 37 Erythrocyte Sed Rate 43 mm/Hr High 0-40 Uric Acid 5.5 mg/dL N 4.4-7.6 CBC Auto Diff 12/21/2013 White Blood Count [...] Nucleated Red Blood Cells % 0 N CBC Auto Diff 10/29/2013 White Blood Count [...] Rate 41 mm/Hr High 0-40 Laboratory test 10/29/2013 Uric Acid 5.2 mg/dL 4.4-7.6 finding Lipid Profile 10/29/2013 [facility] Triglycerides 147 mg/dL 40 (Trig/Chol/HDL) [address] [place], [place] [id number] [phone] Cholesterol 188 mg/dL 41 HDL Cholesterol 40.2 mg/dL 42 LDL Cholesterol 118 mg/dL 43 Laboratory test finding 10/29/2013 [facility] Alt 32 U/L 7- 52 [address] [place] [address] [phone] Ast 45 U/L High 13-39 Creatine Kinase 114 U/L 10-223 Vitamin B12 417 pg/mL 180-914 44 Lipid Profile 08/20/2013 [facility] Triglycerides 144 mg/dL 40-200 (Trig/Chol/HDL) [address] [place] [address] [phone] Cholesterol 213 mg/dL High Less than 200 HDL Cholesterol 44 mg/dL 40-60 45 Cholesterol/HDL Ratio 4.8 Average High 1-4.44 LDL Cholesterol 140.2 High Less Than 100 46 Laboratory test finding 08/20/2013 [facility] Alt 33 U/L 14- 54 [address] [place] [address] [phone] Ast 50 U/L High 12-42 Creatine Kinase 158 U/L 0-200 Vitamin B12 274 pg/mL 180-914 Laboratory test 06/22/2013 [facility] C Reactive 1.0 mg/dL High Less than finding [address] Protein 0.5 [place] [address] [phone] Uric Acid 5.4 mg/dL 2.6-7.2 Erythrocyte Sed Rate 56 mm/Hr High 0-20 CBC No Diff 06/22/2013 [facility] White Blood 8.1 10^3/uL 4.8 -10.[address] [place] [address] [phone] Red Blood Count 4.53 10^6/uL 4.0-5.4 Hemoglobin 13.0 g/dL Low 14.0-18.0 Hematocrit 40 % Low 42-52 Mean Corpuscular Volume 88 fL 80-94 Mean Corpuscular Hemoglobin 29 pg 27-31 Mean Corpuscular HGB Conc 32 g/dL 31-36 Red Cell Distribution Width 15 % 10.5-15 Platelet Count 177 10^3/uL 150-450 Mean Platelet Volume 8 um3 7.4-10.4 Comp Metabolic Panel 06/22/2013 [facility] Sodium 139 mmol/L [address] [place] [address] [phone] Potassium 4.3 mmol/L 3.5-5.0 Chloride 106 mmol/L [...] Egfr 96.7 >60 47 Lipid Profile 06/22/2013 [facility] Triglycerides 151 mg/dL 40-200 (Trig/Chol/HDL) [address] [place] [address] [phone] Cholesterol 252 mg/dL High Less than 200 HDL Cholesterol 42 mg/dL 40-60 48 Cholesterol/HDL Ratio 6.0 Average High 1-4.44 LDL Cholesterol 179.8 High Less Than 100 49 Laboratory test 06/22/2013 [facility] Hemoglobin A1c 6.1 % High Less than 50 finding [address] [facility] [address] [place] [address] [phone] Vitamin B12 322 pg/mL 180-914 Free T4 0.90 ng/mL 0.61-1.24 TSH (Thyroid Stimulating Horm) 1.04 miu/mL 0.34-5.60 Laboratory test 06/22/2013 [facility] Creatine Kinase 164 U/L 0-200 finding [address] [place] [address] [phone] Laboratory test 02/04/2013 [facility] Uric Acid 4.5 mg/dL 2.6 -7.2 finding [address] [place] [address] [phone] TSH (Thyroid Stimulating Horm) 0.93 miu/mL 0.34-5.60 Free T4 0.75 ng/mL 0.61-1.24 Comp Metabolic Panel 02/04/2013 [facility] Sodium 138 mmol/L 133-145 [address] [place] [address] [phone] Potassium 4.2 mmol/L 3.5-5.0 Chloride 108 mmol/L [...] Egfr Non- 85.0 >60 Egfr 109.3 >60 51 Laboratory test 02/04/2013 [facility] Erythrocyte Sed 42 mm/Hr High 0-[address] [place] [address] [phone] C Reactive Protein 0.7 mg/dL High Less than 0.5 CK Isoenzymes 02/04/2013 [facility] Creatine Kinase 329 U/L 52 - [address] [place] [address] [phone] CK Isoenzymes See Comment 52 Creatine Kinase mm 100% Creatine Kinase MB 0% Creatine Kinase BB 0% 53 Laboratory test 02/04/2013 [facility] Creatine 304 U/L High 0- [address] [place] [address] [phone] Immunofixation 02/04/2013 [facility] Albumin (Pep) 3.43 3.0- 4.35 (Electro) Serum [address] g/[place] [address] [phone] Alpha 1 Globulins 0.21 g/dL 0.09-0.33 Alpha [...] 6.7 g/dL 6.2-8.1 Spep Comments (SEE NOTE) 54 Serum Immunofixation (SEE NOTE) 55 Laboratory test 02/04/2013 [facility] PSA Diagnostic 2.65 0- 4.0 [address] ng/[place] [address] [phone] Laboratory test 08/27/2012 [facility] C Reactive 1.3 mg/dL High Less than finding [address] Protein 0.5 [place] [address] [phone] Uric Acid 4.7 mg/dL 2.6-7.2 Erythrocyte Sed Rate 57 mm/Hr High 0-20 Laboratory test 08/27/2012 [facility] Creatine Kinase 304 U/L High 0-200 [address] [place] [address] [phone] Laboratory test 02/12/2010 [facility] Rheumatoid < 20.0 Less Than finding [address] Factor IU/mL 20 [place] [address] [phone] CBC With 02/12/2010 [facility] White Blood 8.7 CUMM 4.8-10.8 Electronic Diff [address] [place] [address] [phone] Red Cell Count 4.24 CUMM Low 4.6-6.2 [...] Abs Basophils 0 0-0.2 Laboratory test 02/12/2010 [facility] Erythrocyte Sed 62 MM/HR High 0-[address] [place] [address] [phone] Cyclic Citrullinated Pep Igg <15.6 U () [...] in selective patients <6.0%. Please refer to [employer] diabetic care guidelines for further information. 8 ADDITIONAL INFORMATION This test was developed and its performance characteristics determined by [facility] in a manner consistent with CLIA requirements. This test has not been cleared or approved by the U.S. Food and Drug Administration. Test Performed by: [facility] [address] [place] [address] 9 Because ethnic data is not always [...] 07/01 18 AA 07/01 19 FASTING 20 Because ethnic data is not always readily [...] 15-29 5 Kidney failure <15 (or dialysis) 21 Desirable <150 Borderline high 150-199 High 200-499 Very High >500 22 Desirable <200 Borderline high 200-239 High >239 23 Low <40 Desirable: 40-60 High: >60 24 Desirable <100 Near Optimal 100-129 Borderline high 130-159 High 160-189 Very High >189 25 FASTING 26 Therapeutic target for the treatment of diabetes Mellitus patients is <7% HBA1C, and in selective patients <6.0%.Please refer to [employer] Diabetic care guidelines for further information. 27 -- REFERENCE VALUE -- 25-HYDROXY D TOTAL (D2+D3) Optimum levels in the healthy population are 20-50, patients with bone disease may benefit from higher levels within this range. Test Performed by: [place] [address] [employer] Technologist: Benny Dodge III, M.D. 28 Because ethnic data is not always [...] Test Performed by: [facility] [address] [place] [address] 31 Therapeutic target for the treatment of diabetes Mellitus patients is <7% HBA1C, and in selective patients <6.0%.Please refer to [employer] Diabetic care guidelines for further information. 32 Desirable <150 Borderline high 150-199 High 200-499 Very High >500 33 Desirable <200 Borderline high 200-239 High >239 34 Low <40 Desirable: 40-60 High: >60 35 Desirable <100 Near Optimal 100-129 Borderline high 130-159 High 160-189 Very High >189 36 Because ethnic data is not always readily [...] 15-29 5 Kidney failure <15 (or dialysis) 37 Acute inflammation: >10.00 38 Because ethnic data is not always [...] >3.0 mg/L Acute inflammation: >10.0 mg/L 40 Desirable <150 Borderline high 150-199 High 200-499 Very High >500 41 Desirable <200 Borderline high 200-239 High >239 42 Low <40 Desirable: 40-60 High: >60 43 Desirable <100 Near Optimal 100-129 Borderline high 130-159 High 160-189 Very High >189 44 Normal Range 180 to 914 Indeterminate Range 145 to 180 Deficient Range <145 45 HDL Interpretation: Undesirable: High Risk: Less [...] and in selective patients <6.0%.Please refer to [employer] Diabetic care guidelines for further information. 51 Because ethnic data is not always readily [...] 15-29 5 Kidney failure <15 (or dialysis) 52 RESULT: If CK result is <100, isoenzyme will not be performed. Test Performed by: [place] [address] [employer] Technologist: Benny Dodge III, M.D. 53 Test Performed by: [place] [address] [employer]ologist: Benny Dodge III, M.D. 54 Normal serum electrophoretic pattern. 55 Normal serum immunofixation electrophoretic pattern. No monoclonal protein detected. 56 Serum levels of PSA measured using the [employer] DXI Hybritech immunoassay should not be interpreted as absolute evidence of the presence or absence of disease. The PSA value should be used in conjunction with other pertinent clinical diagnostic procedures. The values obtained with different assay methods or kits cannot be used interchangeably. 57 @ Ordering doctor for CK edited from [id number] to [id number] @ by [email or web address] at 08/27/12 1705 @ Submitting doctor edited from [id number] to [id number] @ by [id number] at 08/27/12 1704 58 -- REFERENCE VALUE -- <20.0 (Negative) 20.0-39.9 (Weak Positive) 40.0-59.9 (Positive) >=60.0 (Strong Positive) Test Performed by: [facility] Dpt of Lab Med and Pathology [address] [place], [place] [id number] [employer] Technologist: Benny Dodge III, M.D. Procedures Date Code Description Status 09/02/2018 09457 EKG Tracing & Interpretation Completed 02/09/2018 91634 ECHO Transthorasic Realtime 2D W Doppler & Color Flow Hosp Completed 01/07/2018 39234 Inject/Drain Joint/Bursa Major W/O US Completed 12/10/2017 61759 EKG, Interpretation Only Completed 12/09/2017 36138 TKR Total Knee Replacement Completed 12/09/2017 10351 TKR Total Knee Replacement Completed 12/03/2017 07544 EKG Tracing & Interpretation Completed 11/20/2017 94846 ECHO Transthoracic, Real-Time 2D With Doppler And Color Completed Flow 11/20/2017 32550 ECHO Transthoracic, Real-Time 2D With Doppler And Color Completed Flow 11/20/2017 64908 Holter Monitor Review (24 hr)dr review & interp only Completed 11/20/2017 34894 Holter Monitor Review (24 hr)dr review & interp only Completed 11/17/2017 85440 ECG Monitor/Recording W/Visual Superimposition Scanning Completed 11/12/2017 50600 Inject/Drain Joint/Bursa Major W/O US Completed 10/17/2017 96320 EKG Tracing & Interpretation Completed 09/12/2017 27301 Inject/Drain Joint/Bursa Major W/O US Completed 07/07/2017 09710 Left Heart Cath. Incl S/I Coronaries, Angio S/I V Gram If Completed Done 06/27/2017 02679 Stress Test Completed 06/27/2017 40009 Myocardial Perfusion Imaging Tomographic (Spect) Multiple Completed Studies 06/25/2017 51311 ECHO Transthorasic Realtime 2D W Doppler & Color Flow Hosp Completed 06/23/2017 36843 Holter Monitor Review (24 hr) review & interp only Completed 06/20/2017 27523 ECG Monitor/Recording W/Visual Superimposition Scanning Completed 06/20/2017 59109 ECG Monitor/Recording W/Visual Superimposition Scanning Completed 06/20/2017 98438 EKG Tracing & Interpretation Completed 04/01/2014 17942 Nerve Conduction 03-04 Studies Completed 04/01/2014 86041 Needle Electromyography Each Extremity W/Related Completed Paraspinal Areas 03/19/2013 63306 Inject Tendon Sheath Or Ligament Aponeurosis Eg Plantar Completed Fascia 03/02/2010 59761 Inject/Drain Joint/Bursa Major W/O US Completed 02/16/2010 59831 Rad Exam; Hip Unilat Completed 02/16/2010 75269 Rad Exam; Pelvis Completed 09/10/2007 89980 Endoscopy Wrist Surg W/Release Of Transverse Carpal Completed Ligament Encounters Type Date Location Provider Dx Diagnosis Office Visit 09/02/2018 [facility] Mejia Chua I49.3 Ventricular premature 8:15a Of Zoey Gonzalez M.D. depolarization I42.9 Cardiomyopathy, unspecified Z01.810 Encounter for preprocedural cardiovascular examination Office Visit 08/18/2018 [facility] Deandre Chua Z01.818 Encounter for 8:50a For [...] with neurogenic claudication Office Visit 05/12/2018 11:30a [facility] Wil Chua L97.519 Non- prs Infectious Aaron Salas chronic ulcer Diseases oth prt right foot w unsp severity R43.2 [facility] Office Visit 04/23/2018 [facility] Deandre Chua M86.171 Other acute 2:20p For Edilia Salas M.D. osteomyelitis, Diseases right ankle and foot Z79.2 shelter (current) use of antibiotics E11.69 Type 2 diabetes mellitus with other specified complication Office Visit 04/22/2018 9:00a [facility] Deshawn Nichols L97.519 [place]-prs [place] [facility] [place] Katharina chronic ulcer oth prt right foot w unsp severity Office Visit 04/13/2018 3:30p Orthopedic Hanna Wolfe M25.552 Pain in left Services Of Aaron hip C.M.AHali M16.12 Unilateral primary osteoarthritis, left hip Z47.1 Aftercare following joint replacement surgery Z96.651 Presence of right artificial knee joint Office Visit 04/08/2018 [facility] Deshawn Nichols M86.171 Other acute 9:30a Center AT [facility] Katharina osteomyelitis, right [facility] ankle and foot L97.519 Non-prs chronic ulcer oth prt right foot w unsp severity Office Visit 04/03/2018 Kesha Chua I42.9 Cardiomyopathy, 10:30a Cardiology Of Aaron Gonzalez unspecified 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 M25.612 Stiffness of left shoulder, not elsewhere classified Office Visit 03/18/2018 [facility] Deandre Chua M86.171 Other acute 11:30a For Infectious Aaron Salas osteomyelitis, Diseases right ankle and foot E11.69 Type 2 diabetes mellitus with other specified complication Z79.2 intermediate card tender (current) use of antibiotics Office Visit 03/12/2018 [facility] Deandre Chua M86.171 Other acute 2:40p For Infectious Aaron [...] Dean Rodrigues MD shoulder Office Visit 12/13/2017 [facility] I49.3 Ventricular 11:17a hafsa Jane DO premature Hospitalists depolarization E11.9 Type 2 diabetes mellitus without complications G47.33 Obstructive sleep apnea (adult) (pediatric) Z96.651 Presence of right artificial knee joint Office Visit 12/12/2017 [facility] I49.3 Ventricular 11:16a hafsa Jane DO premature Hospitalists depolarization E11.9 Type 2 diabetes mellitus without complications G47.33 Obstructive sleep apnea (adult) (pediatric) Z96.651 Presence of right artificial knee joint Office Visit 12/11/2017 [place] Ana Nichols I49.3 Ventricular 11:57a Cardiology Aaron Shah premature depolarization R94.31 Abnormal electrocardiogram [ECG] [EKG] I42.9 Cardiomyopathy, unspecified I10 Essential (primary) hypertension Office Visit 12/11/2017 [facility] I49.3 Ventricular 11:15a Asshafsa quiñonez DO premature Hospitalists depolarization E11.9 Type 2 diabetes mellitus without complications G47.33 Obstructive sleep apnea (adult) (pediatric) Z96.651 Presence of right artificial knee joint Office Visit 12/10/2017 [facility] I49.3 Ventricular 11:14a hafsa Jane DO premature Hospitalists depolarization E11.9 Type 2 diabetes mellitus without complications G47.33 Obstructive sleep apnea (adult) (pediatric) Z96.651 Presence of right artificial knee joint Office Visit 12/09/2017 [place] Bernardino Nice I49.3 Ventricular 11:13a Asshafsa quiñonez PA premature Hospitalists depolarization E11.9 Type 2 diabetes mellitus without complications G47.33 Obstructive sleep apnea (adult) (pediatric) Z96.651 Presence of right artificial knee joint Office Visit 12/03/2017 Kesha Chua I42.9 Cardiomyopathy, 8:15a Cardiology Of Aaron Gonzalez unspecified Undercar Specialist I49.3 Ventricular premature depolarization Z01.810 Encounter for preprocedural cardiovascular examination I51.9 Heart disease, unspecified M17.11 Unilateral primary osteoarthritis, right knee Office Visit 10/17/2017 9:00a Kesha Chua I49.3 Ventricular Cardiology Of Aaron Gonzalez premature Undercar Specialist depolarization I42.9 Cardiomyopathy, unspecified Office Visit 09/29/2017 8:30a Pulmonology And Carole G47.33 Obstructive sleep Sleep Services Of MD Giovana apnea (adult) Undercar Specialist (pediatric) E66.09 Other obesity due to excess calories Z68.41 Body mass index (BMI) 40.0-44.9, adult Office Visit 07/15/2017 1:30p Kesha Chua I49.3 Ventricular Cardiology Of Aaron Gonzalez premature Undercar Special[facility] [place] [facility] depolarization I42.9 Cardiomyopathy, unspecified I47.2 Ventricular tachycardia Office Visit 07/01/2017 2:30p Kesha Chua I49.3 Ventricular Cardiology Of Aaron Gonzalez premature Undercar Specialist [place] [facility] depolarization I42.9 Cardiomyopathy, unspecified I47.2 Ventricular tachycardia Office Visit 06/30/2017 1:30p [place] [facility] Makenzie Francois, I49.3 Ventricular PA premature depolarization I10 Essential (primary) hypertension I42.9 Cardiomyopathy, unspecified R94.31 Abnormal electrocardiogram [ECG] [EKG] Office Visit 06/20/2017 1:00p [place] [facility] Mejia Chua I10 Essential (primary) Of Zoey Gonzalez M.D. hypertension R94.31 Abnormal electrocardiogram [ECG] [EKG] I49.3 Ventricular premature depolarization Z01.810 Encounter for preprocedural cardiovascular examination M17.0 Bilateral primary osteoarthritis of knee Office Visit 05/12/2017 2:30p Orthopedic Services Hanna Wolfe, M25.562 Pain in left Of C.M.A. M.D. knee M25.561 Pain in right knee M25.462 Effusion, left knee M25.461 Effusion, right knee M17.0 Bilateral primary osteoarthritis of knee Office Visit 05/27/2014 Rheumatology Brandin Boggs, 724.02 Spinal Stenosis , 2:00p Services Of Undercar Specialist M.D. 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 Lumbar Region, W/O Neurogenic Claudication 274.9 Gout Unspec 790.6 Abnormal Blood Chemistry Other 359.9 Myopathy Unspec Office Visit 11/10/2013 Rheumatology Brandin Boggs, 724.02 Spinal Stenosis , 10:40a Services Of Undercar Specialist M.D. Lumbar Region, W/O Neurogenic Claudication 274.9 Gout Unspec 790.6 Abnormal Blood Chemistry Other Office Visit 07/21/2013 10:20a Rheumatology Brandin Boggs, 721.3 Spondylosis Services Of Undercar Specialist M.D. Lumbar W/O Myelopathy 274.9 Gout Unspec 359.9 Myopathy Unspec 795.79 Immunological Findings Nonspec Other & Unspec 727.3 Bursitis Other Office Visit 04/28/2013 10:00a Rheumatology Brandin Boggs, 721.3 Spondylosis Services Of Undercar Specialist M.D. Lumbar W/O Myelopathy 274.9 Gout Unspec 795.79 Immunological Findings Nonspec Other & Unspec 359.9 Myopathy Unspec Office Visit 03/19/2013 Orthopedic Dorene 727.03 Trigger Finger 8:15a Services Of Aaron Waggoner C.M.A. Office Visit 02/04/2013 Rheumatology Brandin Boggs, 721.3 Spondylosis 1:40p Services Of Undercar Specialist M.D. Lumbar W/O Myelopathy 274.9 Gout Unspec 795.79 Immunological Findings Nonspec Other & Unspec 790.6 Abnormal Blood Chemistry Other Office Visit 08/20/2012 8:20a Rheumatology Brandin Boggs, 274.9 Gout Unspec Services Of Undercar Specialist M.D. 715.16 Osteoarthrosis Localized Prim Lower Leg Office [...] Brandin Boggs 721.3 Spondylosis Services Of Zoey LewisDHali Lumbar W/O Myelopathy 719.45 Pain Joint Pelvic Region & Thigh Office Visit 04/02/2010 9:45a Orthopedic Nikunj Proctor 716.96 Arthropathy Unspec Services Of M.Toma Lower Leg C.M.A. Office Visit 03/19/2010 3:45p Orthopedic Nikunj Proctor, 836.0 Dislocation Knee Services Of Aaron Tear Of Medial C.M.A. Cartilage Or Meniscus Curren Office Visit 03/02/2010 3:30p Orthopedic Verito 716.96 Arthropathy Unspec Services Of Christopher, Lower Leg C.M.A. R.S.A.-O 726.5 Enthesopathy Of Hip Region 721.3 Spondylosis Lumbar W/O Myelopathy Office Visit 02/16/2010 11:00a Orthopedic Verito 719.45 Pain Joint Services Of Pra[place], Pelvic C.M.A. R.S.A.-O Region & Thigh 719.65 Joint Symptoms Other Pelvic & Thigh Office Visit 02/13/2010 3:00p Orthopedic Services Manuela Wright, 716.96 Arthropathy Of C.M.A. PA Unspec Lower Leg Office Visit 08/10/2007 4:00p Neurosurgery Tyler Sosa 354.0 Carpal Tunnel Services Of Cindi Liao M.D. Office Visit 07/13/2007 1:30p Neurosurgery Tyler Sosa 354.0 Carpal Tunnel Services Of Cindi Liao M.D. Plan of Treatment Future Appointment(s):09/10/2018 8:00 am - Mejia Gonzalez M.D. at [facility]09/10/2018 10:00 am - Melanie Marie DNP, RN, [employer] VP [employer] MARKETING-BC at [facility]09/17/2018 10:30 am - Concepcion Gresham PA-C at [facility]09/17/2018 10:30 am - Salvador Judd MD at [facility]09/09/2018 9:00 am - Salvador Judd MD at [facility]09/10/2018 8:00 am - Thien Rodrigues MD at [facility]09/02/2018 - Mejia Gonzalez M.D.I49.3 Ventricular premature depolarizationNew Orders:Echocardiogram, Ordered: Follow up:6 [id number] Cardiomyopathy, acrivgvoghlP99.810 Encounter for preprocedural cardiovascular examination
--- OUTSIDE RECORDS SUMMARY | 2018-09-17 09:20 | XMS REPORT | Continuity of Care Document ---
:1950 External Reference #:[id number] Author Name Evanmed Piper Care Team Providers Name Role Phone Layne Guadarrama MD Primary Care Physician Unavailable Payers Type Date Identification Numbers Payment Provider Subscriber Policy Number: [id number] Medicare Colton Eagle PayID: [id number] [address] [place] [address] Policy Number: [id number] [facility] Colton Eagle PayID: [id number] [address] [place] [address] Advance Directives Description No Information Available Problems [...] Unknown Marital Status Lives With Spouse 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 Tobacco Use Start: Unknown End: Former Cigarette Smoker Smoked 1 PPD for Unknown years Smoking Status Reviewed: 08/18/18 Former Cigarette Smoker Smoked 1 PPD for years ETOH Use Drinks 4 Alcoholic Beverages Per Week Tobacco Use Start: Unknown End: Patient is a former Unknown smoker Recreational Drug Use Denies Drug Use Exercise Type/Frequency Exercises sporadically physical therapy at [facility] and leg aerobics Allergies, Adverse Reactions, Alerts Description No Known Drug Allergies Medications Medication Date Status Form Strength Qnty SIG Indications Ordering Provider Diclofenac Sodium 06/16 Active Tablets 75mg 60tab one tab M75.02 DR guerrero twice a day Aiden with food Aaron as needed Toprol XL 06/30 Active Tablets [...] Ritalin Active 10 mg - 1 Unknown tab up to tid on empty stomach [...] 60tab 1 tab by Brandin COTTO DR cesar naranjo twice Endo, - a day M.D. 05/11 [...] qd Unknown /0000 s - 05/11 Neurontin /00 Hx Capsules 100mg 360ca 3 qid Brandin /0000 ryan Boggs - MLudwin 05/27 Hydrochlorothiazid 00/00 Hx Tablets 25mg 90tab [...] 00/00 Hx Unknown /0000 - 06/10 Hydrochlorothiazid Hx Tablets 12.5mg 1 by mouth Unknown e /0000 every day - 06/10 Melatonin Hx Capsules 3mg 1 tab by Unknown /0000 mouth every - night at 03/11 bedtime Vitamin D 00/ Hx Capsules 4000mg Unknown [...] daily to 06/18 low prn pain Cialis 00/00 Hx Tablets 10mg every day Unknown /0000 as needed - 06/29 Diclofenac Sodium 00/00 Hx Tablets 75mg take 1 Unknown /0000 DR tablet - twice a day 04/01 with food /2017 as needed Oxycodone-Acetamin /00 Hx Tablets 2.5-325mg take 1 - 2 Unknown ophen /0000 tabs by - mouth every 09/28 4 - 6 Levofloxacin /00 Hx Tablets 750mg Take One Unknown /0000 [...] Available Vital Signs Date Vital Result Comment 08/18/2018 8:57am Height 73 inches 6'1" Weight [...] lb Heart Rate 68 /min skipped beat [id number] BP Systolic 128 mmHg BP Diastolic 78 [...] Result H/L Range Note Laboratory test 05/19/2018 [facility] C Reactive 9.29 mg/L High <8.[address] [place] [address] [phone] CBC Auto Diff 05/19/2018 [facility] White Blood 8.8 10^3/uL N 3.5-10.[address] [place] [address] [phone] Red Blood Count 4.29 10^6/uL N 4.00-5.40 [...] Cells % 0 Comp Metabolic Panel 05/19/2018 [facility] Sodium 139 mmol/L N 135-145 [address] [place] [address] [phone] Potassium 4.0 mmol/L N 3.5-5.0 Chloride 105 [...] Egfr 85.7 >60 1 Lipid Profile 05/19/2018 [facility] Triglycerides 122 mg/dL 2 (Trig/Chol/HDL) [address] [place] [address] [phone] Cholesterol 157 mg/dL 3 HDL Cholesterol 36.4 mg/dL 4 LDL Cholesterol 96 mg/dL 5 Laboratory test 05/19/2018 [facility] Vitamin B12 499 pg/mL N 180-914 6 [place] [address] [phone] Hemoglobin A1c (Glyco HGB) 5.8 % High 4.0-5.6 7 Vitamin D, 1,25 Dihydroxy 43 pg/mL 18-64 8 CBC Auto Diff 04/22/2018 [facility] White Blood 6.4 10^3/uL N 3.5-10.8 [address] [facility] [place] [address] [phone] Red Blood Count 4.29 10^6/uL N 4.00-5.40 [...] Cells % 0.1 Comp Metabolic Panel 04/22/2018 [facility] Sodium 138 mmol/L N 135-[address] [place] [address] [phone] Potassium 3.6 mmol/L N 3.5-5.0 Chloride 105 [...] Egfr 85.7 >60 9 Laboratory test 04/22/2018 [facility] C Reactive 7.18 mg/L N < 8.[address] [place] [address] [phone] CBC Auto Diff 04/15/2018 [facility] White Blood 7.1 N 3.5- 10.[address] Count 10^3/[place] [address] [phone] Red Blood Count 4.37 10^6/uL N 4.00-5.40 [...] Cells % 0 Comp Metabolic Panel 04/15/2018 [facility] Sodium 141 mmol/L N 135-[address] [place] [address] [phone] Potassium 4.0 mmol/L N 3.5-5.0 Chloride 108 [...] Egfr 90.7 >60 10 Laboratory test 04/15/2018 [facility] C Reactive 11.01 mg/L High <8.[address] [place] [address] [phone] CBC Auto Diff 04/08/2018 [facility] White Blood 6.9 N 3.5- 10.[address] Count 10^3/[place] [address] [phone] Red Blood Count 4.24 10^6/uL N 4.00-5.40 [...] Cells % 0.1 Comp Metabolic Panel 04/08/2018 [facility] Sodium 142 mmol/L N 135-[address] [place] [address] [phone] Potassium 3.8 mmol/L N 3.5-5.0 Chloride 108 [...] Egfr 92.9 >60 11 Laboratory test 04/08/2018 [facility] C Reactive 7.79 mg/L N < 8.[address] [place] [address] [phone] CBC Auto Diff 04/01/2018 [facility] White Blood 6.8 N 3.5- 10.[address] Count 10^3/[place] [address] [phone] Red Blood Count 4.34 10^6/uL N 4.00-5.40 [...] Cells % 0.1 Comp Metabolic Panel 04/01/2018 [facility] Sodium 138 mmol/L N 135-[address] [place] [address] [phone] Potassium 4.0 mmol/L N 3.5-5.0 Chloride 103 [...] Egfr 103.9 >60 12 Laboratory test 04/01/2018 [facility] C Reactive 7.06 mg/L N < 8.[address] [place] [address] [phone] CBC Auto Diff 03/25/2018 [facility] White Blood 7.3 N 3.5- 10.[address] Count 10^3/[place] [address] [phone] Red Blood Count 4.30 10^6/uL N 4.00-5.40 [...] Cells % 0.1 Comp Metabolic Panel 03/25/2018 [facility] Sodium 137 mmol/L N 135-[address] [place] [address] [phone] Potassium 3.7 mmol/L N 3.5-5.0 Chloride 101 [...] Egfr 96.3 >60 13 Laboratory test 03/25/2018 [facility] C Reactive 10.02 mg/L High <8.[address] [place] [address] [phone] Comp Metabolic 03/18/2018 [facility] Sodium 138 mmol/L N 135- [address] [place] [address] [phone] Potassium 3.5 mmol/L N 3.5-5.0 Chloride 103 [...] 91.8 >60 14 CBC Auto Diff 03/18/2018 [facility] White Blood 7.3 10^3/uL N 3.5-10.[address] [place] [address] [phone] Red Blood Count 4.21 10^6/uL N 4.00-5.40 [...] Blood Cells % 0.1 Laboratory test 03/18/2018 [facility] C Reactive 11.88 mg/L High <8.[address] [place] [address] [phone] Type & Screen 11/26/2017 [facility] Patient Blood A Positive [address] Type [place], [place] [phone] Antibody Screen NEGATIVE Laboratory test 11/26/2017 [facility] Partial 32.2 seconds N 26.0-36.[address] [place] [address] PTT [phone] Inr/Protime 11/26/2017 [facility] Inr 1.01 N 0.77-1.[address] [place] [address] [phone] Basic Metabolic 07/09/2017 [facility] Sodium 138 mmol/L N 133- [address] [place] [address] [phone] Potassium 3.9 mmol/L N 3.5-5.0 Chloride 105 mmol/L N 101-111 Co2 Carbon Dioxide 24 mmol/L N 22-32 Anion Gap 9 mmol/L N 2-11 Glucose 110 mg/dL High 70-100 Blood Urea Nitrogen 25 mg/dL High 6-24 Creatinine 1.29 mg/dL High 0.67-1.17 BUN/Creatinine Ratio 19.4 N 8-20 Calcium 9.1 mg/dL N 8.6-10.3 Egfr Non- 55.2 N >60 Egfr 71.0 N >60 15 Pre Cath 07/03/2017 [facility] Partial 31.8 seconds N 26.0- 36.[address] [place] [address] PTT [phone] CBC Auto 07/03/2017 [facility] White Blood 9.7 10^3/uL N 3.5- 10.[address] [place] [address] [phone] Red Blood Count 4.61 10^6/uL N 4.0-5.4 [...] Blood Cells % 0.1 N Inr/Protime 07/03/2017 [facility] Inr 0.97 N 0.89-1.[address] [place] [address] [phone] Basic Metabolic 07/03/2017 [facility] Sodium 139 mmol/L N 133- [address] [place] [address] [phone] Potassium 4.1 mmol/L N 3.5-5.0 Chloride 104 mmol/L N 101-111 Co2 Carbon Dioxide 26 mmol/L N 22-32 Anion Gap 9 mmol/L N 2-11 Glucose 101 mg/dL High 70-100 Blood Urea Nitrogen 24 mg/dL N 6-24 Creatinine 1.07 mg/dL N 0.67-1.17 BUN/Creatinine Ratio 22.4 High 8-20 Calcium 9.8 mg/dL N 8.6-10.3 Egfr Non- 68.7 N >60 Egfr 88.4 N >60 16 Type & Screen 06/18/2017 [facility] Patient Blood Type A Positive N [address] [place] [address] [phone] Antibody Screen NEGATIVE N Laboratory test 06/18/2017 [facility] Partial 32.3 seconds N 26.0-36.3 [address] [place] [address] PTT [phone] Inr/Protime 06/18/2017 [facility] Inr 0.96 N 0.89-1.[address] [place] [address] [phone] Comp Metabolic 05/05/2014 [facility] Sodium 140 mmol/L N 133- 145 [address] [place] [address] [phone] Potassium 4.3 mmol/L N 3.7-5.6 Chloride 109 [...] N >60 Egfr 97.6 N >60 20 CBC No Diff 05/05/2014 [facility] White Blood 7.5 10^3/uL N 4.8-10.[address] [place] [address] [phone] Red Blood Count 4.52 10^6/uL N 4.0-5.4 Hemoglobin 13.3 g/dL Low 14.0-18.0 Hematocrit 39 % Low 42-52 Mean Corpuscular Volume 87 fL N 80-94 Mean Corpuscular Hemoglobin 29 pg N 27-31 Mean Corpuscular HGB Conc 34 g/dL N 31-36 Red Cell Distribution Width 15 % N 10.5-15 Platelet Count 166 10^3/uL N 150-450 Mean Platelet Volume 8 um3 N 7.4-10.4 Lipid Profile 05/05/2014 [facility] Triglycerides 117 mg/dL N 21 (Trig/Chol/HDL) [address] [place] [address] [phone] Cholesterol 171 mg/dL N 22 HDL Cholesterol 38.5 mg/dL N 23 LDL Cholesterol 109 mg/dL N 24 Laboratory test 05/05/2014 [facility] Creatine Kinase 155 U/L N 10-223 25 finding [address] [place] [address] [phone] Hemoglobin A1c 6.1 % High Less than 6.0 26 Vitamin D, 25 05/05/2014 [facility] 25-Hydroxy Vitamin <4.0 ng/ mL N Hydroxy [address] [address] [phone] 25-Hydroxy Vitamin D3 35 ng/mL N 25-Hydroxy Vitamin D Total 35 ng/mL N 27 Myositis AB Panel 04/25/2014 Mi-2 Antibody Negative [...] U/L High 10-223 finding Laboratory test 12/21/2013 [facility] Hemoglobin A1c 5.8 % N Less than [address] 6.0 [place] [address]322 [phone] CBC Auto Diff 10/29/2013 White Blood 8.4 [...] 5.2 mg/dL 4.4-7.6 finding Lipid Profile 10/29/2013 [facility] Triglycerides 147 mg/dL 40 (Trig/Chol/HDL) [address] [place], [place] [address] [phone] Cholesterol 188 mg/dL 41 HDL Cholesterol 40.2 mg/dL 42 LDL Cholesterol 118 mg/dL 43 Laboratory test finding 10/29/2013 [facility] Alt 32 U/L 7- 52 [address] [place], [place] [address] [phone] Ast 45 U/L High 13-39 Creatine Kinase 114 U/L 10-223 Vitamin B12 417 pg/mL 180-914 44 Lipid Profile 08/20/2013 [facility] Triglycerides 144 mg/dL 40-200 (Trig/Chol/HDL) [address] [place], [place] [address] [phone] Cholesterol 213 mg/dL High Less than 200 HDL Cholesterol 44 mg/dL 40-60 45 Cholesterol/HDL Ratio 4.8 Average High 1-4.44 LDL Cholesterol 140.2 High Less Than 100 46 Laboratory test finding 08/20/2013 [facility] Alt 33 U/L 14- 54 [address] [place] [address] [phone] Ast 50 U/L High 12-42 Creatine Kinase 158 U/L 0-200 Vitamin B12 274 pg/mL 180-914 Laboratory test 06/22/2013 [facility] Creatine 164 U/L 0-[address] Kinase [place], [place] [address] [phone] Laboratory test 06/22/2013 [facility] C Reactive 1.0 High Less than finding [address] [facility] Protein mg/dL 0.5 [place] [address] [phone] Uric Acid 5.4 mg/dL 2.6-7.2 Erythrocyte Sed Rate 56 mm/Hr High 0-20 CBC No Diff 06/22/2013 [facility] White Blood 8.1 10^3/uL 4.8 -10.8 [address] [place] [address] [phone] Red Blood Count 4.53 10^6/uL 4.0-5.4 Hemoglobin 13.0 g/dL Low 14.0-18.0 Hematocrit 40 % Low 42-52 Mean Corpuscular Volume 88 fL 80-94 Mean Corpuscular Hemoglobin 29 pg 27-31 Mean Corpuscular HGB Conc 32 g/dL 31-36 Red Cell Distribution Width 15 % 10.5-15 Platelet Count 177 10^3/uL 150-450 Mean Platelet Volume 8 um3 7.4-10.4 Comp Metabolic Panel 06/22/2013 [facility] Sodium 139 mmol/L 133-145 [address] [place] [address] [phone] Potassium 4.3 mmol/L 3.5-5.0 Chloride 106 mmol/L [...] Egfr 96.7 >60 47 Lipid Profile 06/22/2013 [facility] Triglycerides 151 mg/dL 40-200 (Trig/Chol/HDL) [address] [place] [address] [phone] Cholesterol 252 mg/dL High Less than 200 HDL Cholesterol 42 mg/dL 40-60 48 Cholesterol/HDL Ratio 6.0 Average High 1-4.44 LDL Cholesterol 179.8 High Less Than 100 49 Laboratory test 06/22/2013 [facility] Hemoglobin A1c 6.1 % High Less than [address] 6.0 [place] [address] [phone] Vitamin B12 322 pg/mL 180-914 Free T4 0.90 ng/mL 0.61-1.24 TSH (Thyroid Stimulating Horm) 1.04 miu/mL 0.34-5.60 Laboratory test 02/04/2013 [facility] PSA Diagnostic 2.65 0- 4.0 [address] ng/[place] [address] [phone] Immunofixation 02/04/2013 [facility] Albumin (Pep) 3.43 g/dL 3.0-4.35 (Electro) Serum [address] [place] [address] [phone] Alpha 1 Globulins 0.21 g/dL 0.09-0.33 Alpha [...] Immunofixation (SEE NOTE) 53 Laboratory test 02/04/2013 [facility] Creatine 304 U/L High 0- [address] [place] [address] [phone] CK Isoenzymes 02/04/2013 [facility] Creatine 329 U/L 52 - [address] [place] [address] [phone] CK Isoenzymes See Comment 54 Creatine Kinase mm 100% Creatine Kinase MB 0% Creatine Kinase BB 0% 55 Laboratory test 02/04/2013 [facility] Erythrocyte Sed 42 mm/Hr High 0-[address] [place] [address] [phone] C Reactive Protein 0.7 mg/dL High Less than 0.5 Comp Metabolic Panel 02/04/2013 [facility] Sodium 138 mmol/L 133-[address] [place] [address] [phone] Potassium 4.2 mmol/L 3.5-5.0 Chloride 108 mmol/L [...] Egfr 109.3 >60 56 Laboratory test 02/04/2013 [facility] Uric Acid 4.5 mg/dL 2.6 -7.[address] [place] [address] [phone] TSH (Thyroid Stimulating Horm) 0.93 miu/mL 0.34-5.60 Free T4 0.75 ng/mL 0.61-1.24 Laboratory test 08/27/2012 [facility] C Reactive 1.3 mg/dL High Less than finding [address] Protein 0.5 [place] [address] [phone] Uric Acid 4.7 mg/dL 2.6-7.2 Erythrocyte Sed Rate 57 mm/Hr High 0-20 Laboratory test 08/27/2012 [facility] Creatine Kinase 304 U/L High 0-200 [address] [place] [address] [phone] Laboratory test 02/12/2010 [facility] Rheumatoid < 20.0 Less Than finding [address] Factor IU/mL 20 [place] [address] [phone] CBC With 02/12/2010 [facility] White Blood 8.7 CUMM 4.8-10.8 Electronic Diff [address] [place] [address] [phone] Red Cell Count 4.24 CUMM Low 4.6-6.2 [...] Abs Basophils 0 0-0.2 Laboratory test 02/12/2010 [facility] Erythrocyte Sed 62 MM/HR High 0-[address] [place] [address] [phone] Cyclic Citrullinated Pep Igg <15.6 U () [...] in selective patients <6.0%. Please refer to [place] [employer] diabetic care guidelines for further information. 8 ADDITIONAL INFORMATION This test was developed and its performance characteristics determined by [facility] in a manner consistent with CLIA requirements. This test has not been cleared or approved by the U.S. Food and Drug Administration. Test Performed by: [facility] [address] [place] [address] 9 Because ethnic data is not always [...] and in selective patients <6.0%.Please refer to [place] [employer] Diabetic care guidelines for further information. 27 -- REFERENCE VALUE -- 25-HYDROXY D TOTAL (D2+D3) Optimum levels in the healthy population are 20-50, patients with bone disease may benefit from higher levels within this range. Test Performed by: [address] [address] Sustainability Coordinator: Benny Dodge III, M.D. 28 EIA Interpretation: Negative <20 Units Weak Positive 20-39 Units Moderate Positive 40-80 Units Strong Positive >80 Units The immunoprecipitation (IPP) tests were developed and their performance characteristics validated by [facility]. The FDA has determined that approval for these tests is not necessary. These are analyte specific reagent (ASR) tests. Test Performed by: [facility] [address] [place] [address] 29 Acute inflammation: >10.00 30 Because ethnic [...] and in selective patients <6.0%.Please refer to [place] [employer] Diabetic care guidelines for further [...] and in selective patients <6.0%.Please refer to [place] [employer] Diabetic care guidelines for further information. 51 Serum levels of PSA measured using the [employer] DXI Hybritech immunoassay should not be interpreted [...] will not be performed. Test Performed by: [place] [address] Sustainability Coordinator: Benny Dodge III, M.D. 55 Test Performed by: [place] [address] Sustainability Coordinator: Benny Dodge III, M.D. 56 Because ethnic [...] @ Ordering doctor for CK edited from [id number] to [id number] @ by [id number] at 08/27/12 1705 @ Submitting doctor edited from [id number] to [id number] @ by [id number] at 08/27/12 1705 58 -- REFERENCE VALUE -- <20.0 (Negative) 20.0-39.9 (Weak Positive) 40.0-59.9 (Positive) >=60.0 (Strong Positive) Test Performed by: [facility] D[facility] of Lab Med and Pathology [address] [place] [address] Sustainability Coordinator: Benny Dodge III, M.D. Procedures Date Code Description Status 02/09/2018 26137 ECHO Transthorasic Realtime 2D W Doppler & Color Flow Hosp Completed 01/07/2018 54659 Inject/Drain Joint/Bursa Major W/O US Completed 12/10/2017 08081 EKG, Interpretation Only Completed 12/09/2017 01215 TKR Total Knee Replacement Completed 12/09/2017 47723 TKR Total Knee Replacement Completed 12/03/2017 66965 EKG Tracing & Interpretation Completed 11/20/2017 17827 ECHO Transthoracic, Real-Time 2D With Doppler And Color Completed Flow 11/20/2017 45090 ECHO Transthoracic, Real-Time 2D With Doppler And Color Completed Flow 11/20/2017 48652 Holter Monitor Review (24 hr)dr review & interp only Completed 11/20/2017 53792 Holter Monitor Review (24 hr)dr review & interp only Completed 11/17/2017 52824 ECG Monitor/Recording W/Visual Superimposition Scanning Completed 11/12/2017 85103 Inject/Drain Joint/Bursa Major W/O US Completed 10/17/2017 99948 EKG Tracing & Interpretation Completed 09/12/2017 44201 Inject/Drain Joint/Bursa Major W/O US Completed 07/07/2017 89660 Left Heart Cath. Incl S/I Coronaries, Angio S/I V Gram If Completed Done 06/27/2017 45603 Stress Test Completed 06/27/2017 24185 Myocardial Perfusion Imaging Tomographic (Spect) Multiple Completed Studies 06/25/2017 02508 ECHO Transthorasic Realtime 2D W Doppler & Color Flow Hosp Completed 06/23/2017 81835 Holter Monitor Review (24 hr)dr review & interp only Completed 06/20/2017 08048 ECG Monitor/Recording W/Visual Superimposition Scanning Completed 06/20/2017 28792 ECG Monitor/Recording W/Visual Superimposition Scanning Completed 06/20/2017 70003 EKG Tracing & Interpretation Completed 04/01/2014 68552 Nerve Conduction 03-04 Studies Completed 04/01/2014 15146 Needle Electromyography Each Extremity W/Related Completed Paraspinal Areas 03/19/2013 95561 Inject Tendon Sheath Or Ligament Aponeurosis Eg Plantar Completed Fascia 03/02/2010 41760 Inject/Drain Joint/Bursa Major W/O US Completed 02/16/2010 21248 Rad Exam; Hip Unilat Completed 02/16/2010 13740 Rad Exam; Pelvis Completed 09/10/2007 18433 Endoscopy Wrist Surg W/Release Of Transverse Carpal Completed Ligament Encounters Type Date Location Provider Dx Diagnosis Office Visit 07/15/2018 Neurosurgery Vassilios M48.062 Spinal stenosis, 10:00a Services Of Zoey Judd MD lumbar region with neurogenic claudication Office Visit 06/29/2018 Orthopedic Services Hanna Wolfe, M25.552 Pain in left hip 8:45a Of Dean Walker M16.12 Unilateral primary osteoarthritis, left hip M48.062 [...] with neurogenic claudication Office Visit 05/12/2018 11:30a [facility] Deandre Chua L97.519 Non- prs Infectious Aaron Salas chronic ulcer Diseases oth prt right foot w unsp severity R43.2 [facility] Office Visit 04/23/2018 [facility] Deandre Chua M86.171 Other acute 2:20p For Infectious Aaron Salas osteomyelitis, Diseases right ankle and foot 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 E11.69 Type 2 diabetes mellitus with other specified complication Office Visit 04/22/2018 9:00a [facility] Deshawn Nichols L97.519 Non-prs AT [facility] MD Katharina chronic ulcer oth prt right foot w unsp severity Office Visit 04/13/2018 3:30p Orthopedic Hanna Wolfe, M25.552 Pain in left Services Of Aaron hip Dean M16.12 Unilateral primary osteoarthritis, left hip Z47.1 Aftercare following joint replacement surgery Z96.651 Presence of right artificial knee joint Office Visit 04/08/2018 Wound Care Deshawn Nichols M86.171 Other acute 9:30a Center DIANE Posadas MD osteomyelitis, right [facility] ankle and foot L97.519 Non-prs chronic ulcer oth prt right foot w unsp severity Office Visit 04/03/2018 Kesha Chua I42.9 Cardiomyopathy, 10:30a Cardiology Of Aaron Gonzalez unspecified [facility] I49.3 Ventricular premature depolarization Office Visit 04/02/2018 10:00a Orthopedic Thien Figueroa 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 M25.612 Stiffness of left shoulder, not elsewhere classified Office Visit 03/18/2018 [facility] Deandre Chua M86.171 Other acute 11:30a For Infectious Macantonellaen, M.D. 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 osteomyelitis, Diseases right ankle and foot E11.69 [...] Dean Rodrigues MD shoulder Office Visit 12/13/2017 [facility] Yolanda I49.3 Ventricular 11:17a hafsa Jane DO premature Hospitalists depolarization E11.9 Type 2 diabetes mellitus without complications G47.33 Obstructive sleep apnea (adult) (pediatric) Z96.651 Presence of right artificial knee joint Office Visit 12/12/2017 [facility] Yolanda I49.3 Ventricular 11:16a Assoc,pc Senner, DO premature Hospitalists depolarization E11.9 Type 2 diabetes mellitus without complications G47.33 Obstructive sleep apnea (adult) (pediatric) Z96.651 Presence of right artificial knee joint Office Visit 12/11/2017 [facility] I49.3 Ventricular 11:57a Cardiology Aaron Shah premature depolarization R94.31 Abnormal electrocardiogram [ECG] [EKG] I42.9 Cardiomyopathy, unspecified I10 Essential (primary) hypertension Office Visit 12/11/2017 [facility] I49.3 Ventricular 11:15a Assoc,hafsa Moses, DO premature Hospitalists depolarization E11.9 Type 2 diabetes mellitus without complications G47.33 Obstructive sleep apnea (adult) (pediatric) Z96.651 Presence of right artificial knee joint Office Visit 12/10/2017 [facility] I49.3 Ventricular 11:14a Assoc,hafsa Moses, DO premature Hospitalists depolarization E11.9 Type 2 diabetes mellitus without complications G47.33 Obstructive sleep apnea (adult) (pediatric) Z96.651 Presence of right artificial knee joint Office Visit 12/09/2017 [facility] I49.3 Ventricular 11:13a Assoc,EDDA Stephens premature Hospitalists depolarization E11.9 Type 2 diabetes mellitus without complications G47.33 Obstructive sleep apnea (adult) (pediatric) Z96.651 Presence of right artificial knee joint Office Visit 12/03/2017 Kesha Chua I42.9 Cardiomyopathy, 8:15a Cardiology Of Aaron Gonzalez unspecified Abrasive Mixer Helper I49.3 Ventricular premature depolarization Z01.810 Encounter for preprocedural cardiovascular examination I51.9 Heart disease, unspecified M17.11 Unilateral primary osteoarthritis, right knee Office Visit 10/17/2017 9:00a Kesha Chua I49.3 Ventricular Cardiology Of Aaron Gonzalez premature Abrasive Mixer Helper depolarization I42.9 Cardiomyopathy, unspecified Office Visit 09/29/2017 8:30a Pulmonology And Carole G47.33 Obstructive sleep Sleep Services Of MD Giovana apnea (adult) Abrasive Mixer Helper (pediatric) E66.09 Other obesity due to excess calories Z68.41 Body mass index (BMI) 40.0-44.9, adult Office Visit 07/15/2017 1:30p Kesha Chua I49.3 Ventricular Cardiology Of Aaron Gonzalez premature Abrasive Mixer Helper AT [facility] depolarization I42.9 Cardiomyopathy, unspecified I47.2 Ventricular tachycardia Office Visit 07/01/2017 2:30p Zap[facility] Chua I49.3 Ventricular Cardiology Of Aaron Gonzalez premature Abrasive Mixer Helper AT [facility] depolarization I42.9 Cardiomyopathy, unspecified I47.2 Ventricular tachycardia Office Visit 06/30/2017 1:30p [facility] Makenzie Francois, I49.3 Ventricular PA premature depolarization I10 Essential (primary) hypertension I42.9 Cardiomyopathy, unspecified R94.31 Abnormal electrocardiogram [ECG] [EKG] Office Visit 06/20/2017 1:00p [facility] Mejia Chua I10 Essential (primary) Of [...] 724.02 Spinal Stenosis , 2:00p Services Of Abrasive Mixer Helper M.D. Lumbar Region, W/O Neurogenic Claudication 274.9 Gout Unspec 357.2 Polyneuropathy In Diabetes 359.9 Myopathy Unspec Office Visit 04/27/2014 Rheumatology Brandin Boggs, 724.02 Spinal Stenosis , 10:20a Services Of Abrasive Mixer Helper M.D. Lumbar Region, W/O Neurogenic Claudication 274.9 Gout Unspec 359.9 Myopathy Unspec 356.8 Neuropathy Other Spec Idiopathic Peripheral Office Visit 02/02/2014 Rheumatology Brandin Boggs, 724.02 Spinal Stenosis , 1:20p Services Of Abrasive Mixer Helper M.D. Lumbar Region, W/O Neurogenic Claudication 274.9 Gout Unspec 790.6 Abnormal Blood Chemistry Other 359.9 Myopathy Unspec Office Visit 11/10/2013 Rheumatology Brandin Boggs 724.02 Spinal Stenosis , 10:40a Services Of Abrasive Mixer Helper M.D. Lumbar Region, W/O Neurogenic Claudication 274.9 Gout Unspec 790.6 Abnormal Blood Chemistry Other Office Visit 07/21/2013 10:20a Rheumatology Brandin Boggs 721.3 Spondylosis Services Of Zoey Walker Lumbar W/O Myelopathy 274.9 Gout Unspec 359.9 Myopathy Unspec 795.79 Immunological Findings Nonspec Other & Unspec 727.3 Bursitis Other Office Visit 04/28/2013 10:00a Rheumatology Brandin Boggs 721.3 Spondylosis Services Of Zoey Walker Lumbar W/O Myelopathy 274.9 Gout Unspec 795.79 Immunological Findings Nonspec Other & Unspec 359.9 Myopathy Unspec Office Visit 03/19/2013 Orthopedic Dorene 727.03 Trigger Finger 8:15a Services Of Aaron Waggoner Acquired C.M.A. Office Visit 02/04/2013 Rheumatology Brandin Boggs 721.3 Spondylosis 1:40p Services Of Zoey Walker [...] Nikunj Proctor, 716.96 Arthropathy Unspec Services Of Aaron Lower Leg C.M.AHali Office Visit 03/19/2010 3:45p Orthopedic Nikunj Proctor, [...] Tyler Sosa 354.0 [facility] Pollabhijeet, Syndrome M.D. Office Visit 07/13/2007 1:30p Neurosurgery Tyler Sosa 354.0 [facility] Pollack, Syndrome M.D. Plan of Treatment Future Appointment(s):09/10/2018 10:00 am - Melanie Marie DNP, RN, FOOD SERVICE TECHNICIAN-BC at [facility]09/02/2018 8:15 am - Mejia Gonzalez M.D. at [facility]09/17/2018 10:30 am - Concepcion Gresham PA-C at [facility]09/17/2018 10:30 am - Salvador Judd MD at [facility]09/09/2018 9:00 am - Salvador Judd MD at [facility]09/10/2018 8:00 am - Thien Rodrigues MD at [facility]08/18/2018 - Deandre Salas M.D.Z01.818 Encounter for other preprocedural examinationComments:Dear Dr Alarcon, Mr Eagle has no signs or symptoms of ongoing foot infection so I believe he is at average risk of post operative infection compared to others with his comorbidities including diabetes with neuropathy and obesity. His last foot infection was secondary a wound forming on his toe after a previous knee surgery , perhaps due to edema and neuropathy. In the post operative state I recommend attention to volume status and protection of his feet given underlying neuropathy and propensity to form wounds. He should have usual pre operative antibiotics in the form of ancef. Please let me know if you have any further questions.
[2018-09-17] MEDS ORDERED: Propofol* 10 MG/ML 20 ML BTL ONE (09:54)
[2018-09-17] MEDS ORDERED: Lidocaine 2% PF * 5 ML VIAL ONE (09:55)
[2018-09-17] MEDS ORDERED: Midazolam* 1 MG/ML 2 ML VIAL (2 MG) ONE (09:56)
[2018-09-17] MEDS ORDERED: fentaNYL* 50 MCG/ML 2 ML VIAL (100 MCG VIAL) ONE (09:57)
[2018-09-17] MEDS ORDERED: Rocuronium* 10 MG/ML VIAL ONE ×2 (09:58→15:18)
[2018-09-17] MEDS ORDERED: Buffered Lidocaine 1% SYRIN* 1 ML/SYRINGE INTRADERM ONE (10:05)
[2018-09-17] MEDS ORDERED: ceFAZolin 2 GM PREMIX in ORs 2 GM/50 ML BAG IVPB ONE (10:05)
[2018-09-17] MEDS ORDERED: Thrombin 5,000 UNITS* 1 APPLIC KIT - topical use - TOPICAL ONE (10:40)
[2018-09-17] MEDS ORDERED: Lidocaine 1% MPF wEPI 200,000* 30 ML SDV ONE (10:40)
[2018-09-17] MEDS ORDERED: Bacitracin IV* 50,000 UNITS INJ ONE (10:41)
[2018-09-17] MEDS ORDERED: ceFAZolin 1 GM ADVAN(*) 1 GM ADDV.VIAL IVPB ONE (10:54)
[2018-09-17] MEDS ORDERED: Etomidate* 2 MG/ML 10 ML VIAL ONE (11:01)
[2018-09-17] MEDS ORDERED: Succinylcholine* 20 MG/ML 10 ML VIAL ONE (11:01)
[2018-09-17] MEDS ORDERED: Phenylephrine INJ* 10 MG/ML 1 ML VIAL (10 MG) ONE (12:07)
[2018-09-17] MEDS ORDERED: Naloxone* 0.4 MG/ML 1 ML VIAL IV PRN (12:17)
[2018-09-17] MEDS ORDERED: diPHENhydraMINE IV* 50 MG/ML 1 ml VIAL (BENADRYL) IV PRN (12:17)
[2018-09-17] MEDS ORDERED: HYDROmorphone INJ1* 1 MG/ML SYRINGE IV PRN (12:17)
[2018-09-17] MEDS ORDERED: Acetaminophen TAB* 325 MG PO PRN (12:17)
[2018-09-17] MEDS ORDERED: ceFAZolin 1 GM VIAL(*) ONE (15:29)
[2018-09-17] MEDS ORDERED: Ondansetron INJ* 2 MG/ML VIAL ONE (15:56)
[2018-09-17] MEDS ORDERED: Metoclopramide IV* 5 MG/ML 2 ML VIAL ONE (15:56)
[2018-09-17] MEDS ORDERED: Ketorolac INJ* 30 MG/ML 1 ML VIAL ONE (15:56)
[2018-09-17] MEDS ORDERED: Neostigmine Methylsulfate* 1 MG/ML 10 ML VIAL (1 mg/ml) ONE (15:57)
[2018-09-17] MEDS ORDERED: Glycopyrrolate IV* 0.2 MG/ML 1 ML VIAL ONE (15:57)
[2018-09-17] MEDS ORDERED: HYDROmorphone INJ1* 1 MG/ML SYRINGE ONE (16:02)
[2018-09-17] MEDS ORDERED: Ondansetron INJ* 2 MG/ML VIAL IV PRN (16:33)
[2018-09-17] MEDS ORDERED: Magnesium Hydroxide LIQ* 30 ML UDC PO PRN (16:33)
[2018-09-17] MEDS ORDERED: Methylphenidate TAB* 10 MG PO PRN (16:41)
[2018-09-17] MEDS ORDERED: ALPRAZolam TAB* 0.5 MG PO PRN (16:41)
[2018-09-17] MEDS ORDERED: Lactated Ringers 1000 ML Bag* 1,000 ML IV SCH (17:00)
[2018-09-17] MEDS ORDERED: Allopurinol TAB* 300 MG PO SCH (18:00)
[2018-09-17] MEDS ORDERED: Losartan TAB* 25 MG PO SCH (18:00)
[2018-09-17] MEDS ORDERED: Atorvastatin* 10 MG TAB PO SCH (18:00)
[2018-09-17] MEDS ORDERED: Dextrose 50% Syringe 50 ML* 25 GM/50 ML SYRINGE IV PUSH PRN (18:07)
[2018-09-17] MEDS ORDERED: PYRIDOXINE HCL PO SCH (21:00)
[2018-09-17] MEDS ORDERED: Insulin LISPRO* 1 UNITS UNIT SUBCUT SCH (21:00)
[2018-09-17] MEDS ORDERED: Gabapentin CAP(*) 400 MG PO SCH (21:00)
[2018-09-17] MEDS ORDERED: MELATONIN PO SCH (21:00)
[2018-09-17] MEDS ORDERED: Melatonin 3 MG TAB PO SCH (21:30)
[2018-09-17] MEDS ORDERED: Pyridoxine TAB* 50 MG PO SCH (21:30)
[2018-09-17] MEDS: HYDROcodone/ACETAMIN 5-325 MG* 1 TAB PO PRN (21:36)
[2018-09-17] MEDS: Insulin LISPRO* 1 UNITS UNIT SUBCUT SCH (21:37)
--- NOTE | 2018-09-18 04:59 | OP ---
DATE OF OPERATION: 09/17/18 - ROOM #353 DATE OF : 46 SURGEON: Salvador Judd MD. TITLE CURATOR: EDDA Brooks. The case was done with the assistance of surgical PA because of the complexity of the case. ANESTHESIA: General. PRE-OP DIAGNOSIS: Degenerative disk disease and stenosis. POST-OP DIAGNOSIS: Degenerative disk disease and stenosis. OPERATIVE PROCEDURE: The patient underwent minimal invasive L2 to L5 decompressive laminectomies and multilevel foraminotomies from left side approach. SUMMARY: The patient is a very pleasant 68-year-old gentleman with multiple comorbidities, who has been having a significant back pain and neurogenic claudication. The patient had MRI findings consistent with multilevel stenosis more profound between L2 to L5. After failure of conservative modalities, he was offered the option of surgical intervention in the form of decompressive laminectomy between L2 to L5. After explaining expectations, limitations, and possible complications to the patient and his family including his and his two sons with complications including but not limited to bleeding, infection, risk of injury to adjacent structures, coma, paralysis, , need for additional procedures, anesthesia risks, stroke, blindness, cancer, instability , adjacent level disease,spondylolisthesis, spinal fluid leak, loss of bladder or bowel control, need for prolonged ICU stay, need for tracheostomy or gastrostomy, neuropathy, postoperative hematoma and cauda equina, anesthesia risks, the patient was agreeable to proceed with surgery. Informed consent was obtained. The patient understood that his condition may not improve, in fact may get worse after surgery and that he may need to have additional procedures in the future. He also understood that operative plan may be modified according to intraoperative findings and conditions and that the case may be abandoned or done in more than 1 stage. ESTIMATED BLOOD LOSS: 50 cc. COMPLICATIONS: None. DESCRIPTION OF PROCEDURE: The patient was brought to the operating room, placed under general anesthesia by the anesthesia team. He was carefully positioned prone on Tyrone frame on a Gabe table and all bony prominences were meticulously padded. His skin was prepped and draped in the standard fashion. After appropriate surgical pause and patient identification, a left paramedian incision was marked on the skin with the assistance of intraoperative fluoroscopic imaging over the lamina of L4, L3, and L2 to obtain access to the level of L2-3, L3-4, and L4-5. The skin incision was infiltrated with a local anesthetic and the skin was incised with #10 surgical blade. The incision was carried down to the dorsal fascia with use of Bovie cautery and dorsal fascia was gently divided with Bovie cautery. Over a series of dilators , the METRx tubular retractor was introduced in the field and was secured at the L4-5 level over the left bettye-lamina of L4 exposing the L4-5 facet. The operative microscope was brought in the field and the base of the spinous process, the lamina, and medial facet was exposed with Bovie cautery. High- speed drill and Kerrison punches were used to complete the laminectomy of L4 extending towards the left side. Significant amount of stenosis was encountered and attention was paid to adequately compress the thecal sac and preserve the dura. The ligamentum flavum was gently removed with the use of Kerrison punches, and foraminotomies were performed at that level. The tubular retractor was then gently directed to more cephalad to expose the left lamina of L3 and the L3-4 junction. The procedure was repeated and again significant amount of scar tissue was encountered as well as hypertrophy of ligamentum flavum and overgrowth of the facets contributing to significant stenosis as excepted from the preoperative MRI. The tubular retractor was then repositioned for the L2-3 level and almost complete laminectomy of L2 was performed, again with high-speed drill and Kerrison punches. The ligamentum flavum was again gently removed and multilevel frenotomies were performed. Again, significant stenosis at L2-3 level was encountered. After the completion of the procedure, the thecal sac was found to be free of any pressure phenomenon. After meticulous hemostasis, copious irrigation, and meticulous inspection, the tubular retractor was gently removed and a Aiden drain was tunneled through a separate stab wound incision into the epidural space. The dorsal fascia was approximated with 0 interrupted Vicryl sutures while the subcutaneous tissue was approximated with inverted interrupted 2-0 Vicryl sutures. The skin was then covered with Dermabond and sterile sponges, while the drain was secured in place with a 2-0 suture. At the end of the procedure, all counts were reported to be correct and the patient remained hemodynamically stable throughout the case. At the end of the procedure, the patient was turned supine, was extubated and was transferred to recovery in excellent condition. The case was done with the assistance of surgical PA because of the complexity of the case. [id number]/[facility] #: [id number] JOSIE
--- NOTE | 2018-09-18 07:50 | PN ---
Progress Note - Progress Note Date of Service: 09/18/18 SOAP: Subjective: [S/p decompressive lumbar laminectomy L2-3, L3-4, L4-5, POD #1 Patient feeling well this morning. Ambulating well with walker, several times around nursing unit. Worked with PT today. Reports mild low back incisional pain, controlled with PO medication. Denies fever, chills, headache, nausea Eating and drinking well. ] Objective: [ Vital Signs: Temp Pulse Resp BP Pulse Ox 97.5 F 72 16 123/55 99 09/18/18 03:07 09/18/18 04:35 09/18/18 03:07 09/18/18 03:07 09/18/18 04:05 General: Alert and recumbent in bed, NAD Neuro: Motor and sensory intact Incision: Incision intact and without swelling, erythema. Drain dc today. Wound drain output 09/17/18 09/17/18 09/18/18 21:44 22:00 03:10 Output, WILLI #1 50 5 25 09/18/18 05:52 Output, WILLI #1 15 ] Assessment: [Satisfactory post-op course] Plan: [1. Remove logan catheter 2. PT evaluation today 4. Encourage up out of bed and ambulation 5. Dc today]
[2018-09-18 08:13] VITALS: BP 134/59
[2018-09-18] MEDS: Insulin LISPRO* 1 UNITS UNIT SUBCUT SCH ×2 (08:29→13:46)
[2018-09-18] MEDS ORDERED: Metoprolol Succinate XL TAB* 25 MG PO SCH (09:00)
[2018-09-18] MEDS ORDERED: Hydrochlorothiazide TAB* 25 MG PO SCH (09:00)
[2018-09-18] MEDS ORDERED: amLODIPine TAB* 5 MG PO SCH (09:00)
[2018-09-18] MEDS ORDERED: Benzocaine/Menthol LOZ* 1 LOZENGE MT PRN (10:40)
[2018-09-18] MEDS: HYDROcodone/ACETAMIN 5-325 MG* 1 TAB PO PRN (15:54)
--- NOTE | 2018-09-18 19:05 | CONS ---
CC: Dr. Guadarrama * MEDICAL CONSULTATION: DATE OF CONSULT: 09/17/18 HISTORY OF PRESENT ILLNESS: This 68-year-old man presents for elective surgery of L2-L5 decompression and laminectomy. He has had progressive pain and weakness of his lower back for many months, who is evaluated by both Dr. Judd and Dr. Wolfe. He had EMG and other studies. The patient has been otherwise medically stable. He has diabetes mellitus for which he takes metformin. He is treated for hypertension. He has had right total knee arthroplasty. He has had osteomyelitis of the toe. ALLERGIES: MORPHINE, OXYCODONE. FAMILY HISTORY: Unremarkable. SOCIAL HISTORY: Lives with his . He has 3 children. He smoked only for a brief period as he was young adult. He does not abuse alcohol. REVIEW OF SYSTEMS: A 14-point review of systems revealed no significant abnormalities. PHYSICAL EXAM: The patient was examined in the PACU following surgery. His blood pressure was 138/57, heart rate 65, height 6 feet 1 inch, weight 324 pounds, BMI 42.7. He is a pleasant elderly man, lying supine on the PACU stretcher. He was alert and oriented. He appeared comfortable and in good spirits. HEENT: There are no signs of head trauma. Head was normocephalic. Pupils equal and reactive. Extraocular muscles intact. Neck was supple. No JVD , adenopathy or thyromegaly. Heart and lungs were clear anteriorly. Abdomen was obese. No organomegaly, masses or tenderness. Bowel sounds were normal. There was no pedal edema. SCDs were in place. Skin was warm and dry and intact. IMPRESSION AND PLAN: The patient is medically stable. We will hold his metformin during his hospital stay, he can resume that on discharge. He will continue his hydrochlorothiazide, losartan, atorvastatin, allopurinol, and metoprolol. He will have blood glucose monitoring with coverage by lispro sliding scale. Thank you for allowing me to see your patient in consultation. [id number]/[facility] #: [id number] JOSIE
--- NOTE | 2018-09-23 21:46 | DS ---
DISCHARGE SUMMARY: DATE OF ADMISSION: 09/17/18 DATE OF DISCHARGE: 09/18/18 ADMISSION DIAGNOSES: Degenerative disk disease and stenosis. POSTOPERATIVE DIAGNOSES: Degenerative disk disease and stenosis. OPERATIVE PROCEDURE: The patient underwent manual invasive L2 to L5 decompressive laminectomies and multilevel foraminotomies. DISPOSITION: Home. CONDITION ON DISCHARGE: Good. SUMMARY: The patient is a very pleasant 68-year-old gentleman with multiple comorbidities with complaints of back pain and neurogenic claudication. The patient had MRI findings consistent with multilevel stenosis more profound between L2 to L5. After failure of conservative treatment modalities, he was offered the option of surgical intervention in the form of decompressive laminectomies between L2 to L5. The patient underwent the above procedure, tolerated the procedure well, and was able to be transferred to the floor. On the postoperative day 1, he was doing very well. He was able to ambulate, tolerating p.o. well. He was able to void and his pain was significantly improved. His preoperative pain has significantly improved. He was felt to be able to be discharged home. Full discharge instructions were given prior to his discharge. [id number]/[facility] #: [id number] [facility]ERSriram
== END 2018-09-18 17:25 | disposition home health service (06) | DRG 517 ==
LOC: AA 09:10 → SSU 18:34
PROVIDERS: ADMIT Neurological Surgery; ATTEND Neurological Surgery
PROC: 01NB0ZZ Release Lumbar Nerve, Open Approach (ICD-10-PCS; principal; 2018-09-17 10:30)
DX: M48.062 Spinal stenosis, lumbar region with neurogenic claudication (principal); E11.9 Type 2 diabetes mellitus without complications; M51.36 Other intervertebral disc degeneration, lumbar region; I10 Essential (primary) hypertension; Z96.651 Presence of right artificial knee joint; Z79.84 Long term (current) use of oral hypoglycemic drugs; Z79.82 Long term (current) use of aspirin; Z79.899 Other long term (current) drug therapy; Z88.5 Allergy status to narcotic agent; Z87.891 Personal history of nicotine dependence
CPT/HCPCS: 76000; A9270-GY; G8978-GP-CI; G8979-GP-CI; G8980-GP-CI; J0330; J0690; J1170; J1885; J2001; J2250; J2405; J2704; J2710; J2765; J3010

== ENCOUNTER 2019-08-03 07:44 | Emergency (ER) | payer MEDICARE ==
[2019-08-03 07:55] VITALS: BP 137/78
--- NOTE | 2019-08-03 08:28 | UC ---
Respiratory Complaint HPI - HPI Summary HPI Summary: 2 DAYS OF COUGH AND CONGESTION. SPUTUM IS CLEAR. NO FEVER, SORE THROAT, EAR PAIN, NAUSEA/VOMITING. IS TRAVELING IN A WEEK AND IS CONCERNED ABOUT INFECTION. IS HAVING DIFFICULTY SLEEPING DUE TO THE COUGH. - History of Current Complaint Chief Complaint: UCRespiratory Stated Complaint: COUGH Time Seen by Provider: 08/03/19 08:26 Hx Obtained From: Patient Onset/Duration: Gradual Onset, Lasting Days, Still Present Timing: Constant Severity Initially: Mild Severity Currently: Mild Pain Intensity: 0 Pain Scale Used: 0-10 Numeric Character: Cough: Productive Aggravating Factors: Nothing Alleviating Factors: Nothing Associated Signs And Symptoms: Positive: URI, Nasal Congestion. Negative: Dyspnea, Fever, Chills, Wheezing - Allergies/Home Medications Allergies/Adverse Reactions: Allergies Allergy/AdvReac Type Severity Reaction Status Date / Time morphine Allergy Severe lethargy, Verified 08/03/19 07:48 confusion, acute kidney failure oxycodone Allergy Severe lethargy, Verified 08/03/19 07:48 confusion, acute kidney failure PMH/Surg Hx/FS Hx/Imm Hx - Additional Past Medical History Additional PMH: ADD Endocrine History: Diabetes Cardiovascular History: Hypertension - Surgical History Surgical History: Yes Surgery Procedure, Year, and Place: kidney stones - lithotripsy; kidney stone procedure ; left ankle fracture repair. Cardiac ablasion 09/2017; 2017 - right knee replacement; LUMBAR DECOMPRESSION LAMINECTOMY 09/2018 - Family History Known Family History: Positive: Hypertension Negative: Cardiac Disease, Diabetes - Social History Alcohol Use: Daily Alcohol Amount: 4 times a day Substance Use Type: None Smoking Status (MU): Former Smoker Type: Cigarettes Amount Used/How Often: smoked for 3 years 1 ppd Length of Time of Smoking/Using Tobacco: 3 yrs Have You Smoked in the Last Year: No When Did the Patient Quit Smoking/Using Tobacco: 1970 - Immunization History Most Recent Influenza Vaccination: 05/2017 Most Recent Pneumonia Vaccination: up to date Review of Systems All Other Systems Reviewed And Are Negative: Yes Constitutional: Positive: Negative ENT: Positive: Nasal Discharge Respiratory: Positive: Cough Cardiovascular: Positive: Negative Gastrointestinal: Positive: Negative Physical Exam Triage Information Reviewed: Yes Appearance: Well-Appearing, No Pain Distress, Well-Nourished Vital Signs: Initial Vital Signs Temp 97.7 F 08/03/19 07:51 Pulse 58 08/03/19 07:51 Resp 18 08/03/19 07:51 BP 137/78 08/03/19 07:51 Pulse Ox 99 08/03/19 07:51 Vital Signs Reviewed: Yes Eyes: Positive: Conjunctiva Clear ENT: Positive: Hearing grossly normal, Pharynx normal, TMs normal Neck: Positive: Supple, Nontender, No Lymphadenopathy Respiratory Exam: Normal Cardiovascular Exam: Normal Abdomen Description: Positive: Soft Musculoskeletal: Positive: No Edema Neurological: Positive: Alert Psychological: Positive: Age Appropriate Behavior Skin: Negative: Rashes Respiratory Course/Dx - Course Course Of Treatment: NO INDICATION FOR ANTIBIOTICS AT PRESENT. SYMPTOMS ARE LIKELY VIRALLY MEDIATED. WILL GIVE COUGH MEDICINE PATIENT REPORTS DIFFICULTY SLEEPING DUE TO THE COUGH. GIVEN HIS UPCOMING TRAVEL PATIENT WILL CALL ME ON FRIDAY IF HE IS CONCERNED ABOUT THE PROGRESSION OF HIS SYMPTOMS. - Differential Dx/Diagnosis Provider Diagnosis: Upper respiratory infection Discharge ED - Sign-Out/Discharge Documenting (check all that apply): Patient Departure All imaging exams completed and their final reports reviewed: No Studies - Discharge Plan Condition: Stable Disposition: HOME Prescriptions: Codeine Phosphate/Guaifenesin [Codeine-Guaifen 10-100 mg/5 ml] 5 - 10 ml PO Q6H PRN #150 ml MDD 40ML PRN Reason: Cough Patient Education Materials: Upper Respiratory Infection (ED) Referrals: Layne Guadarrama MD [Primary Care Provider] - If Needed Additional Instructions: YOUR SYMPTOMS ARE LIKELY VIRALLY MEDIATED AND SHOULD RESOLVE ON THEIR OWN WITH TIME. NO INDICATION FOR ANTIBIOTICS AT PRESENT. REST, HYDRATE, OTC MEDS NEEDED. WILL TREAT WITH COUGH MEDICINE WHICH SHOULD HELP YOU SLEEP THROUGH THE NIGHT. SEEK FOLLOW-UP IF YOU ARE NOT IMPROVING OVER THE NEXT 1-2 WEEKS. DO NOT TAKE YOUR XANAX OR ANY OTHER SEDATING MEDICATIONS AT THE SAME TIME YOUR COUGH MEDICATION. IF YOU HAVE ANY QUESTIONS ABOUT THE PROGRESSION OF YOUR SYMPTOMS YOU MAY CALL ME HERE THIS FRIDAY MORNING. - Billing Disposition and Condition Condition: STABLE Disposition: Home
== END 2019-08-03 09:00 | disposition home or self-care (01) ==
LOC: UCEAST 07:44
DX: J06.9 Acute upper respiratory infection, unspecified (principal); E11.9 Type 2 diabetes mellitus without complications; I10 Essential (primary) hypertension; Z88.5 Allergy status to narcotic agent; Z87.891 Personal history of nicotine dependence
CPT/HCPCS: 99212; G0463